=== PATIENT | female | born 1965 | race Caucasian/White ===

== ENCOUNTER 2022-10-02 08:33 | Emergency (ER) | payer OTHER, SELFPAY ==
[2022-10-02 08:40] VITALS: BP 137/76; PULSE 89; RESP 20; TEMP 36.7; O2SAT 98
--- NOTE | 2022-10-02 08:44 | ECG_ITS ---
Measurements Intervals [place] Rate: 76 P: 79 [place]: 140 QRS: 50 QRSD: 88 T: 71 QT: 357 QTc: 403 Interpretive Statements SINUS RHYTHM NORMAL ECG NO PREVIOUS ECG AVAILABLE FOR COMPARISON Electronically Signed On 10-02-2022 11:34:06 CAGE LOADER by To Wolff D.O.
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
== END 2022-10-02 09:16 | disposition short-term general hospital (02) ==
PROVIDERS: Emergency Provider Nurse Practitioner Family; PCP Family Medicine
DX: R06.00 Dyspnea, unspecified (principal)
CPT/HCPCS: 93005; 99214; G0463

== ENCOUNTER 2025-07-03 07:14 | Emergency (ER) | payer OTHER, SELFPAY ==
[2025-07-03] VITALS (16 sets, daily range): BP systolic 121–145; BP diastolic 67–93; PULSE 70–95; RESP 10–19; TEMP 36.6; O2SAT 100
--- NOTE | ~2025-07-03 | CT_ITS ---
EXAMINATION: CT abdomen pelvis w con DATE: 07/03/2025 08:56 INDICATION: Left lower quadrant abdominal pain TECHNIQUE: Computed tomography (CT) of the abdomen and pelvis was performed with 100 mL Omnipaque-350 intravenous contrast. Automated exposure control and iterative reconstruction technique were employed. The dose-length product was 186.77 mGy-cm. COMPARISON: None FINDINGS: Lung bases are clear. Heart size is normal. No pericardial or pleural effusion. Liver, gallbladder, spleen, pancreas, left adrenal gland and bilateral kidneys are normal. 11 mm right adrenal nodule statistically most likely to represent an adenoma. Bowels including the appendix are normal. Bladder, anteverted uterus and right adnexa are unremarkable. 2 cm left adnexal cyst/follicle. No free intraperitoneal gas or fluid. No pathologically enlarged abdominal or pelvic lymphadenopathy. There is calcified atherosclerosis of the aorta and many of the other arteries. Chronic mild L1 compression fracture with 20% anterior vertebral body height loss. IMPRESSION: 1. No acute intra-abdominal/pelvic process. Reviewed, dictated and finalized at location A. SMITTER SUPERVISOR
--- NOTE | 2025-07-03 07:31 | ECG_ITS ---
Test Date: 2025-07-03 08:29:10 Measurements Intervals [place] Rate: 71 P: 61 DC: 131 QRS: 18 QRSD: 80 T: 41 QT: 395 QTc: 429 Interpretive Statements SINUS RHYTHM EARLY PRECORDIAL R/S TRANSITION BORDERLINE ECG No previous ECG available for comparison Electronically Signed On 07-03-2025 08:38:56 STRINGING MACHINE OPERATOR by To Wolff D.O.
--- NOTE | 2025-07-03 08:08 | PC.NURSE ---
PT DIFFICULT STICK X2 ATTEMPTS. DARRELL IV THERAPY AT BEDSIDE TO ATTEMPT IV PLACEMENT.
[2025-07-03] MEDS: SODIUM CHLORIDE 0.9% IV 1,000 ML 150 ML IV CONT (08:21)
[2025-07-03] MEDS: ONDANSETRON INJ 4 MG/2 ML VIAL IV PUSH (08:22)
[2025-07-03] MEDS: MORPHINE SULFATE (*CRX) 4 MG/ML INJ IV PUSH (08:22)
[2025-07-03 08:24] LABS: Hematocrit 40.0 % (37.0-47.0); Hemoglobin 14.6 g/dL (12.0-15.0); Immature Granulocyte Percent A 0.3 % (0-0.5); Lymphocytes Absolute Auto 1.76 K/mm3 (0.9-3.2); Mean Corpuscular HGB Conc 36.5 g/dl (32-36); Mean Corpuscular Hemoglobin 32.4 pg (26-34); Mean Corpuscular Volume 88.9 fl (80-100); Nucleated Red Blood Cells Absolute Auto 0.000 K/mm3 (0.0-0.012); Nucleated Red Blood Cells Perc 0.0 % (0.0-0.2); Platelet Count Result 215 k/mm3 (150-375); Red Blood Count 4.50 M/mm3 (4.2-5.4); White Blood Count 6.5 K/mm3 (4.5-10.0)
[2025-07-03 08:35] LABS: Alanine Aminotransferase 19 U/L (6-35); Albumin Level 5.1 g/dL (3.5-5.1); Alkaline Phosphatase 74 U/L (38-126); Anion Gap 13 mmol/L (4-12); Aspartate Amino Transferase 33 U/L (14-36); Bilirubin,Total 0.8 mg/dL (0.2-1.3); Blood Urea Nitrogen 11 mg/dL (7-17); Calcium 9.7 mg/dL (8.4-10.2); Carbon Dioxide 17 mmol/L (22-30); Chloride 107 mmol/L (98-107); Estimated CRCL calculation 71 ml/min; Estimated Glomerular Filt Rate > 60; Glucose 78 mg/dL (65-110); Lipase 139 U/L (23-300); Potassium 4.1 mmol/L (3.4-5.0); Sodium 137 mmol/L (137-145); Total Protein 9.2 g/dL (6.3-8.2)
[2025-07-03 08:40] LABS: INR 1.1; Prothrombin Time 14.6 Seconds (11.1-14.7)
[2025-07-03 08:46] LABS: Troponin I < 0.012 ng/mL (0.000-0.034)
[2025-07-03 09:22] LABS: Add Urine Microscopic? YES; Appearance Urine Clear (Clear); Glucose Urine UA Negative (Negative); Leukocyte Esterase Ur Trace LEU/UL (Negative); Nitrate Urine Negative (Negative); Non Pathogenic Casts 0-2; Specific Grav Ur 1.040 (1.001-1.035)
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
[2025-07-03] MEDS: KETOROLAC 15 MG/ML VIAL (*BKC) IV PUSH (10:20)
== END 2025-07-03 10:23 | disposition home or self-care (01) ==
PROVIDERS: Emergency Provider Family Medicine; PCP Family Medicine
DX: R10.32 Left lower quadrant pain (principal); K74.60 Unspecified cirrhosis of liver; B19.20 Unspecified viral hepatitis C without hepatic coma
CPT/HCPCS: 36415; 74177; 80053; 81001; 83605; 83690; 84484; 85025; 85610; 93005; 96361; 96374; 96375; 99284; J1885; J2270; J2405; J7030; Q9967

== ENCOUNTER 2025-07-05 02:17 | Inpatient (IN) | payer OTHER, SELFPAY ==
[2025-07-05] VITALS (11 sets, daily range): BP systolic 103–152; BP diastolic 65–77; PULSE 58–84; RESP 13–18; TEMP 36.3–36.9; O2SAT 99–100; BMI 21.9
--- NOTE | ~2025-07-05 | XR_ITS ---
Examination: XR chest 1V portable Clinical History: abdominal pain Comparison: None Technique: Portable AP Findings: Heart size normal. Lungs clear. No acute bony abnormality. IMPRESSION: 1. No acute cardiopulmonary findings given portable technique. Reviewed, dictated and finalized at location R. E EPIDEMIOLOGIST
--- NOTE | ~2025-07-05 | XR_ITS ---
EXAM/PROCEDURE: XR abdomen/kub 1V HISTORY: constipation COMPARISON: None available. TECHNIQUE: KUB FINDINGS: At least moderate amount of stool extends to the cecal region. Scattered loops of gas dilated bowel with no severely distended loops of small bowel or large amount of free air seen. Lung bases clear. Bones appear intact. IMPRESSION: Nonspecific bowel gas pattern with at least moderate amount of stool extending to the cecal region. Reviewed, dictated and finalized at location A. METRY MONITOR
--- NOTE | ~2025-07-05 | CT_ITS ---
CT abdomen pelvis w con INDICATION:Persistent nausea . COMPARISON: None. TECHNIQUE: Axial images of the abdomen and pelvis were obtained following infusion of 100 mL Isovue 300. Dose optimization technique was utilized. FINDINGS: The lung bases are clear. Fatty infiltration of the liver is noted. No intrahepatic mass or ductal dilatation is evident. The gallbladder is unremarkable. The pancreas and spleen are normal in appearance. The adrenal glands are symmetric in size. The kidneys demonstrate symmetric uptake and excretion of contrast. No cystic mass is evident. There is no solid mass. There is no hydronephrosis. The stomach and bowel loops are unremarkable. The appendix is not visualized however no secondary signs of appendicitis are identified. The bladder and rectum are normal. No free intraperitoneal fluid or air is evident. There is no significant retroperitoneal lymphadenopathy. The aorta, visceral vessels and renal arteries demonstrate normal caliber and patency. The lower thoracic and lumbar vertebrae are in normal alignment. IMPRESSION: No acute abnormality is noted in the abdomen and pelvis. All CT scans at this facility are performed using low dose modulation techniques as appropriate to perform exam including the following: automated exposure control; use of iterative reconstruction technique; adjustment of the mA and/or kV according to patient size (this includes techniques or standardized protocols for targeted exams where dose is matched to indication/reason for exam). Reviewed, dictated and finalized at location S. LRY TECHNICIAN IMPRESSION: No acute abnormality is noted in the abdomen and pelvis. All CT scans at this facility are performed using low dose modulation techniqu es as appropriate to perform exam including the following: automated exposure c ontrol; use of iterative reconstruction technique; adjustment of the mA and/or kV according to patient size (this includes techniques or standardized protocol s for targeted exams where dose is matched to indication/reason for exam).
--- NOTE | ~2025-07-05 | CT_ITS ---
CTA abdomen pelvis Clinical History: abdominal pain Technique: Helical images lung bases to pelvic outlet IV contrast information not listed in PACS Coronal, sagittal reformats. Multiplanar MIPS CT images acquired with automatic exposure control for dose reduction DLP: 224 mGy-cm Comparison: CT 2 days prior Findings: CTA Findings: Abdominal aorta: No aneurysm or dissection. Calcified and noncalcified atherosclerotic disease. Common iliac arteries: Patent. External iliac arteries: Patent. Hypogastric arteries: Patent. CFAs: Patent. Proximal visualized SFAs and profundas: Patent. Celiac: Mild ostial stenosis. SMA: Mild ostial stenosis. ANN: Stenosis. Renal arteries: Patent. Non-CTA findings: Lung bases: Clear. Visualized heart and pericardium: Unremarkable. Liver: Cirrhosis. Steatosis. Gallbladder: Unremarkable. Spleen: Unremarkable. Pancreas: Unremarkable. Adrenal glands: Unremarkable. Kidneys: Right kidney- No renal stones. No hydronephrosis. Left kidney- No renal stones. No hydronephrosis. Distal esophagus/stomach: Unremarkable. Small bowel loops: Normal caliber and wall thickness. Colon: A few diverticula. Apparent wall thickening distally but under distended. Normal RLQ appendix. Nodes: No enlarged nodes. Peritoneum: No ascites. No free air. Urinary bladder: Unremarkable. Uterus: Unremarkable. Adnexa: No masses. Bones: No acute bony abnormality. Soft tissues: Unremarkable. IMPRESSION: 1. No acute abnormality. Reviewed, dictated and finalized at location R. PRODUCTION WORKER IMPRESSION: 1. No acute abnormality.
--- NOTE | 2025-07-05 03:33 | PC.NURSE ---
Pt states she is unable to provide urine sample at this time.
[2025-07-05 04:00] LABS: Hematocrit 39.4 % (37.0-47.0); Hemoglobin 14.1 g/dL (12.0-15.0); Immature Granulocyte Percent A 0.2 % (0-0.5); Lymphocytes Absolute Auto 2.21 K/mm3 (0.9-3.2); Mean Corpuscular HGB Conc 35.8 g/dl (32-36); Mean Corpuscular Hemoglobin 32.5 pg (26-34); Mean Corpuscular Volume 90.8 fl (80-100); Nucleated Red Blood Cells Absolute Auto 0.000 K/mm3 (0.0-0.012); Nucleated Red Blood Cells Perc 0.0 % (0.0-0.2); Platelet Count Result 193 k/mm3 (150-375); Red Blood Count 4.34 M/mm3 (4.2-5.4); White Blood Count 5.5 K/mm3 (4.5-10.0)
[2025-07-05 04:15] LABS: Alanine Aminotransferase 20 U/L (6-35); Albumin Level 4.7 g/dL (3.5-5.1); Alkaline Phosphatase 63 U/L (38-126); Anion Gap 14 mmol/L (4-12); Aspartate Amino Transferase 37 U/L (14-36); Bilirubin,Total 0.6 mg/dL (0.2-1.3); Blood Urea Nitrogen 9 mg/dL (7-17); Calcium 9.5 mg/dL (8.4-10.2); Carbon Dioxide 14 mmol/L (22-30); Chloride 108 mmol/L (98-107); Estimated CRCL calculation 77 ml/min; Estimated Glomerular Filt Rate > 60; Glucose 65 mg/dL (65-110); Lipase 161 U/L (23-300); Potassium 3.7 mmol/L (3.4-5.0); Sodium 136 mmol/L (137-145); Total Protein 8.3 g/dL (6.3-8.2)
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
--- NOTE | 2025-07-05 04:57 | ECG_ITS ---
Test Date: 2025-07-05 05:13:03 Measurements Intervals [place] Rate: 66 P: 59 PA: 127 QRS: 36 QRSD: 87 T: 59 QT: 390 QTc: 411 Interpretive Statements SINUS RHYTHM EARLY PRECORDIAL R/S TRANSITION BASELINE ARTIFACT- I, II, III, AVR, AVL, V6 BORDERLINE ECG Compared to ECG 07/03/2025 08:29:10 No significant changes Electronically Signed On 07-05-2025 09:27:46 WHARF ATTENDANT by To Wolff D.O.
[2025-07-05] MEDS: PANTOPRAZOLE SODIUM IV 40 MG VIAL IV PUSH ×2 (05:24→09:58)
[2025-07-05] MEDS: SODIUM CHLORIDE 0.9% IV 1,000 ML 999 ML IV CONT (05:24)
[2025-07-05] MEDS: ONDANSETRON INJ 4 MG/2 ML VIAL IV PUSH ×4 (05:24→22:25)
[2025-07-05] MEDS: MORPHINE SULFATE (*CRX) 4 MG/ML INJ IV PUSH (05:25)
[2025-07-05 05:37] LABS: Fractional Inspired Oxygen 21 %; HCO3 VBG 13.4 mEq/l (24.0-30.0); PO2 VBG 66.2 mmHg (35.0-45.0); pH VBG 7.346 (7.300-7.400)
--- OUTSIDE RECORDS SUMMARY | 2025-07-05 05:37 | XMS_ITS | Encounter Summary ---
Author Organization [facility] Address [address] [place] [address] Phone Care Team Providers Care Stitching Department Supervisor Name Role Phone Kodak Bernard MD Primary Care Provider [phone] [phone] Reason for Referral * Radiology Services (Routine) - Closed Specialty Diagnoses / Procedures Referred By Kurt marie Referred To Contact Radiology Diagnoses Pre-op testing Procedures EKG 12 LEAD Alan Sauceda DO [address] [place] [address] Phone: tel: fax: Referral ID Status Reason Start Date Expiration Date Visits Re quested Visits Authorized [id number] Closed 11/12/2020 1 1 Encounter Details Date Type Department Care Team (Late st Contact Info) Description 11/12/2020 Transcribe Orders [facility] Preop/Pacu II [address] [place] [id number] Alan Sauceda DO [address] [place] [address] Pre-op testing (Primary Dx) Social History Tobacco Use Types Packs/Day Years Used Date Smoking Tobacco: Every Day Cigarettes Smokeless Tobacco: Never Alcohol Use Standard Drinks/Week Comments Yes 0 (1 standard drink = 0.6 oz pur e alcohol) ONCE OR TWICE A MONTH AUDIT-C Answer Date Recorded Q1: How often do you have a drink containing alc ohol? Monthly or less 08/16/2020 Average Number of Drinks Not on file 021 Frequency of Binge Drinking Not on file 07/30 Sexually Active Control Partners Comments Not Currently Comments No Sex and Gender Information Value Date Recorded Sex Assigned at Not on file Legal Sex Female 8:34 AM CDT Gender Identity Not on file Sexual Orientation Not on file COVID-19 Exposure Response Date Recorded In the last month, have you been in contact with someone who was confirmed or suspected to have Coronavirus / COVID-19? No / Unsure 11/12/2020 9:06 AM CDT documented as of this encounter Plan of Treatment Not on file documented as of this encounter Results * EKG 12 LEAD (11/16/2020 4:24 PM CDT) Ventricular Rate BPM EXTERNAL EKG Atrial Rate BPM EXTERNAL EKG P-R Interval 142 ms EXTERNAL EKG QRS Duration 76 ms EXTERNAL EKG Q-T Duration 374 ms EXTERNAL EKG QTC CALCULATION 404 ms EXTERNAL EKG P [place] 78 degrees EXTERNAL EKG R [place] 68 degrees EXTERNAL EKG T [place] 70 degrees EXTERNAL EKG 11/16/2020 4:24 PM CDT Impressions EXTERNAL EKG - 11/17/2020 10:00 AM CDT Sinus rhythm Comparison Summary: No serial comparison made Summary: Borderline ECG Confirmed by Yue Price [id number] on 11/17/2020 10:00:27 AM Narrative Procedure Note Mattie Turner MD - 11/17/2020 IMPRESSION: Sinus rhythm Comparison Summary: No serial comparison made Summary: Borderline ECG Confirmed by Yue Price [id number] on 11/17/2020 10:00:27 AM Alan Sauceda DO IMG ECG ORDERABLES Final Result EXTERNAL EKG * HEMOGLOBIN & HEMATOCRIT (H&H) (11/16/2020 4:09 PM CDT) HEMOGLOBIN (HGB) 15.1 12.0 - 15.8 g/dL 11/16/2020 4:50 PM CDT [facility] HEMATOCRIT (HCT) 43.3 36.0 - 47.0 % 11/16/2020 4:50 PM CDT [facility] Blood Venipuncture / Unknown 11/16/2020 4:09 PM CDT 11/16/2020 4:42 PM CDT us Alan Sauceda DO HEMATOLOGY ORDERABL ES Final Result [facility] [address] [place] [address] documented in this encounter Visit Diagnoses Diagnosis Pre-op testing- Primary Preoperative examination, unspecified Pre-op testing Preoperative examination, unspecified documented in this encounter Care Teams Stitching Department Supervisor Relationship Specialty Start Date End Date [place] [address] PCP - General Internal Medicine 08/16/20 documented as of this encounter
--- OUTSIDE RECORDS SUMMARY | 2025-07-05 05:37 | XMS_ITS | Encounter Summary ---
Author Organization [facility] Healthcare Address [address] [place] [address] Care Team Providers Care Inside Tester Name Role Phone Kodak Bernard MD Primary Care Provider [phone] [phone] [facility] SAMPLE TESTER Unavailable [phone] [phone] Encounter Details Date Type Department Care Team (Late st Contact Info) Description 07/01/2025 Orders Only [facility] [address] [place] [address] Kodak Bernard MD [address] [place] [address] Social History Tobacco Use Types Packs/Day Years Used Date Smoking Tobacco: Heavy Smoker Cigarettes 0.8 45 Smokeless Tobacco: Never Comments:Smoking History Pac ks/day: 10 Cigarettes Alcohol Use Standard Drinks/Week Comments Yes 0 (1 standard drink = 0.6 oz pur e alcohol) occasionally PHQ-2 Answer Date Recorded PHQ-2 Total Score (If total score is 3 or more points, staff should administer the PHQ-9) 0 06/10/2025 PHQ-9 Answer Date Recorded PHQ-9 Total Score 0 08/21/2024 AUDIT-C Answer Date Recorded Q1: How often do you have a drink containing alc ohol? Never 05/28/2025 Average Number of Drinks Not on file 025 Frequency of Binge Drinking Not on file 05/01 Personal Safety Answer Date Recorded Have you ever been in or are you currently in a harmful physical or emotional relationship or is someone making you feel afraid or unsafe? 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 Gender Identity Not on file Sexual Orientation Not on file Occupation Industry Job Start Date Job End Date Not on file Not on file Not on file Not on file documented as of this encounter Plan of Treatment Not on file documented as of this encounter Visit Diagnoses Not on filedocumented in this encounter Care Teams Inside Tester Relationship Specialty Start Date End Date Kodak Bernard MD [address] [place] [address] PCP - General Family Medicine 08/13/18 Kaiser Hogan NP [address] [place] [address] [place] [address] Nurse Practitioner Gastroenterology 06/29/25 documented as of this encounter
--- OUTSIDE RECORDS SUMMARY | 2025-07-05 05:37 | XMS_ITS | Clinical Summary ---
Author Organization [facility] Address [address] [place] [address] Phone Care Team Providers Care Caramel Candy Maker Helper Name Role Phone Kodak Bernard MD Primary Care Provider [phone] [phone] Allergies Active Allergy Reactions Criticality Noted Date Comments Codeine Hives,Swelling,Anaph ylax is,Shortness of Breath Medium 04/10/2016 Reaction: Trouble Breathing, , , Reaction: Anaphylaxis, Medications citalopram (CELEXA) 40 MG Tablet Take 40 mg by mouth daily as needed. 03/15/2016 Active cyclobenzaprine (FLEXERIL) 10 MG Tablet Take 10 mg by mouth 3 times daily as needed. 06/21/2020 Active neomycin-polymyx in-hydrocortison e (CORTISPORIN) 3.5-26465-7 Suspension INSTILL 2 DROPS INTO THE LEFT EAR FOUR TIMES DAILY FOR 7 DAYS 06/21/2020 Active ondansetron (ZOFRAN-ODT) 4 MG TABLET DISPERSIBLE Take 1 Tablet by mouth once as needed for Nausea - 1st line for up to 3 doses. 3 Tablet 11/26/2020 Active sulfamethoxazole -trimethoprim DS (Bactrim DS) 800-160 MG Tablet Take 1 Tablet by mouth 2 times daily for 7 days. 14 Tablet 07/01/2025 07/08/20 25 Active Active Problems No known active problems Encounters Date Type Department Care Team Description 07/01/2025 9:38 AM HELP DESK TECHNICIAN - 07/01/2025 1:50 PM HELP DESK TECHNICIAN Emergency [facility] Emergency [address] [place] [address] Herb Koo MD Urinary tract infection Discharge Disposition: Discharged to home or Selfcare 07/01/2025 Travel 06/22/2025 8:57 AM HELP DESK TECHNICIAN - 06/22/2025 9:37 AM HELP DESK TECHNICIAN Emergency [facility] Emergency [address] [place] [address] Rafy Bradley MD Generalized abdominal pain Discharge Disposition: Left Against Medical Advice 06/22/2025 Travel 06/13/2025 5:58 PM HELP DESK TECHNICIAN - 06/13/2025 8:20 PM HELP DESK TECHNICIAN Emergency [facility] Emergency [address] [place] [address] Cody Gaytan MD Generalized abdominal pain Discharge Disposition: Discharged to home or Selfcare 06/13/2025 Travel from Last 3 Months Family History Medical History Relation Name Comments No Known Problems Father Arrhythmia Mother Chronic Obstructive Pulmonary Disease Mother Relation Name Status Comments Father Alive Mother Social History Tobacco Use Types Packs/Day Years Used Date Smoking Tobacco: Every Day Cigarettes Smokeless Tobacco: Never Tobacco Cessation:Ready to Q uit: No; Counseling Given: Yes Alcohol Use Standard Drinks/Week Comments Yes 0 [...] on file Sexual Orientation Not on file Last Filed Vital Signs Vital Sign Reading Time Taken Comments Blood Pressure 133/62 07/01/2025 1:30 PM HELP DESK TECHNICIAN Pulse 81 07/01/2025 1:30 PM HELP DESK TECHNICIAN Temperature 37.2 C (98.9 F) 07/01/2025 9:19 AM HELP DESK TECHNICIAN Respiratory Rate 18 07/01/2025 12:48 PM HELP DESK TECHNICIAN Oxygen Saturation 100% 07/01/2025 1:30 PM HELP DESK TECHNICIAN Inhaled Oxygen Concentration - - Weight 60.8 kg (134 lb) 07/01/2025 9:19 AM HELP DESK TECHNICIAN Height 165.1 cm (5' 5) 07/01/2025 9:19 AM HELP DESK TECHNICIAN Body Mass Index 22.3 07/01/2025 9:19 AM HELP DESK TECHNICIAN Plan of Treatment Health Maintenance Due Date Last Done Comments Hepatitis C Virus (HCV) Screening 1965 TdaP Immunization 1965 Pneumococcal Immunization (50+ years) (1 of 2 - PCV) 1982 Pap Smear 01/04/1984 Cervical Cancer Screening (CCS) 1993 HPV/Cotest 1993 Cologuard 01/04/2008 Immunochemical Fecal Occult Blood 01/04/2008 Zoster Immunization (1 of 2) 2013 Influenza Immunization (#1) 2025 04/19/2017 SARS-COV-2 Immunization ( season) 2025 06/29/2021, 10/09/2020, 08/17/2020 Mammogram 04/24/2026 04/24/2025, 04/30, 05/23/2023, Additional history exists Colonoscopy 11/10/2034 11/10/2024, 04/0 12/2020, 08/03/2020 Colorectal Cancer Screening 11/10/2034 Respiratory Syncytial Virus (RSV) Immunization (Adult) (1 - 1-dose 75+ series) 2038 Hepatitis B Immunization Completed 024, 04/19/2023, 03/19/2023 Human Papillomavirus (HPV) Immunization Aged Out No longer eligible based on patient's age to complete this topic Meningococcal Immunization (ACWY) Aged Out No longer eligible based on patient's age to complete this topic Rotavirus Immunization Aged Out No lo nger eligible based on patient's age to complete this topic Procedures Procedure Name Priority Date/Time Associated Diagnosis Comments CT ABDOMEN PELVIS W/ CONTRAST Stat with Interpretation 07/01/2025 11:28 AM HELP DESK TECHNICIAN URINALYSIS REFLEX IF INDICATED BY ABNORMAL RESULTS STAT 07/01/2025 11:12 AM HELP DESK TECHNICIAN CULTURE, URINE STAT 07/01/2025 11:12 AM HELP DESK TECHNICIAN CBC WITH AUTO DIFFERENTIAL STAT 07/01/2025 9:32 AM HELP DESK TECHNICIAN LIPASE STAT 07/01/2025 9:32 AM HELP DESK TECHNICIAN CMP (COMPREHENSIVE METABOLIC PANEL) STAT 07/01/2025 9:32 AM HELP DESK TECHNICIAN COMPLETE BLOOD COUNT (CBC) WITH DIFF STAT 07/01/2025 9:32 AM HELP DESK TECHNICIAN CBC WITH AUTO DIFFERENTIAL STAT 06/13/2025 6:20 PM HELP DESK TECHNICIAN LIPASE STAT 06/13/2025 6:20 PM HELP DESK TECHNICIAN CMP (COMPREHENSIVE METABOLIC PANEL) STAT 06/13/2025 6:20 PM HELP DESK TECHNICIAN COMPLETE BLOOD COUNT (CBC) WITH DIFF STAT 06/13/2025 6:20 PM HELP DESK TECHNICIAN URINALYSIS REFLEX IF INDICATED BY ABNORMAL RESULTS STAT 06/13/2025 6:03 PM HELP DESK TECHNICIAN from Last 3 Months Results * CT ABDOMEN PELVIS W/ CONTRAST (07/01/2025 11:28 AM HELP DESK TECHNICIAN) Anatomical Region Laterality Modality Abdomen N/A Computed Tomogra phy 07/01/2025 11:2 8 AM HELP DESK TECHNICIAN Impressions 07/01/2025 12:00 PM HELP DESK TECHNICIAN IMPRESSION: 1. No acute abnormality abdomen or pelvis. 2. 2.3 cm benign-appearing left ovarian cyst. No follow-up imaging recommended per ACR O-RADS criteria. Narrative 07/01/2025 12:00 PM HELP DESK TECHNICIAN DICTATING PHYSICIAN: Jose Wong M.D. - [facility] EXAM: CT ABDOMEN PELVIS W/ CONTRAST 07/01/2025 11:28 AM HISTORY: Acute abdominal pain. COMPARISON: None. TECHNIQUE: 81 mL Isovue 300 IV. No contrast reaction. RADIATION EXPOSURE: Radiation dose reduction techniques were employed. CTDIvol: 3.6 - 7.2 mGy. DLP: 496 mGy-cm. FINDINGS: ABDOMEN: Liver: Unremarkable. Gallbladder & Bile Ducts: Unremarkable. Spleen: Normal size. Pancreas: Unremarkable. Adrenal Glands: Unremarkable. Kidneys: Unremarkable. Aorta: Diffuse calcified and noncalcified plaque. No aneurysm. IVC and Retroperitoneum: Unremarkable. Lymph nodes: No lymphadenopathy. Colon: Unremarkable. Normal appendix. Small Bowel and Stomach: Unremarkable. Mesentery: Unremarkable. Peritoneum: No ascites or free air. Abdominal Wall: Unremarkable. No hernia. PELVIS: Urinary Bladder: Unremarkable Uterus and adnexa: Hysterectomy. 2.3 cm unilocular left ovarian cyst. Lymph Nodes:No lymphadenopathy. Hernias: No inguinal or femoral hernia seen. Soft Tissues: Unremarkable. Bones: Unremarkable. Lung bases: Unremarkable. Procedure Note Jose Wong MD - 07/01/2025 DICTATING PHYSICIAN: Jose [facility] EX[facility]: CT ABDOMEN PELVIS W/ CONTRAST 07/01/2025 11:28 AM HISTORY: Acute abdominal pain. COMPARISON: None. TECHNIQUE: 81 mL Isovue 300 IV. No contrast reaction. RADIATION EXPOSURE: Radiation dose reduction techniques were employed.CTDIvol: 3.6 - 7.2 mGy. DLP: 496 mGy-cm. FINDINGS: ABDOMEN: Liver: Unremarkable. Gallbladder & Bile Ducts: Unremarkable. Spleen: Normal size. Pancreas: Unremarkable. Adrenal Glands: Unremarkable. Kidneys: Unremarkable. Aorta: Diffuse calcified and noncalcified plaque. No aneurysm. IVC and Retroperitoneum: Unremarkable. Lymph nodes: No lymphadenopathy. Colon: Unremarkable. Normal appendix. Small Bowel and Stomach: Unremarkable. Mesentery: Unremarkable. Peritoneum: No ascites or free air. Abdominal Wall: Unremarkable. No hernia. PELVIS: Urinary Bladder: Unremarkable Uterus and adnexa: Hysterectomy. 2.3 cm unilocular left ovariancyst. Lymph Nodes:No lymphadenopathy. Hernias: No inguinal or femoral hernia seen. Soft Tissues: Unremarkable. Bones: Unremarkable. Lung bases: Unremarkable. IMPRESSION: 1. No acute abnormality abdomen or pelvis. 2. 2.3 cm benign-appearing left ovarian cyst. No follow-up imagingrecommended per ACR O-RADS criteria. Herb Koo MD IMG CT ORDERABLES Final Result * (ABNORMAL) Urinalysis w/ Reflex (07/01/2025 11:12 AM HELP DESK TECHNICIAN) Only the most recent of2 resultswithin the time period is included. SPECIFIC GRAVITY 1.015 1.003 - 1.030 07/01/2025 12:40 PM [facility] URINE PH 6.0 5.0 - 9.0 07/01/2025 12:40 PM [facility] WBC ESTERASE 25 /ul(A) Negative 07/01/2025 12:40 PM [facility] NITRITE Negative Negative 07/01/2025 12:40 PM [facility] PROTEIN, RANDOM URINE 15 mg/dL(A) Negative 07/01/2025 12:40 PM [facility] URINE GLUCOSE, QUAL Negative Negative 07/01/2025 12:40 PM [facility] URINE KETONES 50 mg/dL(A) Negative 07/01/2025 12:40 PM [facility] UROBILINOGEN Normal Normal mg/dL 07/01/2025 12:40 PM [facility] URINE BLOOD 10 /uL(A) Negative theresa/ul 07/01/2025 12:40 PM [facility] URINALYSIS COLOR Yellow 07/01/20 25 12:40 PM [facility] URINALYSIS CLARITY Slightly Cloudy 07/01/2025 12:40 PM [facility] WBC (Urine) 21-50(A) Negative, 0-5 /hpf 07/01/2025 12:40 PM [facility] URINE RBC'S 0-2 Negative, 0-2 /hpf 07/01/2025 12:40 PM [facility] EPITHELIAL CELLS Small amount /lpf 2024 12:40 PM [facility] BACTERIA, URINE Few(A) Negative /hpf 07/01/2025 12:40 PM HELP DESK TECHNICIAN [facility] CASTS 1-5/LPF Hyaline Casts 5-10/LPF Cellular Casts(A) Negative, 0-2/lpf, 3-5/lpf, 6-10/lpf, 11-20/lpf, >20/lpf, Rare Hyaline, Few Hyaline, Moderate Hyaline, Many Hyaline, Rare Granular, Few Granular, Moderate Granular, Many Granular, Few WBC, Moderate WBC , Many WBC , Rare WBC, Rare RBC, Few RBC, Moder... /lpf 07/01/2025 12:40 PM HELP DESK TECHNICIAN [facility] Urine URINE SPECIMEN / Unknown Non-Phlebotomy Collection / Unknown 07/01/2025 11:12 AM HELP DESK TECHNICIAN 07/01/2025 11:44 AM HELP DESK TECHNICIAN Herb Koo MD URINE ORDERABLES Final Result Performing Organization Address City/[facility]/ZIP Co de Phone Number [facility] [address] [place] [address] * Culture, Urine (07/01/2025 11:12 AM HELP DESK TECHNICIAN) CULTURE RESULTS Mixed Growth of One or More Distal Urethral Contaminants 07/02/2025 11:53 PM HELP DESK TECHNICIAN [facility] Urine URINE SPECIMEN / Unknown Non-Phlebotomy Collection / Unknown 07/01/2025 11:12 AM HELP DESK TECHNICIAN 07/01/2025 11:44 AM HELP DESK TECHNICIAN Herb Koo MD MICROBIOLOGY - GENERAL ORDERABLES Final Result [facility] [address] [place] [address], [place] * (ABNORMAL) CBC with Auto Differential (07/01/2025 9:32 AM HELP DESK TECHNICIAN) Only the most recent of2 resultswithin the time period is included. WBC 7.91 4.00 - 12.00 10(3)/mcL 07/01/2025 10:01 AM HELP DESK TECHNICIAN [facility] RBC 4.99 3.80 - 5.30 10(6)/mcL 07/01/2025 10:01 AM [facility] HEMOGLOBIN (HGB) 16.2(H) 12.0 - 15.8 g/dL 07/01/2025 10:01 AM [facility] HEMATOCRIT (HCT) 46.3 36.0 - 47.0 % 07/01/2025 10:01 AM [facility] MCV 92.8 82.0 - 96.0 fL 07/01/2025 10:01 AM [facility] MCH 32.5 26.0 - 34.0 pg 07/01/2025 10:01 AM [facility] MCHC 35.0 31.0 - 36.0 g/dL 07/01/2025 10:01 AM [facility] PLATELET COUNT 189 140 - 440 10(3)/mcL 07/01/2025 10:01 AM [facility] RDW 11.8 11.8 - 15.5 % 07/01/2025 10:01 AM [facility] MPV 10.9 9.7 - 12.4 fL 07/01/2025 10:01 AM [facility] NEUTROPHILS 61.8 47.0 - 73.0 % 07/01/2025 10:01 AM [facility] LYMPHOCYTES 29.3 18.0 - 42.0 % 07/01/2025 10:01 AM [facility] MONOCYTES 7.0 4.0 - 12.0 % 07/01/2025 10:01 AM [facility] EOSINOPHILS 0.8 0.0 - 5.0 % 07/01/2025 10:01 AM [facility] BASOPHILS 1.0 0.0 - 1.0 % 07/01/2025 10:01 AM [facility] IMMATURE GRANULOCYTE 0.1 0.0 - 0.4 % 07/01/2025 10:01 AM [facility] ABSOLUTE NEUTROPHILS 4.89 1.60 - 7.70 10(3)/mcL 07/01/2025 10:01 AM HELP DESK TECHNICIAN [facility] ABSOLUTE LYMPHOCYTES 2.32 1.30 - 3.20 10(3)/mcL 07/01/2025 10:01 AM HELP DESK TECHNICIAN [facility] ABSOLUTE MONOCYTES 0.55 0.20 - 1.00 10(3)/mcL 07/01/2025 10:01 AM HELP DESK TECHNICIAN [facility] ABSOLUTE EOSINOPHIL 0.06 0.00 - 0.40 10(3)/mcL 07/01/2025 10:01 AM HELP DESK TECHNICIAN [facility] ABSOLUTE BASOPHILS 0.08 0.00 - 0.10 10(3)/[facility] 07/01/2025 10:01 AM HELP DESK TECHNICIAN [facility] ABSOLUTE IMMATURE GRANULOCYTE 0.01 0.00 - 0.03 10 (3) mcL. 07/01/2025 10:01 AM HELP DESK TECHNICIAN [facility] NRBC PER 100 WBC 0 07/01/20 25 10:01 AM HELP DESK TECHNICIAN [facility] Blood Venipuncture / Unknown 07/01/2025 9:32 AM HELP DESK TECHNICIAN 07/01/2025 9:59 AM HELP DESK TECHNICIAN Herb Koo MD HEMATOLOGY ORDERABLES F inal Result Performing Organization Address City/[facility]/ZIP Co de Phone Number [facility] [address] [place] [address] * Lipase (07/01/2025 9:32 AM HELP DESK TECHNICIAN) Only the most recent of2 resultswithin the time period is included. LIPASE 38 8 - 78 U/L 07/01/2025 10:23 AM HELP DESK TECHNICIAN [facility] Blood Venipuncture / Unknown 07/01/2025 9:32 AM HELP DESK TECHNICIAN 07/01/2025 9:59 AM HELP DESK TECHNICIAN Herb Koo MD CHEMISTRY ORDERABLES Fi nal Result Performing Organization Address City/[facility]/ZIP Co de Phone Number [facility] [address] [place] [address] * (ABNORMAL) CMP (07/01/2025 9:32 AM HELP DESK TECHNICIAN) Only the most recent of2 resultswithin the time period is included. SODIUM 138 136 - 145 mmol/L 07/01/2025 10:23 AM [facility] POTASSIUM 4.0 3.5 - 5.1 mmol/L 07/01/2025 10:23 AM [facility] CHLORIDE 106 98 - 107 mmol/L 07/01/2025 10:23 AM [facility] CO2, VENOUS 15(L) 22 - 30 mmol/L 07/01/2025 10:23 AM [facility] ANION GAP 21.0(H) <18.0 mmol/L 07/01/2025 10:23 AM [facility] GLUCOSE 87 70 - 99 mg/dL 07/01/2025 10:23 AM [facility] BUN 8(L) 10 - 20 mg/dL 07/01/2025 10:23 AM [facility] CREATININE, BLOOD 0.87 0.60 - 1.00 mg/dL 07/01/2025 10:23 AM [facility] BUN/CREATININE RATIO 9(L) 12 - 20 ratio 07/01/2025 10:23 AM [facility] TOTAL PROTEIN 8.7(H) 6.0 - 8.0 g/dL 07/01/2025 10:23 AM [facility] ALBUMIN 4.9 3.5 - 5.0 g/dL 07/01/2025 10:23 AM [facility] A/G RATIO 1.3 1.0 - 2.2 07/01/2025 10:23 AM [facility] CALCIUM 10.3 8.7 - 10.5 mg/dL 07/01/2025 10:23 AM [facility] T BILI 0.4 0.2 - 1.2 mg/dL 07/01/2025 10:23 AM HELP DESK TECHNICIAN [facility] SGOT (AST) 33 <43 U/L 07/01/2025 10:23 AM [facility] SGPT (ALT) 19 <56 U/L 07/01/2025 10:23 AM [facility] ALKALINE PHOSPHATASE 62 40 - 150 U/L 07/01/2025 10:23 AM [facility] GFR, ESTIMATED >60 >=60 07/01/2025 10:23 AM [facility] Comment: Creatinine Clearance is the preferred criteria for selecting drug dose adjustments in renally impaired patients. The GFR is provided as additional pertinent clinical information. GFR is reported in mL/min/1.73 sq m. Calculation based on the 2020 Chronic Kidney Disease Epidemiology Collaboration (CKD-EPI) equation refit without adjustment for race. GFR, EST. >60 >=60 10:23 AM [facility] Comment: Creatinine Clearance is the preferred criteria for selecting drug dose adjustments in renally impaired patients. The GFR is provided as additional pertinent clinical information. GFR is reported in mL/min/1.73 sq m. Calculation based on the 2009 Chronic Kidney Disease Epidemiology Collaboration (CKD-EPI). GFR, EST. NONAFRICAN >60 >=60 07/01/2025 10:23 AM [facility] Comment: Creatinine Clearance is the preferred criteria for selecting drug dose adjustments in renally impaired patients. The GFR is provided as additional pertinent clinical information. GFR is reported in mL/min/1.73 sq m. Calculation based on the 2009 Chronic Kidney Disease Epidemiology Collaboration (CKD-EPI). Blood Venipuncture / Unknown 07/01/2025 9:32 AM HELP DESK TECHNICIAN 07/01/2025 9:59 AM HELP DESK TECHNICIAN us Herb Koo MD CHEMISTRY ORDERABLES Fi nal Result [facility] [address] [place] [address] from Last [address] [place] [address] [place] [address] Member Subscriber Plan / Payer (Ef fective 2016-Present) Name:Raissa Alvaradobryan Ruth Member ID:xxx# [id number] Relation to Subscriber:Self Name:Giovana Alvarado Faraz Subscriber ID:xxx# [id number] Payer ID:PAPER Group ID:NONE Type:Not on file [phone] [address]: [address] [place] [id number] Care Teams Caramel Candy Maker Helper Relationship Specialty Start Date End Date Kodak Bernard [place] [address] PCP - General Internal Medicine 08/16/20
--- OUTSIDE RECORDS SUMMARY | 2025-07-05 05:37 | XMS_ITS | Encounter Summary ---
Author Organization [facility] Address [address] [place] [address] Phone Care Team Providers Care Administrative Services Officer Name Role Phone Kodak Bernard MD Primary Care Provider [phone] Encounter Details Date Type Department Care Team (Late st Contact Info) Description 08/17/2020 Transcribe Orders [facility] Preop/Pacu II [address] [place] [phone] Terry Ortiz DPM [address] [place] [phone] Pre-op testing (Primary Dx) Social History Tobacco Use Types Packs/Day Years Used Date Smoking Tobacco: Every Day Cigarettes Smokeless Tobacco: Never Alcohol Use Standard Drinks/Week Comments Not Currently 0 (1 standard drink = 0.6 oz pur e alcohol) AUDIT-C Answer Date Recorded Q1: How often [...] have Coronavirus / COVID-19? No / Unsure 08/17/2020 11:46 AM CYTOPATHOLOGIST documented as of this encounter Plan of Treatment Scheduled Orders Name Type Priority Associated Diagnoses Orde r Schedule SARS-COV-2 BY MOLECULAR Microbiology Routine Pre-op testing Expected: 08/24/2020, Expires: 11/15/2020 documented as of this encounter Visit Diagnoses Diagnosis Pre-op testing- Primary Preoperative examination, unspecified documented in this encounter Care Teams Administrative Services Officer Relationship Specialty Start Date End Date [place] [address] PCP - General Internal Medicine 08/16/20 documented as of this encounter
--- OUTSIDE RECORDS SUMMARY | 2025-07-05 05:37 | XMS_ITS | Encounter Summary ---
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 No / Unsure 08/17/2020 11:46 AM CHOCOLATE FINISHER OPERATOR documented as of this encounter Plan of Treatment Scheduled Orders Name Type Priority Associated Diagnoses Orde r Schedule HEMOGLOBIN & HEMATOCRIT (H&H) Lab Routine Pre-op testing Expected: 08/24/2020, Expires: 11/16/2020 EKG 12 LEAD ECG Routine Pre-op testing Expected: 08/24/2020, Expires: 11/16/2020 documented as of this encounter Visit Diagnoses Diagnosis Pre-op testing- Primary Preoperative examination, unspecified documented in this encounter Care Teams Precision Agronomist Relationship Specialty Start Date End Date Kodak Bernard MD [address] [place] [address] PCP - General Internal Medicine 08/16/20 documented as of this encounter
--- OUTSIDE RECORDS SUMMARY | 2025-07-05 05:37 | XMS_ITS | Encounter Summary ---
Author Organization [facility] Address [address] [place] [address] Care Team Providers Care Sales Solutions Associate Name Role Phone Kodak Bernard MD Primary Care Provider [phone] [phone] Kaiser Hogan PRIVATE ADVISOR Unavailable [phone] [phone] Encounter Details Date Type Department Care Team (Latest Contact Info) Description 06/11/2025 Results Follow-Up [facility] Gastroenterology at [address] [place] [address] Kaiser Hogan NP [address] [place] [address] [address] [place] [address] Protime-INR, [id number], Tumor Marker, Comprehensive metabolic panel, Additional followed-up results: 4 Social History Tobacco Use Types Packs/Day Years [...] making you feel afraid or unsafe? Denies 06/10/2025 Comments No Sex and Gender Information Value Date Recorded Sex Assigned at Not on file Legal Sex Female 3:34 AM INTERMEDIATE CARD TENDER Gender Identity Not on file Sexual Orientation Not on file Occupation Industry Job Start Date Job End Date Not on file Not on file Not on file Not on file documented as of this encounter Functional Status * BP Location Answer Date of Assessment Author Right arm 06/12/2025 12:51 PM INTERMEDIATE CARD TENDER Dhaval Tmaez MA * BP Location Answer Date of Assessment Author Right arm 06/12/2025 12:51 PM INTERMEDIATE CARD TENDER Dhaval Tamez MA documented as of this encounter Miscellaneous Notes * Result Encounter Note - Kaiser Hogan NP - 06/11/2025 3:18 PM CST [facility] [place], MRI showed stable liver disease with no concerns for a mass or lesion. Tentative plan will be to repeat MRI in six months. Sincerely, SAILAJA Begum RMEDIATE CARD TENDER * Result Encounter Note - Kaiser Hogan NP - 06/11/2025 8:30 AM CST No significant findings of concern on your labs. RMEDIATE CARD TENDER documented in this encounter Plan of Treatment Not on file documented as of this encounter Visit Diagnoses Not on filedocumented in this encounter Care Teams Sales Solutions Associate Relationship Specialty Start Date End [place] [address] PCP - General Family Medicine 08/13/18 Kaiser Hogan NP [address] [facility] [place] [place] [address] Nurse Practitioner Gastroenterology 06/29/25 documented as of this encounter
--- OUTSIDE RECORDS SUMMARY | 2025-07-05 05:37 | XMS_ITS | Encounter Summary ---
Author Organization [facility] Address [address] [place] [address] Phone Care Team Providers Care Travel Trailer Components Assembler Name Role Phone Kodak Bernard MD Primary Care Provider [phone] [phone] Encounter Details Date Type Department Care Team (Late st Contact Info) Description 11/11/2020 Transcribe Orders [facility] Preop/Pacu II [address] [place] [phone] Terry Ortiz DPM [address] [place] [phone] Pre-op testing (Primary Dx) Social History Tobacco [...] documented as of this encounter Results * SARS-COV-2 BY MOLECULAR (11/16/2020 4:09 PM CDT) SARSCOV2 NOT DETECTED (Referen ce Range for this test is Not Detected ) [facility] FAST DX 11/17/2020 7:42 PM CDT [facility] Comment:This test was perfor med by a RT-PCR method. Other NASOPHARYNGEAL STRUCTURE / Unknown Non-Phlebotomy Collection / Unknown 11/16/2020 4:09 PM CDT 11/16/2020 4:41 PM CDT Narrative [facility] - 11/17/2020 7:42 PM CDT Authorized Fact Sheets about this test for providers and patients are available at: https://www.fda.gov/medical-devices/dtktzhbog-bfepzlibci-nhwauml-devices/emergen cy-us e-authorizations us Terry Ortiz DPM MICROBIOLOGY - GENERAL ORDERABLE S Final Result [facility] [address] [place] [address], [place] documented in this encounter Visit Diagnoses Diagnosis Pre-op testing- Primary Preoperative examination, unspecified documented in this encounter Care Teams Travel Trailer Components Assembler Relationship Specialty Start Date End [place] [address] PCP - General Internal Medicine 08/16/20 documented as of this encounter
--- OUTSIDE RECORDS SUMMARY | 2025-07-05 05:37 | XMS_ITS | Encounter Summary ---
Author Organization [facility] Address [address] [place] [address] Care Team Providers Care Salsa Dance Instructor Name Role Phone Kodak Bernard MD Primary Care Provider [phone] Kaiser Hogan HEAD WAITER/WAITRESS BANQUET Unavailable [phone] Reason for Visit * Reason Onset Date Comments Palpitations 05/19/2025 Encounter Details Date Type Department Care Team (Late st Contact Info) Description 05/19/2025 Nurse Triage [facility] [address] [place] [address] Kodak Bernard MD [address] [place] [address] Social History Tobacco Use Types Packs/Day Years Used Date Smoking Tobacco: Heavy Smoker Cigarettes 0.8 45 Smokeless Tobacco: Never Comments:Smoking History Pac ks/day: 10 Cigarettes Alcohol Use Standard Drinks/Week Comments Yes 0 (1 standard drink = 0.6 oz pur e alcohol) occasionally AUDIT-C Answer Date Recorded Q1: How often do you have a drink containing alcohol? Never 11/25/2024 Q2: How many drinks containi ng alcohol do you have on a typical day when you are drinking? Patient does not drink Q3: How often do you have si x or more drinks on one occasion? Never 11/25/2024 PHQ-2 Answer Date Recorded PHQ-2 Total Score (If total score is 3 or more points, staff should administer the PHQ-9) 0 03/17/2025 PHQ-9 Answer Date Recorded PHQ-9 Total Score 0 08/21/2024 Personal Safety Answer Date Recorded Have you ever been in or are you currently in a harmful physical or emotional relationship or is someone making you feel afraid or unsafe? 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 Thank you. * Telephone Encounter - Ramona Corley RN - 05/19/2025 11:37 AM CDT Reason for Conversation Palpitations Background Pt reports that she was having palpitations this morning, felt hot and flushed. she checked her heart rate and it was 112 on her pulse ox. States that she took her morning potassium pills and symptoms subsided. She was recently started on potassium after ED visit and has been taking it BID. She denies any symptoms currently and heart rate is 82. Pt inquiring if she should go get repeat potassium test that PCP ordered for her done now or if she should wait until it has been one week since last test. Also inquiring if she should continue metoprolol. States that she has developed random problems since starting that medication. Denies any additional needs. Home care provided and pt advised to c all back with new or worsening symptoms. Encounter routed to the clinical pool, please advise Giovana Alvarado if she should get blood work that is ordered drawn today and PCP recommendation about medication. Disposition See Today in Office Reason for Disposition Age > 60 years (Exception: Brief heartbeat symptoms that went away and now feels well.) Protocols Used Heart Rate and Heartbeat [id number] * Telephone Encounter - Ramona Corley RN - 05/19/2025 11:27 AM CDT Regarding: felt like her hearts coming out of her chest, hot flash, red face, and heart rate was 112 to 82 ----- Message from Angelica Pollard sent at 05/19/2025 11:22 AM CDT ----- Symptom Based Call Chief Complaint(s): Patient called stating she felt like her hearts coming out of her chest, hot flash, red face, and heart rate was 112 went down to 82. Duration: yesterday and this morning What type of symptom(s) is the patient experiencing? Red Flag. Is the patient concerned they are experiencing a medical emergency requiring an ambulance? No Additional Comments: Patient seen at [facility] last Sunday for hand and arms tingling, Does message need to be routed? Yes-Action Needed documented in this encounter Plan of Treatment Not on file documented as of this encounter Visit Diagnoses Not on filedocumented in this encounter Care Teams Salsa Dance Instructor Relationship Specialty Start Date End Date Kodak Bernard MD [address] [place] [address] PCP - General Family Medicine 08/13/18 Kaiser Hogan NP [address] [place] [address] [place] [address] Nurse Practitioner Gastroenterology 06/29/25 documented as of this encounter
--- OUTSIDE RECORDS SUMMARY | 2025-07-05 05:37 | XMS_ITS | Clinical Summary ---
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 06/01/2025, Additional history exists Procedures Procedure Name Priority Date/Time Associated Diagnosis Comments CT ABDOMEN PELVIS W CONTRAST ED 06/22/2025 10:46 AM UI APPLICATION DEVELOPER URINALYSIS, MICROSCOPIC ONLY STAT 06/22/2025 9:52 AM UI APPLICATION DEVELOPER URINALYSIS AND REFLEX TO MICROSCOPIC AND CULTURE STAT 06/22/2025 9:52 AM UI APPLICATION DEVELOPER EGFR STAT 06/22/2025 9:46 AM UI APPLICATION DEVELOPER DIFFERENTIAL AUTO STAT 06/22/2025 9:4 6 AM UI APPLICATION DEVELOPER SEPSIS LACTATE WITH REFLEX STAT 06/22/2025 9:46 AM UI APPLICATION DEVELOPER LIPASE STAT 06/22/2025 9:46 AM UI APPLICATION DEVELOPER COMPREHENSIVE METABOLIC PANEL STAT 06/22/2025 9:46 AM UI APPLICATION DEVELOPER CBC WITH AUTO DIFFERENTIAL STAT 06/22/2025 9:46 AM UI APPLICATION DEVELOPER DIFFERENTIAL AUTO STAT 06/19/2025 6:0 3 AM UI APPLICATION DEVELOPER CBC WITH AUTO DIFFERENTIAL STAT 06/19/2025 6:03 AM UI APPLICATION DEVELOPER EGFR STAT 06/19/2025 5:18 AM UI APPLICATION DEVELOPER LIPASE STAT 06/19/2025 5:18 AM UI APPLICATION DEVELOPER THYROID FUNCTION CASCADE STAT 06/19/2025 5:18 AM UI APPLICATION DEVELOPER COMPREHENSIVE METABOLIC PANEL STAT 06/19/2025 5:18 AM UI APPLICATION DEVELOPER ECG 12-LEAD STAT 06/19/2025 4:57 AM UI APPLICATION DEVELOPER HOLTER MONITOR 48 HR Routine 06/12/2025 11:31 AM UI APPLICATION DEVELOPER Dizziness Palpitations TROPONIN T HIGH-SENSITIVITY 2-HOUR Timed 06/11/2025 12:15 AM UI APPLICATION DEVELOPER TROPONIN T HIGH-SENSITIVITY SERIES (BASELINE, 2HR, 4HR, 6HR) STAT 06/10/2025 9:56 PM UI APPLICATION DEVELOPER CT CHEST PE ABDOMEN PELVIS W CONTRAST ED 06/10/2025 8:35 PM UI APPLICATION DEVELOPER XR CHEST PA LATERAL 2 VIEWS ED 06/10/2025 6:42 PM UI APPLICATION DEVELOPER EGFR STAT 06/10/2025 6:27 PM UI APPLICATION DEVELOPER DIFFERENTIAL AUTO STAT 06/10/2025 6:2 7 PM UI APPLICATION DEVELOPER COMPREHENSIVE METABOLIC PANEL STAT 06/10/2025 6:27 PM UI APPLICATION DEVELOPER CBC WITH AUTO DIFFERENTIAL STAT 06/10/2025 6:27 PM UI APPLICATION DEVELOPER ECG 12-LEAD STAT 06/10/2025 6:11 PM UI APPLICATION DEVELOPER MRI ABDOMEN LIVER W WO CONTRAST Schedule Routine, Read Routine (OP Routine) 06/10/2025 7:46 AM UI APPLICATION DEVELOPER Advanced hepatic fibrosis Hepatic lesion EGFR Routine 06/10/2025 6:35 AM UI APPLICATION DEVELOPER Advanced hepatic fibrosis Chronic hepatitis C with cirrhosis (HCC) EGFR Routine 06/10/2025 6:35 AM UI APPLICATION DEVELOPER Advanced hepatic fibrosis Hepatic lesion DIFFERENTIAL AUTO Routine 06/10/2025 6:3 5 AM UI APPLICATION DEVELOPER Advanced hepatic fibrosis Hepatic lesion DIFFERENTIAL AUTO Routine 06/10/2025 6:3 5 AM UI APPLICATION DEVELOPER Advanced hepatic fibrosis Chronic hepatitis C with cirrhosis (HCC) CBC WITH AUTO DIFFERENTIAL Routine 06/10/2025 6:35 AM UI APPLICATION DEVELOPER Advanced hepatic fibrosis Hepatic lesion COMPREHENSIVE METABOLIC PANEL Routine 06/10/2025 6:35 AM UI APPLICATION DEVELOPER Advanced hepatic fibrosis Hepatic lesion [id number], TUMOR MARKER Routine 06/10/2025 6:35 AM UI APPLICATION DEVELOPER Advanced hepatic fibrosis Hepatic lesion PROTIME-INR Routine 06/10/2025 6:35 AM UI APPLICATION DEVELOPER Advanced hepatic fibrosis Hepatic lesion COMPREHENSIVE METABOLIC PANEL Routine 06/10/2025 6:35 AM UI APPLICATION DEVELOPER Advanced hepatic fibrosis Chronic hepatitis C with cirrhosis (HCC) CBC WITH AUTO DIFFERENTIAL Routine 06/10/2025 6:35 AM UI APPLICATION DEVELOPER Advanced hepatic fibrosis Chronic hepatitis C with cirrhosis (HCC) PROTIME-INR Routine 06/10/2025 6:35 AM UI APPLICATION DEVELOPER Advanced hepatic fibrosis Chronic hepatitis C with cirrhosis (HCC) EGFR STAT 06/05/2025 3:57 PM UI APPLICATION DEVELOPER TROPONIN T HIGH-SENSITIVITY SERIES (BASELINE, 2HR, 4HR, 6HR) Add-On 06/05/2025 3:57 PM UI APPLICATION DEVELOPER PHOSPHORUS Add-On 06/05/2025 3:57 PM UI APPLICATION DEVELOPER MAGNESIUM Add-On 06/05/2025 3:57 PM UI APPLICATION DEVELOPER LIPASE Add-On 06/05/2025 3:57 PM UI APPLICATION DEVELOPER DIFFERENTIAL AUTO STAT 06/05/2025 3:5 7 PM UI APPLICATION DEVELOPER COMPREHENSIVE METABOLIC PANEL STAT 06/05/2025 3:57 PM UI APPLICATION DEVELOPER CBC WITH AUTO DIFFERENTIAL STAT 06/05/2025 3:57 PM UI APPLICATION DEVELOPER EGFR Routine 05/28/2025 12:30 PM CDT Annual physical exam Multiple-type hyperlipidemia DIFFERENTIAL AUTO Routine 05/28/2025 12:30 PM CDT Annual physical exam Multiple-type hyperlipidemia VITAMIN D 25 HYDROXY Routine 05/28/2025 12:30 PM CDT Annual physical exam Vitamin D deficiency CBC WITH AUTO DIFFERENTIAL Routine 05/28/2025 12:30 PM CDT Annual physical exam Multiple-type hyperlipidemia COMPREHENSIVE METABOLIC PANEL Routine 05/28/2025 12:30 PM CDT Annual physical exam Multiple-type hyperlipidemia LIPID PANEL Routine 05/28/2025 12:30 PM CDT Annual physical exam Multiple-type hyperlipidemia EGFR Routine 05/19/2025 1:36 PM CDT Hypokalemia RENAL FUNCTION PANEL Routine 05/19/2025 1:36 PM CDT Hypokalemia TROPONIN T HIGH-SENSITIVITY 2-HOUR Timed 05/13/2025 10:42 PM CDT XR CHEST 1 VIEW ED 05/13/2025 9:27 PM CDT EGFR STAT 05/13/2025 8:57 PM CDT DIFFERENTIAL AUTO STAT 05/13/2025 8:5 7 PM CDT TROPONIN T HIGH-SENSITIVITY SERIES (BASELINE, 2HR, 4HR, 6HR) STAT 05/13/2025 8:57 PM CDT COMPREHENSIVE METABOLIC PANEL STAT 05/13/2025 8:57 PM CDT CBC WITH AUTO DIFFERENTIAL STAT 05/13/2025 8:57 PM CDT ECG 12-LEAD STAT 05/13/2025 8:50 PM CDT US BREAST BILATERAL LIMITED Schedule Routine, Read Routine (OP Routine) 04/24/2025 9:36 AM CDT Breast lump on left side at 2 o'clock position Breast pain, right DIAGNOSTIC MAMMOGRAM BILATERAL W CROW Schedule Routine, Read Routine (OP Routine) 04/24/2025 9:05 AM CDT Breast lump on left side at 2 o'clock position Breast pain, right URINALYSIS AND REFLEX TO MICROSCOPIC AND CULTURE STAT 04/20/2025 1:[address] HEAD WO CONTRAST ED 04/20/2025 12:14 PM CDT ECG 12-LEAD STAT 04/20/2025 11:53 AM CDT EGFR STAT 04/20/2025 11:33 AM CDT DIFFERENTIAL AUTO STAT 04/20/2025 11:33 AM CDT TROPONIN T HIGH-SENSITIVITY SERIES (BASELINE, 2HR, 4HR, 6HR) STAT 04/20/2025 11:33 AM CDT COMPREHENSIVE METABOLIC PANEL STAT 04/20/2025 11:33 AM CDT CBC WITH AUTO DIFFERENTIAL STAT 04/20/2025 11:33 AM CDT COLONOSCOPY 11/10/2024 10:[address] LUNG CANCER SCREENING Schedule Routine, Read Routine (OP Routine) 06/21/2024 11:09 AM UI APPLICATION DEVELOPER Tobacco dependence Cigarette nicotine dependence, uncomplicated HEPATITIS C RNA, QUANTITATIVE, PCR Routine 09/13/2023 12:57 PM UI APPLICATION DEVELOPER Chronic hepatitis C without hepatic coma (HCC) PAP AND HIGH RISK HPV, REFLEX TO GENOTYPING Routine 04/21/2022 12:22 PM CDT Screening for malignant neoplasm of the cervix from Last 3 Months or Most Recently Relevant to Health Maintenance Results * CT Abdomen Pelvis W Contrast (06/22/2025 10:46 AM UI APPLICATION DEVELOPER) Anatomical Region Laterality Modality Body N/A Computed Tomogra phy 06/22/2025 11:5 3 AM UI APPLICATION DEVELOPER Impressions 06/22/2025 11:53 AM UI APPLICATION DEVELOPER 1. No bowel obstruction. No free intraperitoneal air. No free fluid. Appendix normal. 2. No obstructing urolithiasis, hydronephrosis or hydroureter. 3. Right adrenal nodule. This is technically indeterminate on this examination alone. This was described as an adenoma on prior MRI examination. 4. Atherosclerotic calcification of the abdominal aorta and major branch vessels. There is some mild narrowing of the distal aorta at the bifurcation and of the common, internal and proximal external iliac arteries bilaterally. 5. Hypodense lesion in the left ovary, with Hounsfield units higher than would be expected with a simple cyst. This is stable in size compared to the recent CT examination as well as a more remote examination from 2017. Nonemergent pelvic ultrasound can be considered for further characterization. Electronically signed by: Cassi Martinez M.D. Narrative 06/22/2025 11:53 AM UI APPLICATION DEVELOPER EXAMINATION: CT ABDOMEN PELVIS W CONTRAST ORDERING HEALTHCARE PROVIDER: BRIT TRINIDAD HISTORY: Abdominal pain for 5 weeks. The patient has been seen in the ER at the extensor times since this pain started.. TECHNIQUE: CT abdomen and pelvis with contrast . Reconstructed coronal and sagittal MPR images reviewed. All images stored on PACS. Automated exposure control was used as a dose optimization technique for this examination. COMPARISON: CT dated 06/10/2025, MRI 06/10/2025, 12/03/2024 and 04/29/2024 FINDINGS: LOWER CHEST: Minimal atelectasis within the lung bases. No pleural or pericardial effusion. The distal paraesophageal node measuring 6 mm short axis, stable. LIVER: The liver is within normal limits in size. There is underlying steatosis. The there is no appreciable mass. GALLBLADDER:No radiopaque gallstones are seen. BILIARY: No intrahepatic or extrahepatic ductal dilatation. SPLEEN: Normal length. No focal lesions. PANCREAS: No identified cystic or solid masses. No significant calcifications. No adjacent inflammation or peripancreatic fluid collections. Pancreatic duct is not dilated. ADRENALS: Nodularity within the right adrenal gland is similar. This was characterized as an adenoma by prior MRI. KIDNEYS/URINARY TRACT: The kidneys are symmetric in size. There is no suspicious cystic or solid mass. There is no hydronephrosis or hydroureter. The urinary bladder is decompressed, limiting evaluation. No obstructing urolithiasis. GI: The stomach is unremarkable. The small bowel loops are within normal limits in caliber. There is no obstruction. The appendix is normal. The colon is within normal limits in caliber. Small probable lymph node posterior to the ascending colon on image 69 is stable from prior examinations. The left hemicolon is largely decompressed, limiting evaluation. PERITONEUM: There is no free intraperitoneal air. The there is no free fluid. No mesenteric lymphadenopathy. RETROPERITONEUM:No retroperitoneal mass or adenopathy. REPRODUCTIVE: The uterus is anteverted. The there is a hypodensity within the left ovary, measuring 3 cm. Hounsfield units are higher than would be expected with a simple cyst. Finding is stable compared to the recent examination. Nonemergent pelvic ultrasound can be utilized for further evaluation. VASCULATURE: The abdominal aorta is atherosclerotic. There is short segment narrowing of the the distalmost aspect of the the aorta at the bifurcation and of the proximal common iliac arteries bilaterally. Atherosclerotic changes involving the internal and proximal external iliac arteries bilaterally, stable from prior examination. MUSCULOSKELETAL: There is lumbar spondylosis and degenerative disc disease. There is a mild compression deformity of the superior endplate of L1 which is stable compared to the prior examination. 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 OTHER: Tiny fat-containing umbilical hernia. Procedure Note Martinez, Cassi Pawel, MD - 06/22/2025 EXAMINATION: CT ABDOMEN PELVIS W CONTRAST ORDERING HEALTHCARE PROVIDER: BRIT TRINIDAD HISTORY: Abdominal pain for 5 weeks. The patient has been seen in the ER at the extensor times since this pain started.. TECHNIQUE: CT abdomen and pelvis with contrast . Reconstructed coronal and sagittal MPR images reviewed. All images stored on PACS. Automated exposure control was used as a dose optimization technique for this examination. COMPARISON: CT dated 06/10/2025, MRI 06/10/2025, 12/03/2024 and 04/29/2024 FINDINGS: LOWER CHEST: Minimal atelectasis within the lung bases. No pleural or pericardial effusion. The distal paraesophageal node measuring 6 mm short axis, stable. LIVER: The liver is within normal limits in size. There is underlying steatosis. The there is no appreciable mass. GALLBLADDER:No radiopaque gallstones are seen. BILIARY: No intrahepatic or extrahepatic ductal dilatation. SPLEEN: Normal length. No focal lesions. PANCREAS: No identified cystic or solid masses. No significant calcifications. No adjacent inflammation or peripancreatic fluid collections. Pancreatic duct is not dilated. ADRENALS: Nodularity within the right adrenal gland is similar. This was characterized as an adenoma by prior MRI. KIDNEYS/URINARY TRACT: The kidneys are symmetric in size. There is no suspicious cystic or solid mass. There is no hydronephrosis or hydroureter. The urinary bladder is decompressed, limiting evaluation. No obstructing urolithiasis. GI: The stomach is unremarkable. The small bowel loops are within normal limits in caliber. There is no obstruction. The appendix is normal. The colon is within normal limits in caliber. Small probable lymph node posterior to the ascending colon on image 69 is stable from prior examinations. The left hemicolon is largely decompressed, limiting evaluation. PERITONEUM: There is no free intraperitoneal air. The there is no free fluid. No mesenteric lymphadenopathy. RETROPERITONEUM:No retroperitoneal mass or adenopathy. REPRODUCTIVE: The uterus is anteverted. The there is a hypodensity within the left ovary, measuring 3 cm. Hounsfield units are higher than would be expected with a simple cyst. Finding is stable compared to the recent examination. Nonemergent pelvic ultrasound can be utilized for further evaluation. VASCULATURE: The abdominal aorta is atherosclerotic. There is short segment narrowing of the the distalmost aspect of the the aorta at the bifurcation and of the proximal common iliac arteries bilaterally. Atherosclerotic changes involving the internal and proximal external iliac arteries bilaterally, stable from prior examination. MUSCULOSKELETAL: There is lumbar spondylosis and degenerative disc disease. There is a mild compression deformity of the superior endplate of L1 which is stable compared to the prior examination. 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 OTHER: Tiny fat-containing umbilical hernia. IMPRESSION: 1. No bowel obstruction. No free intraperitoneal air. No free fluid. Appendix normal. 2. No obstructing urolithiasis, hydronephrosis or hydroureter. 3. Right adrenal nodule. This is technically indeterminate on this examination alone. This was described as an adenoma on prior MRI examination. 4. Atherosclerotic calcification of the abdominal aorta and major branch vessels. There is some mild narrowing of the distal aorta at the bifurcation and of the common, internal and proximal external iliac arteries bilaterally. 5. Hypodense lesion in the left ovary, with Hounsfield units higher than would be expected with a simple cyst. This is stable in size compared to the recent CT examination as well as a more remote examination from 2017. Nonemergent pelvic ultrasound can be considered for further characterization. Electronically signed by: Cassi Martinez M.D. Brit [facility] CT PROCEDURES Final Result * (ABNORMAL) Urinalysis reflex to microscopic and culture Urine (06/22/2025 9:52 AM UI APPLICATION DEVELOPER) Color, ur Yellow Yellow Clarity, ur Clear Clear [facility] ([place]) Specific gravity, ur 1.014 1.003 - 1.030 [facility] ([place]) pH, urine 5.0 [facility] ([place]) Comment: Interpretive Data U rine pH is affected by diet, medications, systemic acid-base disturbances, and renal tubular function. pH may affect urinary stone formation. For example, urine pH below 6.0 may help reduce the tendency for calcium phosphate stones and pH greater than 6.0 may reduce the tendency for uric acid stone formation. Source: [employer] Current Interpretive Data was last revised on 2017 Protein, ur ql Negative Negative [facility] ([place]) Glucose, ur ql Negative Negative [facility] ([place]) Ketones, ur 2+(A) Negative [facility] ([place]) Bilirubin, ur Negative Negative [facility] ([place]) Blood, ur Trace(A) Negative [facility] ([place]) Urobilinogen, ur <2.0 <2.0 mg/dL [facility] ([place]) Nitrite, ur Negative Negative [facility] ([place]) Leukocyte esterase, ur Negative Negative [facility] ([place]) UA reflex comment Reflex to microscopic UA will be performed. [facility] ([place]) Urine 06/22/2025 9:52 AM UI APPLICATION DEVELOPER 06/22/2025 9:58 AM UI APPLICATION DEVELOPER Brit [facility]OLOG[facility] - GENERAL [facility] Final Result Performing Organization Address [facility] Co de Phone Number SHAUNA PAGE (DANIEL) [address] [facility] [place] [address] * (ABNORMAL) Urinalysis, microscopic only (06/22/2025 9:52 AM UI APPLICATION DEVELOPER) WBC, ur 0-5 0 - 5 /HPF RBC, ur 0-2 0 - 2 /HPF [facility] ([place]ANIEL) Epithelial cells, squamous, ur 1-5 0 - 5 /HPF [facility] ([place]) Mucous, ur Present(A) [facility] (DANIEL) Culture Reflex Comment Reflex conditions for urine culture (WBC >10) not met. [facility] (DANIEL) Urine 06/22/2025 9:52 AM UI APPLICATION DEVELOPER 06/22/2025 9:58 AM UI APPLICATION DEVELOPER us Brit [facility] URINE ORDERABLES Final Resu lt SHAUNA PAGE (DANIEL) [address] [facility] [place] [address] * Sepsis Lactate w/ Reflex (06/22/2025 9:46 AM UI APPLICATION DEVELOPER) Sepsis Lactate 1.3 0.7 - 2.0 mmol/L Blood 06/22/2025 9:46 AM UI APPLICATION DEVELOPER 06/22/2025 9:48 AM UI APPLICATION DEVELOPER Brit [facility] BLOOD ORDERABLES Final Resu lt Performing Organization Address City/[facility]/ZIP Co de Phone Number SHAUNA PAGE ([place]) [address] [facility] [place] [address] * eGFR (06/22/2025 9:46 AM UI APPLICATION DEVELOPER) eGFR >90 >=60 mL/min/1. 73 m2 Comment: Interpretive Data Reference Interval Normal >/= 90 mL/min/1.73m2 Mildly decreased* 60 - 89 mL/min/1.73m2 Mildly to moderately decreased 45 - 59 mL/min/1.73m2 Moderately to severely decreased 30 - 44 mL/min/1.73m2 Severely decreased 15 - 29 mL/min/1.73m2 Kidney Failure < 15 mL/min/1.73m2 *Relative to young adult level Estimated glomerular filtration rate is determined by the 2020 CKD-EPI equation recommended by the National Kid[employer] Foundation (A Unifying Approach to GFR Estimation: Recommendations of the NKF-ASK Task Force on Reassessing the Inclusion of Race in Diagnosing Kidney Disease, JASN 2020). The CKD-EPI equation should not be used for patients with unstable renal function and has not been validated in children and those over 70. Current interpretive data was last reviewed 2021. Blood 06/22/2025 9:46 AM UI APPLICATION DEVELOPER 06/22/2025 9:48 AM UI APPLICATION DEVELOPER us Brit [facility] BLOOD ORDERABLES Final Resu lt Performing Organization Address City/[facility]/ZIP Co de Phone Number SHAUNA PAGE ([place]) [address] [facility] [place] [address] * Differential, auto (06/22/2025 9:46 AM UI APPLICATION DEVELOPER) Neutrophil abs 3.87 1.50 - 6.50 K/cumm Imm gran abs 0.02 0.00 - 0.10 K/cumm SHAUNA CAMILO ([place]) Lymphocyte abs 2.59 0.80 - 3.30 K/cumm [facility] ([place]) Monocyte abs 0.48 0.20 - 0.80 K/cumm [facility] ([place]) Eosinophil abs 0.04 0.00 - 0.50 K/cumm [facility] ([place]) Basophil abs 0.04 0.00 - 0.10 K/cumm [facility] ([place]) Neutrophil pct 54.9 % [facility] ([place]EL) Comment: Interpretive Data Percent cell count reference ranges are not reported, since discordance with absolute values may lead to misinterpretation of CBC data. Current Interpretive Data was last revised on 2017. Imm gran pct 0.3 % [facility] ([place]EL) Comment: Interpretive Data Percent cell count reference ranges are not reported, since discordance with absolute values may lead to misinterpretation of CBC data. Current Interpretive Data was last revised on 2017. Lymphocyte pct 36.8 % [facility] ([place]EL) Comment: Interpretive Data Percent cell count reference ranges are not reported, since discordance with absolute values may lead to misinterpretation of CBC data. Current Interpretive Data was last revised on 2017. Monocyte pct 6.8 % [facility] ([place]EL) Comment: Interpretive Data Percent cell count reference ranges are not reported, since discordance with absolute values may lead to misinterpretation of CBC data. Current Interpretive Data was last revised on 2017. Eosinophil pct 0.6 % [facility] ([place]EL) Comment: Interpretive Data Percent cell count reference ranges are not reported, since discordance with absolute values may lead to misinterpretation of CBC data. Current Interpretive Data was last revised on 2017. Basophil pct 0.6 % [facility] ([place]) Comment: Interpretive Data Percent cell count reference ranges are not reported, since discordance with absolute values may lead to misinterpretation of CBC data. Current Interpretive Data was last revised on 2017. Blood 06/22/2025 9:46 AM UI APPLICATION DEVELOPER 06/22/2025 9:48 AM UI APPLICATION DEVELOPER us Brit [facility] BLOOD ORDERABLES Final Resu lt [facility] ([place]) 1 [facility] [place] [address] * CBC with auto differential (06/22/2025 9:46 AM UI APPLICATION DEVELOPER) WBC 7.04 3.80 - 9.90 K/cumm Hgb 14.7 11.9 - 15.5 g/dL [facility] ([place]) Hct 41.8 35.6 - 45.5 % [facility] ([place]) Plt 240 150 - 400 K/cumm [facility] ([place]) MPV 10.1 9.1 - 12.3 fL [facility] ([place]) RBC 4.61 3.90 - 5.20 M/cumm [facility] ([place]) MCV 90.7 81.3 - 96.4 fL [facility] ([place]) MCH 31.9 27.1 - 33.3 pg [facility] ([place]) MCHC 35.2 32.3 - 35.7 g/dL [facility] ([place]) RDW CV 11.9 11.1 - 14.9 % [facility] ([place]) RDW SD 39.5 35.7 - 48.1 fL [facility] ([place]) NRBC abs 0.00 0.00 - 0.01 K/cumm [facility] ([place]) Blood 06/22/2025 9:46 AM UI APPLICATION DEVELOPER 06/22/2025 9:48 AM UI APPLICATION DEVELOPER us Brit [facility] BLOOD ORDERABLES Final Resu lt SHAUNA PAGE ([place]ANIEL) 1 [facility] [place] [address] * Lipase (06/22/2025 9:46 AM UI APPLICATION DEVELOPER) Lipase 48 10 - 99 Units/L Blood 06/22/2025 9:46 AM UI APPLICATION DEVELOPER 06/22/2025 9:48 AM UI APPLICATION DEVELOPER Brit [facility] BLOOD ORDERABLES Final Resu lt Performing Organization Address City/State/[facility] Co de Phone Number SHAUNA PAGE ([place]ANI[place]) 1 [facility] [place] [address] * (ABNORMAL) Comprehensive metabolic panel (06/22/2025 9:46 AM UI APPLICATION DEVELOPER) Sodium 135 135 - 145 mmol/L Potassium, pl 3.9 3.3 - 4.9 mmol/L [facility] ([place]) Chloride 99 97 - 110 mmol/L [facility] ([place]) CO2 20(L) 22 - 32 mmol/L [facility] ([facility]) Anion gap 16(H) 2 - 15 mmol/L [facility] ([facility]) BUN 8 6 - 25 mg/dL [facility] ([facility]) Creatinine 0.70 0.60 - 1.10 mg/dL [facility] ([facility]) Glucose 99 70 - 199 mg/dL [facility] ([facility]) Comment: Interpretive Data Fasting glucose >/= 126 mg/dl is diagnostic for diabetes. Fasting is defined as no caloric intake for at least 8 hours. Fasting glucose between 100 mg/dl to 125 mg/dl is diagnostic of prediabetes. In a patient with classic symptoms of hyperglycemia or hyperglycemic crisis, a random glucose >/= 200 mg/dl is diagnostic for diabetes. In the absence of unequivocal hyperglycemia, results should be confirmed by repeat testing. The classification and Diagnosis of Diabetes Diabetes Care 2021; 46: S19-S40. Current interpretive data was last revised 2022. Calcium 10.3 8.5 - 10.3 mg/dL [facility] ([facility]) Bilirubin, total 0.4 0.1 - 1.2 mg/dL [facility] ([facility]) Protein, pl 8.2 6.5 - 8.5 g/dL [facility] ([facility]) Albumin 4.8 3.5 - 5.0 g/dL [facility] ([facility]) Alk phos 73 40 - 130 Units/L [facility] ([facility]) ALT 17 7 - 45 Units/L [facility] ([facility]) AST 32 10 - 45 Units/L [facility] ([facility]) Comment:Hemolysis present. R esults may be affected. Blood 06/22/2025 9:46 AM UI APPLICATION DEVELOPER 06/22/2025 9:48 AM UI APPLICATION DEVELOPER us Brit INMAN LAB BLOOD ORDERABLES Final Resu lt SHAUNA PAGE ([place]) 1 [facility] [place] [address] * Differential, auto (06/19/2025 6:03 AM UI APPLICATION DEVELOPER) Neutrophil abs 3.48 1.50 - 6.50 K/cumm Imm gran abs 0.01 0.00 - 0.10 K/cumm [facility] Lymphocyte abs 1.91 0.80 - 3.30 K/cumm [facility] Monocyte abs 0.49 0.20 - 0.80 K/cumm [facility] Eosinophil abs 0.09 0.00 - 0.50 K[facility]umm [facility] Basophil abs 0.07 0.00 - 0.10 K/cumm [facility] Neutrophil pct 57.4 % [facility] Comment: Interpretive Data Percent cell count reference ranges are not reported, since discordance with absolute values may lead to misinterpretation of CBC data. Current Interpretive Data was last revised on 2017. Imm gran pct 0.2 % [facility] Comment: Interpretive Data Percent cell count reference ranges are not reported, since discordance with absolute values may lead to misinterpretation of CBC data. Current Interpretive Data was last revised on 2017. Lymphocyte pct 31.6 % [facility] Comment: Interpretive Data Percent cell count reference ranges are not reported, since discordance with absolute values may lead to misinterpretation of CBC data. Current Interpretive Data was last revised on 2017. Monocyte pct 8.1 % [facility] Comment: Interpretive Data Percent cell count reference ranges are not reported, since discordance with absolute values may lead to misinterpretation of CBC data. Current Interpretive Data was last revised on 2017. Eosinophil pct 1.5 % [facility] Comment: Interpretive Data Percent cell count reference ranges are not reported, since discordance with absolute values may lead to misinterpretation of CBC data. Current Interpretive Data was last revised on 2017. Basophil pct 1.2 % [facility] Comment: Interpretive Data Percent cell count reference ranges are not reported, since discordance with absolute values may lead to misinterpretation of CBC data. Current Interpretive Data was last revised on 2017. Blood 06/19/2025 6:03 AM UI APPLICATION DEVELOPER 06/19/2025 6:21 AM UI APPLICATION DEVELOPER Naresh Green MD LAB BLOOD ORDERABLES Final Result Performing Organization Address City/[facility]/ZIP Co de Phone Number SHAUNA CUEVAS [phone] [place] [address] * CBC with auto differential (06/19/2025 6:03 AM UI APPLICATION DEVELOPER) WBC 6.05 3.80 - 9.90 K/cumm Hgb 13.4 11.9 - 15.5 g/dL [facility] Hct 38.3 35.6 - 45.5 % [facility] Plt 170 150 - 400 K/cumm [facility] MPV 10.5 9.1 - 12.3 fL [facility] RBC 4.20 3.90 - 5.20 M/cumm [facility] MCV 91.2 81.3 - 96.4 fL [facility] MCH 31.9 27.1 - 33.3 pg [facility] MCHC 35.0 32.3 - 35.7 g/dL [facility] RDW CV 11.9 11.1 - 14.9 % [facility] RDW SD 40.3 35.7 - 48.1 fL [facility] NRBC abs 0.00 0.00 - 0.01 K/cumm [facility] Blood Venous blood specimen / Unknown 06/19/2025 6:03 AM UI APPLICATION DEVELOPER 06/19/2025 6:21 AM UI APPLICATION DEVELOPER Naresh Green MD LAB BLOOD ORDERABLES Final Result Performing Organization Address City/[facility]/ZIP Co de Phone Number SHAUNA CUEVAS [phone] [facility] [employer] [place], [place] [id number] * eGFR (06/19/2025 5:18 AM UI APPLICATION DEVELOPER) eGFR >90 >=60 mL/min/1. 73 m2 Comment: Interpretive Data Reference Interval Normal >/= 90 mL/min/1.73m2 Mildly decreased* 60 - 89 mL/min/1.73m2 Mildly to moderately decreased 45 - 59 mL/min/1.73m2 Moderately to severely decreased 30 - 44 mL/min/1.73m2 Severely decreased 15 - 29 mL/min/1.73m2 Kidney Failure < 15 mL/min/1.73m2 *Relative to young adult level Estimated glomerular filtration rate is determined by the 2020 CKD-EPI equation recommended by the National Kidney Foundation (A Unifying Approach to GFR Estimation: Recommendations of the NKF-ASK Task Force on Reassessing the Inclusion of Race in Diagnosing Kidney Disease, JASN 2020). The CKD-EPI equation should not be used for patients with unstable renal function and has not been validated in children and those over 70. Current interpretive data was last reviewed 2021. Blood 06/19/2025 5:18 AM UI APPLICATION DEVELOPER 06/19/2025 5:24 AM UI APPLICATION DEVELOPER Jocelin Pink MD LAB BLOOD ORDERA BLES Final Result Performing Organization Address City/[facility] Co de Phone Number SHAUNA [address] [place] [employer] [place] [address] * Thyroid Function [place] (06/19/2025 5:18 AM UI APPLICATION DEVELOPER) TSH 2.36 0.30 - 4.20 mcIUnit/mL Blood 06/19/2025 5:18 AM UI APPLICATION DEVELOPER 06/19/2025 5:24 AM UI APPLICATION DEVELOPER Jocelin Pink MD LAB BLOOD ORDERA BLES Final Result Performing Organization Address [facility] [place] [address] [address] [employer] [place], [place] [phone] * Lipase (06/19/2025 5:18 AM UI APPLICATION DEVELOPER) Lipase 67 10 - 99 Units/L Comment:Hemolyzed sample, re sult may be falsely decreased Blood Venous blood specimen / Unknown 06/19/2025 5:18 AM UI APPLICATION DEVELOPER 06/19/2025 5:24 AM UI APPLICATION DEVELOPER Jocelin Pink MD LAB BLOOD ORDERA BLES Final Result [facility] [address] Department [place] [address] * (ABNORMAL) Comprehensive metabolic panel (06/19/2025 5:18 AM UI APPLICATION DEVELOPER) Sodium 135 135 - 145 mmol/L Potassium, pl 4.2 3.3 - 4.9 mmol/L [facility] Comment:Hemolysis present. R esults may be affected. Chloride 103 97 - 110 mmol/L [facility] CO2 18(L) 22 - 32 mmol/L [facility] Anion gap 14 2 - 15 mmol/L [facility] BUN 7 6 - 25 mg/dL [facility] Creatinine 0.63 0.60 - 1.10 mg/dL [facility] Glucose 109 70 - 199 mg/dL [facility] Comment: Interpretive Data Fasting glucose >/= 126 mg/dl is diagnostic for diabetes. Fasting is defined as no caloric intake for at least 8 hours. Fasting glucose between 100 mg/dl to 125 mg/dl is diagnostic of prediabetes. In a patient with classic symptoms of hyperglycemia or hyperglycemic crisis, a random glucose >/= 200 mg/dl is diagnostic for diabetes. In the absence of unequivocal hyperglycemia, results should be confirmed by repeat testing. The classification and Diagnosis of Diabetes Diabetes Care 2021; 46: S19-S40. Current interpretive data was last revised 2022. Calcium 9.8 8.5 - 10.3 mg/dL [facility] Bilirubin, total 0.4 0.1 - 1.2 mg/dL [facility] Protein, pl 7.9 6.5 - 8.5 g/dL [facility] Albumin 4.4 3.5 - 5.0 g/dL [facility] Alk phos 77 40 - 130 Units/L [facility] ALT 13 7 - 45 Units/L [facility] AST 35 10 - 45 Units/L [facility] Comment:Hemolysis present. R esults may be affected. Blood 06/19/2025 5:18 AM UI APPLICATION DEVELOPER 06/19/2025 5:24 AM UI APPLICATION DEVELOPER Jocelin Pink MD LAB BLOOD ORDERA BLES Final Result Performing Organization Address [facility] Co de Phone Number SHAUNA CUEVAS [address] Department [place] [address] * ECG 12 lead (06/19/2025 4:57 AM UI APPLICATION DEVELOPER) 06/19/2025 4:57 AM UI APPLICATION DEVELOPER Narrative [facility] 06/19/2025 12:47 PM UI APPLICATION DEVELOPER Vent Rate: 79 bpm RR Interval: 755 msec AR Interval: 124 msec QRS Duration: 78 msec QT Interval: 346 msec QTC Interval: 381 msec P-R-T [place]: 60 - 21 - 52 degrees IMPRESSION: SINUS RHYTHM LOW QRS VOLTAGE IN PRECORDIAL LEADS Electronically Signed By: Garcia Francis MD, [facility] Jocelin Pink MD ECG ORDERABLES Final Result Performing Organization Address [facility] de Phone Number [facility] * 48 HR Holter Monitor (06/12/2025 11:31 AM UI APPLICATION DEVELOPER) Anatomical Region Laterality Modality Electrocardiogra phy 06/12/2025 11:4 2 AM UI APPLICATION DEVELOPER Narrative 06/21/2025 12:36 PM UI APPLICATION DEVELOPER [address] [address] [employer] Patient Name: GIOVANA ALVARADO R : 1965 Study Date: 06/12/2025 11:42:12 AM Sex: F Tech: Ref Provider: JOE GONZALEZ Height(Cm): BSA: Weight(Kg): Order Provider: JOE GONZALEZ PROCEDURES: Holter Report: Holter Monitor Report. INDICATIONS: R42 Dizziness and giddiness and R00.2 Palpitations. FINDINGS: Protocol: Recording Duration (Ordered): [id number] Number of Diary entries 2025-06-12 11:42:12 CONCLUSIONS: 1. Predominant rhythm is normal sinus rhythm with a minimum heart rate of 58 beats per minute in sinus and a maximum heart rate of 158 beats per minute also in sinus. Average heart rate of 93 beats per minute. Heart rate was controlled 65% of the time and was rapid 35% of the time. Total monitoring time of 1 day 23 hours 30 minutes. 2. Heart rate and rate variability is appropriate. 3. No prolonged pauses. 4. Rare PACs with only 31 PACs amounting to less than 1% total beats. 5. Rare PVCs with only 2 PVCs amounting to less than 1% of total beats. 6. The patient recorded no symptoms during the study. Electronically Signed By: Dr Cody Richard 06/21/2025 12:29:52 PM UI APPLICATION DEVELOPER Procedure Note Cody Richard MD - 06/21/[address] [address] [employer] Patient Name: GIOVANA ALVARADO R : 1965 Study Date: 06/12/2025 11:42:12 AM Sex: F Tech: Ref Provider: JOE GONZALEZ Height(Cm): BSA: Weight(Kg): Order Provider: JOE GONZALEZ PROCEDURES: Holter Report: Holter Monitor Report. INDICATIONS: R42 Dizziness and giddiness and R00.2 Palpitations. FINDINGS: Protocol: Recording Duration (Ordered): [id number] Number of Diary entries 2025-06-12 11:42:12 CONCLUSIONS: 1. Predominant rhythm is normal sinus rhythm with a minimum heart rate of58 beats per minute in sinus and a maximum heart rate of 158 beats per minute also insinus. Average heart rate of 93 beats per minute. Heart rate was controlled 65% of the time and was rapid 35% of the time. Total monitoring time of 1 day 23 hours 30 minutes. 2. Heart rate and rate variability is appropriate. 3. No prolonged pauses. 4. Rare PACs with only 31 PACs amounting to less than 1% total beats. 5. Rare PVCs with only 2 PVCs amounting to less than 1% of total beats. 6. The patient recorded no symptoms during the study. Electronically Signed By: Dr Cody Richard 06/21/2025 12:29:52 PM UI APPLICATION DEVELOPER Joe Gonzalez NP [facility] PROCEDURE S Final Result * Troponin T high-sensitivity 2-hour (06/11/2025 12:15 AM UI APPLICATION DEVELOPER) Trop T hs <6 <=14 ng/L Comment: Interpretive Data For further hscTnT resources including the diagnostic algorithm and an aid in interpretation, copy and paste this link: https://nrl.testcatalog.org/show/hsTrop Current Interpretive Data last revised 2020. Trop T hs delta 0 ng/L [facility] ([facility]) Trop T hs interp Insignificant [facility] ([facility]) Blood 06/11/2025 12:1 5 AM UI APPLICATION DEVELOPER 06/11/2025 12:29 AM UI APPLICATION DEVELOPER us Luz Maria [facility] LAB BLOOD ORDERABLES Destinee mccullough Result [facility] ([place]) 1 [facility] [place] [address] * Troponin T high-sensitivity series (baseline, 2hr, 4hr, 6hr) (06/10/2025 9:56 PM UI APPLICATION DEVELOPER) Trop T hs <6 <=14 ng/L Comment: Interpretive Data For further hscTnT resources including the diagnostic algorithm and an aid in interpretation, copy and paste this link: https://nrl.testcatalog.org/show/hsTrop Current Interpretive Data last revised 2020. Blood 06/10/2025 9:56 PM UI APPLICATION DEVELOPER 06/10/2025 9:59 PM UI APPLICATION DEVELOPER us Luz Maria [facility] LAB BLOOD ORDERABLES Destinee l Result SHAUNA PAGE ([place]) 1 [facility] Department of Laboratories [place], [place] [phone] * CT Chest PE (CTA) Abdomen Pelvis W Contrast (06/10/2025 8:35 PM UI APPLICATION DEVELOPER) Anatomical Region Laterality Modality Body N/A Computed Tomogra phy 06/10/2025 9:56 PM UI APPLICATION DEVELOPER Impressions 06/10/2025 9:56 PM UI APPLICATION DEVELOPER 1. No evidence of pulmonary embolism. 2. No acute infiltrate the chest. 3. Again seen is mild to moderate emphysematous change of the lungs. Patient is on a screening program as evidence of the prior lung cancer screening from 06/21/2024. Patient should have a follow-up exam in one year. 4. No acute inflammatory change of the abdomen or pelvis. No bowel obstruction or inflammatory change of bowel. 3. The CT demonstrates a normal appearance of the liver on single phase imaging. MRI was obtained the lower the same day. This will be dictated by the body section tomorrow. Electronically signed by: Vic Morris M.D. Narrative 06/10/2025 9:56 PM UI APPLICATION DEVELOPER EXAMINATION: CT CHEST PE (CTA) ABDOMEN PELVIS W CONTRAST ORDERING HEALTHCARE PROVIDER: XOCHILT ESPINOZA HISTORY: increased abd pain, n/v. sob.. TECHNIQUE: CTA angiogram of the chest with dynamic intravenous contrast injection. 3-D maximum intensity projection images reviewed. CT abdomen and pelvis with intravenous and without oral contrast. Reconstructed coronal and sagittal MPR images reviewed. All images stored on PACS. Automated exposure control was used as a dose optimization technique for this examination. COMPARISON: Prior CT chest 06/21/2024. MRI abdomen 12/03/2024. MRI abdomen was obtained earlier today and will be read out by the body section per routine tomorrow. FINDINGS: CHEST: VASCULATURE: There is good opacification of the pulmonary arteries. There is no evidence of pulmonary embolism. The main pulmonary artery demonstrates a normal caliber. The thoracic aorta demonstrates mild atherosclerotic change. No aneurysmal dilatation. No dissection. HEART: Normal heart size without pericardial effusion. MEDIASTINUM/MEE: No mediastinal mass. No abnormal lymph nodes by size criteria. LUNGS/PLEURA:Lung windows demonstrate a patent central airway. There is no confluent infiltrate to suggest pneumonia. Mild centrilobular emphysematous change. Patient is already in a screening program and follow-up recommended per screening guidelines. Last screening exam May 2024. Patient should have another exam in one year. There is granulomatous change. AXILLA: No adenopathy. CHEST WALL: No masses. HARDWARE/LINES/TUBES: None. MUSCULOSKELETAL: Mild multilevel spondylosis thoracic spine. Smoothly marginated depression superior endplate L1 favoring a scratch at Schmorl's type node or old injury. This is unchanged from the CT of 06/21/2024. OTHER: No other acute findings. ABDOMEN / PELVIS: LIVER: Normal in size. No identified cystic or solid masses. No suspicious lesion by CT. Patient had MRI today. This will be read tomorrow by the body section. BILIARY: No gallstones or inflammatory change. No biliary ductal dilatation. SPLEEN: Normal length. No focal lesions. PANCREAS: No identified cystic or solid masses. No significant calcifications. No adjacent inflammation or peripancreatic fluid collections. Pancreatic duct is not dilated. ADRENALS: No discrete nodules. KIDNEYS/URINARY TRACT: No identified significant cystic or solid masses. No stones. No hydronephrosis or hydroureter. The urinary bladder is unremarkable. GI: There is no acute inflammatory change of bowel. No obstruction. There is moderate stool of the ascending and transverse colon tapering into the distal. No obstruction or inflammatory change of bowel. No inflammatory change about the appendix. The stomach and loops of small bowel are unremarkable. PERITONEUM: 5 mm helical hernia defect. No herniation of bowel or inflammatory change. No free fluid or free air. No adenopathy. RETROPERITONEUM:No mass or adenopathy REPRODUCTIVE:No significant abnormality VASCULATURE: No abdominal aortic aneurysm. Portal vein is patent. Atherosclerotic change abdominal aorta and branches. MUSCULOSKELETAL: No suspicious lytic or blastic lesion. Again seen is depression of the anterior superior endplate of L1 as was seen on the older CT the chest. Small stab node favored or old injury. OTHER: No other acute findings. Procedure Note Vic Morris MD - 06/10/2025 EXAMINATION: CT CHEST PE (CTA) ABDOMEN PELVIS W CONTRAST ORDERING HEALTHCARE PROVIDER: XOCHILT ESPINOZA HISTORY: increased abd pain, n/v. sob.. TECHNIQUE: CTA angiogram of the chest with dynamic intravenous contrast injection. 3-D maximum intensity projection images reviewed. CT abdomen and pelvis with intravenous and without oral contrast. Reconstructed coronal and sagittal MPR images reviewed. All images stored on PACS. Automated exposure control was used as a dose optimization technique for this examination. COMPARISON: Prior CT chest 06/21/2024. MRI abdomen 12/03/2024. MRI abdomen was obtained earlier today and will be read out by the body section per routine tomorrow. FINDINGS: CHEST: VASCULATURE: There is good opacification of the pulmonary arteries. There is no evidence of pulmonary embolism. The main pulmonary artery demonstrates a normal caliber. The thoracic aorta demonstrates mild atherosclerotic change. No aneurysmal dilatation. No dissection. HEART: Normal heart size without pericardial effusion. MEDIASTINUM/MEE: No mediastinal mass. No abnormal lymph nodes by size criteria. LUNGS/PLEURA:Lung windows demonstrate a patent central airway. There is no confluent infiltrate to suggest pneumonia. Mild centrilobular emphysematous change. Patient is already in a screening program and follow-up recommended per screening guidelines. Last screening exam May 2024. Patient should have another exam in one year. There is granulomatous change. AXILLA: No adenopathy. CHEST WALL: No masses. HARDWARE/LINES/TUBES: None. MUSCULOSKELETAL: Mild multilevel spondylosis thoracic spine. Smoothly marginated depression superior endplate L1 favoring a scratch at Schmorl's type node or old injury. This is unchanged from the CT of 06/21/2024. OTHER: No other acute findings. ABDOMEN / PELVIS: LIVER: Normal in size. No identified cystic or solid masses. No suspicious lesion by CT. Patient had MRI today. This will be read tomorrow by the body section. BILIARY: No gallstones or inflammatory change. No biliary ductal dilatation. SPLEEN: Normal length. No focal lesions. PANCREAS: No identified cystic or solid masses. No significant calcifications. No adjacent inflammation or peripancreatic fluid collections. Pancreatic duct is not dilated. ADRENALS: No discrete nodules. KIDNEYS/URINARY TRACT: No identified significant cystic or solid masses. No stones. No hydronephrosis or hydroureter. The urinary bladder is unremarkable. GI: There is no acute inflammatory change of bowel. No obstruction. There is moderate stool of the ascending and transverse colon tapering into the distal. No obstruction or inflammatory change of bowel. No inflammatory change about the appendix. The stomach and loops of small bowel are unremarkable. PERITONEUM: 5 mm helical hernia defect. No herniation of bowel or inflammatory change. No free fluid or free air. No adenopathy. RETROPERITONEUM:No mass or adenopathy REPRODUCTIVE:No significant abnormality VASCULATURE: No abdominal aortic aneurysm. Portal vein is patent. Atherosclerotic change abdominal aorta and branches. MUSCULOSKELETAL: No suspicious lytic or blastic lesion. Again seen is depression of the anterior superior endplate of L1 as was seen on the older CT the chest. Small stab node favored or old injury. OTHER: No other acute findings. IMPRESSION: 1. No evidence of pulmonary embolism. 2. No acute infiltrate the chest. 3. Again seen is mild to moderate emphysematous change of the lungs. Patient is on a screening program as evidence of the prior lung cancer screening from 06/21/2024. Patient should have a follow-up exam in one year. 4. No acute inflammatory change of the abdomen or pelvis. No bowel obstruction or inflammatory change of bowel. 3. The CT demonstrates a normal appearance of the liver on single phase imaging. MRI was obtained the lower the same day. This will be dictated by the body section tomorrow. Electronically signed by: Vic Morris M.D. us [employer] INMAN IMG CT PROCEDURE S Final Result * XR Chest PA Lateral 2 Views (If patient hemodynamically stable and ambulatory) (06/10/2025 6:42 PM UI APPLICATION DEVELOPER) Anatomical Region Laterality Modality Body, Chest N/A Computed Radiogr aphy 06/10/2025 6:48 PM UI APPLICATION DEVELOPER Impressions 06/10/2025 6:48 PM UI APPLICATION DEVELOPER 1. No acute findings or infiltrate. Electronically signed by: Vic Morris M.D. Narrative 06/10/2025 6:48 PM UI APPLICATION DEVELOPER EXAMINATION: XR CHEST PA LATERAL 2 VIEWS HISTORY: chest pain TECHNIQUE: 2 view chest COMPARISON: Prior exam 05/13/2025, 10/02/2022 FINDINGS: Normal cardiomediastinal silhouette. Pulmonary vasculature is normal. No infiltrate or effusion. Costophrenic angles are sharp. No acute osseous findings. Mild spondylosis thoracic spine. Procedure Note Vic Morris MD - 06/10/2025 EXAMINATION: XR CHEST PA LATERAL 2 VIEWS HISTORY: chest pain TECHNIQUE: 2 view chest COMPARISON: Prior exam 05/13/2025, 10/02/2022 FINDINGS: Normal cardiomediastinal silhouette. Pulmonary vasculature is normal. No infiltrate or effusion. Costophrenic angles are sharp. No acute osseous findings. Mild spondylosis thoracic spine. IMPRESSION: 1. No acute findings or infiltrate. Electronically signed by: Vic Morris M.D. Skyler Post MD IMG XR PROCEDURES Final Resu lt * eGFR (06/10/2025 6:27 PM UI APPLICATION DEVELOPER) eGFR 90 >=60 mL/min/1. 73 m2 Comment: Interpretive Data Reference Interval Normal >/= 90 mL/min/1.73m2 Mildly decreased* 60 - 89 mL/min/1.73m2 Mildly to moderately decreased 45 - 59 mL/min/1.73m2 Moderately to severely decreased 30 - 44 mL/min/1.73m2 Severely decreased 15 - 29 mL/min/1.73m2 Kidney Failure < 15 mL/min/1.73m2 *Relative to young adult level Estimated glomerular filtration rate is determined by the 2020 CKD-EPI equation recommended by the National Kidney Foundation (A Unifying Approach to GFR Estimation: Recommendations of the NKF-ASK Task Force on Reassessing the Inclusion of Race in Diagnosing Kidney Disease, JASN 2020). The CKD-EPI equation should not be used for patients with unstable renal function and has not been validated in children and those over 70. Current interpretive data was last reviewed 2021. Blood 06/10/2025 6:27 PM UI APPLICATION DEVELOPER 06/10/2025 6:30 PM UI APPLICATION DEVELOPER us Skyler Post MD LAB BLOOD ORDERABLES Final R esult [facility] ([place]) 1 [facility] [place] [address] * (ABNORMAL) Differential, auto (06/10/2025 6:27 PM UI APPLICATION DEVELOPER) Neutrophil abs 3.50 1.50 - 6.50 K/cumm Imm gran abs 0.01 0.00 - 0.10 K/cumm [facility] ([place]) Lymphocyte abs 4.28(H) 0.80 - 3.30 K/cumm [facility] ([facility]) Monocyte abs 0.60 0.20 - 0.80 K/cumm [facility] ([facility]) Eosinophil abs 0.13 0.00 - 0.50 K/cumm [facility] (DANIEL) Basophil abs 0.08 0.00 - 0.10 K/cumm [facility] (DANIEL) Neutrophil pct 40.7 % [facility] (DANIEL) Comment: Interpretive Data Percent cell count reference ranges are not reported, since discordance with absolute values may lead to misinterpretation of CBC data. Current Interpretive Data was last revised on 2017. Imm gran pct 0.1 % [facility] (DANIEL) Comment: Interpretive Data Percent cell count reference ranges are not reported, since discordance with absolute values may lead to misinterpretation of CBC data. Current Interpretive Data was last revised on 2017. Lymphocyte pct 49.8 % [facility] (DANIEL) Comment: Interpretive Data Percent cell count reference ranges are not reported, since discordance with absolute values may lead to misinterpretation of CBC data. Current Interpretive Data was last revised on 2017. Monocyte pct 7.0 % [facility] (DANIEL) Comment: Interpretive Data Percent cell count reference ranges are not reported, since discordance with absolute values may lead to misinterpretation of CBC data. Current Interpretive Data was last revised on 2017. Eosinophil pct 1.5 % [facility] (DANIEL) Comment: Interpretive Data Percent cell count reference ranges are not reported, since discordance with absolute values may lead to misinterpretation of CBC data. Current Interpretive Data was last revised on 2017. Basophil pct 0.9 % [facility] (DANIEL) Comment: Interpretive Data Percent cell count reference ranges are not reported, since discordance with absolute values may lead to misinterpretation of CBC data. Current Interpretive Data was last revised on 2017. Blood 06/10/2025 6:27 PM UI APPLICATION DEVELOPER 06/10/2025 6:30 PM UI APPLICATION DEVELOPER us Skyler Post MD LAB BLOOD ORDERABLES Final R esult [facility] (DANIEL) 1 [facility] [place] [address] * (ABNORMAL) CBC with auto differential (06/10/2025 6:27 PM UI APPLICATION DEVELOPER) WBC 8.60 3.80 - 9.90 K/cumm Hgb 15.6(H) 11.9 - 15.5 g/dL [facility] (DANIEL) Hct 42.6 35.6 - 45.5 % [facility] (DANIEL) Plt 272 150 - 400 K/cumm [facility] (DANIEL) MPV 10.3 9.1 - 12.3 fL [facility] (DANIEL) RBC 4.83 3.90 - 5.20 M/cumm [facility] (DANIEL) MCV 88.2 81.3 - 96.4 fL [facility] (DANIEL) MCH 32.3 27.1 - 33.3 pg [facility] (DANIEL) MCHC 36.6(H) 32.3 - 35.7 g/dL [facility] (DANIEL) RDW CV 11.9 11.1 - 14.9 % [facility] (DANIEL) RDW SD 38.5 35.7 - 48.1 fL [facility] (DANIEL) NRBC abs 0.00 0.00 - 0.01 K/cumm [facility] (DANIEL) Blood Venous blood specimen / Unknown 06/10/2025 6:27 PM UI APPLICATION DEVELOPER 06/10/2025 6:30 PM UI APPLICATION DEVELOPER us Skyler Post MD LAB BLOOD ORDERABLES Final R esult [facility] (DANIEL) 1 [facility] [place] [address] * (ABNORMAL) Comprehensive metabolic panel (06/10/2025 6:27 PM UI APPLICATION DEVELOPER) Sodium 135 135 - 145 mmol/L Potassium, pl 4.0 3.3 - 4.9 mmol/L [facility] (DANIEL) Chloride 102 97 - 110 mmol/L [facility] (DANIEL) CO2 18(L) 22 - 32 mmol/L [facility] (DANIEL) Anion gap 15 2 - 15 mmol/L [facility] (DANIEL) BUN 5(L) 6 - 25 mg/dL [facility] (DANIEL) Creatinine 0.75 0.60 - 1.10 mg/dL [facility] (DANIEL) Glucose 120 70 - 199 mg/dL [facility] (DANIEL) Comment: Interpretive Data Fasting glucose >/= 126 mg/dl is diagnostic for diabetes. Fasting is defined as no caloric intake for at least 8 hours. Fasting glucose between 100 mg/dl to 125 mg/dl is diagnostic of prediabetes. In a patient with classic symptoms of hyperglycemia or hyperglycemic crisis, a random glucose >/= 200 mg/dl is diagnostic for diabetes. In the absence of unequivocal hyperglycemia, results should be confirmed by repeat testing. The classification and Diagnosis of Diabetes Diabetes Care 202; 46: S19-S40. Current interpretive data was last revised 2022. Calcium 10.0 8.5 - 10.3 mg/dL [facility] (DANIEL) Bilirubin, total 0.4 0.1 - 1.2 mg/dL [facility] (DANIEL) Protein, pl 8.1 6.5 - 8.5 g/dL [facility] (DANIEL) Albumin 4.5 3.5 - 5.0 g/dL [facility] (DANIEL) Alk phos 80 40 - 130 Units/L [facility] (DANIEL) ALT 12 7 - 45 Units/L [facility] (DANIEL) Comment:Hemolysis present. R esults may be affected. AST 33 10 - 45 Units/L [facility] (DANIEL) Comment:Hemolysis present. R esults may be affected. Blood 06/10/2025 6:27 PM UI APPLICATION DEVELOPER 06/10/2025 6:30 PM UI APPLICATION DEVELOPER Skyler Post MD LAB BLOOD ORDERABLES Final R esult Performing Organization Address City/[facility] Co de Phone Number SHAUNA PAGE ([place]) 1 [facility] [place] [address] * ECG 12 lead (06/10/2025 6:11 PM UI APPLICATION DEVELOPER) 06/10/2025 6:11 PM UI APPLICATION DEVELOPER Narrative [facility] - 06/11/2025 10:12 AM UI APPLICATION DEVELOPER Vent Rate: 98 bpm RR Interval: 612 msec AR Interval: 141 msec QRS Duration: 85 msec QT Interval: 340 msec QTC Interval: 395 msec P-R-T [place]: 69 - 18 - 56 degrees IMPRESSION: SINUS RHYTHM MODERATE ST DEPRESSION [0.05+ mV ST DEPRESSION] ABNORMAL ECG No change compared to prior EKG Electronically Signed By: Otto Miller MD Skyler Post MD ECG ORDERABLES Final Result Performing Organization Address [facility] Co de Phone Number [employer] [facility] * MRI Abdomen Liver W WO Contrast (06/10/2025 7:46 AM UI APPLICATION DEVELOPER) Anatomical Region Laterality Modality Body N/A Magnetic Resonan ce 06/11/2025 11:2 4 AM UI APPLICATION DEVELOPER Impressions 06/11/2025 11:24 AM UI APPLICATION DEVELOPER The small hypervascular lesion in the right hepatic lobe identified previously is not clearly visualized today. A 6 month follow-up examination is recommended to evaluate for change. Electronically signed by: Christine Rivas MD Narrative 06/11/2025 11:24 AM UI APPLICATION DEVELOPER EXAMINATION: MAGNETIC RESONANCE IMAGING OF THE ABDOMEN WITH AND WITHOUT CONTRAST HISTORY: Cirrhosis. Liver lesion. TECHNIQUE: Magnetic resonance imaging of the abdomen was performed prior to and following the uneventful administration of intravenous Gadolinium contrast. Contrast: gadoterate 13 mL COMPARISON: December 03, 2024. FINDINGS: Liver, Gallbladder & bile ducts: There is mild diffuse hepatic steatosis. The previously identified small arterially enhancing right liver lobe lesion is not clearly visualized on this examination. No new lesions are appreciated. There is no biliary dilation. The gallbladder is normal in appearance. Pancreas: Normal in appearance. Spleen: Normal in appearance. Adrenals: There is a tiny adenoma in the medial limb of the right adrenal gland. Kidneys, collecting system and ureters: There are tiny cysts in the kidneys. There is no hydronephrosis. Retroperitoneum, lymph nodes, and vessels: There is no discrete retroperitoneal lymphadenopathy. Bowel & Mesentery: The visualized bowel is normal in appearance. There is no mesenteric free fluid or lymphadenopathy. Procedure Note Christine Rivas MD - 06/11/2025 EXAMINATION: MAGNETIC RESONANCE IMAGING OF THE ABDOMEN WITH AND WITHOUT CONTRAST HISTORY: Cirrhosis. Liver lesion. TECHNIQUE: Magnetic resonance imaging of the abdomen was performed prior to and following the uneventful administration of intravenous Gadolinium contrast. Contrast: gadoterate 13 mL COMPARISON: December 03, 2024. FINDINGS: Liver, Gallbladder & bile ducts: There is mild diffuse hepatic steatosis. The previously identified small arterially enhancing right liver lobe lesion is not clearly visualized on this examination. No new lesions are appreciated. There is no biliary dilation. The gallbladder is normal in appearance. Pancreas: Normal in appearance. Spleen: Normal in appearance. Adrenals: There is a tiny adenoma in the medial limb of the right adrenal gland. Kidneys, collecting system and ureters: There are tiny cysts in the kidneys. There is no hydronephrosis. Retroperitoneum, lymph nodes, and vessels: There is no discrete retroperitoneal lymphadenopathy. Bowel & Mesentery: The visualized bowel is normal in appearance. There is no mesenteric free fluid or lymphadenopathy. IMPRESSION: The small hypervascular lesion in the right hepatic lobe identified previously is not clearly visualized today. A 6 month follow-up examination is recommended to evaluate for change. Electronically signed by: Christine Rivas MD us [employer] AUTOMOBILES SALESPERSON IMG MRI PROCEDURES Final Result * eGFR (06/10/2025 6:35 AM UI APPLICATION DEVELOPER) eGFR 87 >=60 mL/min/1. 73 m2 Comment: Interpretive Data Reference Interval Normal >/= 90 mL/min/1.73m2 Mildly decreased* 60 - 89 mL/min/1.73m2 Mildly to moderately decreased 45 - 59 mL/min/1.73m2 Moderately to severely decreased 30 - 44 mL/min/1.73m2 Severely decreased 15 - 29 mL/min/1.73m2 Kidney Failure < 15 mL/min/1.73m2 *Relative to young adult level Estimated glomerular filtration rate is determined by the 2020 CKD-EPI equation recommended by the National Kidney Foundation (A Unifying Approach to GFR Estimation: Recommendations of the NKF-ASK Task Force on Reassessing the Inclusion of Race in Diagnosing Kidney Disease, JASN 2020). The CKD-EPI equation should not be used for patients with unstable renal function and has not been validated in children and those over 70. Current interpretive data was last reviewed 2021. Blood 06/10/2025 6:35 AM UI APPLICATION DEVELOPER 06/10/2025 7:56 AM UI APPLICATION DEVELOPER Meryl Harman NP LAB BLOOD ORDERABLES Fin al Result Performing Organization Address City/State/[facility] Co de Phone Number [facility] [place] 1 [facility] of Laboratories [place], [place] [id number] * eGFR (06/10/2025 6:35 AM UI APPLICATION DEVELOPER) eGFR 89 >=60 mL/min/1. 73 m2 Comment: Interpretive Data Reference Interval Normal >/= 90 mL/min/1.73m2 Mildly decreased* 60 - 89 mL/min/1.73m2 Mildly to moderately decreased 45 - 59 mL/min/1.73m2 Moderately to severely decreased 30 - 44 mL/min/1.73m2 Severely decreased 15 - 29 mL/min/1.73m2 Kidney Failure < 15 mL/min/1.73m2 *Relative to young adult level Estimated glomerular filtration rate is determined by the 2020 CKD-EPI equation recommended by the National Kidney Foundation (A Unifying Approach to GFR Estimation: Recommendations of the NKF-ASK Task Force on Reassessing the Inclusion of Race in Diagnosing Kidney Disease, JASN 2020). The CKD-EPI equation should not be used for patients with unstable renal function and has not been validated in children and those over 70. Current interpretive data was last reviewed 2021. Blood 06/10/2025 6:35 AM UI APPLICATION DEVELOPER 06/10/2025 7:56 AM UI APPLICATION DEVELOPER us [employer] AUTOMOBILES SALESPERSON LAB BLOOD ORDERABLE S Final Result SHAU[facility] PAGE ([place]) 1 [facility] [place] [address] * Differential, auto (06/10/2025 6:35 AM UI APPLICATION DEVELOPER) Neutrophil abs 3.20 1.50 - 6.50 K/cumm Imm gran abs 0.01 0.00 - 0.10 K/cumm [facility] (DANIEL) Lymphocyte abs 2.99 0.80 - 3.30 K/cumm [facility] (DANIEL) Monocyte abs 0.51 0.20 - 0.80 K/cumm [facility] (DANIEL) Eosinophil abs 0.18 0.00 - 0.50 K/cumm [facility] (DANIEL) Basophil abs 0.07 0.00 - 0.10 K/cumm [facility] (DANIEL) Neutrophil pct 46.0 % [facility] (DANIEL) Comment: Interpretive Data Percent cell count reference ranges are not reported, since discordance with absolute values may lead to misinterpretation of CBC data. Current Interpretive Data was last revised on 2017. Imm gran pct 0.1 % [facility] (DANIEL) Comment: Interpretive Data Percent cell count reference ranges are not reported, since discordance with absolute values may lead to misinterpretation of CBC data. Current Interpretive Data was last revised on 2017. Lymphocyte pct 43.0 % [facility] (DANIEL) Comment: Interpretive Data Percent cell count reference ranges are not reported, since discordance with absolute values may lead to misinterpretation of CBC data. Current Interpretive Data was last revised on 2017. Monocyte pct 7.3 % [facility] (DANIEL) Comment: Interpretive Data Percent cell count reference ranges are not reported, since discordance with absolute values may lead to misinterpretation of CBC data. Current Interpretive Data was last revised on 2017. Eosinophil pct 2.6 % [facility] (DANIEL) Comment: Interpretive Data Percent cell count reference ranges are not reported, since discordance with absolute values may lead to misinterpretation of CBC data. Current Interpretive Data was last revised on 2017. Basophil pct 1.0 % [facility] (DANIEL) Comment: Interpretive Data Percent cell count reference ranges are not reported, since discordance with absolute values may lead to misinterpretation of CBC data. Current Interpretive Data was last revised on 2017. Blood 06/10/2025 6:35 AM UI APPLICATION DEVELOPER 06/10/2025 7:56 AM UI APPLICATION DEVELOPER [employer] AUTOMOBILES SALESPERSON LAB BLOOD ORDERABLE S Final Result [facility] ([place]) 1 [facility] [place] [address] * Differential, auto (06/10/2025 6:35 AM UI APPLICATION DEVELOPER) Neutrophil abs 3.17 1.50 - 6.50 K/cumm Imm gran abs 0.01 0.00 - 0.10 K/cumm [facility] (DANIEL) Lymphocyte abs 3.12 0.80 - 3.30 K/cumm [facility] (DANIEL) Monocyte abs 0.52 0.20 - 0.80 K/cumm [facility] (DANIEL) Eosinophil abs 0.16 0.00 - 0.50 K/cumm [facility] (DANIEL) Basophil abs 0.08 0.00 - 0.10 K/cumm [facility] (DANIEL) Neutrophil pct 44.9 % [facility] (DANIEL) Comment: Interpretive Data Percent cell count reference ranges are not reported, since discordance with absolute values may lead to misinterpretation of CBC data. Current Interpretive Data was last revised on 2017. Imm gran pct 0.1 % [facility] (DANIEL) Comment: Interpretive Data Percent cell count reference ranges are not reported, since discordance with absolute values may lead to misinterpretation of CBC data. Current Interpretive Data was last revised on 2017. Lymphocyte pct 44.2 % [facility] (DANIEL) Comment: Interpretive Data Percent cell count reference ranges are not reported, since discordance with absolute values may lead to misinterpretation of CBC data. Current Interpretive Data was last revised on 2017. Monocyte pct 7.4 % [facility] (DANIEL) Comment: Interpretive Data Percent cell count reference ranges are not reported, since discordance with absolute values may lead to misinterpretation of CBC data. Current Interpretive Data was last revised on 2017. Eosinophil pct 2.3 % [facility] (DANIEL) Comment: Interpretive Data Percent cell count reference ranges are not reported, since discordance with absolute values may lead to misinterpretation of CBC data. Current Interpretive Data was last revised on 2017. Basophil pct 1.1 % [facility] (DANIEL) Comment: Interpretive Data Percent cell count reference ranges are not reported, since discordance with absolute values may lead to misinterpretation of CBC data. Current Interpretive Data was last revised on 2017. Blood 06/10/2025 6:35 AM UI APPLICATION DEVELOPER 06/10/2025 7:56 AM UI APPLICATION DEVELOPER Meryl Harman AUTOMOBILES SALESPERSON LAB BLOOD ORDERABLES Fin al Result SHAUNA PAGE (DANIEL) 1 [facility] [place] [address] * (ABNORMAL) CBC with auto differential (06/10/2025 6:35 AM UI APPLICATION DEVELOPER) WBC 6.96 3.80 - 9.90 K/cumm Hgb 16.2(H) 11.9 - 15.5 g/dL SHAUNA PAGE (DANIEL) Hct 45.7(H) 35.6 - 45.5 % [facility] ([place]ANIEL) Plt 266 150 - 400 K/cumm [facility] ([place]ANIEL) MPV 10.6 9.1 - 12.3 fL [facility] ([place]ANIEL) RBC 5.03 3.90 - 5.20 M/cumm [facility] ([place]ANIEL) MCV 90.9 81.3 - 96.4 fL [facility] ([place]ANIEL) MCH 32.2 27.1 - 33.3 pg [facility] ([place]ANIEL) MCHC 35.4 32.3 - 35.7 g/dL [facility] ([place]ANIEL) RDW CV 12.0 11.1 - 14.9 % [facility] ([place]) RDW SD 40.1 35.7 - 48.1 fL [facility] ([place]ANIEL) NRBC abs 0.00 0.00 - 0.01 K/cumm [facility] ([place]ANIEL) Blood 06/10/2025 6:35 AM UI APPLICATION DEVELOPER 06/10/2025 7:56 AM UI APPLICATION DEVELOPER us [employer] AUTOMOBILES SALESPERSON LAB BLOOD ORDERABLE S Final Result [facility] ([place]ANIEL) 1 [facility] Department [place] [address] * (ABNORMAL) CBC with auto differential (06/10/2025 6:35 AM UI APPLICATION DEVELOPER) WBC 7.06 3.80 - 9.90 K/cumm Hgb 16.0(H) 11.9 - 15.5 g/dL [facility] ([place]ANIEL) Hct 44.8 35.6 - 45.5 % [facility] (DANIEL) Plt 247 150 - 400 K/cumm [facility] ([place]ANIEL) MPV 10.5 9.1 - 12.3 fL [facility] ([place]ANIEL) RBC 4.95 3.90 - 5.20 M/cumm [facility] ([place]ANIEL) MCV 90.5 81.3 - 96.4 fL [facility] ([place]ANIEL) MCH 32.3 27.1 - 33.3 pg [facility] ([place]ANIEL) MCHC 35.7 32.3 - 35.7 g/dL [facility] ([place]ANIEL) RDW CV 12.0 11.1 - 14.9 % SHAUNA PAGE ([place]) RDW SD 40.0 35.7 - 48.1 fL SHAUNA PAGE ([place]) NRBC abs 0.00 0.00 - 0.01 K/cumm [facility] PAGE ([place]ANIEL) Blood 06/10/2025 6:35 AM UI APPLICATION DEVELOPER 06/10/2025 7:56 AM UI APPLICATION DEVELOPER Narrative SHAUNA PAGE ([place]ANIEL) - 06/10/2025 7:59 AM UI APPLICATION DEVELOPER Giovana, Please take these orders to any lab to be completed in May . If you do not use a [place] lab, please call [phone] when you complete the lab with the name of the lab so we can obtain results. Please fax results to [phone] call [phone] with any questions. Meryl Harman AUTOMOBILES SALESPERSON LAB BLOOD ORDERABLES [facility] al Result SHAUNA LAZARO) 1 [facility] [place] [address] * [id number], Tumor Marker (06/10/2025 6:35 AM UI APPLICATION DEVELOPER) alpha Fetoprotein 2.3 <=8.3 ng/mL Comment: Interpretive Data The [place] AFP assay procedure was used. Results from different manufacturers or methods may not be comparable. Serial testing should be performed using the same method. 0-1 month. AFP concentrations may reach or exceed 100,000 ng/mL after depending on gestational age and weight. 1-3 months 50 1000 ng/ml 3-6 months 10 500 ng/ml 6-12 months 3.0 100 ng/ml >1 year 0.0 8.3 ng/ml References Yamileth Y. et al. J. Ped Surg 1978;13:155-156 Jennifer De La Garza et al. Clin Chem Lab Med 2018;57:783-797 Daniel Byers et al. Clin Chem 2014;[id number]. Current interpretive data was last revised 2022. Testing performed by: [facility], [address] [facility], [place]., [address] Blood 06/10/2025 6:35 AM UI APPLICATION DEVELOPER 06/10/2025 10:16 AM UI APPLICATION DEVELOPER [employer] AUTOMOBILES SALESPERSON LAB BLOOD ORDERABLE S Final Result SHAUNA PAGE ([place]) 1 [facility] [place] [address] * Protime-INR (06/10/2025 6:35 AM UI APPLICATION DEVELOPER) PT 12.2 10.2 - 13.5 sec SHAUNA PAGE ([place]) INR 1.08 0.90 - 1.20 SHAUNA PAGE (DANIEL) Comment: Interpretive data Oral anticoagulant therapeutic ranges: Venous thromboembolism prophylaxis or treatment: 2.0-3.0 CARDIOLOGY Standard range: 2.0-3.0 High-intensity range: 2.5-3.5 Refer to indication-specific guidelines for appropriate target ranges for prosthetic heart valve replacement. Current interpretive data was last revised on 2019. Blood 06/10/2025 6:35 AM UI APPLICATION DEVELOPER 06/10/2025 7:56 AM UI APPLICATION DEVELOPER [employer] AUTOMOBILES SALESPERSON LAB BLOOD ORDERABLE S Final Result SHAUNA PAGE ([place]) 1 [facility] [place] [address] * Protime-INR (06/10/2025 6:35 AM UI APPLICATION DEVELOPER) PT 12.1 10.2 - 13.5 sec [facility] ([place]) INR 1.07 0.90 - 1.20 [facility] ([place]ANIEL) Comment: Interpretive data Oral anticoagulant therapeutic ranges: Venous thromboembolism prophylaxis or treatment: 2.0-3.0 CARDIOLOGY Standard range: 2.0-3.0 High-intensity range: 2.5-3.5 Refer to indication-specific guidelines for appropriate target ranges for prosthetic heart valve replacement. Current interpretive data was last revised on 2019. Blood 06/10/2025 6:35 AM UI APPLICATION DEVELOPER 06/10/2025 7:56 AM UI APPLICATION DEVELOPER Narrative SHAUNA CAMILO (DANIEL) - 06/10/2025 8:09 AM UI APPLICATION DEVELOPER Giovana, Please take these orders to any lab to be completed in May . If you do not use a [place] lab, please call [phone] when you complete the lab with the name of the lab so we can obtain results. Please fax results to [phone] call [phone] with any questions. us Meryl Harman NP LAB BLOOD ORDERABLES [facility] Result SHAUNA PAGE (DANIEL) 1 [facility] [place] [address] * Comprehensive metabolic panel (06/10/2025 6:35 AM UI APPLICATION DEVELOPER) Sodium 139 135 - 145 mmol/L Potassium, pl 3.6 3.3 - 4.9 mmol/L [facility] ([place] Chloride 105 97 - 110 mmol/L [facility] ([place] CO2 22 22 - 32 mmol/L [facility] ([place]) Anion gap 12 2 - 15 mmol/L [facility] ([place]) BUN 6 6 - 25 mg/dL [facility] ([place]) Creatinine 0.76 0.60 - 1.10 mg/dL [facility] ([place]) Glucose 93 70 - 199 mg/dL [facility] ([place]ANIEL) Comment: Interpretive Data Fasting glucose >/= 126 mg/dl is diagnostic for diabetes. Fasting is defined as no caloric intake for at least 8 hours. Fasting glucose between 100 mg/dl to 125 mg/dl is diagnostic of prediabetes. In a patient with classic symptoms of hyperglycemia or hyperglycemic crisis, a random glucose >/= 200 mg/dl is diagnostic for diabetes. In the absence of unequivocal hyperglycemia, results should be confirmed by repeat testing. The classification and Diagnosis of Diabetes Diabetes Care 202; 46: S19-S40. Current interpretive data was last revised 2022. Calcium 10.0 8.5 - 10.3 mg/dL [facility] ([place]) Bilirubin, total 0.5 0.1 - 1.2 mg/dL [facility] ([place]) Protein, pl 8.1 6.5 - 8.5 g/dL [facility] ([place]) Albumin 4.6 3.5 - 5.0 g/dL [facility] ([place]) Alk phos 80 40 - 130 Units/L [facility] ([place]) ALT 12 7 - 45 Units/L [facility] ([place]) AST 24 10 - 45 Units/L [facility] ([place]) Blood 06/10/2025 6:35 AM UI APPLICATION DEVELOPER 06/10/2025 7:56 AM UI APPLICATION DEVELOPER [employer] AUTOMOBILES SALESPERSON LAB BLOOD ORDERABLE S Final Result [facility] ([place]) 1 [facility] [place] [address] * (ABNORMAL) Comprehensive metabolic panel (06/10/2025 6:35 AM UI APPLICATION DEVELOPER) Sodium 139 135 - 145 mmol/L Potassium, pl 3.7 3.3 - 4.9 mmol/L [facility] ([place]) Chloride 105 97 - 110 mmol/L [facility] ([place]) CO2 22 22 - 32 mmol/L [facility] ([place]) Anion gap 12 2 - 15 mmol/L [facility] ([place]) BUN 5(L) 6 - 25 mg/dL [facility] ([place]) Creatinine 0.77 0.60 - 1.10 mg/dL [facility] ([place]) Glucose 94 70 - 199 mg/dL [facility] ([place]) Comment: Interpretive Data Fasting glucose >/= 126 mg/dl is diagnostic for diabetes. Fasting is defined as no caloric intake for at least 8 hours. Fasting glucose between 100 mg/dl to 125 mg/dl is diagnostic of prediabetes. In a patient with classic symptoms of hyperglycemia or hyperglycemic crisis, a random glucose >/= 200 mg/dl is diagnostic for diabetes. In the absence of unequivocal hyperglycemia, results should be confirmed by repeat testing. The classification and Diagnosis of Diabetes Diabetes Care 202; 46: S19-S40. Current interpretive data was last revised 2022. Calcium 9.9 8.5 - 10.3 mg/dL [facility] ([place]) Bilirubin, total 0.5 0.1 - 1.2 mg/dL [facility] ([place]) Protein, pl 7.9 6.5 - 8.5 g/dL [facility] ([place]) Albumin 4.5 3.5 - 5.0 g/dL [facility] ([place]) Alk phos 79 40 - 130 Units/L [facility] ([place]) ALT 11 7 - 45 Units/L [facility] ([place]) AST 23 10 - 45 Units/L [facility] ([place]) Blood 06/10/2025 6:35 AM UI APPLICATION DEVELOPER 06/10/2025 7:56 AM UI APPLICATION DEVELOPER Narrative [facility] ([place]) - 06/10/2025 8:25 AM UI APPLICATION DEVELOPER Giovana, Please take these orders to any lab to be completed in May . If you do not use a [place] lab, please call [phone] when you complete the lab with the name of the lab so we can obtain results. Please fax results to [phone] call [phone] with any questions. Meryl Harman AUTOMOBILES SALESPERSON LAB BLOOD ORDERABLES [facility] al Result SHAUNA PAGE ([place]) 1 [facility] [place] [address] * Troponin T high-sensitivity series (baseline, 2hr, 4hr, 6hr) (06/05/2025 3:57 PM UI APPLICATION DEVELOPER) Trop T hs 7 <=14 ng/L Comment: Interpretive Data For further hscTnT resources including the diagnostic algorithm and an aid in interpretation, copy and paste this link: [email or web address].[email or web address]/[email or web address] Current Interpretive Data last revised 2020. Blood 06/05/2025 3:57 PM UI APPLICATION DEVELOPER 06/05/2025 4:09 PM UI APPLICATION DEVELOPER us Richard INMAN LAB BLOOD ORDERABLES Final Result SHAUNA PAGE ([place]) 1 [facility] [place] [address] * eGFR (06/05/2025 3:57 PM UI APPLICATION DEVELOPER) eGFR 90 >=60 mL/min/1. 73 m2 Comment: Interpretive Data Reference Interval Normal >/= 90 mL/min/1.73m2 Mildly decreased* 60 - 89 mL/min/1.73m2 Mildly to moderately decreased 45 - 59 mL/min/1.73m2 Moderately to severely decreased 30 - 44 mL/min/1.73m2 Severely decreased 15 - 29 mL/min/1.73m2 Kidney Failure < 15 mL/min/1.73m2 *Relative to young adult level Estimated glomerular filtration rate is determined by the 2020 CKD-EPI equation recommended by the National Kidney Foundation (A Unifying Approach to GFR Estimation: Recommendations of the NKF-ASK Task Force on Reassessing the Inclusion of Race in Diagnosing Kidney Disease, JASN 2020). The CKD-EPI equation should not be used for patients with unstable renal function and has not been validated in children and those over 70. Current interpretive data was last reviewed 2021. Blood 06/05/2025 3:57 PM UI APPLICATION DEVELOPER 06/05/2025 4:00 PM UI APPLICATION DEVELOPER us Crispin Eli MD LAB BLOOD ORDERABLES Final Result SHAUNA PAGE ([place]) 1 [facility] [place] [address] * Differential, auto (06/05/2025 3:57 PM UI APPLICATION DEVELOPER) Neutrophil abs 4.01 1.50 - 6.50 K/cumm Imm gran abs 0.01 0.00 - 0.10 K/cumm [facility] ([place]) Lymphocyte abs 2.82 0.80 - 3.30 K/cumm [facility] ([place]) Monocyte abs 0.57 0.20 - 0.80 K/cumm [facility] ([place]) Eosinophil abs 0.09 0.00 - 0.50 K/cumm [facility] ([place]) Basophil abs 0.08 0.00 - 0.10 K/cumm [facility] ([place]) Neutrophil pct 52.9 % [facility] ([place]) Comment: Interpretive Data Percent cell count reference ranges are not reported, since discordance with absolute values may lead to misinterpretation of CBC data. Current Interpretive Data was last revised on 2017. Imm gran pct 0.1 % [facility] ([place]) Comment: Interpretive Data Percent cell count reference ranges are not reported, since discordance with absolute values may lead to misinterpretation of CBC data. Current Interpretive Data was last revised on 2017. Lymphocyte pct 37.2 % [facility] ([place]) Comment: Interpretive Data Percent cell count reference ranges are not reported, since discordance with absolute values may lead to misinterpretation of CBC data. Current Interpretive Data was last revised on 2017. Monocyte pct 7.5 % [facility] ([place]) Comment: Interpretive Data Percent cell count reference ranges are not reported, since discordance with absolute values may lead to misinterpretation of CBC data. Current Interpretive Data was last revised on 2017. Eosinophil pct 1.2 % [facility] ([place]) Comment: Interpretive Data Percent cell count reference ranges are not reported, since discordance with absolute values may lead to misinterpretation of CBC data. Current Interpretive Data was last revised on 2017. Basophil pct 1.1 % [facility] ([place]) Comment: Interpretive Data Percent cell count reference ranges are not reported, since discordance with absolute values may lead to misinterpretation of CBC data. Current Interpretive Data was last revised on 2017. Blood 06/05/2025 3:57 PM UI APPLICATION DEVELOPER 06/05/2025 4:00 PM UI APPLICATION DEVELOPER us Crispin Eli MD LAB BLOOD ORDERABLES Final Result SHAUNA PAGE ([place]) 1 [facility] [place] [address] * (ABNORMAL) CBC with auto differential (06/05/2025 3:57 PM UI APPLICATION DEVELOPER) WBC 7.58 3.80 - 9.90 K/cumm Hgb 15.6(H) 11.9 - 15.5 g/dL [facility] ([place]) Hct 43.2 35.6 - 45.5 % [facility] ([place]) Plt 240 150 - 400 K/cumm [facility] ([place]) MPV 9.9 9.1 - 12.3 fL [facility] ([place]) RBC 4.89 3.90 - 5.20 M/cumm [facility] ([place]) MCV 88.3 81.3 - 96.4 fL [facility] ([place]) MCH 31.9 27.1 - 33.3 pg [facility] ([place]) MCHC 36.1(H) 32.3 - 35.7 g/dL [facility] ([place]) RDW CV 11.8 11.1 - 14.9 % [facility] ([place]) RDW SD 37.9 35.7 - 48.1 fL [facility] ([place]) NRBC abs 0.00 0.00 - 0.01 K/cumm [facility] ([place]) Blood 06/05/2025 3:57 PM UI APPLICATION DEVELOPER 06/05/2025 4:00 PM UI APPLICATION DEVELOPER us Crispin Eli MD LAB BLOOD ORDERABLES Final Result [facility] ([place]) 1 [facility] [place] [address] * Phosphorus (06/05/2025 3:57 PM UI APPLICATION DEVELOPER) Phosphorus, pl 2.4 2.3 - 4.5 mg/dL Blood 06/05/2025 3:57 PM UI APPLICATION DEVELOPER 06/05/2025 4:09 PM UI APPLICATION DEVELOPER Richard INMAN LAB BLOOD ORDERABLES Final Result [facility] ([place]) 1 [place] [address] * Magnesium (06/05/2025 3:57 PM UI APPLICATION DEVELOPER) [facility] Magnesium 2.0 1.4 - 2.5 mg/dL Blood 06/05/2025 3:57 PM UI APPLICATION DEVELOPER 06/05/2025 4:09 PM UI APPLICATION DEVELOPER Richard INMAN LAB BLOOD ORDERABLES Final Result Performing Organization Address City/[facility]/ZIP Co de Phone Number [facility] ([place]) 1 [place] [address] * Lipase (06/05/2025 3:57 PM UI APPLICATION DEVELOPER) [facility] Lipase 75 10 - 99 Units/L Blood 06/05/2025 3:57 PM UI APPLICATION DEVELOPER 06/05/2025 4:09 PM UI APPLICATION DEVELOPER Richard INMAN LAB BLOOD ORDERABLES Final Result Performing Organization Address [facility] de Phone Number [facility]NA [facility] ([place]) 1 [place] [address] * (ABNORMAL) Comprehensive metabolic panel (06/05/2025 3:57 PM UI APPLICATION DEVELOPER) [facility] Sodium 134(L) 135 - 145 mmol/L Potassium, pl 3.5 3.3 - 4.9 mmol/L [facility] ([place]) Chloride 100 97 - 110 mmol/L [facility] ([place]) CO2 21(L) 22 - 32 mmol/L [facility] ([place]) Anion gap 13 2 - 15 mmol/L [facility] ([place]) BUN 7 6 - 25 mg/dL [facility] ([place]) Creatinine 0.75 0.60 - 1.10 mg/dL [facility] ([place]) Glucose 98 70 - 199 mg/dL [facility] ([place]) Comment: Interpretive Data Fasting glucose >/= 126 mg/dl is diagnostic for diabetes. Fasting is defined as no caloric intake for at least 8 hours. Fasting glucose between 100 mg/dl to 125 mg/dl is diagnostic of prediabetes. In a patient with classic symptoms of hyperglycemia or hyperglycemic crisis, a random glucose >/= 200 mg/dl is diagnostic for diabetes. In the absence of unequivocal hyperglycemia, results should be confirmed by repeat testing. The classification and Diagnosis of Diabetes Diabetes Care 202; 46: S19-S40. Current interpretive data was last revised 2022. Calcium 10.2 8.5 - 10.3 mg/dL [facility] ([place]) Bilirubin, total 0.6 0.1 - 1.2 mg/dL [facility] ([place]) Protein, pl 8.8(H) 6.5 - 8.5 g/dL [facility] ([place]) Albumin 4.9 3.5 - 5.0 g/dL [facility] ([place]) Alk phos 80 40 - 130 Units/L [facility] ([place]) ALT 16 7 - 45 Units/L [facility] ([place]) AST 27 10 - 45 Units/L [facility] ([place]) Blood 06/05/2025 3:57 PM UI APPLICATION DEVELOPER 06/05/2025 4:00 PM UI APPLICATION DEVELOPER us Crispin Eli MD LAB BLOOD ORDERABLES Final Result [facility] ([place]) 1 [facility] [place] [address] * eGFR (05/28/2025 12:30 PM CDT) eGFR >90 >=60 mL/min/1. 73 m2 Comment: Interpretive Data Reference Interval Normal >/= 90 mL/min/1.73m2 Mildly decreased* 60 - 89 mL/min/1.73m2 Mildly to moderately decreased 45 - 59 mL/min/1.73m2 Moderately to severely decreased 30 - 44 mL/min/1.73m2 Severely decreased 15 - 29 mL/min/1.73m2 Kidney Failure < 15 mL/min/1.73m2 *Relative to young adult level Estimated glomerular filtration rate is determined by the 2020 CKD-EPI equation recommended by the National Kidney Foundation (A Unifying Approach to GFR Estimation: Recommendations of the NKF-ASK Task Force on Reassessing the Inclusion of Race in Diagnosing Kidney Disease, SALVADORSN 2020). The CKD-EPI equation should not be used for patients with unstable renal function and has not been validated in children and those over 70. Current interpretive data was last reviewed 2021. Blood 05/28/2025 12:3 0 PM CDT 05/28/2025 1:13 PM CDT Padmini Combs NP LAB BLOOD ORDERABLES Final Result [facility] ([place]) 1 [facility] [place] [address] * Differential, auto (05/28/2025 12:30 PM CDT) Neutrophil abs 3.31 1.50 - 6.50 K/cumm Imm gran abs 0.01 0.00 - 0.10 K/cumm [facility] ([place]) Lymphocyte abs 3.14 0.80 - 3.30 K/cumm [facility] ([place]) Monocyte abs 0.50 0.20 - 0.80 K/cumm [facility] ([place]) Eosinophil abs 0.15 0.00 - 0.50 K/cumm [facility] ([place]) Basophil abs 0.09 0.00 - 0.10 K/cumm [facility] ([place]) Neutrophil pct 46.0 % [facility] ([place]) Comment: Interpretive Data Percent cell count reference ranges are not reported, since discordance with absolute values may lead to misinterpretation of CBC data. Current Interpretive Data was last revised on 2017. Imm gran pct 0.1 % [facility] ([place]) Comment: Interpretive Data Percent cell count reference ranges are not reported, since discordance with absolute values may lead to misinterpretation of CBC data. Current Interpretive Data was last revised on 2017. Lymphocyte pct 43.6 % [facility] ([place]) Comment: Interpretive Data Percent cell count reference ranges are not reported, since discordance with absolute values may lead to misinterpretation of CBC data. Current Interpretive Data was last revised on 2017. Monocyte pct 6.9 % [facility] ([place]) Comment: Interpretive Data Percent cell count reference ranges are not reported, since discordance with absolute values may lead to misinterpretation of CBC data. Current Interpretive Data was last revised on 2017. Eosinophil pct 2.1 % [facility] ([place]) Comment: Interpretive Data Percent cell count reference ranges are not reported, since discordance with absolute values may lead to misinterpretation of CBC data. Current Interpretive Data was last revised on 2017. Basophil pct 1.3 % [facility] ([place]) Comment: Interpretive Data Percent cell count reference ranges are not reported, since discordance with absolute values may lead to misinterpretation of CBC data. Current Interpretive Data was last revised on 2017. Blood 05/28/2025 12:3 0 PM CDT 05/28/2025 1:13 PM CDT Padmini Combs NP LAB BLOOD ORDERABLES Final Result [facility] ([place]) 1 [facility] [place] [address] * CBC with auto differential (05/28/2025 12:30 PM CDT) WBC 7.20 3.80 - 9.90 K/cumm Hgb 13.9 11.9 - 15.5 g/dL [facility] ([place]) Hct 38.9 35.6 - 45.5 % [facility] ([place]) Plt 199 150 - 400 K/cumm [facility] ([place]) MPV 10.3 9.1 - 12.3 fL [facility] ([place]) RBC 4.28 3.90 - 5.20 M/cumm [facility] ([place]) MCV 90.9 81.3 - 96.4 fL [facility] ([place]) MCH 32.5 27.1 - 33.3 pg [facility] ([place]) MCHC 35.7 32.3 - 35.7 g/dL [facility] ([place]) RDW CV 12.2 11.1 - 14.9 % [facility] ([place]) RDW SD 40.7 35.7 - 48.1 fL [facility] ([place]) NRBC abs 0.00 0.00 - 0.01 K/cumm [facility] ([place]) Blood 05/28/2025 12:3 0 PM CDT 05/28/2025 1:13 PM CDT Padmini Combs AUTOMOBILES SALESPERSON LAB BLOOD ORDERABLES Final Result Performing Organization Address City/[facility]/ZIP Co de Phone Number SHAUNA PAGE ([place]) 1 [facility] [place] [address] * Vitamin D 25 hydroxy (05/28/2025 12:30 PM CDT) Vitamin D 25-OH 35 30 - 80 ng/mL Blood 05/28/2025 12:3 0 PM CDT 05/28/2025 1:13 PM CDT Padmini Combs AUTOMOBILES SALESPERSON LAB BLOOD ORDERABLES Final Result Performing Organization Address City/[facility] de Phone Number SHAUNA PAGE ([place]) 1 [facility] [place] [address] * (ABNORMAL) Lipid panel (05/28/2025 12:30 PM CDT) Cholesterol 233(H) 30 - 199 mg/dL Comment: Interpretive Data Ages < or = 19 years Acceptable: <170 mg/dL Borderline high: 170-199 mg/dL High: >or= 200 mg/dL Ages > or = 20 years Desirable: <200 mg/dL Borderline high: 200-239 mg/dL High: >or= 240 mg/dL Literature References: 1. Expert Panel on Integrated Guidelines for Cardiovascular Health and Risk Reduction in Children and Adolescents. Pediatrics 2011;128:S213 2. NCEP Expert Panel. Circulation 2004;110:227 Current Interpretive Data was last revised on 2018. Triglycerides 158(H) <=149 mg/dL [facility] ([place]) Comment: Interpretive Data Ages < or = 9 years Acceptable: <75 mg/dL Borderline high: 75-99 mg/dL High: >or= 100 mg/dL Ages 10 to 20 years Acceptable: <90 mg/dL Borderline high: 90-129 mg/dL High: >or= 130 mg/dL Ages > or = 20 years Desirable: <150 mg/dL Borderline high: 150-199 mg/dL High: 200-499 mg/dL Very high: >or= 499 mg/dL Literature References: 1. Expert Panel on Integrated Guidelines for Cardiovascular Health and Risk Reduction in Children and Adolescents. Pediatrics 2011;128:S213 2. NCEP Expert Panel. Circulation 2004;110:227 Current Interpretive Data was last revised on 2018. HDL 34(L) >=40 mg/dL SHAUNA PAGE ([place]) Comment: Interpretive Data Ages < or = 19 years Acceptable: >45 mg/dL Borderline low: 40-45 mg/dL Low: <40 mg/dL Ages > or = 20 years Desirable: >or= 60 mg/dL Low: <40 mg/dL Literature References: 1. Expert Panel on Integrated Guidelines for Cardiovascular Health and Risk Reduction in Children and Adolescents. Pediatrics 2011;128:S213 2. NCEP Expert Panel. Circulation 2004;110:227 Current Interpretive Data was last revised on 2018. LDL, calculated 170(H) <=129 mg/dL SHAUNA PAGE ([place]) Comment: Interpretive Data Ages < or = 19 years Acceptable: <110 mg/dL Borderline high: 110-129 mg/dL High: >or= 130 mg/dL Ages > or = 20 years Optimal: <100 mg/dL Near optimal: 100-129 mg/dL Borderline high: 130-159 mg/dL High: >160 mg/dL Calculated using the Agusto LDL-C estimating equation. This equation was implemented on 2024. Prior to this date LDL-C was estimated using the Friedewald equation. Literature References: 1. Expert Panel on Integrated Guidelines for Cardiovascular Health and Risk Reduction in Children and Adolescents. Pediatrics 2011;128:S213 2. NCEP Expert Panel. Circulation 2004;110:227 3. Agusto Terry al. JEANINE Cardiol. 2020 November 27;5(5):540-548. doi: 10.1001/jamacardio.2020.0013 Current Interpretive Data was last revised on 2024. Non-HDL Cholesterol 199 mg/dL SHAUNA PAGE ([place]) Comment: Interpretive Data Ages < or = 19 years Acceptable: <120 mg/dL Borderline high: 120-144 mg/dL High: >145 mg/dL Ages > or = 20 years When triglycerides are >200 mg/dL, Non-HDL cholesterol is a secondary target of therapy with treatment goals that are 30 mg/dL greater than the LDL cholesterol target. Literature References: 1. Expert Panel on Integrated Guidelines for Cardiovascular Health and Risk Reduction in Children and Adolescents. Pediatrics 2011;128:S213 2. NCEP Expert Panel. Circulation 2004;110:227 Current Interpretive Data was last revised on 2018. Chol/HDL ratio 7 [facility] ([place]) Blood 05/28/2025 12:3 0 PM CDT 05/28/2025 1:13 PM CDT us Padmini Combs NP LAB BLOOD ORDERABLES Final Result [facility] ([place]) 1 [facility] [place] [address] * Comprehensive metabolic panel (05/28/2025 12:30 PM CDT) Sodium 136 135 - 145 mmol/L Potassium, pl 3.9 3.3 - 4.9 mmol/L [facility] ([place] Chloride 102 97 - 110 mmol/L [facility] ([place]) CO2 22 22 - 32 mmol/L [facility] ([place]) Anion gap 12 2 - 15 mmol/L [facility] ([place]) BUN 10 6 - 25 mg/dL [facility] ([place]) Creatinine 0.72 0.60 - 1.10 mg/dL [facility] ([place]) Glucose 83 70 - 199 mg/dL [facility] ([place]) Comment: Interpretive Data Fasting glucose >/= 126 mg/dl is diagnostic for diabetes. Fasting is defined as no caloric intake for at least 8 hours. Fasting glucose between 100 mg/dl to 125 mg/dl is diagnostic of prediabetes. In a patient with classic symptoms of hyperglycemia or hyperglycemic crisis, a random glucose >/= 200 mg/dl is diagnostic for diabetes. In the absence of unequivocal hyperglycemia, results should be confirmed by repeat testing. The classification and Diagnosis of Diabetes Diabetes Care 2021; 46: S19-S40. Current interpretive data was last revised 2022. Calcium 9.9 8.5 - 10.3 mg/dL [facility] ([place]) Bilirubin, total 0.2 0.1 - 1.2 mg/dL [facility] ([place]) Protein, pl 7.6 6.5 - 8.5 g/dL [facility] ([place]) Albumin 4.4 3.5 - 5.0 g/dL [facility] ([place]) Alk phos 80 40 - 130 Units/L [facility] ([place]) ALT 13 7 - 45 Units/L [facility] ([place]) AST 24 10 - 45 Units/L [facility] ([place]) Blood 05/28/2025 12:3 0 PM CDT 05/28/2025 1:13 PM CDT Padmini Combs NP LAB BLOOD ORDERABLES Final Result [facility] ([place]) 1 [facility] [place] [address] * eGFR (05/19/2025 1:36 PM CDT) eGFR >90 >=60 mL/min/1. 73 m2 Comment: Interpretive Data Reference Interval Normal >/= 90 mL/min/1.73m2 Mildly decreased* 60 - 89 mL/min/1.73m2 Mildly to moderately decreased 45 - 59 mL/min/1.73m2 Moderately to severely decreased 30 - 44 mL/min/1.73m2 Severely decreased 15 - 29 mL/min/1.73m2 Kidney Failure < 15 mL/min/1.73m2 *Relative to young adult level Estimated glomerular filtration rate is determined by the 2020 CKD-EPI equation recommended by the National Kidney Foundation (A Unifying Approach to GFR Estimation: Recommendations of the NKF-ASK Task Force on Reassessing the Inclusion of Race in Diagnosing Kidney Disease, JASN 2020). The CKD-EPI equation should not be used for patients with unstable renal function and has not been validated in children and those over 70. Current interpretive data was last reviewed 2021. Testing performed by: [address] [address] Blood 05/19/2025 1:36 PM CDT 05/19/2025 8:13 PM CDT us Kodak Bernard MD LAB BLOOD ORDERABLES Destinee jamel Result [facility] ([place]) 1 [facility] [place] [address] * Renal function panel (05/19/2025 1:36 PM CDT) Sodium 135 135 - 145 mmol/L Comment:Testing performed by : [address] [address] Potassium, pl 4.4 3.3 - 4.9 mmol/L [facility] ([place]) Comment:Testing performed by : [address], [address] Chloride 99 97 - 110 mmol/L [facility] ([place]) Comment:Testing performed by : [address], [address] CO2 22 22 - 32 mmol/L [facility] ([place]) Comment:Testing performed by : [address], [address] Anion gap 14 2 - 15 mmol/L [facility] ([place]) Comment:Testing performed by : [address], [address] BUN 9 6 - 25 mg/dL [facility] ([place]) Comment:Testing performed by : [address], [address] Creatinine 0.73 0.60 - 1.10 mg/dL [facility] ([place]) Comment:Testing performed by : [address], [address] Glucose 90 70 - 199 mg/dL [facility] ([place]) Comment: Interpretive Data Fasting glucose >/= 126 mg/dl is diagnostic for diabetes. Fasting is defined as no caloric intake for at least 8 hours. Fasting glucose between 100 mg/dl to 125 mg/dl is diagnostic of prediabetes. In a patient with classic symptoms of hyperglycemia or hyperglycemic crisis, a random glucose >/= 200 mg/dl is diagnostic for diabetes. In the absence of unequivocal hyperglycemia, results should be confirmed by repeat testing. The classification and Diagnosis of Diabetes Diabetes Care 2021; 46: S19-S40. Current interpretive data was last revised 2022. Testing performed by: [facility], [address] [place] [address]., [address] Calcium 10.2 8.5 - 10.3 mg/dL [facility] ([place]) Comment:Testing performed by : [facility], [address] [place] [address]., [address] Phosphorus, pl 4.4 2.3 - 4.5 mg/dL [facility] ([place]) Comment:Testing performed by : [facility], [address] [place] [address]., [address] Albumin 4.4 3.5 - 5.0 g/dL [facility] ([place] Comment:Testing performed by : [facility], [address] [place] [address]., [address] Blood 05/19/2025 1:36 PM CDT 05/19/2025 7:37 PM CDT Kodak Bernard MD LAB BLOOD ORDERABLES Destinee mccullough Result [facility] ([place]) 1 [facility] [place], [place] [id number] * Troponin T high-sensitivity 2-hour (05/13/2025 10:42 PM CDT) Trop T hs <6 <=14 ng/L Comment: Interpretive Data For further hscTnT resources including the diagnostic algorithm and an aid in interpretation, copy and paste this link: [email or web address].[email or web address]/show/[email or web address] Current Interpretive Data last revised 2020. Trop T hs delta 0 ng/L [facility] ([place]) Trop T hs interp Insignificant [facility] ([place]) Blood 05/13/2025 10:4 2 PM CDT 05/13/2025 10:48 PM CDT us Moisés Arana MD LAB BLOOD ORDERABLES Final Res ult SHAUNA PAGE ([place]) 1 [facility] [place] [address] * XR Chest 1 Vw Portable (If patient hemodynamically UNstable or UNable to ambulate) (05/13/2025 9:27PM CDT) Anatomical Region Laterality Modality Body, Chest N/A Computed Radiogr aphy 05/13/2025 9:42 PM CDT Narrative 05/13/2025 9:43 PM CDT EXAM DESCRIPTION: XR CHEST 1 VIEW REASON FOR STUDY: Chest pain intermittently for couple of weeks. TECHNIQUE: Frontal radiographic view of the chest COMPARISON: Chest radiograph 10/02/2022 FINDINGS: LUNGS/PLEURAE: No consolidation or pneumothorax. No large pleural effusion. HEART/MEDIASTINUM: Heart size is normal. Normal mediastinal and hilar contours. Atherosclerotic calcification of the thoracic aorta. HARDWARE/LINES/TUBES: None. BONES: No acute findings. IMPRESSION: 1. No acute radiographic abnormality. THIS IS AN ELECTRONICALLY VERIFIED FINAL REPORT 05/13/2025 9:43 PM - Electronically signed by Alberto Hill M.D. LB: ANIA Report ID: [id number] Reading Location: [id number] Procedure Note Alberto Hill MD - 05/13/2025 EXAM DESCRIPTION: XR CHEST 1 VIEW REASON FOR STUDY: Chest pain intermittently for couple of weeks. TECHNIQUE: Frontal radiographic view of the chest COMPARISON: Chest radiograph 10/02/2022 FINDINGS: LUNGS/PLEURAE: No consolidation or pneumothorax. No large pleuraleffusion. HEART/MEDIASTINUM: Heart size is normal. Normal mediastinal and hilar contours. Atherosclerotic calcification of the thoracic aorta. HARDWARE/LINES/TUBES: None. BONES: No acute findings. IMPRESSION: 1. No acute radiographic abnormality. THIS IS AN ELECTRONICALLY VERIFIED FINAL REPORT 05/13/2025 9:43 PM - Electronically signed by Alberto Hill M.D. LB: ANIA Report ID: [id number] Reading Location: [place] [address] Malena Bliss MD IMG XR PROCEDURES Final Result * Troponin T high-sensitivity series (baseline, 2hr, 4hr, 6hr) (05/13/2025 8:57 PM CDT) Trop T hs <6 <=14 ng/L Comment: Interpretive Data For further hscTnT resources including the diagnostic algorithm and an aid in interpretation, copy and paste this link: [email or web address] Current Interpretive Data last revised 2020. Blood 05/13/2025 8:57 PM CDT 05/13/2025 9:08 PM CDT us Malena Bliss MD LAB BLOOD ORDERABLES Fi nal Result [facility] ([place]) 4 [facility] [place] [address] * eGFR (05/13/2025 8:57 PM CDT) eGFR >90 >=60 mL/min/1. 73 m2 Comment: Interpretive Data Reference Interval Normal >/= 90 mL/min/1.73m2 Mildly decreased* 60 - 89 mL/min/1.73m2 Mildly to moderately decreased 45 - 59 mL/min/1.73m2 Moderately to severely decreased 30 - 44 mL/min/1.73m2 Severely decreased 15 - 29 mL/min/1.73m2 Kidney Failure < 15 mL/min/1.73m2 *Relative to young adult level Estimated glomerular filtration rate is determined by the 2020 CKD-EPI equation recommended by the National Kidney Foundation (A Unifying Approach to GFR Estimation: Recommendations of the NKF-ASK Task Force on Reassessing the Inclusion of Race in Diagnosing Kidney Disease, SONGN 2020). The CKD-EPI equation should not be used for patients with unstable renal function and has not been validated in children and those over 70. Current interpretive data was last reviewed 2021. Blood 05/13/2025 8:57 PM CDT 05/13/2025 9:08 PM CDT Malena Bliss MD LAB BLOOD ORDERABLES Fi nal Result [facility] ([place]) 1 [facility] [place] [address] * (ABNORMAL) Differential, auto (05/13/2025 8:57 PM CDT) Neutrophil abs 2.99 1.50 - 6.50 K/cumm Imm gran abs 0.01 0.00 - 0.10 K/cumm [facility] ([place]) Lymphocyte abs 3.46(H) 0.80 - 3.30 K/cumm [facility] ([place]) Monocyte abs 0.45 0.20 - 0.80 K/cumm [facility] ([place]) Eosinophil abs 0.18 0.00 - 0.50 K/cumm [facility] ([place]) Basophil abs 0.08 0.00 - 0.10 K/cumm [facility] ([place]) Neutrophil pct 41.7 % [facility] ([place]) Comment: Interpretive Data Percent cell count reference ranges are not reported, since discordance with absolute values may lead to misinterpretation of CBC data. Current Interpretive Data was last revised on 2017. Imm gran pct 0.1 % [facility] ([place]) Comment: Interpretive Data Percent cell count reference ranges are not reported, since discordance with absolute values may lead to misinterpretation of CBC data. Current Interpretive Data was last revised on 2017. Lymphocyte pct 48.3 % [facility] ([place]) Comment: Interpretive Data Percent cell count reference ranges are not reported, since discordance with absolute values may lead to misinterpretation of CBC data. Current Interpretive Data was last revised on 2017. Monocyte pct 6.3 % [facility] ([place]) Comment: Interpretive Data Percent cell count reference ranges are not reported, since discordance with absolute values may lead to misinterpretation of CBC data. Current Interpretive Data was last revised on 2017. Eosinophil pct 2.5 % [facility] ([place]) Comment: Interpretive Data Percent cell count reference ranges are not reported, since discordance with absolute values may lead to misinterpretation of CBC data. Current Interpretive Data was last revised on 2017. Basophil pct 1.1 % [facility] ([place]) Comment: Interpretive Data Percent cell count reference ranges are not reported, since discordance with absolute values may lead to misinterpretation of CBC data. Current Interpretive Data was last revised on 2017. Blood 05/13/2025 8:57 PM CDT 05/13/2025 9:08 PM CDT us Malena Bliss MD LAB BLOOD ORDERABLES [facility] Result [facility] ([place]) 1 [facility] [place] [address] * (ABNORMAL) CBC with auto differential (05/13/2025 8:57 PM CDT) WBC 7.17 3.80 - 9.90 K/cumm Hgb 14.0 11.9 - 15.5 g/dL [facility] ([place]) Hct 39.1 35.6 - 45.5 % [facility] ([place]) Plt 227 150 - 400 K/cumm [facility] ([place]) MPV 10.0 9.1 - 12.3 fL [facility] ([place]) RBC 4.34 3.90 - 5.20 M/cumm [facility] ([place]) MCV 90.1 81.3 - 96.4 fL [facility] ([place]) MCH 32.3 27.1 - 33.3 pg [facility] ([place]) MCHC 35.8(H) 32.3 - 35.7 g/dL [facility] ([place]) RDW CV 12.0 11.1 - 14.9 % [facility] ([place]) RDW SD 39.8 35.7 - 48.1 fL [facility] ([place]) NRBC abs 0.00 0.00 - 0.01 K/cumm [facility] ([place]) Blood Venous blood specimen / Unknown 05/13/2025 8:57 PM CDT 05/13/2025 9:08 PM CDT Malena Bliss MD LAB BLOOD ORDERABLES Fi nal Result [facility] ([place]) 1 [facility] [place] [address] * (ABNORMAL) Comprehensive metabolic panel (05/13/2025 8:57 PM CDT) Sodium 135 135 - 145 mmol/L Potassium, pl 2.9(C) 3.3 - 4.9 mmol/L [facility] ([place]) Comment:Critical Result call ed by [email or web address] at 2025-05-13 21:45:54. Result Read Back by gosia thacker Chloride 101 97 - 110 mmol/L [facility] ([place]) CO2 21(L) 22 - 32 mmol/L [facility] ([place]) Anion gap 13 2 - 15 mmol/L [facility] ([place]) BUN 8 6 - 25 mg/dL [facility] ([place]) Creatinine 0.64 0.60 - 1.10 mg/dL [facility] ([place]) Glucose 114 70 - 199 mg/dL [facility] ([place]) Comment: Interpretive Data Fasting glucose >/= 126 mg/dl is diagnostic for diabetes. Fasting is defined as no caloric intake for at least 8 hours. Fasting glucose between 100 mg/dl to 125 mg/dl is diagnostic of prediabetes. In a patient with classic symptoms of hyperglycemia or hyperglycemic crisis, a random glucose >/= 200 mg/dl is diagnostic for diabetes. In the absence of unequivocal hyperglycemia, results should be confirmed by repeat testing. The classification and Diagnosis of Diabetes Diabetes Care 2021; 46: S19-S40. Current interpretive data was last revised 2022. Calcium 9.8 8.5 - 10.3 mg/dL [facility] ([place]) Bilirubin, total 0.4 0.1 - 1.2 mg/dL [facility] ([place]) Protein, pl 7.6 6.5 - 8.5 g/dL [facility] ([place]) Albumin 4.3 3.5 - 5.0 g/dL [facility] ([place]) Alk phos 84 40 - 130 Units/L [facility] ([place]) ALT 11 7 - 45 Units/L [facility] ([place]) AST 21 10 - 45 Units/L [facility] ([place]) Blood 05/13/2025 8:57 PM CDT 05/13/2025 9:08 PM CDT Malena Bliss MD LAB BLOOD ORDERABLES Fi nal Result Performing Organization Address [facility] Co de Phone Number [facility] ([place]) 1 [facility] Department [place] [address] * ECG 12 lead (05/13/2025 8:50 PM CDT) 05/13/2025 8:50 PM CDT Narrative [facility] - 05/14/2025 9:52 AM CDT Vent Rate: 75 bpm RR Interval: 800 msec AR Interval: 157 msec QRS Duration: 76 msec QT Interval: 354 msec QTC Interval: 382 msec P-R-T [place]: 57 - 14 - 37 degrees IMPRESSION: SINUS RHYTHM LOW QRS VOLTAGE IN PRECORDIAL LEADS [QRS DEFLECTION < 1.0 mV IN CHEST LEADS] BORDERLINE ECG No change compared to prior EKG Electronically Signed By: Otto Miller MD [facility] Malena Bliss MD ECG ORDERABLES Final R esult Performing Organization Address City/[facility]/ZIP Co de Phone Number [facility] [employer] [facility] * US Breast Bilateral Limited (04/24/2025 9:36 AM CDT) Anatomical Region Laterality Modality Breast Bilateral Ultrasound 04/24/2025 9:44 AM CDT Impressions 04/24/2025 9:44 AM CDT No mammographic or sonographic evidence of malignancy. Right breast pain and intermittent palpable focus in the left breast should be managed clinically. OVERALL FINAL ASSESSMENT: BI-RADS Category 1: Negative. RECOMMENDATION: 1. Annual screening mammography is recommended. 2. Clinical follow-up is recommended. Electronically signed by: Maryjo Merlos M.D. Narrative 04/24/2025 9:44 AM CDT EXAMINATION: BILATERAL DIGITAL DIAGNOSTIC MAMMOGRAM INCLUDING CAD AND BILATERAL DIGITAL BREAST TOMOSYNTHESIS; BILATERAL BREAST SONOGRAM HISTORY: Focal right breast pain, intermittent palpable focus left superior breast, annual study COMPARISON: 05/26/2024, 05/23/2023, 04/28/2022, 10/21/2018 TECHNIQUE: Full field digital mammographic views of BOTH breasts were performed, including computer aided detection (CAD) and BILATERAL digital breast tomosynthesis (DBT). Directed ultrasound evaluation of BOTH breasts was performed. BREAST PARENCHYMAL COMPOSITION: There are scattered areas of fibroglandular density. MAMMOGRAM FINDINGS: A marker is placed at the site of the focal right breast pain. No mammographic abnormality is appreciated associated with the marker. A marker is placed at the site of the intermittent palpable lesion in the left breast. No mammographic abnormalities appreciated associated with the marker. There is no new dominant density or suspicious microcalcification in either breast. SONOGRAM FINDINGS: Targeted bilateral breast ultrasound was performed in the regions of interest. The upper outer quadrant of the right breast was sonographically interrogated. No sonographic abnormalities appreciated. Per the patient, the left breast at the 12 o'clock position 11 cm from the nipple was sonographically interrogated. No sonographic abnormalities appreciated. Annmarie Santiago MD IMG MAMMO PROCEDURES Final Result * DIAGNOSTIC MAMMOGRAM BILATERAL W CROW (04/24/2025 9:05 AM CDT) Anatomical Region Laterality Modality Breast Bilateral Mammography 04/24/2025 9:44 AM CDT Impressions 04/24/2025 9:44 AM CDT No mammographic or sonographic evidence of malignancy. Right breast pain and intermittent palpable focus in the left breast should be managed clinically. OVERALL FINAL ASSESSMENT: BI-RADS Category 1: Negative. RECOMMENDATION: 1. Annual screening mammography is recommended. 2. Clinical follow-up is recommended. Electronically signed by: Maryjo Merlos M.D. Narrative 04/24/2025 9:44 AM CDT EXAMINATION: BILATERAL DIGITAL DIAGNOSTIC MAMMOGRAM INCLUDING CAD AND BILATERAL DIGITAL BREAST TOMOSYNTHESIS; BILATERAL BREAST SONOGRAM HISTORY: Focal right breast pain, intermittent palpable focus left superior breast, annual study COMPARISON: 05/26/2024, 05/23/2023, 04/28/2022, 10/21/2018 TECHNIQUE: Full field digital mammographic views of BOTH breasts were performed, including computer aided detection (CAD) and BILATERAL digital breast tomosynthesis (DBT). Directed ultrasound evaluation of BOTH breasts was performed. BREAST PARENCHYMAL COMPOSITION: There are scattered areas of fibroglandular density. MAMMOGRAM FINDINGS: A marker is placed at the site of the focal right breast pain. No mammographic abnormality is appreciated associated with the marker. A marker is placed at the site of the intermittent palpable lesion in the left breast. No mammographic abnormalities appreciated associated with the marker. There is no new dominant density or suspicious microcalcification in either breast. SONOGRAM FINDINGS: Targeted bilateral breast ultrasound was performed in the regions of interest. The upper outer quadrant of the right breast was sonographically interrogated. No sonographic abnormalities appreciated. Per the patient, the left breast at the 12 o'clock position 11 cm from the nipple was sonographically interrogated. No sonographic abnormalities appreciated. Annmarie Santiago MD IMG MAMMO PROCEDURES Final Result * Urinalysis reflex to microscopic and culture Urine (04/20/2025 1:55 PM CDT) Color, ur Straw Yellow Clarity, ur Clear Clear [facility] [place] ([place]) Specific gravity, ur 1.003 1.003 - 1.030 [facility] ([place]) pH, urine 6.0 [facility] ([place]) Comment: Interpretive Data U rine pH is affected by diet, medications, systemic acid-base disturbances, and renal tubular function. pH may affect urinary stone formation. For example, urine pH below 6.0 may help reduce the tendency for calcium phosphate stones and pH greater than 6.0 may reduce the tendency for uric acid stone formation. Source: [place] Current Interpretive Data was last revised on 2017 Protein, ur ql Negative Negative [facility] ([place]) Glucose, ur ql Negative Negative [facility] ([place]) Ketones, ur Negative Negative [facility] ([place]) Bilirubin, ur Negative Negative [facility] ([place]) Blood, ur Negative Negative [facility] ([place]) Urobilinogen, ur <2.0 <2.0 mg/dL [facility] ([place]) Nitrite, ur Negative Negative [facility] ([place]) Leukocyte esterase, ur Negative Negative [facility] ([place]) UA reflex comment Reflex conditions for microscopic UA and culture not met. [facility] ([place]) Urine 04/20/2025 1:55 PM CDT 04/20/2025 1:58 PM CDT us Luz Maria IN[facility] LAB MICROBIOLOGY - GENERA L ORDERABLES Final Result [facility] ([place]) 1 [facility] [place] [address] * CT Head WO Contrast (04/20/2025 12:14 PM CDT) Anatomical Region Laterality Modality Head and Neck N/A Computed Tomogra phy 04/20/2025 12:2 0 PM CDT Narrative 04/20/2025 12:33 PM CDT EXAM DESCRIPTION: CT HEAD WO CONTRAST REASON FOR STUDY: Acute dizziness for 5 days. No provided focal neurologic deficits. No provided history of trauma or inciting and/or aggravating events. TECHNIQUE: Axial images acquired through the brain without intravenous contrast. Images stored on PACS. Automated exposure control was used as a dose optimization technique for this examination. COMPARISON: Relevant portions of cervical spine radiograph 08/23/2024; DEXA scan 10/21/2018. FINDINGS: BRAIN: No acute intra-axial hemorrhage. No edema, mass effect, midline shift, or herniation. No evidence of acute territorial ischemia/infarct. No suspicious focal white matter lesions with preservation of the prieto-white junction. EXTRA-AXIAL SPACES: No extra-axial fluid collection. No unenhanced CT evidence of extra-axial mass. CALVARIUM: No acute calvarial fracture. Persistent metopic suture. SINUSES/MASTOIDS: No fluid levels of the visualized paranasal sinuses. Mastoid air cells well-developed and well aerated. ORBITS: Subtotal visualization without evidence of acute abnormality. OTHER: No other significant abnormality. IMPRESSION: No acute intracranial process. THIS IS AN ELECTRONICALLY VERIFIED FINAL REPORT 04/20/2025 12:33 PM - Electronically signed by Adal Curry M.D. DANIA: DANIA Report ID: [id number] Reading Location: [id number] Procedure Note Adal Curry MD - 04/20/2025 EXAM DESCRIPTION: CT HEAD WO CONTRAST REASON FOR STUDY: Acute dizziness for 5 days. No provided focalneurologic deficits. No provided history of trauma or inciting and/or aggravating events. TECHNIQUE: Axial images acquired through the brain without intravenous contrast. Images stored on PACS. Automated exposure control was used asa dose optimization technique for this examination. COMPARISON: Relevant portions of cervical spine radiograph 08/23/2024;DEXA scan 10/21/2018. FINDINGS: BRAIN: No acute intra-axial hemorrhage. No edema, mass effect, midline shift, or herniation. No evidence of acute territorialischemia/infarct. No suspicious focal white matter lesions with preservation of thegray-white junction. EXTRA-AXIAL SPACES: No extra-axial fluid collection. No unenhanced CT evidence of extra-axial mass. CALVARIUM: No acute calvarial fracture. Persistent metopic suture. SINUSES/MASTOIDS: No fluid levels of the visualized paranasal sinuses. Mastoid air cells well-developed and well aerated. ORBITS: Subtotal visualization without evidence of acute abnormality. OTHER: No other significant abnormality. IMPRESSION: No acute intracranial process. THIS IS AN ELECTRONICALLY VERIFIED FINAL REPORT 04/20/2025 12:33 PM - Electronically signed by Adal Curry M.D. DANIA: DANIA Report ID: [id number] Reading Location: [id number] Luz Maria IN[facility] IMG CT PROCEDURES Final R esult * ECG 12 lead (04/20/2025 11:53 AM CDT) 04/20/2025 11:5 3 AM CDT Narrative [facility] - 04/20/2025 1:02 PM CDT Vent Rate: 70 bpm RR Interval: 847 msec AR Interval: 132 msec QRS Duration: 83 msec QT Interval: 361 msec QTC Interval: 382 msec P-R-T [place]: 0 - 49 - -66 degrees IMPRESSION: SINUS RHYTHM LOW QRS VOLTAGE [QRS DEFLECTION < 0.5/1.0 mV IN LIMB/CHEST LEADS] ABNORMAL QRS-T ANGLE [QRS-T AXIS DIFFERENCE > 60] ABNORMAL ECG Electronically Signed By: Juliano Montalvo MD Luz Maria [facility] ECG ORDERABLES Final Res ult Performing Organization Address City/[facility]/ZIP Co de Phone Number [facility] * Troponin T high-sensitivity series (baseline, 2hr, 4hr, 6hr) (04/20/2025 11:33 AM CDT) Trop T hs <6 <=14 ng/L [facility] PAGE ([place]) Comment: Interpretive Data For further hscTnT resources including the diagnostic algorithm and an aid in interpretation, copy and paste this link: [email or web address] Current Interpretive Data last revised 2020. Blood 04/20/2025 11:3 3 AM CDT 04/20/2025 11:39 AM CDT Luz Maria [facility] LAB BLOOD ORDERABLES Destinee l Result [facility] ([place]) 1 [facility] [place] [address] * eGFR (04/20/2025 11:33 AM CDT) eGFR >90 >=60 mL/min/1. 73 m2 Comment: Interpretive Data Reference Interval Normal >/= 90 mL/min/1.73m2 Mildly decreased* 60 - 89 mL/min/1.73m2 Mildly to moderately decreased 45 - 59 mL/min/1.73m2 Moderately to severely decreased 30 - 44 mL/min/1.73m2 Severely decreased 15 - 29 mL/min/1.73m2 Kidney Failure < 15 mL/min/1.73m2 *Relative to young adult level Estimated glomerular filtration rate is determined by the 2020 CKD-EPI equation recommended by the National Kidney Foundation (A Unifying Approach to GFR Estimation: Recommendations of the NKF-ASK Task Force on Reassessing the Inclusion of Race in Diagnosing Kidney Disease, JASN 2020). The CKD-EPI equation should not be used for patients with unstable renal function and has not been validated in children and those over 70. Current interpretive data was last reviewed 2021. Blood 04/20/2025 11:3 3 AM CDT 04/20/2025 11:39 AM CDT us Luz Maria [facility] LAB BLOOD ORDERABLES Desitnee mccullough Result [facility] ([place]) 1 [facility] [place] [address] * (ABNORMAL) Differential, auto (04/20/2025 11:33 AM CDT) Neutrophil abs 4.71 1.50 - 6.50 K/cumm Imm gran abs 0.01 0.00 - 0.10 K/cumm [facility] ([place]) Lymphocyte abs 3.38(H) 0.80 - 3.30 K/cumm [facility] ([place]) Monocyte abs 0.46 0.20 - 0.80 K/cumm [facility] ([place]) Eosinophil abs 0.16 0.00 - 0.50 K/cumm [facility] ([place]) Basophil abs 0.06 0.00 - 0.10 K/cumm [facility] ([place]) Neutrophil pct 53.7 % [facility] ([place]) Comment: Interpretive Data Percent cell count reference ranges are not reported, since discordance with absolute values may lead to misinterpretation of CBC data. Current Interpretive Data was last revised on 2017. Imm gran pct 0.1 % [facility] ([place]) Comment: Interpretive Data Percent cell count reference ranges are not reported, since discordance with absolute values may lead to misinterpretation of CBC data. Current Interpretive Data was last revised on 2017. Lymphocyte pct 38.5 % [facility] ([place]) Comment: Interpretive Data Percent cell count reference ranges are not reported, since discordance with absolute values may lead to misinterpretation of CBC data. Current Interpretive Data was last revised on 2017. Monocyte pct 5.2 % [facility] ([place]) Comment: Interpretive Data Percent cell count reference ranges are not reported, since discordance with absolute values may lead to misinterpretation of CBC data. Current Interpretive Data was last revised on 2017. Eosinophil pct 1.8 % [facility] ([place]) Comment: Interpretive Data Percent cell count reference ranges are not reported, since discordance with absolute values may lead to misinterpretation of CBC data. Current Interpretive Data was last revised on 2017. Basophil pct 0.7 % [facility] ([place]) Comment: Interpretive Data Percent cell count reference ranges are not reported, since discordance with absolute values may lead to misinterpretation of CBC data. Current Interpretive Data was last revised on 2017. Blood 04/20/2025 11:3 3 AM CDT 04/20/2025 11:39 AM CDT us Luz Maria [facility] LAB BLOOD ORDERABLES Destinee l Result [facility] ([place]) 1 [facility] [place] [address] * CBC with auto differential (04/20/2025 11:33 AM CDT) WBC 8.78 3.80 - 9.90 K/cumm Hgb 15.3 11.9 - 15.5 g/dL [facility] PAGE ([place]) Hct 43.9 35.6 - 45.5 % [facility] ([place]) Plt 273 150 - 400 K/cumm [facility] ([place]) MPV 10.3 9.1 - 12.3 fL [facility] ([place]) RBC 4.78 3.90 - 5.20 M/cumm [facility] ([place]) MCV 91.8 81.3 - 96.4 fL [facility] ([place]) MCH 32.0 27.1 - 33.3 pg [facility] ([place]) MCHC 34.9 32.3 - 35.7 g/dL [facility] RDW CV 12.5 11.1 - 14.9 % [facility] ([place] RDW SD 42.0 35.7 - 48.1 fL [facility] ([place]) NRBC abs 0.00 0.00 - 0.01 K/cumm [facility] ([place]) Blood 04/20/2025 11:3 3 AM CDT 04/20/2025 11:39 AM CDT Luz Maria [facility] LAB BLOOD ORDERABLES Destinee l Result [facility] ([place]) 1 [facility] Department of Laboratories [place] [id number] * (ABNORMAL) Comprehensive metabolic panel (04/20/2025 11:33 AM CDT) Sodium 136 135 - 145 mmol/L [facility] ([place]) Potassium, pl 3.4 3.3 - 4.9 mmol/L [facility] ([place]) Chloride 102 97 - 110 mmol/L [facility] ([place]) CO2 20(L) 22 - 32 mmol/L [facility] ([place]) Anion gap 14 2 - 15 mmol/L [facility] ([place]) BUN 7 6 - 25 mg/dL [facility] ([place]) Creatinine 0.74 0.60 - 1.10 mg/dL [facility] ([place]) Glucose 144 70 - 199 mg/dL [facility] ([place]) Comment: Interpretive Data Fasting glucose >/= 126 mg/dl is diagnostic for diabetes. Fasting is defined as no caloric intake for at least 8 hours. Fasting glucose between 100 mg/dl to 125 mg/dl is diagnostic of prediabetes. In a patient with classic symptoms of hyperglycemia or hyperglycemic crisis, a random glucose >/= 200 mg/dl is diagnostic for diabetes. In the absence of unequivocal hyperglycemia, results should be confirmed by repeat testing. The classification and Diagnosis of Diabetes Diabetes Care 2021; 46: S19-S40. Current interpretive data was last revised 2022. Calcium 9.7 8.5 - 10.3 mg/dL [facility] ([place]) Bilirubin, total 0.3 0.1 - 1.2 mg/dL [facility] ([place]) Protein, pl 7.8 6.5 - 8.5 g/dL [facility] ([place]) Albumin 4.4 3.5 - 5.0 g/dL [facility] ([place]) Alk phos 91 40 - 130 Units/L [facility] ([place]) ALT 12 7 - 45 Units/L [facility] ([place]) AST 24 10 - 45 Units/L [facility] ([place]) Blood 04/20/2025 11:3 3 AM CDT 04/20/2025 11:39 AM CDT us Luz Maria [facility] LAB BLOOD ORDERABLES Destinee mccullough Result [facility]NA PAGE ([place]) 1 [facility] [place] [address] * Colonoscopy (11/10/2024 10:55 AM CDT) Anatomical Region Laterality Modality Other Narrative Procedure Note Tesfaye Glaser MD - 11/10/2024 10:55 AM CDT [facility] Patient Name: Giovana Alvarado Procedure Date: 11/10/2024 10:55 AM Date of : 1965 Admit Type: Outpatient Age: 59 Gender: Female Attending MD: Tesfaye Glaser M.D. Room: [facility] ENDOSCOPY ROOM 1 Note Status: Finalized Patient Profile: This is a 59 year old female. History of polyps. No family history of colon cancer. Procedure: Colonoscopy Indications: Surveillance: Personal history of adenomatouspolyps on last colonoscopy 5 years ago, Last colonoscopy: October 2020 Referring MD: Kodak Bernard M.D. Providers: Tesfaye Glaser M.D. Impression: - Mild diverticulosis in the sigmoid colon. - The entire examined colon is normal overall. - Internal hemorrhoids. - No specimens collected. Recommendation: - Repeat colonoscopy in 5 years for surveillance. Medicines: Monitored Anesthesia Care Complications: No immediate complications. Estimated Blood Loss: Estimated blood loss: none. Procedure: Pre-Anesthesia Assessment: - Prior to the procedure, a History and Physicalwas performed, and patient medications and allergieswere reviewed. The patient's tolerance of previous anesthesia was also reviewed. The risks andbenefits of the procedure and the sedation options and risks were discussed with the patient. All questions were answered, and informed consent was obtained. Prior Anticoagulants: The patient has taken noanticoagulant or antiplatelet agents. ASA Grade Assessment: Per anesthesia note and evaluation. After reviewing the risks and benefits, the patient was deemed in satisfactory condition to undergo the procedure. The benefits, risks and alternatives of theprocedure and sedation were discussed and informed consentwas obtained. All questions were answered. Please referto the signed informed consent document in the medical record. The bowel preparation used was Miralax via split dose instruction. The bowel preparation usedwas bisacodyl tablets via split dose instruction. The scope was passed under direct vision. The Pediatric Colonoscope PCF-H190L [id number] was introducedthrough the anus and advanced to the the cecum, identifiedby appendiceal orifice and ileocecal valve. Thequality of the bowel preparation was good. Bowel prep was administered using a split dose. Findings: The perianal and digital rectal examinations were normal. The cecum appeared normal. The colon (entire examined portion) appeared normal. No polyps and no mass lesions noted. Few small diverticuli noted in the sigmoidcolon Internal hemorrhoids were found during retroflexion. The hemorrhoids were small. Electronically signed by Tesfaye Glaser M.D. Tesfaye Glaser M.D. 11/10/2024 12:15:41 PM Number of Addenda: 0 Note Initiated On: 11/10/2024 10:55 AM Procedure Code(s): --- Professional --- 46011, Colonoscopy, flexible; diagnostic, including collection of specimen(s) by brushing or washing, when performed (separateprocedure) Diagnosis Code(s): --- Professional --- Z86.010, Personal history of colonic polyps K64.8, Other hemorrhoids CPT copyright 2020 [employer]. All rights reserved. The codes documented in this report are preliminary and upon manager of allied health services reviewmay be revised to meet current compliance requirements. Recognized by the [employer] for promoting quality in endoscopy us Tesfaye Glaser MD ENDOSCOPY PROCEDURES Final Result * CT Lung Cancer Screening (06/21/2024 11:09 AM UI APPLICATION DEVELOPER) Anatomical Region Laterality Modality Chest N/A Computed Tomogra phy 06/26/2024 9:55 AM UI APPLICATION DEVELOPER Narrative 06/26/2024 10:07 AM UI APPLICATION DEVELOPER EXAM DESCRIPTION: CT LUNG CANCER SCREENING REASON FOR STUDY: Screening CT of the chest in a current smoker with a 22.5 pack year smoking history. Additional history: None. TECHNIQUE: Low dose CT scan of the chest was performed without intravenous contrast using helical scanning technique. The exam extends from the lung apices through the lung bases. Automatic exposure control was used as a dose optimization technique. NOTE: This study was performed for the specific purposes of lung cancer screening and is not an alternative to diagnostic chest CT. RADIATION DOSE: CT dose index volume (CTDIvol) = 1.33 mGy COMPARISON: None FINDINGS: SMOKING RELATED LUNG DISEASE: Emphysema LUNG NODULES: A calcified granuloma is seen in the right upper lobe. A 2 mm circumscribed noncalcified nodule is seen in the left upper lobe on axial image 54. CORONARY ARTERY CALCIFICATION: Mild OTHER: No adenopathy was seen. The upper abdomen is unremarkable. No bone lesions were seen. IMPRESSION: Mild coronary artery calcification. Coronary artery evaluation is recommended. Emphysema. No evidence of lung cancer. Lung-RADS category 2S: Benign appearance or behavior. Finding other than a pulmonary nodule which is potentially clinically significant. Recommendation: Low dose Screening CT of chest in 12 months. THIS IS AN ELECTRONICALLY VERIFIED FINAL REPORT 06/26/2024 10:07 AM - Electronically signed by [place] Mercado M.D. DANIA: DANIA Report ID: [id number] Reading Location: [place] [address] Procedure Note Alan Mercado MD - 06/26/2024 EXAM DESCRIPTION: CT LUNG CANCER SCREENING REASON FOR STUDY: Screening CT of the chest in a current smoker with a 22.5 pack year smoking history. Additional history: None. TECHNIQUE: Low dose CT scan of the chest was performed without intravenous contrast using helical scanning technique. The exam extends from the lung apices through the lung bases. Automatic exposure control was used as adose optimization technique. NOTE: This study was performed for the specific purposes of lung cancer screening and is not an alternative to diagnostic chest CT. RADIATION DOSE: CT dose index volume (CTDIvol) = 1.33 mGy COMPARISON: None FINDINGS: SMOKING RELATED LUNG DISEASE: Emphysema LUNG NODULES: A calcified granuloma is seen in the right upper lobe. A2 mm circumscribed noncalcified nodule is seen in the left upper lobe on axial image 54. CORONARY ARTERY CALCIFICATION: Mild OTHER: No adenopathy was seen. The upper abdomen is unremarkable. [place] lesions were seen. IMPRESSION: Mild coronary artery calcification. Coronary artery evaluation is recommended. Emphysema. No evidence of lung cancer. Lung-RADS category 2S: Benign appearance or behavior. Finding other thana pulmonary nodule which is potentially clinically significant. Recommendation: Low dose Screening CT of chest in 12 months. THIS IS AN ELECTRONICALLY VERIFIED FINAL REPORT 06/26/2024 10:07 AM - Electronically signed by [place] Mercado M.D. DANIA: DANIA Report ID: [id number] Reading Location: [id number] us Padmini Combs NP IMG CT PROCEDURES Final Re sult * Hepatitis C (HCV) RNA PCR, quantitative Blood (09/13/2023 12:57 PM UI APPLICATION DEVELOPER) Pathologist [facility] HCV RNA result Not Detected SAUMYA PAGE (DANIEL) Comment: The quantifiable range of this assay is 15 IU/mL to 100,000,000 IU/mL (1.18 log IU/mL to 8.00 log IU/mL). Testing was performed by the TOMAS 6800 HCV Test ([employer] Testing performed at [facility] Current Interpretive Data was last revised on 2021 Testing performed by: [facility], [address] [place]., [address] Blood 09/13/2023 12:5 7 PM UI APPLICATION DEVELOPER 09/13/2023 8:07 PM UI APPLICATION DEVELOPER Narrative SHAUNA PAGE (DANIEL) - 09/14/2023 11:36 AM UI APPLICATION DEVELOPER Please collect to confirm SVR us Meryl Harman NP LAB MICROBIOLOGY - GENER AL ORDERABLES Final Result SHAUNA PAGE (DANIEL) [address] [facility] [place] [address] [phone] * Pap and High Risk HPV, reflex to Genotyping (04/21/2022 12:22 PM CDT) Thin prep (Pap test) 04/21/2022 12:22 PM CDT 04/21/2022 12:22 PM CDT Narrative PATHOLOGY CH - 04/25/2022 2:54 PM CDT [facility] Department of Pathology [address] [place], [place] [id number] Final Report with Addendum Note to Patients: This report may contain a detailed description of human tissue sent by a health care provider to the laboratory for pathologic evaluation. The content of this report is essential for diagnosis and may provide important critical findings. This information may be unfamiliar to patients to review without a medical professional present. It is advised that the patient review this report in the presence of a health care provider who can answer questions and explain the details. Patient Name: GIOVANA ORTEGA Address: [address] [place] [address] Gender: F : 1965 (Age: 57) Service: Laboratory Location: Lab [facility] #: [id number] Patient Type: [facility] Lab Taken: 04/21/2022 Received: 04/21/2022 Accessioned:: 04/24/2022 Reported: 04/25/2022 Physician(s): MD Annmarie Abdullahi MD Diagnosis: Source of Specimen: SCREENING THIN PREP IMAGED PAP w/ HPV Specimen Adequacy: - Specimen satisfactory for interpretation; endocervical/transformation zone component absent or insufficient General Category: - Negative for intraepithelial lesion or malignancy EDUARDO Golden(ASCP) Report Electronically Reviewed and Signed Out By EDUARDO Golden(ASCP) 04/25/2022 14:54:04Addenda: HPV Test Interpretation NEGATIVE for types 16, 18, 31, 33, 35, 39, 45, 51, 52, 56, 58, 59, 66 and 68. Test performed utilizing Gen-Probe Aptima assay. EDUARDO Espinosa(ASCP)Report Electronically Reviewed and Signed Out By EDUARDO Espinosa(ASCP) 04/25/2022 08:54:29 Specimen(s) Received: A: SCREENING THIN PREP IMAGED PAP w/ HPV Clinical History: Menstrual History: Post-menopausal The Pap test is a screening test used to aid in the detection of cervical cancer and its precursors. It should not be the sole means by which malignant and premalignant lesions are diagnosed. Both false negative and false positive results may occur. It also has poor sensitivity for the detection of endometrial lesions and should not be used to evaluate suspected endometrial abnormalities. For these reasons it is most important to obtain Pap tests at regular intervals. The performance characteristics of some immunohistochemical stains, fluorescence in-situ hybridization tests and immunophenotyping by flow cytometry cited in this report (if any) were determined by the Surgical Pathology Department at [facility] as part of an ongoing dairy quality assurance officer program and in compliance with federally mandated regulations drawn from the Clinical Laboratory Improvement Act of 1988 (CLIA '88). Some of these tests rely on the use of analyte specific reagents and are subject to specific labeling requirements by the US Food and Drug Administration. Such diagnostic tests may only be performed in a facility that is certified by the Department of Health and Human Services as a high complexity laboratory under CLIA '88. The FDA has determined that such clearance or approval is not necessary. This test is used for clinical purposes. It should not be regarded as investigational or for research. Nevertheless, federal rules concerning the medical use of analyte specific reagents require that the following disclaimer be attached to the report: This test was developed and its performance characteristics determined by the Surgical Pathology Department [facility]. It has not been cleared or approved by the U. S. Food and Drug Administration. Annmarie Santiago MD LAB CYTOLOGY ORDERABL ES Final Result PATHOLOGY [address] [place] [address] from Last 3 Months or Most Recently Relevant to Health Maintenance Insurance [facility] Advance Directives For more information, please contact: [phone] * Full Code (Latest Code Status on File) Date Activated Date Inactivated Comments 11/10/2024 11:01 AM 11/10/2024 5:23 PM * Full Code Date Activated Date Inactivated Comments 11/10/2024 11:01 AM 11/10/2024 11:01 AM * Full Code Date Activated Date Inactivated Comments 06/10/2024 7:56 AM 06/10/2024 2:30 PM * Full Code Date Activated Date Inactivated Comments 06/10/2024 7:56 AM 06/10/2024 7:56 AM * Full Code Date Activated Date Inactivated Comments 11/02/2020 7:06 AM 11/02/2020 1:08 PM Care Teams Distributor Of Directories Relationship Specialty Start Date End Date Kodak Bernard MD [address] [place] [address] PCP - General Family Medicine 08/13/18 Kaiser Hogan NP [address] [place] [address] [place] [address] Nurse Practitioner Gastroenterology 06/29/25
--- OUTSIDE RECORDS SUMMARY | 2025-07-05 05:37 | XMS_ITS | Encounter Summary ---
Author Organization [facility] Healthcare Address [address] [place] [address] Care Team Providers Care Hog Feeder Name Role Phone Kodak Bernard MD Primary Care Provider [phone] Kaiser Hogan SURVEILLANCE OBSERVER Unavailable [phone] Encounter Details Date Type Department Care Team (Late st Contact Info) Description 05/28/2025 Results Follow-Up [facility] [address] [facility] [place] [address] Kodak Bernard MD [address] [place] [address] Lipid panel, Comprehensive metabolic panel, CBC with auto differential, Additional followed-up results: 2 Social History Tobacco Use Types Packs/Day Years [...] on file 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 Never 05/28/2025 11:49 AM Sushant Tuttle MA * BP Location Answer Date of Assessment Author Left arm 05/28/2025 11:48 AM Sushant Tuttle MA documented as of this encounter Plan of Treatment Not on file documented as of this encounter Visit Diagnoses Not on filedocumented in this encounter Care Teams Hog Feeder Relationship Specialty Start Date End Date Kodak Bernard MD [address] [place] [address] PCP - General Family Medicine 08/13/18 Kaiser Hogan NP [address] [place] [address] [place] [address] Nurse Practitioner Gastroenterology 06/29/25 documented as of this encounter
[2025-07-05 05:58] LABS: PCO2 VBG 25.0 mmHg (42.0-48.0)
--- NOTE | 2025-07-05 05:58 | PC.NURSE ---
Pt states she is still unable to provide urine sample. Straight cath mentioned. Pt states she wants to attempt on her own.
[2025-07-05 06:26] LABS: CRP < 0.5 mg/dL (<1.0); Magnesium 1.8 mg/dL (1.6-2.3)
[2025-07-05 06:35] LABS: INR 1.2; Partial Thromboplastin Time 27.1 Seconds (22.3-36.8); Prothrombin Time 15.6 Seconds (11.1-14.7); Troponin I < 0.012 ng/mL (0.000-0.034)
[2025-07-05 06:37] LABS: BEDSIDEPREGUCG Negative (Negative)
[2025-07-05 06:39] LABS: Influenza A QL RT-PCR Negative (Negative); Influenza B QL RT-PCR Negative (Negative); RSV RNA, RT-PCR Negative (Negative); SARS-CoV-2 RNA PCR Negative (Negative)
[2025-07-05 06:42] LABS: Add Urine Microscopic? YES; Appearance Urine Clear (Clear); Glucose Urine UA Negative (Negative); Leukocyte Esterase Ur Negative LEU/UL (Negative); Nitrate Urine Negative (Negative); Non Pathogenic Casts 0-2; Specific Grav Ur > 1.045 (1.001-1.035)
[2025-07-05 06:45] LABS: Thyroid Stimulating Hormone Reflex 0.398 uIU/mL (0.465-4.68)
[2025-07-05 07:20] LABS: Cannabinoid Screen Urine Negative (Negative)
[2025-07-05 07:22] LABS: Free T4 Free Thyroxine Reflex 1.46 ng/dL (0.78-2.19)
[2025-07-05 09:44] LABS: Total Triiodothyronine (T3) 0.78 NG/ML (0.82-1.58)
[2025-07-05] MEDS: MORPHINE SULFATE (*CRX) 4 MG/ML INJ 2 MG IV PUSH ×3 (09:54→22:25)
[2025-07-05] MEDS: SODIUM CHLORIDE 0.9% IV 1,000 ML 125 ML IV CONT ×2 (10:02→18:30)
--- NOTE | 2025-07-05 10:18 | WPCEDHO ---
ED Hand Off Checklist All vitals saved: YES IV Site documented: YES All med administrations documented: YES Triage Note Triage Note pt ambulatory to ED with c/o 07/05/25 03:31 abdominal pain and dehydration. pt states she has irritable bowel syndrome and is having a flare up. pt states she was here on 07/03 for the same thing. pt states she was prescribed medication for IBS but has no relief. pt states she has not being able to eat anything. Agreed with triage assessment. Allergies codeine Allergy (Severe, Verified 07/05/25 10:03) Swelling of Lip/Tongue/Throat ibuprofen Adverse Reaction (Verified 07/05/25 10:03) Other LIVER DISEASE Active Medications including assessments/comments Sodium Chloride (Normal Saline Iv) 1,000 mls @ 125 mls/hr IV CONT .Q8H BRENNA Last Admin: 07/05/25 10:02 Dose: 125 mls/hr Documented By: CHANDRAKANT Infusion/Titration Document 07/05/25 10:02 CHANDRAKANT (Rec: 07/05/25 10:02 CHANDRAKANT [id number]) Intake IV Site Peripheral Access Right Forearm Container Volume 1,000 Waste Amount 0 Dosing Infusion Rate 125 Cumulative Dose Not Applicable Increase/Decrease Started Elapsed Time Elapsed Time ( 0m minutes) Morphine Sulfate (Morphine Sulfate (*Crx) 4 Mg/Ml Inj) 2 mg IV PUSH Q2H PRN PRN Reason: Pain Rated 7-10 Last Admin: 07/05/25 09:54 Dose: 2 mg Documented By: CHANDRAKANT MAR Pain Assessment Document 07/05/25 09:54 CHANDRAKANT (Rec: 07/05/25 09:54 CHANDRAKANT [id number]) Pain Evaluation Pain Evaluation Pre-Treatment Pain Scale Pain Scale Used Numeric (1 - 10) Self Report Pain Assessment Reported Pain Level 7 Pain Location Left,Lower Modifier Pain Location Abdomen Pain Description Stabbing Pain Frequency Acute Pain Score Pain Score 7: Self Report Ondansetron HCl (Ondansetron Inj 4 Mg/2 Ml Vial) 4 mg IV PUSH Q4H PRN PRN Reason: Nausea Last Admin: 07/05/25 09:51 Dose: 4 mg Documented By: CHANDRAKANT Pantoprazole Sodium (Pantoprazole Sodium Iv 40 Mg Vial) 40 mg IV PUSH QAM BRENNA Last Admin: 07/05/25 09:58 Dose: 40 mg Documented By: CHANDRAKANT Administered/Completed Medications Discontinued Medications Sodium Chloride (Normal Saline Iv) 1,000 mls @ 999 mls/hr IV CONT .Q1H1M STA Stop: 07/05/25 05:57 Last Infusion: 07/05/25 07:02 Dose: Infused Documented By: Admin: 07/05/25 05:24 Dose: 999 mls/hr Documented By: GREGORY Morphine Sulfate (Morphine Sulfate (*Crx) 4 Mg/Ml Inj) 4 mg IV PUSH ONCE STA Stop: 07/05/25 05:00 Last Admin: 07/05/25 05:25 Dose: 4 mg Documented By: GREGORY Ondansetron HCl (Ondansetron Inj 4 Mg/2 Ml Vial) 4 mg IV PUSH ONCE STA Stop: 07/05/25 04:58 Last Admin: 07/05/25 05:24 Dose: 4 mg Documented By: GREGORY Pantoprazole Sodium (Pantoprazole Sodium Iv 40 Mg Vial) 40 mg IV PUSH ONCE STA Stop: 07/05/25 04:58 Last Admin: 07/05/25 05:24 Dose: 40 mg Documented By: GREGORY Notes 07/05/25 05:58 Nurse Note by Eden Gillespie Pt states she is still unable to provide urine sample. Straight cath mentioned. Pt states she wants to attempt on her own. Initialized on 07/05/25 05:58 - END OF NOTE 07/05/25 03:33 Nurse Note by Eden Gillespie Pt states she is unable to provide urine sample at this time. Initialized on 07/05/25 03:33 - END OF NOTE Interventions/Assessments IV / Saline Lock, Insert Start: 07/05/25 02:31 Freq: STAT Status: Active Protocol: Document 07/05/25 03:53 GREGORY (Rec: 07/05/25 03:53 GREGORY [id number]) IV Assessment Peripheral Access Right Forearm IV Catheter Access Initiated IV Insertion Date 07/05/25 IV Insertion Time 03:53 Catheter Gauge 20 IV Insertion 3 Attempts Ultrasound Used for No Placement IV Site Assessment WNL IV Care and WNL Maintenance PA: Gastrointestinal Assessment Start: 07/05/25 02:18 Freq: Status: Active Protocol: Document 07/05/25 03:31 GREGORY (Rec: 07/05/25 03:33 GREGORY [id number]) GI Assessment Gastrointestinal Nausea,Pain,Vomiting Symptoms Description Tender Pattern Diarrhea Flatus Present Date of Last Bowel 07/05/25 Movement Gastrointestinal Recent diagnosis of IBS. Additional Comments Nausea/Vomiting Assessment Nausea Frequency Intermittent Emesis Frequency Intermittent Last Vital Signs Temperature 98.1 F 07/05/25 10:17 Pulse Rate 64 07/05/25 10:17 Respiratory Rate 13 07/05/25 10:17 Pulse Oximetry 100 07/05/25 10:17 Blood Pressure 125/65 07/05/25 10:17 Blood Pressure Mean 85 07/05/25 10:17 Oxygen Delivery Room Air 07/05/25 03:31 Weight 60.9 kg 07/05/25 03:31 Last Result - Abnormals Only [place] % (Auto) 9.3 % (2.6-8.5) H 07/05/25 03:54 PT 15.6 Seconds (11.1-14.7) H 07/05/25 03:54 VBG pCO2 25.0 mmHg (42.0-48.0) L* 07/05/25 05:21 VBG pO2 66.2 mmHg (35.0-45.0) H 07/05/25 05:21 VBG HCO3 13.4 mEq/l (24.0-30.0) L 07/05/25 05:21 Sodium 136 mmol/L (137-145) L 07/05/25 03:54 Chloride 108 mmol/L (98-107) H 07/05/25 03:54 Carbon Dioxide 14 mmol/L (22-30) L 07/05/25 03:54 Anion Gap 14 mmol/L (4-12) H 07/05/25 03:54 Creatinine 0.58 mg/dL (0.7-1.0) L 07/05/25 03:54 AST 37 U/L (14-36) H 07/05/25 03:54 Total Protein 8.3 g/dL (6.3-8.2) H 07/05/25 03:54 TSH (Reflex) 0.398 uIU/mL (0.465-4.68) L 07/05/25 03:54 Total T3 0.78 NG/ML (0.82-1.58) L 07/05/25 03:54 Ur Specific [place] > 1.045 (1.001-1.035) H 07/05/25 06:33 Urine Ketones 2+ mg/dL (Negative) H 07/05/25 06:33 Urine Opiates Screen Positive (Negative) A 07/05/25 06:33 Most Recent Suicide Severity Rating Suicide Severity Rating NO RISK INDICATED 07/05/25 03:31
--- NOTE | 2025-07-05 11:03 | PC.NURSE ---
This patient, Giovana Alvaraod, was admitted to [facility] Surg Room 307-02. Patient/family oriented to hospital policies and general routines including ID bracelet, bed and alarms, visiting hours, pain management, procedures, bathroom and other care routines, personal items, smoking policy, room service/diet, and visiting hours. Information on how to activate the Rapid Response Team has been discussed. Patient/Family are encouraged to report perceived risks to care and to ask questions if they do not understand what they are told or what they should do.
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
[2025-07-06] MEDS: SODIUM CHLORIDE 0.9% IV 1,000 ML 125 ML IV CONT (02:50)
[2025-07-06] MEDS: ONDANSETRON INJ 4 MG/2 ML VIAL IV PUSH ×5 (05:38→23:39)
[2025-07-06 05:40] VITALS: BP 109/55; PULSE 65; RESP 14; TEMP 36.7; O2SAT 99
[2025-07-06] MEDS: DICYCLOMINE HCL 10 MG CAPSULE 20 MG PO (05:56)
[2025-07-06 06:12] LABS: Hematocrit 34.4 % (37.0-47.0); Hemoglobin 11.8 g/dL (12.0-15.0); Immature Granulocyte Percent A 0.2 % (0-0.5); Lymphocytes Absolute Auto 1.98 K/mm3 (0.9-3.2); Mean Corpuscular HGB Conc 34.3 g/dl (32-36); Mean Corpuscular Hemoglobin 32.2 pg (26-34); Mean Corpuscular Volume 94.0 fl (80-100); Nucleated Red Blood Cells Absolute Auto 0.000 K/mm3 (0.0-0.012); Nucleated Red Blood Cells Perc 0.0 % (0.0-0.2); Platelet Count Result 140 k/mm3 (150-375); Red Blood Count 3.66 M/mm3 (4.2-5.4); White Blood Count 4.4 K/mm3 (4.5-10.0)
[2025-07-06 07:26] LABS: Anion Gap 11 mmol/L (4-12); Blood Urea Nitrogen 4 mg/dL (7-17); Calcium 8.2 mg/dL (8.4-10.2); Carbon Dioxide 10 mmol/L (22-30); Chloride 114 mmol/L (98-107); Estimated CRCL calculation 77 ml/min; Estimated Glomerular Filt Rate > 60; Glucose 63 mg/dL (65-110); Magnesium 1.7 mg/dL (1.6-2.3); Potassium 3.8 mmol/L (3.4-5.0); Sodium 135 mmol/L (137-145)
[2025-07-06 07:50] VITALS: PULSE 60
[2025-07-06] MEDS: METOPROLOL SUCCINATE EXT REL 25 MG TABCR PO (07:50)
[2025-07-06] MEDS: POTASSIUM CHLORIDE 10 MEQ ER TABLET PO (07:50)
[2025-07-06] MEDS: PANTOPRAZOLE SODIUM IV 40 MG VIAL IV PUSH (07:50)
[2025-07-06 08:00] VITALS: O2SAT 99
--- NOTE | 2025-07-06 09:51 | PM.IMPN2 ---
Assessment and Plan Assessment and Plan (1) Intractable abdominal pain: Code(s): R10.9 - Unspecified abdominal pain Status: Acute Assessment and Plan: UDS positive for opiates otherwise unremarkable. CTA of the abdomen/pelvis on 07/05 showed no acute abnormalities. History of IBS, reporting pain and symptoms are similar to her previous flare-ups. No BOLA/renal dysfunction noted. No significant electrolyte derangements. Viral PCR negative. No improvement with outpatient Bentyl. Admitted for IV hydration and p.o. challenge given she has been to the ER twice in the past week. Likely IBS flare. No current indicators of infection. - Zofran 1st line, Reglan 2nd line - IV fluids: 1L bolus -> 125 mL/hr will switch to bicarb drip due to metabolic acidosis - PPI IV daily - monitor electrolytes and renal function - start on clear liquids, advanced as tolerated to regular Likely History of H pylori infection back in June 2024 which was treated. Will check H pylori antigen stool GI consultation (2) Intractable nausea and vomiting: Code(s): R11.2 - Nausea with vomiting, unspecified Status: Acute Assessment and Plan: - see above (3) Thyroid dysfunction: Code(s): E07.9 - Disorder of thyroid, unspecified Status: Acute Assessment and Plan: - Mild thyroid dysfunction noted upon admission. TSH 0.398, T4 1.46, T3 0.78 on 07/05. Could be due to acute illness. - Will need follow-up outpatient. (4) HTN (hypertension): Qualifiers: Hypertension type: primary hypertension Qualified Code(s): I10 - Essential (primary) hypertension Code(s): I10 - Essential (primary) hypertension Status: Chronic Assessment and Plan: - continue home medications: Metoprolol ER 25 mg daily - monitor Plan Diet: Clear liquid GI Prophylaxis: Ppi IV DVT Prophylaxis: SCDs IV fluids:1L bolus -> 125 mL/hr Lines/Tubes: pIV Code Status: full code Subjective Date/time seen: 07/06/25 09:51 Interval history: History reviewed. On and off abdominal pain and discomfort since April. Was treated for irritable bowel syndrome. EGD June 2024 which was unremarkable. Colonoscopy November of 2024 with internal hemorrhoids per patient. Not constipated or having diarrhea. Associated nausea vomiting. Review of Systems Review of Systems: All systems reviewed & are unremarkable except as noted in HPI and below Exam Narrative: CONST: Alert and oriented x3, No acute distress. HENMT: Head is normocephalic and atraumatic. EYES: No scleral icterus. No conjunctival injection or pallor. PERRL. RESP: Able to speak in full sentences. Normal respiratory effort. CTAB. CARDIO: Regular rate. Regular rhythm. 2+ DP and radial pulses bilaterally. GI: Nondistended. Mild periumbilical tenderness to palpation, no rebound or guarding or rigidity. Soft. : No CVA tenderness to palpation. SKIN: No rashes or lesions noted on exposed skin. NEURO: Oriented x3. Moves all extremities. EXTREM/MSK/BACK: No pedal edema. PSYCH: Normal affect. Objective Data Vital Signs Vital Signs: Vital Signs - 24 hr 07/05/25 10:02 07/05/25 10:17 07/05/25 10:38 Temperature 98.1 F 97.8 F Pulse Rate 65 64 84 Respiratory Rate 13 13 18 Blood Pressure 125/65 125/65 125/65 Pulse Oximetry 99 100 99 Oxygen Delivery 07/05/25 10:55 07/05/25 11:02 07/05/25 21:41 Temperature 97.4 F L 98.1 F Pulse Rate 58 L 62 Respiratory Rate 16 16 Blood Pressure 104/77 105/65 Pulse Oximetry 100 99 Oxygen Delivery Room Air 07/05/25 22:31 07/06/25 05:40 07/06/25 07:50 Temperature 98.0 F Pulse Rate 65 60 Respiratory Rate 14 Blood Pressure 109/55 L Pulse Oximetry 99 Oxygen Delivery Room Air Intake/Output Intake/Output: Intake & Output 07/03/25 07/04/25 07/05/25 07/06/25 23:59 23:59 23:59 23:59 Intake Total 2900 1000 Balance 2900 1000 Meds/Results Medications: Active Medications Generic Name Dose Route Start Last Admin Trade Name Freq PRN Reason Stop Dose Admin Acetaminophen 650 mg 07/05/25 12:16 Acetaminophen 325 Mg Tablet PO Q6H PRN Mild Pain (1-3) or Fever Baclofen 10 mg 07/05/25 12:16 Baclofen 10 Mg Tablet PO Q8H PRN Muscle Spasm Dicyclomine HCl 20 mg 07/05/25 12:16 07/06/25 05:56 Dicyclomine Hcl 10 Mg Capsule PO 20 mg QID PRN Administration Abdominal Cramping Sodium Bicarbonate 150 meq/ 1,100 mls @ 75 mls/hr 07/06/25 10:00 Dextrose IV CONT .[id number] BRENNA Metoclopramide HCl 10 mg 07/05/25 12:16 Metoclopramide Hcl Inj 10 Mg/2 Ml Vial IV PUSH Q6HR PRN Nausea And Vomiting Metoprolol Succinate 25 mg 07/06/25 09:00 07/06/25 07:50 Metoprolol Succinate Ext Rel 25 Mg Tabcr PO 25 mg DAILY BRENNA Administration Morphine Sulfate 2 mg 07/05/25 08:13 07/05/25 22:25 Morphine Sulfate (*Crx) 4 Mg/Ml Inj IV PUSH 2 mg Q2H PRN Administration Pain Rated 7-10 Ondansetron HCl 4 mg 07/05/25 08:13 07/06/25 05:38 Ondansetron Inj 4 Mg/2 Ml Vial IV PUSH 4 mg Q4H PRN Administration Nausea Pantoprazole Sodium 40 mg 07/05/25 09:00 07/06/25 07:50 Pantoprazole Sodium Iv 40 Mg Vial IV PUSH 40 mg QAM BRENNA Administration Potassium Chloride 10 meq 07/06/25 09:00 07/06/25 07:50 Potassium Chloride 10 Meq Er Tablet PO 10 meq DAILY BRENNA Administration Radiology Results: ITS Impressions Chest X-Ray 07/05/25 06:58 IMPRESSION: 1. No acute cardiopulmonary findings given portable technique. Abdomen/Pelvis CTA 07/05/25 07:05 IMPRESSION: 1. No acute abnormality. Labs Labs: Laboratory Results - last 24 hr 07/06/25 05:32 WBC 4.4 L RBC 3.66 L Hgb 11.8 L Hct 34.4 L MCV 94.0 MCH 32.2 MCHC 34.3 RDW 12.4 Plt Count 140 L MPV 10.2 Immature Gran % (Auto) 0.2 Neut % (Auto) 40.8 L Lymph % (Auto) 45.5 H [place] % (Auto) 9.2 H Eos % (Auto) 3.2 Baso % (Auto) 1.1 Lymph # (Auto) 1.98 [place] # (Auto) 0.4 Eos # (Auto) 0.1 Baso # (Auto) 0.1 Abs Immat Gran (auto) 0.01 Absolute Neuts (auto) 1.8 Absolute Nucleated RBC 0.000 Nucleated RBC % 0.0 Sodium 135 L Potassium 3.8 Chloride 114 H Carbon Dioxide 10 L Anion Gap 11 BUN 4 L D Creatinine 0.58 L Estim Creat Clear Calc 77 Estimated GFR > 60 Glucose 63 L Calcium 8.2 L Magnesium 1.7
[2025-07-06] MEDS: SODIUM BICARBONATE 8.4% 150 MEQ in DEXTROSE 5% 1,000 ML 950 ML 75 MEQ IV CONT ×2 (10:39→21:48)
[2025-07-06] MEDS: MORPHINE SULFATE (*CRX) 4 MG/ML INJ 2 MG IV PUSH ×4 (10:44→23:50)
[2025-07-06 10:51] VITALS: BMI 21.9
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
[2025-07-06 14:05] VITALS: BP 122/72; PULSE 61; RESP 16; TEMP 36.7; O2SAT 98
[2025-07-06 20:49] VITALS: BP 131/60; PULSE 74; RESP 18; TEMP 36.8; O2SAT 100
[2025-07-07] VITALS (8 sets, daily range): BP systolic 97–127; BP diastolic 57–75; PULSE 68–79; RESP 13–19; TEMP 35.9–36.4; O2SAT 95–100
[2025-07-07] MEDS: ONDANSETRON INJ 4 MG/2 ML VIAL IV PUSH ×4 (04:36→19:47)
[2025-07-07 06:14] LABS: Hematocrit 33.0 % (37.0-47.0); Hemoglobin 11.7 g/dL (12.0-15.0); Immature Granulocyte Percent A 0.0 % (0-0.5); Immature Platelet Fraction Pct 3.0 % (0.9-11.2); Lymphocytes Absolute Auto 1.44 K/mm3 (0.9-3.2); Mean Corpuscular HGB Conc 35.5 g/dl (32-36); Mean Corpuscular Hemoglobin 32.1 pg (26-34); Mean Corpuscular Volume 90.4 fl (80-100); Nucleated Red Blood Cells Absolute Auto 0.000 K/mm3 (0.0-0.012); Nucleated Red Blood Cells Perc 0.0 % (0.0-0.2); Platelet Count Result 137 k/mm3 (150-375); Red Blood Count 3.65 M/mm3 (4.2-5.4); White Blood Count 3.8 K/mm3 (4.5-10.0)
[2025-07-07 06:58] LABS: Alanine Aminotransferase 19 U/L (6-35); Albumin Level 3.2 g/dL (3.5-5.1); Alkaline Phosphatase 46 U/L (38-126); Anion Gap 2 mmol/L (4-12); Aspartate Amino Transferase 39 U/L (14-36); Bilirubin,Total 0.5 mg/dL (0.2-1.3); Blood Urea Nitrogen 2 mg/dL (7-17); Calcium 8.4 mg/dL (8.4-10.2); Carbon Dioxide 33 mmol/L (22-30); Chloride 101 mmol/L (98-107); Estimated CRCL calculation 75 ml/min; Estimated Glomerular Filt Rate > 60; Glucose 109 mg/dL (65-110); Magnesium 1.5 mg/dL (1.6-2.3); Potassium 2.8 mmol/L (3.4-5.0); Sodium 136 mmol/L (137-145); Total Protein 6.0 g/dL (6.3-8.2)
[2025-07-07] MEDS: SODIUM CHLORIDE 0.9% IV 1,000 ML 75 ML IV CONT (07:59)
--- NOTE | 2025-07-07 08:14 | P.PNIM_ITS ---
Assessment and Plan Assessment and Plan (1) Intractable abdominal pain: Code(s): R10.9 - Unspecified abdominal pain Status: Acute Assessment and Plan: UDS positive for opiates otherwise unremarkable. CTA of the abdomen/pelvis on 07/05 showed no acute abnormalities. History of IBS, reporting pain and symptoms are similar to her previous flare-ups. No BOLA/renal dysfunction noted. No significant electrolyte derangements. Viral PCR negative. No improvement with outpatient Bentyl. Admitted for IV hydration and p.o. challenge given she has been to the ER twice in the past week. Likely IBS flare. No current indicators of infection. - Zofran 1st line, Reglan 2nd line - IV fluids: 1L bolus -> 125 mL/hr will switch to bicarb drip due to metabolic acidosis which will be stopped today - PPI IV daily - monitor electrolytes and renal function - start on clear liquids, advanced as tolerated to regular Likely History of H pylori infection back in June 2024 which was treated. Will check H pylori antigen stool GI consultation and plan for EGD Has not had bowel movement so as pylori antigen has not been done. Urine porphyrins ordered per GI (2) Intractable nausea and vomiting: Code(s): R11.2 - Nausea with vomiting, unspecified Status: Acute Assessment and Plan: - see above (3) Thyroid dysfunction: Code(s): E07.9 - Disorder of thyroid, unspecified Status: Acute Assessment and Plan: - Mild thyroid dysfunction noted upon admission. TSH 0.398, T4 1.46, T3 0.78 on 07/05. Could be due to acute illness. - Will need follow-up outpatient. (4) HTN (hypertension): Qualifiers: Hypertension type: primary hypertension Qualified Code(s): I10 - Essential (primary) hypertension Code(s): I10 - Essential (primary) hypertension Status: Chronic Assessment and Plan: - continue home medications: Metoprolol ER 25 mg daily - monitor Plan Diet: Clear liquid currently NPO for EGD GI Prophylaxis: Ppi IV DVT Prophylaxis: SCDs IV fluids:1L bolus -> 125 mL/hr Lines/Tubes: pIV Code Status: full code Subjective Date/time seen: 07/07/25 08:14 Interval history: No overnight events. No bowel movement. Going for EGD this a.m.. Abdominal cramp is improving. Review of Systems Review of Systems: All systems reviewed & are unremarkable except as noted in HPI and below Exam Narrative: CONST: Alert and oriented x3, No acute distress. HENMT: Head is normocephalic and atraumatic. EYES: No scleral icterus. No conjunctival injection or pallor. PERRL. RESP: Able to speak in full sentences. Normal respiratory effort. CTAB. CARDIO: Regular rate. Regular rhythm. 2+ DP and radial pulses bilaterally. GI: Nondistended. Nontender no rebound or guarding or rigidity. Soft. : No CVA tenderness to palpation. SKIN: No rashes or lesions noted on exposed skin. NEURO: Oriented x3. Moves all extremities. EXTREM/MSK/BACK: No pedal edema. PSYCH: Normal affect. Objective Data Vital Signs Vital Signs: Vital Signs - 24 hr 07/06/25 14:05 07/06/25 20:16 07/06/25 20:49 Temperature 98.1 F 98.2 F Pulse Rate 61 74 Respiratory Rate 16 18 Blood Pressure 122/72 131/60 Pulse Oximetry 98 100 Oxygen Delivery Room Air 07/07/25 05:23 Temperature 97.5 F L Pulse Rate 71 Respiratory Rate 19 Blood Pressure 109/57 L Pulse Oximetry 96 Oxygen Delivery Intake/Output Intake/Output: Intake & Output 07/04/25 07/05/25 07/06/25 07/07/25 23:59 23:59 23:59 23:59 Intake Total 2900 2906.3 150 Output Total 2 Balance 2900 2906.3 148 Meds/Results Medications: Active Medications Generic Name Dose Route Start Last Admin Trade Name Freq PRN Reason Stop Dose Admin Acetaminophen 650 mg 07/05/25 12:16 Acetaminophen 325 Mg Tablet PO Q6H PRN Mild Pain (1-3) or Fever Baclofen 10 mg 07/05/25 12:16 Baclofen 10 Mg Tablet PO Q8H PRN Muscle Spasm Dicyclomine HCl 20 mg 07/05/25 12:16 07/06/25 05:56 Dicyclomine Hcl 10 Mg Capsule PO 20 mg QID PRN Administration Abdominal Cramping Potassium Chloride 40 meq/ 520 mls @ 130 mls/hr 07/07/25 07:18 Sodium Chloride IVPB 07/07/25 11:17 ONCE ONE Sodium Chloride 1,000 mls @ 75 mls/hr 07/07/25 07:45 07/07/25 07:59 Normal Saline Iv IV CONT 75 mls/hr .[id number] BRENNA Administration Metoclopramide HCl 10 mg 07/05/25 12:16 Metoclopramide Hcl Inj 10 Mg/2 Ml Vial IV PUSH Q6HR PRN Nausea And Vomiting Metoprolol Succinate 25 mg 07/06/25 09:00 07/06/25 07:50 Metoprolol Succinate Ext Rel 25 Mg Tabcr PO 25 mg DAILY BRENNA Administration Morphine Sulfate 2 mg 07/05/25 08:13 07/06/25 23:50 Morphine Sulfate (*Crx) 4 Mg/Ml Inj IV PUSH 2 mg Q2H PRN Administration Pain Rated 7-10 Ondansetron HCl 4 mg 07/05/25 08:13 07/07/25 04:36 Ondansetron Inj 4 Mg/2 Ml Vial IV PUSH 4 mg Q4H PRN Administration Nausea Pantoprazole Sodium 40 mg 07/05/25 09:00 07/06/25 07:50 Pantoprazole Sodium Iv 40 Mg Vial IV PUSH 40 mg QAM BRENNA Administration Potassium Chloride 10 meq 07/06/25 09:00 07/06/25 07:50 Potassium Chloride 10 Meq Er Tablet PO 10 meq DAILY BRENNA Administration Radiology Results: ITS Impressions Chest X-Ray 07/05/25 06:58 IMPRESSION: 1. No acute cardiopulmonary findings given portable technique. Abdomen/Pelvis CTA 07/05/25 07:05 IMPRESSION: 1. No acute abnormality. Labs Labs: Laboratory Results - last 24 hr 07/07/25 05:54 WBC 3.8 L RBC 3.65 L Hgb 11.7 L Hct 33.0 L MCV 90.4 MCH 32.1 MCHC 35.5 RDW 11.9 Plt Count 137 L MPV 10.4 Immature Gran % (Auto) 0.0 Neut % (Auto) 49.2 Lymph % (Auto) 37.9 [place] % (Auto) 8.9 H Eos % (Auto) 2.9 Baso % (Auto) 1.1 Lymph # (Auto) 1.44 [place] # (Auto) 0.3 Eos # (Auto) 0.1 Baso # (Auto) 0.0 Abs Immat Gran (auto) 0.00 Absolute Neuts (auto) 1.9 Absolute Nucleated RBC 0.000 Nucleated RBC % 0.0 % Immature Plt Fraction 3.0 Sodium 136 L Potassium 2.8 L* Chloride 101 Carbon Dioxide 33 H Anion Gap 2 L BUN 2 L Creatinine 0.59 L Estim Creat Clear Calc 75 Estimated GFR > 60 Glucose 109 Calcium 8.4 Magnesium 1.5 L Total Bilirubin 0.5 AST 39 H ALT 19 Alkaline Phosphatase 46 Total Protein 6.0 L Albumin 3.2 L
[2025-07-07] MEDS: MORPHINE SULFATE (*CRX) 4 MG/ML INJ 2 MG IV PUSH ×3 (08:25→21:42)
[2025-07-07] MEDS: PANTOPRAZOLE SODIUM IV 40 MG VIAL IV PUSH (08:31)
[2025-07-07] MEDS: POTASSIUM CHLORIDE 20 MEQ ER TABLET 40 MEQ PO (08:35)
[2025-07-07] MEDS: MAGNESIUM SULF 2 GM/WATER 50ML 2 GM/50 ML BAG IVPB (08:54)
[2025-07-07] MEDS: METOPROLOL SUCCINATE EXT REL 25 MG TABCR PO (08:59)
[2025-07-07] MEDS: METOCLOPRAMIDE HCL INJ 10 MG/2 ML VIAL IV PUSH ×2 (09:49→21:43)
[2025-07-07] MEDS: POTASSIUM CHLORIDE INJ 40 MEQ in SODIUM CHLORIDE 0.9% IV 500 ML 130 MEQ IVPB (09:51)
[2025-07-07 12:41] LABS: Potassium 3.9 mmol/L (3.4-5.0)
[2025-07-07] MEDS: LACTATED RINGERS 1,000 ML 150 ML IV CONT (13:38)
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
--- NOTE | 2025-07-07 14:19 | S_PTH ---
PATIENT: Giovana Alvarado LOC: [id number] U#:[id number] AGE/SX: 60/F ROOM: 307 RE07/06/[address]: Checo Villafuerte MD : [id number] BED: 02 DIS: 07/14/2025 SPEC #: [id number] RECD: 07/08/25 08:38 STATUS: QAMAR COLE #: [id number] JENNIFER: 07/07/25 14:[address]: Ciro Sigala DEPT: [facility] Surgical RECD BY: Mariel Latif MLT, ([facility]) ENTERED: 07/08/25 08:39 SP TYPE: Surgical OTHR DR: Kodak Bernard, M.Tristan. Tony rocha Oca, MD Tissues: A - Gastric Biopsy B - Esophageal Biopsy C - Small Bowel Bx Procedures: Hematoxylin and Eosin Stain Gross and Microscopic Level 4 H.Pylori
[2025-07-07 15:19] LABS: HPYLORIRESULT Negative (Negative)
[2025-07-07] MEDS: POTASSIUM CHLORIDE 10 MEQ ER TABLET PO (17:15)
[2025-07-07] MEDS: PANTOPRAZOLE 40 MG TABLET PO (21:42)
[2025-07-08] MEDS: SODIUM CHLORIDE 0.9% IV 1,000 ML 75 ML IV CONT (02:06)
[2025-07-08] MEDS: ONDANSETRON INJ 4 MG/2 ML VIAL IV PUSH ×2 (03:30→08:59)
[2025-07-08] MEDS: DICYCLOMINE HCL 10 MG CAPSULE 20 MG PO ×2 (03:41→18:01)
[2025-07-08 05:30] VITALS: BP 105/58; PULSE 70; RESP 16; TEMP 36.5; O2SAT 96
[2025-07-08 07:47] LABS: Hematocrit 35.8 % (37.0-47.0); Hemoglobin 12.3 g/dL (12.0-15.0); Immature Granulocyte Percent A 0.2 % (0-0.5); Immature Platelet Fraction Pct 3.6 % (0.9-11.2); Lymphocytes Absolute Auto 1.46 K/mm3 (0.9-3.2); Mean Corpuscular HGB Conc 34.4 g/dl (32-36); Mean Corpuscular Hemoglobin 32.2 pg (26-34); Mean Corpuscular Volume 93.7 fl (80-100); Nucleated Red Blood Cells Absolute Auto 0.000 K/mm3 (0.0-0.012); Nucleated Red Blood Cells Perc 0.0 % (0.0-0.2); Platelet Count Result 147 k/mm3 (150-375); Red Blood Count 3.82 M/mm3 (4.2-5.4); White Blood Count 4.2 K/mm3 (4.5-10.0)
[2025-07-08 08:07] LABS: Alanine Aminotransferase 17 U/L (6-35); Albumin Level 3.6 g/dL (3.5-5.1); Alkaline Phosphatase 51 U/L (38-126); Anion Gap 2 mmol/L (4-12); Aspartate Amino Transferase 34 U/L (14-36); Bilirubin,Total 0.5 mg/dL (0.2-1.3); Calcium 8.5 mg/dL (8.4-10.2); Carbon Dioxide 23 mmol/L (22-30); Chloride 108 mmol/L (98-107); Estimated CRCL calculation 82 ml/min; Estimated Glomerular Filt Rate > 60; Glucose 93 mg/dL (65-110); Magnesium 2.1 mg/dL (1.6-2.3); Potassium 3.8 mmol/L (3.4-5.0); Sodium 133 mmol/L (137-145); Total Protein 6.6 g/dL (6.3-8.2)
[2025-07-08 08:08] LABS: Blood Urea Nitrogen < 2 mg/dL (7-17)
--- NOTE | 2025-07-08 08:42 | PM.IMPN2 ---
Assessment and Plan Assessment and Plan (1) Intractable abdominal pain: Code(s): R10.9 - Unspecified abdominal pain Status: Acute Assessment and Plan: UDS positive for opiates otherwise unremarkable. CTA of the abdomen/pelvis on 07/05 showed no acute abnormalities. History of IBS, reporting pain and symptoms are similar to her previous flare-ups. No BOLA/renal dysfunction noted. No significant electrolyte derangements. Viral PCR negative. No improvement with outpatient Bentyl. Admitted for IV hydration and p.o. challenge given she has been to the ER twice in the past week. Likely IBS flare. No current indicators of infection. - Zofran 1st line, Reglan 2nd line - IV fluids: 1L bolus -> 125 mL/hr will switch to bicarb drip due to metabolic acidosis which will be stopped today - PPI IV daily - monitor electrolytes and renal function - start on clear liquids, advanced as tolerated to regular Likely History of H pylori infection back in June 2024 which was treated. Will check H pylori antigen stool GI consultation and status post EGD with findings of gastritis Has not had bowel movement so as pylori antigen has not been done. Urine porphyrins ordered per GI Continues to have pain. Add nortriptyline. Switched to [place] p.r.n. (2) Intractable nausea and vomiting: Code(s): R11.2 - Nausea with vomiting, unspecified Status: Acute Assessment and Plan: - see above (3) Thyroid dysfunction: Code(s): E07.9 - Disorder of thyroid, unspecified Status: Acute Assessment and Plan: - Mild thyroid dysfunction noted upon admission. TSH 0.398, T4 1.46, T3 0.78 on 07/05. Could be due to acute illness. - Will need follow-up outpatient. (4) HTN (hypertension): Qualifiers: Hypertension type: primary hypertension Qualified Code(s): I10 - Essential (primary) hypertension Code(s): I10 - Essential (primary) hypertension Status: Chronic Assessment and Plan: - continue home medications: Metoprolol ER 25 mg daily - monitor Plan Diet: Clear liquid currently NPO for EGD advanced as tolerated GI Prophylaxis: Ppi IV DVT Prophylaxis: SCDs IV fluids:1L bolus -> 125 mL/hr Lines/Tubes: pIV Code Status: full code Subjective Date/time seen: 07/08/25 08:42 Interval history: No overnight events. Continues to have abdominal pain. On Protonix b.i.d. discussed findings of EGD with the patient. Review of Systems Review of Systems: All systems reviewed & are unremarkable except as noted in HPI and below Exam Narrative: CONST: Alert and oriented x3, No acute distress. HENMT: Head is normocephalic and atraumatic. EYES: No scleral icterus. No conjunctival injection or pallor. PERRL. RESP: Able to speak in full sentences. Normal respiratory effort. CTAB. CARDIO: Regular rate. Regular rhythm. 2+ DP and radial pulses bilaterally. GI: Nondistended. Nontender no rebound or guarding or rigidity. Soft. : No CVA tenderness to palpation. SKIN: No rashes or lesions noted on exposed skin. NEURO: Oriented x3. Moves all extremities. EXTREM/MSK/BACK: No pedal edema. PSYCH: Normal affect. Objective Data Vital Signs Vital Signs: Vital Signs - 24 hr 07/07/25 13:34 07/07/25 14:00 07/07/25 14:21 Temperature 97.1 F L 96.7 F L Pulse Rate 72 68 76 Respiratory Rate 18 18 13 Blood Pressure 117/72 122/75 97/60 L Pulse Oximetry 98 99 95 Oxygen Delivery Room Air Room Air 07/07/25 14:31 07/07/25 14:41 07/07/25 20:00 Temperature Pulse Rate 79 69 Respiratory Rate 13 13 Blood Pressure 105/65 122/72 Pulse Oximetry 97 100 Oxygen Delivery Room Air Room Air Room Air 07/07/25 20:20 07/08/25 05:30 Temperature 96.7 F L 97.7 F Pulse Rate 77 70 Respiratory Rate 18 16 Blood Pressure 127/71 105/58 L Pulse Oximetry 99 96 Oxygen Delivery Intake/Output Intake/Output: Intake & Output 07/05/25 07/06/25 07/07/25 07/08/25 23:59 23:59 23:59 23:59 Intake Total 2900 2906.3 1590 Output Total 2 Balance 2900 2906.3 1588 Meds/Results Medications: Active Medications Generic Name Dose Route Start Last Admin Trade Name Freq PRN Reason Stop Dose Admin Acetaminophen 650 mg 07/05/25 12:16 Acetaminophen 325 Mg Tablet PO Q6H PRN Mild Pain (1-3) or Fever Baclofen 10 mg 07/05/25 12:16 Baclofen 10 Mg Tablet PO Q8H PRN Muscle Spasm Dicyclomine HCl 20 mg 07/05/25 12:16 07/08/25 03:41 Dicyclomine Hcl 10 Mg Capsule PO 20 mg QID PRN Administration Abdominal Cramping Sodium Chloride 1,000 mls @ 75 mls/hr 07/07/25 07:45 07/08/25 02:06 Normal Saline Iv IV CONT 75 mls/hr .[id number] BRENNA Administration Metoclopramide HCl 10 mg 07/05/25 12:16 07/07/25 21:43 Metoclopramide Hcl Inj 10 Mg/2 Ml Vial IV PUSH 10 mg Q6HR PRN Administration Nausea And Vomiting Metoprolol Succinate 25 mg 07/06/25 09:00 07/07/25 08:59 Metoprolol Succinate Ext Rel 25 Mg Tabcr PO 25 mg DAILY BRENNA Administration Morphine Sulfate 2 mg 07/05/25 08:13 07/07/25 21:42 Morphine Sulfate (*Crx) 4 Mg/Ml Inj IV PUSH 2 mg Q2H PRN Administration Pain Rated 7-10 Ondansetron HCl 4 mg 07/05/25 08:13 07/08/25 03:30 Ondansetron Inj 4 Mg/2 Ml Vial IV PUSH 4 mg Q4H PRN Administration Nausea Pantoprazole Sodium 40 mg 07/07/25 21:00 07/07/25 21:42 Pantoprazole 40 Mg Tablet PO 40 mg Q12HR BRENNA Administration Potassium Chloride 10 meq 07/06/25 09:00 07/07/25 17:15 Potassium Chloride 10 Meq Er Tablet PO 10 meq DAILY BRENNA Administration Radiology Results: ITS Impressions Chest X-Ray 07/05/25 06:58 IMPRESSION: 1. No acute cardiopulmonary findings given portable technique. Abdomen/Pelvis CTA 07/05/25 07:05 IMPRESSION: 1. No acute abnormality. Labs Labs: Laboratory Results - last 24 hr 07/06/25 07/07/25 07/07/25 18:05 12:21 15:14 WBC RBC Hgb Hct MCV MCH MCHC RDW Plt Count MPV Immature Gran % (Auto) Neut % (Auto) Lymph % (Auto) [place] % (Auto) Eos % (Auto) Baso % (Auto) Lymph # (Auto) [place] # (Auto) Eos # (Auto) Baso # (Auto) Abs Immat Gran (auto) Absolute Neuts (auto) Absolute Nucleated RBC Nucleated RBC % % Immature Plt Fraction Sodium Potassium 3.9 Chloride Carbon Dioxide Anion Gap BUN Creatinine Estim Creat Clear Calc Estimated GFR Glucose Calcium Magnesium Total Bilirubin AST ALT Alkaline Phosphatase Total Protein Albumin U Random Uroporphyrins U Rdm Heptacarboxylpor U Rndm Hexacarboxylpor U Rdm Pentacarboxylpor U Random Coproporphyr I U Rndm Coproporphyr III POC H. pylori Urease Negative 07/08/25 07:08 WBC 4.2 L RBC 3.82 L Hgb 12.3 Hct 35.8 L MCV 93.7 MCH 32.2 MCHC 34.4 RDW 12.3 Plt Count 147 L MPV 10.5 H Immature Gran % (Auto) 0.2 Neut % (Auto) 51.8 Lymph % (Auto) 34.6 [place] % (Auto) 9.2 H Eos % (Auto) 3.3 Baso % (Auto) 0.9 Lymph # (Auto) 1.46 [place] # (Auto) 0.4 Eos # (Auto) 0.1 Baso # (Auto) 0.0 Abs Immat Gran (auto) 0.01 Absolute Neuts (auto) 2.2 Absolute Nucleated RBC 0.000 Nucleated RBC % 0.0 % Immature Plt Fraction 3.6 Sodium 133 L Potassium 3.8 Chloride 108 H Carbon Dioxide 23 Anion Gap 2 L BUN < 2 L Creatinine 0.54 L Estim Creat Clear Calc 82 Estimated GFR > 60 Glucose 93 Calcium 8.5 Magnesium 2.1 Total Bilirubin 0.5 AST 34 ALT 17 Alkaline Phosphatase 51 Total Protein 6.6 Albumin 3.6 U Random Uroporphyrins U Rdm Heptacarboxylpor U Rndm Hexacarboxylpor U Rdm Pentacarboxylpor U Random Coproporphyr I U Rndm Coproporphyr III POC H. pylori Urease
[2025-07-08 08:59] VITALS: PULSE 70
[2025-07-08] MEDS: PANTOPRAZOLE 40 MG TABLET PO ×2 (08:59→21:03)
[2025-07-08] MEDS: METOPROLOL SUCCINATE EXT REL 25 MG TABCR PO (08:59)
[2025-07-08] MEDS: POTASSIUM CHLORIDE 10 MEQ ER TABLET PO (08:59)
[2025-07-08] MEDS: ACETAMINOPHEN 325 MG TABLET 650 MG PO (11:45)
[2025-07-08 14:00] VITALS: BP 131/75; PULSE 67; RESP 16; TEMP 35.6; O2SAT 98
--- NOTE | 2025-07-08 17:21 | WPDGIPROGNO ---
Progress Note: A&P Assessment and Plan (1) Gastritis: Code(s): K29.70 - Gastritis, unspecified, without bleeding Status: Acute Assessment and Plan: noted some gastritis with small ulcers continue ppi bid tolerating diet will add simethicone, also she would like to talk to dietitian no objections to discharge tomorrow and she can follow-up in office in few weeks (2) Intractable nausea and vomiting: Code(s): R11.2 - Nausea with vomiting, unspecified Status: Acute Assessment and Plan: improved (3) Intractable abdominal pain: Code(s): R10.9 - Unspecified abdominal pain Status: Acute (4) Cirrhosis: Qualifiers: Hepatic cirrhosis type: unspecified hepatic cirrhosis Ascites presence: without ascites Qualified Code(s): K74.60 - Unspecified cirrhosis of liver Code(s): K74.60 - Unspecified cirrhosis of liver Status: Acute Assessment and Plan: will need follow-up in office h/o HCV already treated Subjective Date/time seen: 07/08/25 17:21 Interval history: egd yesterday with ulcerative gastritis, pending biopsies still some pain and gas, requesting also to talk to dietitian about meals, triggers, etc Review of Systems Review of Systems: All systems reviewed & are unremarkable except as noted in HPI and below Exam Const: General: comfortable and no acute distress HENMT: Face/Nose/Sinus: Normal nares present Eyes: General: appearance normal, both eyes and all related structures Neck: Neck: no JVD Resp: Auscultation: clear to auscultation bilaterally Cardio: Rate: regular rate Rhythm: regular rhythm GI: Inspection: non-distended GI Palp: Yes Soft to palpation Skin: General skin exam: normal color Neuro: Speech: normal speech Extrem: General: normal to inspection Psych: Mental Status: mental status grossly normal Objective Data Vital Signs Vital Signs: Vital Signs - 24 hr 07/07/25 20:00 07/07/25 20:20 07/08/25 05:30 Temperature 96.7 F L 97.7 F Pulse Rate 77 70 Respiratory Rate 18 16 Blood Pressure 127/71 105/58 L Pulse Oximetry 99 96 Oxygen Delivery Room Air 07/08/25 08:59 07/08/25 09:00 07/08/25 14:00 Temperature 96.0 F L Pulse Rate 70 67 Respiratory Rate 16 Blood Pressure 131/75 Pulse Oximetry 98 Oxygen Delivery Room Air Intake/Output Intake/Output: Intake & Output 07/05/25 07/06/25 07/07/25 07/08/25 23:59 23:59 23:59 23:59 Intake Total 2900 2906.3 1590 480 Output Total 2 0 Balance 2900 2906.3 1588 480 Meds/Results Medications: Active Medications Generic Name Dose Route Start Last Admin Trade Name Freq PRN Reason Stop Dose Admin Acetaminophen 650 mg 07/05/25 12:16 07/08/25 11:45 Acetaminophen 325 Mg Tablet PO 650 mg Q6H PRN Administration Mild Pain (1-3) or Fever Hydrocodone Bitart/Acetaminophen 1 tab 07/08/25 08:44 Hydrocodone/Acetaminophen (*Crx) 5-325 Mg Tablet PO Q4H PRN Pain Rated 4-6 Baclofen 10 mg 07/05/25 12:16 Baclofen 10 Mg Tablet PO Q8H PRN Muscle Spasm Dicyclomine HCl 20 mg 07/05/25 12:16 07/08/25 03:41 Dicyclomine Hcl 10 Mg Capsule PO 20 mg QID PRN Administration Abdominal Cramping Metoclopramide HCl 10 mg 07/05/25 12:16 07/07/25 21:43 Metoclopramide Hcl Inj 10 Mg/2 Ml Vial IV PUSH 10 mg Q6HR PRN Administration Nausea And Vomiting Metoprolol Succinate 25 mg 07/06/25 09:00 07/08/25 08:59 Metoprolol Succinate Ext Rel 25 Mg Tabcr PO 25 mg DAILY BRENNA Administration Morphine Sulfate 2 mg 07/05/25 08:13 07/07/25 21:42 Morphine Sulfate (*Crx) 4 Mg/Ml Inj IV PUSH 2 mg Q2H PRN Administration Pain Rated 7-10 Nortriptyline HCl 10 mg 07/08/25 21:00 Nortriptyline Hcl 10 Mg Capsule PO HS BRENNA Ondansetron HCl 4 mg 07/05/25 08:13 07/08/25 08:59 Ondansetron Inj 4 Mg/2 Ml Vial IV PUSH 4 mg Q4H PRN Administration Nausea Pantoprazole Sodium 40 mg 07/07/25 21:00 07/08/25 08:59 Pantoprazole 40 Mg Tablet PO 40 mg Q12HR BRENNA Administration Polyethylene Glycol 17 gm 07/08/25 09:35 07/08/25 11:41 Polyethylene Glycol 3350 17 Gm Powd.Pack PO 17 gm QAM BRENNA Administration Potassium Chloride 10 meq 07/06/25 09:00 07/08/25 08:59 Potassium Chloride 10 Meq Er Tablet PO 10 meq DAILY BRENNA Administration Simethicone 80 mg 07/08/25 17:20 Simethicone 80 Mg Tab.Chew PO Q8H BRENNA Radiology Results: ITS Impressions Chest X-Ray 07/05/25 06:58 IMPRESSION: 1. No acute cardiopulmonary findings given portable technique. Abdomen/Pelvis CTA 07/05/25 07:05 IMPRESSION: 1. No acute abnormality. Labs Labs: Laboratory Results - last 24 hr 07/08/25 07:08 WBC 4.2 L RBC 3.82 L Hgb 12.3 Hct 35.8 L MCV 93.7 MCH 32.2 MCHC 34.4 RDW 12.3 Plt Count 147 L MPV 10.5 H Immature Gran % (Auto) 0.2 Neut % (Auto) 51.8 Lymph % (Auto) 34.6 [place] % (Auto) 9.2 H Eos % (Auto) 3.3 Baso % (Auto) 0.9 Lymph # (Auto) 1.46 [place] # (Auto) 0.4 Eos # (Auto) 0.1 Baso # (Auto) 0.0 Abs Immat Gran (auto) 0.01 Absolute Neuts (auto) 2.2 Absolute Nucleated RBC 0.000 Nucleated RBC % 0.0 % Immature Plt Fraction 3.6 Sodium 133 L Potassium 3.8 Chloride 108 H Carbon Dioxide 23 Anion Gap 2 L BUN < 2 L Creatinine 0.54 L Estim Creat Clear Calc 82 Estimated GFR > 60 Glucose 93 Calcium 8.5 Magnesium 2.1 Total Bilirubin 0.5 AST 34 ALT 17 Alkaline Phosphatase 51 Total Protein 6.6 Albumin 3.6
[2025-07-08] MEDS: HYDROcodone/acetaminophen (*CRX) 5-325 MG TABLET 1 TAB PO ×2 (18:01→23:09)
[2025-07-08] MEDS: SIMETHICONE 80 MG TAB.CHEW PO (18:02)
[2025-07-08] MEDS: NORTRIPTYLINE HCL 10 MG CAPSULE PO (21:03)
[2025-07-08 21:35] VITALS: BP 113/63; PULSE 62; RESP 16; TEMP 36.1; O2SAT 99
[2025-07-09 05:15] VITALS: BP 108/71; PULSE 72; RESP 18; TEMP 36.2; O2SAT 98
[2025-07-09] MEDS: SIMETHICONE 80 MG TAB.CHEW PO ×3 (05:22→21:01)
[2025-07-09] MEDS: HYDROcodone/acetaminophen (*CRX) 5-325 MG TABLET 1 TAB PO ×3 (05:22→15:42)
[2025-07-09 06:32] LABS: Hematocrit 35.4 % (37.0-47.0); Hemoglobin 12.3 g/dL (12.0-15.0); Immature Granulocyte Percent A 0.2 % (0-0.5); Immature Platelet Fraction Pct 3.5 % (0.9-11.2); Lymphocytes Absolute Auto 1.72 K/mm3 (0.9-3.2); Mean Corpuscular HGB Conc 34.7 g/dl (32-36); Mean Corpuscular Hemoglobin 32.5 pg (26-34); Mean Corpuscular Volume 93.7 fl (80-100); Nucleated Red Blood Cells Absolute Auto 0.000 K/mm3 (0.0-0.012); Nucleated Red Blood Cells Perc 0.0 % (0.0-0.2); Platelet Count Result 142 k/mm3 (150-375); Red Blood Count 3.78 M/mm3 (4.2-5.4); White Blood Count 4.3 K/mm3 (4.5-10.0)
[2025-07-09 06:53] LABS: Alanine Aminotransferase 17 U/L (6-35); Albumin Level 3.6 g/dL (3.5-5.1); Alkaline Phosphatase 52 U/L (38-126); Anion Gap 5 mmol/L (4-12); Aspartate Amino Transferase 29 U/L (14-36); Bilirubin,Total 0.5 mg/dL (0.2-1.3); Blood Urea Nitrogen 2 mg/dL (7-17); Calcium 8.9 mg/dL (8.4-10.2); Carbon Dioxide 26 mmol/L (22-30); Chloride 105 mmol/L (98-107); Estimated CRCL calculation 78 ml/min; Estimated Glomerular Filt Rate > 60; Glucose 85 mg/dL (65-110); Magnesium 1.9 mg/dL (1.6-2.3); Potassium 3.3 mmol/L (3.4-5.0); Sodium 136 mmol/L (137-145); Total Protein 6.7 g/dL (6.3-8.2)
[2025-07-09 09:15] VITALS: PULSE 76
[2025-07-09] MEDS: METOPROLOL SUCCINATE EXT REL 25 MG TABCR PO (09:15)
[2025-07-09] MEDS: POTASSIUM CHLORIDE 10 MEQ ER TABLET PO (09:16)
[2025-07-09] MEDS: PANTOPRAZOLE 40 MG TABLET PO ×2 (09:17→20:16)
--- NOTE | 2025-07-09 11:11 | PCNFU ---
Nutrition Follow-Up Complete: Inadequate energy intake related to altered GI function and diet orders as evidenced by pt report and clear liquid diet, weight loss prior to admission Diet advancement with tolerance - Goal is being met. Continue same goal Goal: Pt current nutrition is Regular. Nutrition recommendation: No recommendations. Continue current nutrition care plan and orders. Agree with orders Last recorded weight is 59.7 kg. Bowel Motility: +1 BM 07/08 Labs Reviewed: Hct 35.4, Na 136, K+ 3.3, BUN 2, Cre 0.57 Meds Noted: Protonix Skin: No skin issues Additional Notes: Advancing diet and able to eat. Educated pt on diet for GERD/ulcers. Intakes 25-75%. Continue to monitor Monitor diet orders, intake, tolerance, wt, labs. Follow up in 3 days.
[2025-07-09] MEDS: POTASSIUM CHLORIDE 20 MEQ ER TABLET 40 MEQ PO (11:59)
[2025-07-09 14:00] VITALS: BP 111/71; PULSE 73; RESP 18; TEMP 36.3; O2SAT 96
--- NOTE | 2025-07-09 14:51 | PM.IMPN2 ---
Assessment and Plan Assessment and Plan (1) Intractable abdominal pain: Code(s): R10.9 - Unspecified abdominal pain Status: Acute Assessment and Plan: UDS positive for opiates otherwise unremarkable. CTA of the abdomen/pelvis on 07/05 showed no acute abnormalities. History of IBS, reporting pain and symptoms are similar to her previous flare-ups. No BOLA/renal dysfunction noted. No significant electrolyte derangements. Viral PCR negative. No improvement with outpatient Bentyl. Admitted for IV hydration and p.o. challenge given she has been to the ER twice in the past week. Likely IBS flare. No current indicators of infection. - Zofran 1st line, Reglan 2nd line - IV fluids: 1L bolus -> 125 mL/hr will switch to bicarb drip due to metabolic acidosis which will be stopped today - PPI IV daily - monitor electrolytes and renal function - start on clear liquids, advanced as tolerated to regular Likely History of H pylori infection back in June 2024 which was treated. Will check H pylori antigen stool GI consultation and status post EGD with findings of gastritis Has not had bowel movement so as pylori antigen has not been done. Urine porphyrins ordered per GI Continues to have pain. Add nortriptyline. Switched to [place] p.r.n. add sucraflate (2) Intractable nausea and vomiting: Code(s): R11.2 - Nausea with vomiting, unspecified Status: Acute Assessment and Plan: - see above (3) Thyroid dysfunction: Code(s): E07.9 - Disorder of thyroid, unspecified Status: Acute Assessment and Plan: - Mild thyroid dysfunction noted upon admission. TSH 0.398, T4 1.46, T3 0.78 on 07/05. Could be due to acute illness. - Will need follow-up outpatient. (4) HTN (hypertension): Qualifiers: Hypertension type: primary hypertension Qualified Code(s): I10 - Essential (primary) hypertension Code(s): I10 - Essential (primary) hypertension Status: Chronic Assessment and Plan: - continue home medications: Metoprolol ER 25 mg daily - monitor Plan Diet: Clear liquid currently NPO for EGD advanced as tolerated GI Prophylaxis: Ppi IV DVT Prophylaxis: SCDs IV fluids:1L bolus -> 125 mL/hr Lines/Tubes: pIV Code Status: full code Subjective Date/time seen: 07/09/25 14:51 Interval history: No overnight events. feels a little better, but still has some upper abdominal discomfort. less nausea. Review of Systems Review of Systems: All systems reviewed & are unremarkable except as noted in HPI and below Exam Narrative: CONST: Alert and oriented x3, No acute distress. HENMT: Head is normocephalic and atraumatic. EYES: No scleral icterus. No conjunctival injection or pallor. PERRL. RESP: Able to speak in full sentences. Normal respiratory effort. CTAB. CARDIO: Regular rate. Regular rhythm. 2+ DP and radial pulses bilaterally. GI: Nondistended. tender epigastric region, no rebound or guarding or rigidity. Soft. : No CVA tenderness to palpation. SKIN: No rashes or lesions noted on exposed skin. NEURO: Oriented x3. Moves all extremities. EXTREM/MSK/BACK: No pedal edema. PSYCH: Normal affect. Objective Data Vital Signs Vital Signs: Vital Signs - 24 hr 07/08/25 20:00 07/08/25 21:35 07/09/25 05:15 Temperature 96.9 F L 97.2 F L Pulse Rate 62 72 Respiratory Rate 16 18 Blood Pressure 113/63 108/71 Pulse Oximetry 99 98 Oxygen Delivery Room Air 07/09/25 09:15 07/09/25 14:00 Temperature 97.3 F L Pulse Rate 76 73 Respiratory Rate 18 Blood Pressure 111/71 Pulse Oximetry 96 Oxygen Delivery Intake/Output Intake/Output: Intake & Output 07/06/25 07/07/25 07/08/25 07/09/25 23:59 23:59 23:59 23:59 Intake Total 2906.3 6915 446 0386 Output Total 2 0 Balance 2906.3 1769 162 1604 Meds/Results Medications: Active Medications Generic Name Dose Route Start Last Admin Trade Name Freq PRN Reason Stop Dose Admin Acetaminophen 650 mg 07/05/25 12:16 07/08/25 11:45 Acetaminophen 325 Mg Tablet PO 650 mg Q6H PRN Administration Mild Pain (1-3) or Fever Hydrocodone Bitart/Acetaminophen 1 tab 07/08/25 08:44 07/09/25 10:59 Hydrocodone/Acetaminophen (*Crx) 5-325 Mg Tablet PO 1 tab Q4H PRN Administration Pain Rated 4-6 Baclofen 10 mg 07/05/25 12:16 Baclofen 10 Mg Tablet PO Q8H PRN Muscle Spasm Dicyclomine HCl 20 mg 07/05/25 12:16 07/08/25 18:01 Dicyclomine Hcl 10 Mg Capsule PO 20 mg QID PRN Administration Abdominal Cramping Metoclopramide HCl 10 mg 07/05/25 12:16 07/07/25 21:43 Metoclopramide Hcl Inj 10 Mg/2 Ml Vial IV PUSH 10 mg Q6HR PRN Administration Nausea And Vomiting Metoprolol Succinate 25 mg 07/06/25 09:00 07/09/25 09:15 Metoprolol Succinate Ext Rel 25 Mg Tabcr PO 25 mg DAILY BRENNA Administration Morphine Sulfate 2 mg 07/05/25 08:13 07/07/25 21:42 Morphine Sulfate (*Crx) 4 Mg/Ml Inj IV PUSH 2 mg Q2H PRN Administration Pain Rated 7-10 Nortriptyline HCl 10 mg 07/08/25 21:00 07/08/25 21:03 Nortriptyline Hcl 10 Mg Capsule PO 10 mg HS BRENNA Administration Ondansetron HCl 4 mg 07/05/25 08:13 07/08/25 08:59 Ondansetron Inj 4 Mg/2 Ml Vial IV PUSH 4 mg Q4H PRN Administration Nausea Pantoprazole Sodium 40 mg 07/07/25 21:00 07/09/25 09:17 Pantoprazole 40 Mg Tablet PO 40 mg Q12HR BRENNA Administration Polyethylene Glycol 17 gm 07/08/25 09:35 07/09/25 09:17 Polyethylene Glycol 3350 17 Gm Powd.Pack PO Not Given QAM [facility] Potassium Chloride 10 meq 07/06/25 09:00 07/09/25 09:16 Potassium Chloride 10 Meq Er Tablet PO 10 meq DAILY BRENNA Administration Simethicone 80 mg 07/08/25 17:20 07/09/25 14:03 Simethicone 80 Mg Tab.Chew PO 80 mg Q8HR BRENNA Administration Radiology Results: ITS Impressions Chest X-Ray 07/05/25 06:58 IMPRESSION: 1. No acute cardiopulmonary findings given portable technique. Abdomen/Pelvis CTA 07/05/25 07:05 IMPRESSION: 1. No acute abnormality. Labs Labs: Laboratory Results - last 24 hr 07/09/25 06:03 WBC 4.3 L RBC 3.78 L Hgb 12.3 Hct 35.4 L MCV 93.7 MCH 32.5 MCHC 34.7 RDW 12.3 Plt Count 142 L MPV 10.5 H Immature Gran % (Auto) 0.2 Neut % (Auto) 46.5 Lymph % (Auto) 39.7 [place] % (Auto) 9.0 H Eos % (Auto) 3.9 Baso % (Auto) 0.7 Lymph # (Auto) 1.72 [place] # (Auto) 0.4 Eos # (Auto) 0.2 Baso # (Auto) 0.0 Abs Immat Gran (auto) 0.01 Absolute Neuts (auto) 2.0 Absolute Nucleated RBC 0.000 Nucleated RBC % 0.0 % Immature Plt Fraction 3.5 Sodium 136 L Potassium 3.3 L Chloride 105 Carbon Dioxide 26 Anion Gap 5 BUN 2 L Creatinine 0.57 L Estim Creat Clear Calc 78 Estimated GFR > 60 Glucose 85 Calcium 8.9 Magnesium 1.9 Total Bilirubin 0.5 AST 29 ALT 17 Alkaline Phosphatase 52 Total Protein 6.7 Albumin 3.6
[2025-07-09 20:00] VITALS: BP 115/71; PULSE 70; RESP 16; TEMP 36.2; O2SAT 98
[2025-07-09] MEDS: DICYCLOMINE HCL 10 MG CAPSULE 20 MG PO (20:16)
[2025-07-09] MEDS: NORTRIPTYLINE HCL 10 MG CAPSULE PO (20:16)
[2025-07-10 04:50] VITALS: BP 124/71; PULSE 73; RESP 20; TEMP 36.5; O2SAT 97
[2025-07-10] MEDS: ONDANSETRON INJ 4 MG/2 ML VIAL IV PUSH (05:58)
[2025-07-10] MEDS: SIMETHICONE 80 MG TAB.CHEW PO ×2 (06:19→13:12)
[2025-07-10] MEDS: BACLOFEN 10 MG TABLET PO ×2 (06:19→20:24)
[2025-07-10] MEDS: DICYCLOMINE HCL 10 MG CAPSULE 20 MG PO (07:31)
[2025-07-10 08:59] VITALS: PULSE 64
[2025-07-10] MEDS: PANTOPRAZOLE 40 MG TABLET PO ×2 (08:59→20:25)
[2025-07-10] MEDS: METOPROLOL SUCCINATE EXT REL 25 MG TABCR PO (08:59)
[2025-07-10] MEDS: POTASSIUM CHLORIDE 10 MEQ ER TABLET PO (08:59)
[2025-07-10] MEDS: METOCLOPRAMIDE HCL INJ 10 MG/2 ML VIAL IV PUSH (09:36)
[2025-07-10 09:51] LABS: Hematocrit 41.2 % (37.0-47.0); Hemoglobin 14.3 g/dL (12.0-15.0); Immature Granulocyte Percent A 0.2 % (0-0.5); Lymphocytes Absolute Auto 1.12 K/mm3 (0.9-3.2); Mean Corpuscular HGB Conc 34.7 g/dl (32-36); Mean Corpuscular Hemoglobin 32.1 pg (26-34); Mean Corpuscular Volume 92.4 fl (80-100); Nucleated Red Blood Cells Absolute Auto 0.000 K/mm3 (0.0-0.012); Nucleated Red Blood Cells Perc 0.0 % (0.0-0.2); Platelet Count Result 167 k/mm3 (150-375); Red Blood Count 4.46 M/mm3 (4.2-5.4); White Blood Count 5.3 K/mm3 (4.5-10.0)
[2025-07-10 10:39] LABS: Alanine Aminotransferase 20 U/L (6-35); Albumin Level 4.3 g/dL (3.5-5.1); Alkaline Phosphatase 58 U/L (38-126); Anion Gap 9 mmol/L (4-12); Aspartate Amino Transferase 33 U/L (14-36); Bilirubin,Total 0.5 mg/dL (0.2-1.3); Blood Urea Nitrogen 4 mg/dL (7-17); Calcium 9.4 mg/dL (8.4-10.2); Carbon Dioxide 26 mmol/L (22-30); Chloride 105 mmol/L (98-107); Estimated CRCL calculation 77 ml/min; Estimated Glomerular Filt Rate > 60; Glucose 143 mg/dL (65-110); Magnesium 1.7 mg/dL (1.6-2.3); Potassium 3.2 mmol/L (3.4-5.0); Sodium 140 mmol/L (137-145); Total Protein 7.8 g/dL (6.3-8.2)
[2025-07-10] MEDS: BISACODYL 10 MG SUPPOSITORY RECTAL (11:58)
--- NOTE | 2025-07-10 13:49 | P.PNIM_ITS ---
Assessment and Plan Assessment and Plan (1) Intractable abdominal pain: Code(s): R10.9 - Unspecified abdominal pain Status: Acute Assessment and Plan: UDS positive for opiates otherwise unremarkable. CTA of the abdomen/pelvis on 07/05 showed no acute abnormalities. History of IBS, reporting pain and symptoms are similar to her previous flare-ups. No BOLA/renal dysfunction noted. No significant electrolyte derangements. Viral PCR negative. No improvement with outpatient Bentyl. Admitted for IV hydration and p.o. challenge given she has been to the ER twice in the past week. Likely IBS flare. No current indicators of infection. - Zofran 1st line, Reglan 2nd line - IV fluids: 1L bolus -> 125 mL/hr will switch to bicarb drip due to metabolic acidosis which will be stopped today - PPI IV daily - monitor electrolytes and renal function - start on clear liquids, advanced as tolerated to regular Likely History of H pylori infection back in June 2024 which was treated. Will check H pylori antigen stool GI consultation and status post EGD with findings of gastritis Has not had bowel movement so as pylori antigen has not been done. Urine porphyrins ordered per GI Continues to have pain. Add nortriptyline. Switched to [place] p.r.n. add sucraflate Having issues with abdominal pain. Also constipated. Will give enema x-ray KUB with moderate amount of stool. Continue with Dulcolax (2) Intractable nausea and vomiting: Code(s): R11.2 - Nausea with vomiting, unspecified Status: Acute Assessment and Plan: - see above (3) Thyroid dysfunction: Code(s): E07.9 - Disorder of thyroid, unspecified Status: Acute Assessment and Plan: - Mild thyroid dysfunction noted upon admission. TSH 0.398, T4 1.46, T3 0.78 on 07/05. Could be due to acute illness. - Will need follow-up outpatient. (4) HTN (hypertension): Qualifiers: Hypertension type: primary hypertension Qualified Code(s): I10 - Essential (primary) hypertension Code(s): I10 - Essential (primary) hypertension Status: Chronic Assessment and Plan: - continue home medications: Metoprolol ER 25 mg daily - monitor Plan Diet: Clear liquid currently NPO for EGD advanced as tolerated GI Prophylaxis: Ppi IV DVT Prophylaxis: SCDs IV fluids:1L bolus -> 125 mL/hr Lines/Tubes: pIV Code Status: full code Subjective Date/time seen: 07/10/25 13:49 Interval history: Patient complains of abdominal discomfort. Some nausea still persists. Having had any bowel movement. Review of Systems Review of Systems: All systems reviewed & are unremarkable except as noted in HPI and below Exam Narrative: CONST: Alert and oriented x3, No acute distress. HENMT: Head is normocephalic and atraumatic. EYES: No scleral icterus. No conjunctival injection or pallor. PERRL. RESP: Able to speak in full sentences. Normal respiratory effort. CTAB. CARDIO: Regular rate. Regular rhythm. 2+ DP and radial pulses bilaterally. GI: Nondistended. tender epigastric region, no rebound or guarding or rigidity. Soft. : No CVA tenderness to palpation. SKIN: No rashes or lesions noted on exposed skin. NEURO: Oriented x3. Moves all extremities. EXTREM/MSK/BACK: No pedal edema. PSYCH: Normal affect. Objective Data Vital Signs Vital Signs: Vital Signs - 24 hr 07/09/25 14:00 07/09/25 20:00 07/09/25 20:00 Temperature 97.3 F L 97.1 F L Pulse Rate 73 70 Respiratory Rate 18 16 Blood Pressure 111/71 115/71 Pulse Oximetry 96 98 Oxygen Delivery Room Air 07/10/25 04:50 07/10/25 08:59 Temperature 97.7 F Pulse Rate 73 64 Respiratory Rate 20 Blood Pressure 124/71 Pulse Oximetry 97 Oxygen Delivery Intake/Output Intake/Output: Intake & Output 07/07/25 07/08/25 07/09/25 07/10/25 23:59 23:59 23:59 23:59 Intake Total 0196 151 6870 490 Output Total 2 0 Balance 2581 551 8242 490 Meds/Results Medications: Active Medications Generic Name Dose Route Start Last Admin Trade Name Freq PRN Reason Stop Dose Admin Acetaminophen 650 mg 07/05/25 12:16 07/08/25 11:45 Acetaminophen 325 Mg Tablet PO 650 mg Q6H PRN Administration Mild Pain (1-3) or Fever Hydrocodone Bitart/Acetaminophen 1 tab 07/08/25 08:44 07/09/25 15:42 Hydrocodone/Acetaminophen (*Crx) 5-325 Mg Tablet PO 1 tab Q4H PRN Administration Pain Rated 4-6 Baclofen 10 mg 07/05/25 12:16 07/10/25 06:19 Baclofen 10 Mg Tablet PO 10 mg Q8H PRN Administration Muscle Spasm Dicyclomine HCl 20 mg 07/05/25 12:16 07/10/25 07:31 Dicyclomine Hcl 10 Mg Capsule PO 20 mg QID PRN Administration Abdominal Cramping Metoclopramide HCl 10 mg 07/05/25 12:16 07/10/25 09:36 Metoclopramide Hcl Inj 10 Mg/2 Ml Vial IV PUSH 10 mg Q6HR PRN Administration Nausea And Vomiting Metoprolol Succinate 25 mg 07/06/25 09:00 07/10/25 08:59 Metoprolol Succinate Ext Rel 25 Mg Tabcr PO 25 mg DAILY BRENNA Administration Morphine Sulfate 2 mg 07/05/25 08:13 07/07/25 21:42 Morphine Sulfate (*Crx) 4 Mg/Ml Inj IV PUSH 2 mg Q2H PRN Administration Pain Rated 7-10 Nortriptyline HCl 10 mg 07/08/25 21:00 07/09/25 20:16 Nortriptyline Hcl 10 Mg Capsule PO 10 mg HS BRENNA Administration Ondansetron HCl 4 mg 07/05/25 08:13 07/10/25 05:58 Ondansetron Inj 4 Mg/2 Ml Vial IV PUSH 4 mg Q4H PRN Administration Nausea Pantoprazole Sodium 40 mg 07/07/25 21:00 07/10/25 08:59 Pantoprazole 40 Mg Tablet PO 40 mg Q12HR BRENNA Administration Polyethylene Glycol 17 gm 07/08/25 09:35 07/10/25 08:59 Polyethylene Glycol 3350 17 Gm Powd.Pack PO 17 gm QAM BRENNA Administration Potassium Chloride 10 meq 07/06/25 09:00 07/10/25 08:59 Potassium Chloride 10 Meq Er Tablet PO 10 meq DAILY BRENNA Administration Simethicone 80 mg 07/08/25 17:20 07/10/25 13:12 Simethicone 80 Mg Tab.Chew PO 80 mg Q8HR BRENNA Administration Sucralfate 1,000 mg 07/10/25 16:30 Sucralfate Susp 100 Mg/Ml 10 Ml Udc PO ACHS [facility] Radiology Results: ITS Impressions Chest X-Ray 07/05/25 06:58 IMPRESSION: 1. No acute cardiopulmonary findings given portable technique. Abdomen/Pelvis CTA 07/05/25 07:05 IMPRESSION: 1. No acute abnormality. Abdomen X-Ray 07/10/25 11:25 IMPRESSION: Nonspecific bowel gas pattern with at least moderate amount of stool extending to the cecal region. Labs Labs: Laboratory Results - last 24 hr 07/06/25 07/10/25 18:05 09:40 WBC 5.3 RBC 4.46 Hgb 14.3 Hct 41.2 MCV 92.4 MCH 32.1 MCHC 34.7 RDW 12.4 Plt Count 167 MPV 10.3 Immature Gran % (Auto) 0.2 Neut % (Auto) 69.7 Lymph % (Auto) 21.3 [place] % (Auto) 6.3 Eos % (Auto) 1.7 Baso % (Auto) 0.8 Lymph # (Auto) 1.12 [place] # (Auto) 0.3 Eos # (Auto) 0.1 Baso # (Auto) 0.0 Abs Immat Gran (auto) 0.01 Absolute Neuts (auto) 3.7 Absolute Nucleated RBC 0.000 Nucleated RBC % 0.0 Sodium 140 Potassium 3.2 L Chloride 105 Carbon Dioxide 26 Anion Gap 9 BUN 4 L Creatinine 0.58 L Estim Creat Clear Calc 77 Estimated GFR > 60 Glucose 143 H Calcium 9.4 Magnesium 1.7 Total Bilirubin 0.5 AST 33 ALT 20 Alkaline Phosphatase 58 Total Protein 7.8 Albumin 4.3 U Random Uroporphyrins U Rdm Heptacarboxylpor U Rndm Hexacarboxylpor U Rdm Pentacarboxylpor U Random Coproporphyr I U Rndm Coproporphyr III
[2025-07-10 14:00] VITALS: BP 94/63; PULSE 79; RESP 18; TEMP 35.7; O2SAT 97
[2025-07-10] MEDS: SUCRALFATE SUSP 100 MG/ML 10 ML UDC 1000 MG PO ×2 (15:58→20:25)
[2025-07-10] MEDS: POTASSIUM CHLORIDE 20 MEQ ER TABLET 40 MEQ PO (15:58)
[2025-07-10] MEDS: HYDROcodone/acetaminophen (*CRX) 5-325 MG TABLET 1 TAB PO (20:24)
[2025-07-10 22:00] VITALS: BP 110/86; PULSE 87; RESP 16; TEMP 36.1; O2SAT 99
[2025-07-11 04:15] VITALS: BP 116/72; PULSE 83; RESP 18; TEMP 36.1; O2SAT 100
[2025-07-11] MEDS: HYDROcodone/acetaminophen (*CRX) 5-325 MG TABLET 1 TAB PO ×3 (04:21→20:24)
[2025-07-11 06:07] LABS: Hematocrit 41.4 % (37.0-47.0); Hemoglobin 14.1 g/dL (12.0-15.0); Immature Granulocyte Percent A 0.2 % (0-0.5); Lymphocytes Absolute Auto 1.35 K/mm3 (0.9-3.2); Mean Corpuscular HGB Conc 34.1 g/dl (32-36); Mean Corpuscular Hemoglobin 32.0 pg (26-34); Mean Corpuscular Volume 94.1 fl (80-100); Nucleated Red Blood Cells Absolute Auto 0.000 K/mm3 (0.0-0.012); Nucleated Red Blood Cells Perc 0.0 % (0.0-0.2); Platelet Count Result 157 k/mm3 (150-375); Red Blood Count 4.40 M/mm3 (4.2-5.4); White Blood Count 4.7 K/mm3 (4.5-10.0)
[2025-07-11 06:28] LABS: Alanine Aminotransferase 16 U/L (6-35); Albumin Level 4.1 g/dL (3.5-5.1); Alkaline Phosphatase 55 U/L (38-126); Anion Gap 3 mmol/L (4-12); Aspartate Amino Transferase 37 U/L (14-36); Bilirubin,Total 0.4 mg/dL (0.2-1.3); Blood Urea Nitrogen 5 mg/dL (7-17); Calcium 9.7 mg/dL (8.4-10.2); Carbon Dioxide 31 mmol/L (22-30); Chloride 101 mmol/L (98-107); Estimated CRCL calculation 67 ml/min; Estimated Glomerular Filt Rate > 60; Glucose 107 mg/dL (65-110); Magnesium 1.9 mg/dL (1.6-2.3); Potassium 3.8 mmol/L (3.4-5.0); Sodium 135 mmol/L (137-145); Total Protein 7.6 g/dL (6.3-8.2)
[2025-07-11] MEDS: DICYCLOMINE HCL 10 MG CAPSULE 20 MG PO (06:41)
[2025-07-11] MEDS: SUCRALFATE SUSP 100 MG/ML 10 ML UDC 1000 MG PO ×4 (06:41→20:25)
[2025-07-11 09:12] VITALS: PULSE 82
[2025-07-11] MEDS: POTASSIUM CHLORIDE 10 MEQ ER TABLET PO (09:12)
[2025-07-11] MEDS: PANTOPRAZOLE 40 MG TABLET PO ×2 (09:12→20:25)
[2025-07-11] MEDS: METOPROLOL SUCCINATE EXT REL 25 MG TABCR PO (09:12)
[2025-07-11] MEDS: MAGNESIUM HYDROXIDE SUSP 30 ML UDC PO (12:08)
--- NOTE | 2025-07-11 12:20 | P.PNIM_ITS ---
Assessment and Plan Assessment and Plan (1) Intractable abdominal pain: Code(s): R10.9 - Unspecified abdominal pain Status: Acute Assessment and Plan: UDS positive for opiates otherwise unremarkable. CTA of the abdomen/pelvis on 07/05 showed no acute abnormalities. History of IBS, reporting pain and symptoms are similar to her previous flare-ups. No BOLA/renal dysfunction noted. No significant electrolyte derangements. Viral PCR negative. No improvement with outpatient Bentyl. Admitted for IV hydration and p.o. challenge given she has been to the ER twice in the past week. Likely IBS flare. No current indicators of infection. - Zofran 1st line, Reglan 2nd line - IV fluids: 1L bolus -> 125 mL/hr will switch to bicarb drip due to metabolic acidosis which will be stopped today - PPI IV daily - monitor electrolytes and renal function - start on clear liquids, advanced as tolerated to regular Likely History of H pylori infection back in June 2024 which was treated. H pylori antigen stool negative GI consultation and status post EGD with findings of gastritis Urine porphyrins ordered per GI Continues to have pain. Add nortriptyline which has now been stopped due to constipation. Switched to [place] p.r.n. add sucraflate Having issues with abdominal pain. Also constipated. Will give enema x-ray KUB with moderate amount of stool. Continue with Dulcolax. Repeat enema. Add milk of magnesia. Start Linzess (2) Intractable nausea and vomiting: Code(s): R11.2 - Nausea with vomiting, unspecified Status: Acute Assessment and Plan: - see above (3) Thyroid dysfunction: Code(s): E07.9 - Disorder of thyroid, unspecified Status: Acute Assessment and Plan: - Mild thyroid dysfunction noted upon admission. TSH 0.398, T4 1.46, T3 0.78 on 07/05. Could be due to acute illness. - Will need follow-up outpatient. (4) HTN (hypertension): Qualifiers: Hypertension type: primary hypertension Qualified Code(s): I10 - Essential (primary) hypertension Code(s): I10 - Essential (primary) hypertension Status: Chronic Assessment and Plan: - continue home medications: Metoprolol ER 25 mg daily - monitor Plan Diet: Regular diet as tolerated GI Prophylaxis: Ppi IV DVT Prophylaxis: SCDs IV fluids:1L bolus -> 125 mL/hr Lines/Tubes: pIV Code Status: full code Subjective Date/time seen: 07/11/25 12:20 Interval history: Patient continues to have abdominal discomfort and periumbilical area. Associated nausea. No bowel movement. Review of Systems Review of Systems: All systems reviewed & are unremarkable except as noted in HPI and below Exam Narrative: CONST: Alert and oriented x3, No acute distress. HENMT: Head is normocephalic and atraumatic. EYES: No scleral icterus. No conjunctival injection or pallor. PERRL. RESP: Able to speak in full sentences. Normal respiratory effort. CTAB. CARDIO: Regular rate. Regular rhythm. 2+ DP and radial pulses bilaterally. GI: Nondistended. tender vick Umbilical area no rebound or guarding or rigidity. Soft. : No CVA tenderness to palpation. SKIN: No rashes or lesions noted on exposed skin. NEURO: Oriented x3. Moves all extremities. EXTREM/MSK/BACK: No pedal edema. PSYCH: Normal affect. Objective Data Vital Signs Vital Signs: Vital Signs - 24 hr 07/10/25 14:00 07/10/25 20:00 07/10/25 22:00 Temperature 96.2 F L 97.0 F L Pulse Rate 79 87 Respiratory Rate 18 16 Blood Pressure 94/63 L 110/86 Pulse Oximetry 97 99 Oxygen Delivery Room Air 07/11/25 04:15 07/11/25 09:12 Temperature 97.0 F L Pulse Rate 83 82 Respiratory Rate 18 Blood Pressure 116/72 Pulse Oximetry 100 Oxygen Delivery Intake/Output Intake/Output: Intake & Output 07/08/25 07/09/25 07/10/25 07/11/25 23:59 23:59 23:59 23:59 Intake Total 720 1500 608 250 Output Total 0 Balance 720 1500 608 250 Meds/Results Medications: Active Medications Generic Name Dose Route Start Last Admin Trade Name Freq PRN Reason Stop Dose Admin Acetaminophen 650 mg 07/05/25 12:16 07/08/25 11:45 Acetaminophen 325 Mg Tablet PO 650 mg Q6H PRN Administration Mild Pain (1-3) or Fever Hydrocodone Bitart/Acetaminophen 1 tab 07/08/25 08:44 07/11/25 04:21 Hydrocodone/Acetaminophen (*Crx) 5-325 Mg Tablet PO 1 tab Q4H PRN Administration Pain Rated 4-6 Baclofen 10 mg 07/05/25 12:16 07/10/25 20:24 Baclofen 10 Mg Tablet PO 10 mg Q8H PRN Administration Muscle Spasm Dicyclomine HCl 20 mg 07/05/25 12:16 07/11/25 06:41 Dicyclomine Hcl 10 Mg Capsule PO 20 mg QID PRN Administration Abdominal Cramping Metoclopramide HCl 10 mg 07/05/25 12:16 07/10/25 09:36 Metoclopramide Hcl Inj 10 Mg/2 Ml Vial IV PUSH 10 mg Q6HR PRN Administration Nausea And Vomiting Metoprolol Succinate 25 mg 07/06/25 09:00 07/11/25 09:12 Metoprolol Succinate Ext Rel 25 Mg Tabcr PO 25 mg DAILY BRENNA Administration Morphine Sulfate 2 mg 07/05/25 08:13 07/07/25 21:42 Morphine Sulfate (*Crx) 4 Mg/Ml Inj IV PUSH 2 mg Q2H PRN Administration Pain Rated 7-10 Ondansetron HCl 4 mg 07/05/25 08:13 07/10/25 05:58 Ondansetron Inj 4 Mg/2 Ml Vial IV PUSH 4 mg Q4H PRN Administration Nausea Pantoprazole Sodium 40 mg 07/07/25 21:00 07/11/25 09:12 Pantoprazole 40 Mg Tablet PO 40 mg Q12HR BRENNA Administration Polyethylene Glycol 17 gm 07/08/25 09:35 07/11/25 09:12 Polyethylene Glycol 3350 17 Gm Powd.Pack PO 17 gm QAM BRENNA Administration Potassium Chloride 10 meq 07/06/25 09:00 07/11/25 09:12 Potassium Chloride 10 Meq Er Tablet PO 10 meq DAILY BRENNA Administration Simethicone 80 mg 07/08/25 17:20 07/11/25 06:43 Simethicone 80 Mg Tab.Chew PO Not Given Q8HR BRENNA Sucralfate 1,000 mg 07/10/25 16:30 07/11/25 12:08 Sucralfate Susp 100 Mg/Ml 10 Ml Udc PO 1,000 mg ACHS BRENNA Administration Radiology Results: ITS Impressions Chest X-Ray 07/05/25 06:58 IMPRESSION: 1. No acute cardiopulmonary findings given portable technique. Abdomen/Pelvis CTA 07/05/25 07:05 IMPRESSION: 1. No acute abnormality. Abdomen X-Ray 07/10/25 11:25 IMPRESSION: Nonspecific bowel gas pattern with at least moderate amount of stool extending to the cecal region. Labs Labs: Laboratory Results - last 24 hr 07/11/25 05:51 WBC 4.7 RBC 4.40 Hgb 14.1 Hct 41.4 MCV 94.1 MCH 32.0 MCHC 34.1 RDW 12.4 Plt Count 157 MPV 10.1 Immature Gran % (Auto) 0.2 Neut % (Auto) 55.1 Lymph % (Auto) 28.9 [place] % (Auto) 12.8 H Eos % (Auto) 2.4 Baso % (Auto) 0.6 Lymph # (Auto) 1.35 [place] # (Auto) 0.6 Eos # (Auto) 0.1 Baso # (Auto) 0.0 Abs Immat Gran (auto) 0.01 Absolute Neuts (auto) 2.6 Absolute Nucleated RBC 0.000 Nucleated RBC % 0.0 Sodium 135 L Potassium 3.8 Chloride 101 Carbon Dioxide 31 H Anion Gap 3 L BUN 5 L Creatinine 0.67 L Estim Creat Clear Calc 67 Estimated GFR > 60 Glucose 107 Calcium 9.7 Magnesium 1.9 Total Bilirubin 0.4 AST 37 H ALT 16 Alkaline Phosphatase 55 Total Protein 7.6 Albumin 4.1
[2025-07-11] MEDS: LINACLOTIDE 145 MCG CAPSULE PO (13:03)
[2025-07-11] MEDS: SIMETHICONE 80 MG TAB.CHEW PO (13:03)
[2025-07-11 14:00] VITALS: BP 123/78; PULSE 83; RESP 19; TEMP 35.6; O2SAT 98
[2025-07-11] MEDS: BACLOFEN 10 MG TABLET PO (20:25)
[2025-07-11 20:35] VITALS: BP 132/71; PULSE 69; RESP 20; TEMP 36.1; O2SAT 100
[2025-07-12] MEDS: DICYCLOMINE HCL 10 MG CAPSULE 20 MG PO (03:59)
[2025-07-12] MEDS: BACLOFEN 10 MG TABLET PO ×2 (04:00→20:56)
[2025-07-12 04:25] VITALS: BP 112/67; PULSE 72; RESP 18; TEMP 35.9; O2SAT 100
[2025-07-12] MEDS: SUCRALFATE SUSP 100 MG/ML 10 ML UDC 1000 MG PO ×2 (05:57→11:49)
[2025-07-12] MEDS: LINACLOTIDE 145 MCG CAPSULE PO (05:58)
[2025-07-12 08:21] VITALS: PULSE 77
[2025-07-12] MEDS: PANTOPRAZOLE 40 MG TABLET PO ×2 (08:21→20:56)
[2025-07-12] MEDS: POTASSIUM CHLORIDE 10 MEQ ER TABLET PO (08:21)
[2025-07-12] MEDS: METOPROLOL SUCCINATE EXT REL 25 MG TABCR PO (08:21)
--- NOTE | 2025-07-12 11:15 | P.PNIM_ITS ---
Assessment and Plan Assessment and Plan (1) Intractable abdominal pain: Code(s): R10.9 - Unspecified abdominal pain Status: Acute Assessment and Plan: UDS positive for opiates otherwise unremarkable. CTA of the abdomen/pelvis on 07/05 showed no acute abnormalities. History of IBS, reporting pain and symptoms are similar to her previous flare-ups. No BOLA/renal dysfunction noted. No significant electrolyte derangements. Viral PCR negative. No improvement with outpatient Bentyl. Admitted for IV hydration and p.o. challenge given she has been to the ER twice in the past week. Likely IBS flare. No current indicators of infection. - Zofran 1st line, Reglan 2nd line - IV fluids: 1L bolus -> 125 mL/hr will switch to bicarb drip due to metabolic acidosis which will be stopped today - PPI IV daily - monitor electrolytes and renal function - start on clear liquids, advanced as tolerated to regular Likely History of H pylori infection back in June 2024 which was treated. H pylori antigen stool negative GI consultation and status post EGD with findings of gastritis Urine porphyrins ordered per GI Continues to have pain. Add nortriptyline which has now been stopped due to constipation. Switched to [place] p.r.n. add sucraflate Having issues with abdominal pain. Also constipated. Will give enema x-ray KUB with moderate amount of stool. Continue with Dulcolax. Repeat enema. Add milk of magnesia. Start Linzess Will start lactulose (2) Intractable nausea and vomiting: Code(s): R11.2 - Nausea with vomiting, unspecified Status: Acute Assessment and Plan: - see above (3) Thyroid dysfunction: Code(s): E07.9 - Disorder of thyroid, unspecified Status: Acute Assessment and Plan: - Mild thyroid dysfunction noted upon admission. TSH 0.398, T4 1.46, T3 0.78 on 07/05. Could be due to acute illness. - Will need follow-up outpatient. (4) HTN (hypertension): Qualifiers: Hypertension type: primary hypertension Qualified Code(s): I10 - Essential (primary) hypertension Code(s): I10 - Essential (primary) hypertension Status: Chronic Assessment and Plan: - continue home medications: Metoprolol ER 25 mg daily - monitor Plan Diet: Regular diet as tolerated GI Prophylaxis: Ppi IV DVT Prophylaxis: SCDs IV fluids:1L bolus -> 125 mL/hr Lines/Tubes: pIV Code Status: full code Subjective Date/time seen: 07/12/25 11:15 Interval history: Patient continues to have abdominal discomfort and periumbilical area. Associat ed nausea. No bowel movement still Review of Systems Review of Systems: All systems reviewed & are unremarkable except as noted in HPI and below Exam Narrative: CONST: Alert and oriented x3, No acute distress. HENMT: Head is normocephalic and atraumatic. EYES: No scleral icterus. No conjunctival injection or pallor. PERRL. RESP: Able to speak in full sentences. Normal respiratory effort. CTAB. CARDIO: Regular rate. Regular rhythm. 2+ DP and radial pulses bilaterally. GI: Nondistended. tender vick Umbilical area no rebound or guarding or rigidity. Soft. : No CVA tenderness to palpation. SKIN: No rashes or lesions noted on exposed skin. NEURO: Oriented x3. Moves all extremities. EXTREM/MSK/BACK: No pedal edema. PSYCH: Normal affect. Objective Data Vital Signs Vital Signs: Vital Signs - 24 hr 07/11/25 14:00 07/11/25 20:00 07/11/25 20:35 Temperature 96.1 F L 97 F L Pulse Rate 83 69 Respiratory Rate 19 20 Blood Pressure 123/78 132/71 Pulse Oximetry 98 100 Oxygen Delivery Room Air 07/12/25 04:25 07/12/25 08:20 07/12/25 08:21 Temperature 96.6 F L Pulse Rate 72 77 Respiratory Rate 18 Blood Pressure 112/67 Pulse Oximetry 100 Oxygen Delivery Room Air Intake/Output Intake/Output: Intake & Output 07/09/25 07/10/25 07/11/25 07/12/25 23:59 23:59 23:59 23:59 Intake Total 1500 608 450 500 Balance 1500 608 450 500 Meds/Results Medications: Active Medications Generic Name Dose Route Start Last Admin Trade Name Freq PRN Reason Stop Dose Admin Acetaminophen 650 mg 07/05/25 12:16 07/08/25 11:45 Acetaminophen 325 Mg Tablet PO 650 mg Q6H PRN Administration Mild Pain (1-3) or Fever Hydrocodone Bitart/Acetaminophen 1 tab 07/08/25 08:44 07/11/25 20:24 Hydrocodone/Acetaminophen (*Crx) 5-325 Mg Tablet PO 1 tab Q4H PRN Administration Pain Rated 4-6 Baclofen 10 mg 07/05/25 12:16 07/12/25 04:00 Baclofen 10 Mg Tablet PO 10 mg Q8H PRN Administration Muscle Spasm Dicyclomine HCl 20 mg 07/05/25 12:16 07/12/25 03:59 Dicyclomine Hcl 10 Mg Capsule PO 20 mg QID PRN Administration Abdominal Cramping Lactulose 20 gm 07/12/25 11:00 Lactulose 20 Gm/30 Ml Udc PO Q2H BRENNA Linaclotide 145 mcg 07/11/25 12:25 07/12/25 05:58 Linaclotide 145 Mcg Capsule PO 145 mcg DAILY@0630 BRENNA Administration Metoclopramide HCl 10 mg 07/05/25 12:16 07/10/25 09:36 Metoclopramide Hcl Inj 10 Mg/2 Ml Vial IV PUSH 10 mg Q6HR PRN Administration Nausea And Vomiting Metoprolol Succinate 25 mg 07/06/25 09:00 07/12/25 08:21 Metoprolol Succinate Ext Rel 25 Mg Tabcr PO 25 mg DAILY BRENNA Administration Morphine Sulfate 2 mg 07/05/25 08:13 07/07/25 21:42 Morphine Sulfate (*Crx) 4 Mg/Ml Inj IV PUSH 2 mg Q2H PRN Administration Pain Rated 7-10 Ondansetron HCl 4 mg 07/05/25 08:13 07/10/25 05:58 Ondansetron Inj 4 Mg/2 Ml Vial IV PUSH 4 mg Q4H PRN Administration Nausea Pantoprazole Sodium 40 mg 07/07/25 21:00 07/12/25 08:21 Pantoprazole 40 Mg Tablet PO 40 mg Q12HR BRENNA Administration Polyethylene Glycol 17 gm 07/08/25 09:35 07/12/25 08:21 Polyethylene Glycol 3350 17 Gm Powd.Pack PO 17 gm QAM BRENNA Administration Potassium Chloride 10 meq 07/06/25 09:00 07/12/25 08:21 Potassium Chloride 10 Meq Er Tablet PO 10 meq DAILY BRENNA Administration Simethicone 80 mg 07/08/25 17:20 07/12/25 05:58 Simethicone 80 Mg Tab.Chew PO Not Given Q8HR [facility] Sucralfate 1,000 mg 07/10/25 16:30 07/12/25 05:57 Sucralfate Susp 100 Mg/Ml 10 Ml Udc PO 1,000 mg ACHS BRENNA Administration Radiology Results: ITS Impressions Chest X-Ray 07/05/25 06:58 IMPRESSION: 1. No acute cardiopulmonary findings given portable technique. Abdomen/Pelvis CTA 07/05/25 07:05 IMPRESSION: 1. No acute abnormality. Abdomen X-Ray 07/10/25 11:25 IMPRESSION: Nonspecific bowel gas pattern with at least moderate amount of stool extending to the cecal region. Labs Labs: Laboratory Results - last 24 hr 07/11/25 05:51 WBC 4.7 RBC 4.40 Hgb 14.1 Hct 41.4 MCV 94.1 MCH 32.0 MCHC 34.1 RDW 12.4 Plt Count 157 MPV 10.1 Immature Gran % (Auto) 0.2 Neut % (Auto) 55.1 Lymph % (Auto) 28.9 [place] % (Auto) 12.8 H Eos % (Auto) 2.4 Baso % (Auto) 0.6 Lymph # (Auto) 1.35 [place] # (Auto) 0.6 Eos # (Auto) 0.1 Baso # (Auto) 0.0 Abs Immat Gran (auto) 0.01 Absolute Neuts (auto) 2.6 Absolute Nucleated RBC 0.000 Nucleated RBC % 0.0 Sodium 135 L Potassium 3.8 Chloride 101 Carbon Dioxide 31 H Anion Gap 3 L BUN 5 L Creatinine 0.67 L Estim Creat Clear Calc 67 Estimated GFR > 60 Glucose 107 Calcium 9.7 Magnesium 1.9 Total Bilirubin 0.4 AST 37 H ALT 16 Alkaline Phosphatase 55 Total Protein 7.6 Albumin 4.1
[2025-07-12] MEDS: LACTULOSE 20 GM/30 ML UDC PO ×3 (11:48→15:22)
[2025-07-12] MEDS: BISACODYL 5 MG TABLET EC PO (11:48)
[2025-07-12 14:00] VITALS: BP 129/78; PULSE 71; RESP 19; TEMP 36.6; O2SAT 97
[2025-07-12] MEDS: MORPHINE SULFATE (*CRX) 4 MG/ML INJ 2 MG IV PUSH ×2 (15:23→17:22)
[2025-07-12] MEDS: ONDANSETRON INJ 4 MG/2 ML VIAL IV PUSH ×2 (15:38→20:56)
[2025-07-12 20:25] VITALS: BP 125/77; PULSE 77; RESP 18; TEMP 36.7; O2SAT 100
[2025-07-13 05:00] VITALS: BP 117/72; PULSE 83; RESP 20; TEMP 36.1; O2SAT 97
[2025-07-13 06:10] LABS: Hematocrit 39.0 % (37.0-47.0); Hemoglobin 13.8 g/dL (12.0-15.0); Immature Granulocyte Percent A 0.3 % (0-0.5); Lymphocytes Absolute Auto 1.79 K/mm3 (0.9-3.2); Mean Corpuscular HGB Conc 35.4 g/dl (32-36); Mean Corpuscular Hemoglobin 32.5 pg (26-34); Mean Corpuscular Volume 91.8 fl (80-100); Nucleated Red Blood Cells Absolute Auto 0.000 K/mm3 (0.0-0.012); Nucleated Red Blood Cells Perc 0.0 % (0.0-0.2); Platelet Count Result 188 k/mm3 (150-375); Red Blood Count 4.25 M/mm3 (4.2-5.4); White Blood Count 6.1 K/mm3 (4.5-10.0)
[2025-07-13 06:22] LABS: Alanine Aminotransferase 21 U/L (6-35); Albumin Level 4.1 g/dL (3.5-5.1); Alkaline Phosphatase 57 U/L (38-126); Anion Gap 4 mmol/L (4-12); Aspartate Amino Transferase 40 U/L (14-36); Bilirubin,Total 0.5 mg/dL (0.2-1.3); Blood Urea Nitrogen 8 mg/dL (7-17); Calcium 9.5 mg/dL (8.4-10.2); Carbon Dioxide 27 mmol/L (22-30); Chloride 102 mmol/L (98-107); Estimated CRCL calculation 65 ml/min; Estimated Glomerular Filt Rate > 60; Glucose 105 mg/dL (65-110); Magnesium 2.3 mg/dL (1.6-2.3); Potassium 3.7 mmol/L (3.4-5.0); Sodium 133 mmol/L (137-145); Total Protein 7.6 g/dL (6.3-8.2)
[2025-07-13] MEDS: LINACLOTIDE 145 MCG CAPSULE PO (06:23)
[2025-07-13] MEDS: SUCRALFATE SUSP 100 MG/ML 10 ML UDC 1000 MG PO (06:23)
[2025-07-13] MEDS: POTASSIUM CHLORIDE 10 MEQ ER TABLET PO (08:58)
[2025-07-13] MEDS: PANTOPRAZOLE 40 MG TABLET PO ×2 (08:58→20:28)
[2025-07-13] MEDS: BISACODYL 5 MG TABLET EC PO (08:58)
[2025-07-13 08:59] VITALS: PULSE 78
[2025-07-13] MEDS: METOPROLOL SUCCINATE EXT REL 25 MG TABCR PO (08:59)
[2025-07-13] MEDS: HYDROcodone/acetaminophen (*CRX) 5-325 MG TABLET 1 TAB PO (09:03)
--- NOTE | 2025-07-13 10:46 | PCNFU ---
Nutrition Follow-Up Complete: Inadequate energy intake related to altered GI function and diet orders as evidenced by pt report and clear liquid diet, weight loss prior to admission Goal:Diet advancement with tolerance Pt progressing slowly to goal Pt current nutrition is Regular. Nutrition recommendation: Add Ensure shakes BID, vanilla Last recorded weight is 59.7 kg. Bowel Motility: +BM 07/13 Labs Reviewed: [id number] Meds Noted: protonix, KCL, miralax, lactulose Skin: WNL Additional Notes: Pt diet advanced to regular, charted intake 25-75%, pt reports she is still having nausea and vomiting and not tolerating meals. Agreeable to Ensure shakes, will send BID. Monitor diet orders, intake, tolerance, wt, labs. Follow up in 3 days.
--- NOTE | 2025-07-13 13:52 | P.PNIM_ITS ---
Assessment and Plan Assessment and Plan (1) Intractable abdominal pain: Code(s): R10.9 - Unspecified abdominal pain Status: Acute Assessment and Plan: UDS positive for opiates otherwise unremarkable. CTA of the abdomen/pelvis on 07/05 showed no acute abnormalities. History of IBS, reporting pain and symptoms are similar to her previous flare-ups. No BOLA/renal dysfunction noted. No significant electrolyte derangements. Viral PCR negative. No improvement with outpatient Bentyl. Admitted for IV hydration and p.o. challenge given she has been to the ER twice in the past week. Likely IBS flare. No current indicators of infection. - Zofran 1st line, Reglan 2nd line - IV fluids: 1L bolus -> 125 mL/hr will switch to bicarb drip due to metabolic acidosis which will be stopped today - PPI IV daily - monitor electrolytes and renal function - start on clear liquids, advanced as tolerated to regular Likely History of H pylori infection back in June 2024 which was treated. H pylori antigen stool negative GI consultation and status post EGD with findings of gastritis Urine porphyrins ordered per GI Continues to have pain. Add nortriptyline which has now been stopped due to constipation. Switched to [place] p.r.n. add sucraflate Having issues with abdominal pain. Also constipated. Will give enema x-ray KUB with moderate amount of stool. Continue with Dulcolax. Repeat enema. Add milk of magnesia. Start Linzess Started lactulose subsequently had good bowel movement 07/13/2025 (2) Intractable nausea and vomiting: Code(s): R11.2 - Nausea with vomiting, unspecified Status: Acute Assessment and Plan: Add Reglan (3) Thyroid dysfunction: Code(s): E07.9 - Disorder of thyroid, unspecified Status: Acute Assessment and Plan: - Mild thyroid dysfunction noted upon admission. TSH 0.398, T4 1.46, T3 0.78 on 07/05. Could be due to acute illness. - Will need follow-up outpatient. (4) HTN (hypertension): Qualifiers: Hypertension type: primary hypertension Qualified Code(s): I10 - Essential (primary) hypertension Code(s): I10 - Essential (primary) hypertension Status: Chronic Assessment and Plan: - continue home medications: Metoprolol ER 25 mg daily - monitor Plan Diet: Regular diet as tolerated. Not eating well. GI Prophylaxis: Ppi IV DVT Prophylaxis: SCDs IV fluids:1L bolus -> 125 mL/hr Lines/Tubes: pIV Code Status: full code Subjective Date/time seen: 07/13/25 13:52 Interval history: Patient had a large bowel movement yesterday. Complains of nausea and not being able to eat today. Review of Systems Review of Systems: All systems reviewed & are unremarkable except as noted in HPI and below Exam Narrative: CONST: Alert and oriented x3, No acute distress. HENMT: Head is normocephalic and atraumatic. EYES: No scleral icterus. No conjunctival injection or pallor. PERRL. RESP: Able to speak in full sentences. Normal respiratory effort. CTAB. CARDIO: Regular rate. Regular rhythm. 2+ DP and radial pulses bilaterally. GI: Nondistended. Nontender no rebound or guarding or rigidity. Soft. : No CVA tenderness to palpation. SKIN: No rashes or lesions noted on exposed skin. NEURO: Oriented x3. Moves all extremities. EXTREM/MSK/BACK: No pedal edema. PSYCH: Normal affect. Objective Data Vital Signs Vital Signs: Vital Signs - 24 hr 07/12/25 14:00 07/12/25 20:00 07/12/25 20:25 Temperature 98 F 98.1 F Pulse Rate 71 77 Respiratory Rate 19 18 Blood Pressure 129/78 125/77 Pulse Oximetry 97 100 Oxygen Delivery Room Air 07/13/25 05:00 07/13/25 08:00 07/13/25 08:59 Temperature 97 F L Pulse Rate 83 78 Respiratory Rate 20 Blood Pressure 117/72 Pulse Oximetry 97 Oxygen Delivery Room Air Intake/Output Intake/Output: Intake & Output 07/10/25 07/11/25 07/12/25 07/13/25 23:59 23:59 23:59 23:59 Intake Total 608 450 660 400 Balance 608 450 660 400 Meds/Results Medications: Active Medications Generic Name Dose Route Start Last Admin Trade Name Freq PRN Reason Stop Dose Admin Acetaminophen 650 mg 07/05/25 12:16 07/08/25 11:45 Acetaminophen 325 Mg Tablet PO 650 mg Q6H PRN Administration Mild Pain (1-3) or Fever Hydrocodone Bitart/Acetaminophen 1 tab 07/08/25 08:44 07/13/25 09:03 Hydrocodone/Acetaminophen (*Crx) 5-325 Mg Tablet PO 1 tab Q4H PRN Administration Pain Rated 4-6 Baclofen 10 mg 07/05/25 12:16 07/12/25 20:56 Baclofen 10 Mg Tablet PO 10 mg Q8H PRN Administration Muscle Spasm Bisacodyl 5 mg 07/12/25 11:20 07/13/25 08:58 Bisacodyl 5 Mg Tablet Ec PO 5 mg QAM BRENNA Administration Dicyclomine HCl 20 mg 07/05/25 12:16 07/12/25 03:59 Dicyclomine Hcl 10 Mg Capsule PO 20 mg QID PRN Administration Abdominal Cramping Lactulose 20 gm 07/12/25 11:00 07/13/25 12:35 Lactulose 20 Gm/30 Ml Udc PO Not Given Q2H BRENNA Linaclotide 145 mcg 07/11/25 12:25 07/13/25 06:23 Linaclotide 145 Mcg Capsule PO 145 mcg DAILY@0630 BRENNA Administration Metoclopramide HCl 10 mg 07/05/25 12:16 07/10/25 09:36 Metoclopramide Hcl Inj 10 Mg/2 Ml Vial IV PUSH 10 mg Q6HR PRN Administration Nausea And Vomiting Metoprolol Succinate 25 mg 07/06/25 09:00 07/13/25 08:59 Metoprolol Succinate Ext Rel 25 Mg Tabcr PO 25 mg DAILY BRENNA Administration Morphine Sulfate 2 mg 07/05/25 08:13 07/12/25 17:22 Morphine Sulfate (*Crx) 4 Mg/Ml Inj IV PUSH 2 mg Q2H PRN Administration Pain Rated 7-10 Ondansetron HCl 4 mg 07/05/25 08:13 07/13/25 08:58 Ondansetron Inj 4 Mg/2 Ml Vial IV PUSH 4 mg Q4H PRN Administration Nausea Pantoprazole Sodium 40 mg 07/07/25 21:00 07/13/25 08:58 Pantoprazole 40 Mg Tablet PO 40 mg Q12HR BRENNA Administration Polyethylene Glycol 17 gm 07/08/25 09:35 07/13/25 08:59 Polyethylene Glycol 3350 17 Gm Powd.Pack PO Not Given QAM BRENNA Potassium Chloride 10 meq 07/06/25 09:00 07/13/25 08:58 Potassium Chloride 10 Meq Er Tablet PO 10 meq DAILY BRENNA Administration Simethicone 80 mg 07/08/25 17:20 07/13/25 13:37 Simethicone 80 Mg Tab.Chew PO Not Given Q8HR BRENNA Sucralfate 1,000 mg 07/10/25 16:30 07/13/25 12:37 Sucralfate Susp 100 Mg/Ml 10 Ml Udc PO Not Given ACHS BRENNA Radiology Results: ITS Impressions Chest X-Ray 07/05/25 06:58 IMPRESSION: 1. No acute cardiopulmonary findings given portable technique. Abdomen/Pelvis CTA 07/05/25 07:05 IMPRESSION: 1. No acute abnormality. Abdomen X-Ray 07/10/25 11:25 IMPRESSION: Nonspecific bowel gas pattern with at least moderate amount of stool extending to the cecal region. Labs Labs: Laboratory Results - last 24 hr 07/13/25 05:08 WBC 6.1 RBC 4.25 Hgb 13.8 Hct 39.0 MCV 91.8 MCH 32.5 MCHC 35.4 RDW 12.4 Plt Count 188 MPV 10.7 H Immature Gran % (Auto) 0.3 Neut % (Auto) 56.7 Lymph % (Auto) 29.2 [place] % (Auto) 10.9 H Eos % (Auto) 2.1 Baso % (Auto) 0.8 Lymph # (Auto) 1.79 [place] # (Auto) 0.7 H Eos # (Auto) 0.1 Baso # (Auto) 0.1 Abs Immat Gran (auto) 0.02 Absolute Neuts (auto) 3.5 Absolute Nucleated RBC 0.000 Nucleated RBC % 0.0 Sodium 133 L Potassium 3.7 Chloride 102 Carbon Dioxide 27 Anion Gap 4 BUN 8 Creatinine 0.70 Estim Creat Clear Calc 65 Estimated GFR > 60 Glucose 105 Calcium 9.5 Magnesium 2.3 Total Bilirubin 0.5 AST 40 H ALT 21 Alkaline Phosphatase 57 Total Protein 7.6 Albumin 4.1
[2025-07-13 14:00] VITALS: BP 126/66; PULSE 67; RESP 20; TEMP 36.1; O2SAT 98
[2025-07-13] MEDS: ONDANSETRON INJ 4 MG/2 ML VIAL IV PUSH (14:57)
[2025-07-13] MEDS: BACLOFEN 10 MG TABLET PO (15:18)
[2025-07-13 20:10] LABS: Cannabinoid Screen Urine Positive (Negative)
[2025-07-13] MEDS: MORPHINE SULFATE (*CRX) 15 MG TAB IR PO (20:28)
[2025-07-13 21:50] VITALS: BP 134/72; PULSE 81; RESP 16; TEMP 36.6; O2SAT 99
[2025-07-14 06:00] VITALS: BP 112/74; PULSE 81; RESP 16; TEMP 36.6; O2SAT 97
[2025-07-14] MEDS: LINACLOTIDE 145 MCG CAPSULE PO (06:05)
[2025-07-14] MEDS: BACLOFEN 10 MG TABLET PO (06:05)
[2025-07-14 06:18] LABS: Hematocrit 39.1 % (37.0-47.0); Hemoglobin 13.2 g/dL (12.0-15.0); Immature Granulocyte Percent A 0.2 % (0-0.5); Lymphocytes Absolute Auto 1.92 K/mm3 (0.9-3.2); Mean Corpuscular HGB Conc 33.8 g/dl (32-36); Mean Corpuscular Hemoglobin 32.6 pg (26-34); Mean Corpuscular Volume 96.5 fl (80-100); Nucleated Red Blood Cells Absolute Auto 0.020 K/mm3 (0.0-0.012); Nucleated Red Blood Cells Perc 0.4 % (0.0-0.2); Platelet Count Result 206 k/mm3 (150-375); Red Blood Count 4.05 M/mm3 (4.2-5.4); White Blood Count 5.3 K/mm3 (4.5-10.0)
[2025-07-14 06:47] LABS: Alanine Aminotransferase 19 U/L (6-35); Albumin Level 4.0 g/dL (3.5-5.1); Alkaline Phosphatase 59 U/L (38-126); Anion Gap 5 mmol/L (4-12); Aspartate Amino Transferase 38 U/L (14-36); Bilirubin,Total 0.5 mg/dL (0.2-1.3); Blood Urea Nitrogen 9 mg/dL (7-17); Calcium 9.4 mg/dL (8.4-10.2); Carbon Dioxide 27 mmol/L (22-30); Chloride 101 mmol/L (98-107); Estimated CRCL calculation 65 ml/min; Estimated Glomerular Filt Rate > 60; Glucose 87 mg/dL (65-110); Lipase 153 U/L (23-300); Magnesium 2.2 mg/dL (1.6-2.3); Potassium 3.8 mmol/L (3.4-5.0); Sodium 133 mmol/L (137-145); Total Protein 7.4 g/dL (6.3-8.2)
[2025-07-14 08:00] VITALS: O2SAT 97
[2025-07-14] MEDS: ONDANSETRON INJ 4 MG/2 ML VIAL IV PUSH (08:20)
[2025-07-14 09:37] VITALS: PULSE 74
[2025-07-14] MEDS: BISACODYL 5 MG TABLET EC PO (09:37)
[2025-07-14] MEDS: METOPROLOL SUCCINATE EXT REL 25 MG TABCR PO (09:37)
[2025-07-14] MEDS: PANTOPRAZOLE 40 MG TABLET PO (09:37)
[2025-07-14] MEDS: POTASSIUM CHLORIDE 10 MEQ ER TABLET PO (09:37)
[2025-07-14] MEDS: SUCRALFATE SUSP 100 MG/ML 10 ML UDC 1000 MG PO (11:12)
--- NOTE | 2025-07-14 12:26 | PM.DS ---
DS: Admitting Diagnosis Discharge Date 07/14/2025 Admitting Diagnosis Nausea vomiting abdominal pain DS: Discharge Diagnosis Discharge Diagnosis (1) Intractable abdominal pain: Code(s): R10.9 - Unspecified abdominal pain Status: Acute (2) Intractable nausea and vomiting: Code(s): R11.2 - Nausea with vomiting, unspecified Status: Acute (3) Thyroid dysfunction: Code(s): E07.9 - Disorder of thyroid, unspecified Status: Acute (4) HTN (hypertension): Qualifiers: Hypertension type: primary hypertension Qualified Code(s): I10 - Essential (primary) hypertension Code(s): I10 - Essential (primary) hypertension Status: Chronic DS: Summary Hospital Course Hospital Course: # Intractable abdominal pain: UDS positive for opiates otherwise unremarkable. CTA of the abdomen/pelvis on 07/05 showed no acute abnormalities. History of IBS, reporting pain and symptoms are similar to her previous flare-ups. No BOLA/renal dysfunction noted. No significant electrolyte derangements. Viral PCR negative. No improvement with outpatient Bentyl. Admitted for IV hydration and p.o. challenge given she has been to the ER twice in the past week. Likely IBS flare. No current indicators of infection. She was treated with Zofran/Reglan. Fluid resuscitation was also provided. Acidosis improved with hydration. Patient was slowly started on the diet. She was also checked for H pylori infection as he did have H pylori infection back in June 2024. Stool H.pylori antigen test came back negative. GI was consulted and she underwent EGD with findings of gastritis. Urine porphyrins were ordered due to intractable abdominal pain which is pending. She continued to have pain on and off associated nausea. Suspected to be IV escalated. She was also constipated and had tried different medication for her constipation. She was eventually placed on Linzess. She did have good bowel movement on 07/13/2025 with improvement in her constipation. She will need to be on medication regimen for her bowel. Repeat CT abdomen was also performed again on 07/13/2025 due to ongoing abdominal pain which came back negative. UDS at that time was repeated which tested positive for opiates as well as cannabinoids. She does have history of use of cannabinoids and denies any decent use however used last a month ago. Discussed possibility of cannabinoid hyperemesis syndrome with the patient. And counseled on stopping cannabis use. She will continue to follow up with GI as an outpatient basis for ongoing care and evaluation. # Intractable nausea and vomiting: Add Reglan # Thyroid dysfunction: - Mild thyroid dysfunction noted upon admission. TSH 0.398, T4 1.46, T3 0.78 on 07/05. Could be due to acute illness. - Will need follow-up outpatient. # HTN (hypertension): - continue home medications: Metoprolol ER 25 mg daily - monitor # Diet: Regular diet as tolerated. Not eating well. # Code Status: full code Time Spent with Patient Time attestation: Total time spent providing and/or coordinating discharge services: 45 minutes Exam Narrative: CONST: Alert and oriented x3, No acute distress. HENMT: Head is normocephalic and atraumatic. EYES: No scleral icterus. No conjunctival injection or pallor. PERRL. RESP: Able to speak in full sentences. Normal respiratory effort. CTAB. CARDIO: Regular rate. Regular rhythm. 2+ DP and radial pulses bilaterally. GI: Nondistended. Nontender no rebound or guarding or rigidity. Soft. : No CVA tenderness to palpation. SKIN: No rashes or lesions noted on exposed skin. NEURO: Oriented x3. Moves all extremities. EXTREM/MSK/BACK: No pedal edema. PSYCH: Normal affect. DS: Data Data Completed and Pending Pending studies at discharge: Pending at discharge 07/07/25 14:19 Surgical [PTH] Routine Labs on day of discharge: Labs from last 24 hours 07/14/25 07/13/25 05:22 19:35 WBC 5.3 RBC 4.05 L Hgb 13.2 Hct 39.1 MCV 96.5 D MCH 32.6 MCHC 33.8 RDW 12.6 Plt Count 206 MPV 10.8 H Immature Gran % (Auto) 0.2 Neut % (Auto) 49.0 Lymph % (Auto) 36.2 [place] % (Auto) 11.1 H Eos % (Auto) 2.6 Baso % (Auto) 0.9 Lymph # (Auto) 1.92 [place] # (Auto) 0.6 Eos # (Auto) 0.1 Baso # (Auto) 0.1 Abs Immat Gran (auto) 0.01 Absolute Neuts (auto) 2.6 Absolute Nucleated RBC 0.020 H Nucleated RBC % 0.4 H Sodium 133 L Potassium 3.8 Chloride 101 Carbon Dioxide 27 Anion Gap 5 BUN 9 Creatinine 0.69 L Estim Creat Clear Calc 65 Estimated GFR > 60 Glucose 87 Calcium 9.4 Magnesium 2.2 Total Bilirubin 0.5 AST 38 H ALT 19 Alkaline Phosphatase 59 Total Protein 7.4 Albumin 4.0 Lipase 153 U Random Uroporphyrins Pending U Rdm Heptacarboxylpor Pending U Rndm Hexacarboxylpor Pending U Rdm Pentacarboxylpor Pending U Random Coproporphyr I Pending U Rndm Coproporphyr III Pending Urine Opiates Screen Positive A Urine Methadone Screen Negative Ur Barbiturates Screen Negative Ur Phencyclidine Scrn Negative Ur Amphetamine Screen Negative U Benzodiazepines Scrn Negative Urine Cocaine Screen Negative U Cannabinoids Screen Positive A Imaging Radiologist's impression: ITS Impressions Chest X-Ray 07/05/25 06:58 IMPRESSION: 1. No acute cardiopulmonary findings given portable technique. Abdomen/Pelvis CTA 07/05/25 07:05 IMPRESSION: 1. No acute abnormality. Abdomen X-Ray 07/10/25 11:25 IMPRESSION: Nonspecific bowel gas pattern with at least moderate amount of stool extending to the cecal region. Abdomen/Pelvis CT 07/13/25 20:25 IMPRESSION: No acute abnormality is noted in the abdomen and pelvis. All CT scans at this facility are performed using low dose modulation techniques as appropriate to perform exam including the following: automated exposure control; use of iterative reconstruction technique; adjustment of the mA and/or kV according to patient size (this includes techniques or standardized protocols for targeted exams where dose is matched to indication/reason for exam). Discharge Plan Discharge Attending physician on discharge: Checo Villafuerte Discharging Clinician: Checo Villafuerte Anticipated Discharge Date/Time: 07/14/25 12:30 Patient Disposition: Home Activity: as tolerated Diet: regular Patient Instructions: Antibiotic Form Patient Language: Moh[place] Stand Alone Forms: General Discharge Information, Work/School Release IP Follow-up/Referrals: Harms,Kodak Monreal M.D. [Primary Care Provider] Ciro Sigala MD [Physician, Gastroenterology] - 4 Weeks Discharge Medications: New simethicone 80 mg Tablet,Chewable 80 mg PO Q8HR Qty: 90 0RF Linzess 145 mcg Capsule 145 mcg PO DAILY@0630 Qty: 30 0RF pantoprazole 40 mg Tablet,Delayed Release (Dr/Ec) 40 mg PO Q12HR Qty: 60 0RF polyethylene glycol 3350 [Miralax] 17 gram Powder In Packet 17 g PO QAM Qty: 30 0RF sucralfate 100 mg/mL Suspension 1,000 mg PO ACHS Qty: 1200 0RF bisacodyl [Laxative (bisacodyl)] 5 mg Tablet,Delayed Release (Dr/Ec) 5 mg PO QAM Qty: 30 0RF prochlorperazine maleate [Compazine] 10 mg tablet 10 mg PO Q8H PRN (Reason: nausea and vomiting) Qty: 20 0RF Continued baclofen 10 mg tablet 10 mg PO Q8H PRN (Reason: muscle spasm) dicyclomine 20 mg tablet 20 mg PO BID hydrocortisone acetate 25 mg suppository 25 mg RECTAL BID PRN (Reason: hemorrhoids) metoclopramide HCl 10 mg tablet 10 mg PO TID PRN (Reason: nausea and vomiting) metoprolol succinate 25 mg tablet extended release 24 hr 25 mg PO DAILY potassium chloride 10 mEq tablet extended release 10 meq PO DAILY Discontinued dicyclomine 10 mg capsule 10 mg PO TID Qty: 30 0RF pantoprazole 40 mg tablet,delayed release (DR/EC) 40 mg PO DAILY Date of admission: 07/06/25 09:54 Primary Care Provider: Marco Antonio,Kodak Monreal Admitting Provider: Tony Grande Oca Attending physician on admission: Tony Grande Oca Condition: Stable
== END 2025-07-14 14:25 | disposition home or self-care (01) | DRG 392 ==
LOC: ANHED 08:15 → ANH3MEDSUR 09:24
PROVIDERS: Internal Medicine Gastroenterology; Student in an Organized Health Care Education/Training Program; Admitting Provider Student in an Organized Health Care Education/Training Program; Emergency Provider Student in an Organized Health Care Education/Training Program; PCP Family Medicine; Visit Provider Internal Medicine
PROC: 0DJ08ZZ Inspection of Upper Intestinal Tract, Via Natural or Artificial Opening Endoscopic (ICD-10-PCS; principal; 2025-07-07 14:30)
DX: K29.70 Gastritis, unspecified, without bleeding (principal); E87.21 Acute metabolic acidosis; E87.29 Other acidosis; R11.16 Cannabis hyperemesis syndrome; K21.9 Gastro-esophageal reflux disease without esophagitis; K58.1 Irritable bowel syndrome with constipation; E86.0 Dehydration; I10 Essential (primary) hypertension; E07.9 Disorder of thyroid, unspecified; K74.60 Unspecified cirrhosis of liver; B19.20 Unspecified viral hepatitis C without hepatic coma; Z87.891 Personal history of nicotine dependence
CPT/HCPCS: 36415; 71045; 74018; 74174; 74177; 80048; 80053; 80307; 81001; 81025; 82077; 82803; 83605; 83690; 83735; 84120; 84132; 84439; 84443; 84480; 84484; 85025; 85055; 85610; 85730; 86140; 87081; 87637; 88305; 88342; 93005; 96361; 96374; 96375; 96376; 99285; A9270; G0378; J2003; J2270; J2405; J2470; J2704; J2765; J3475; J3480; J7030; J7040; J7070; J7120; Q9967

== ENCOUNTER 2025-07-21 14:02 | Outpatient (CLI) | payer OTHER, SELFPAY ==
--- OUTSIDE RECORDS SUMMARY | 2025-07-21 14:07 | XMS_ITS | Clinical Summary ---
Author Organization [facility] Address [address] [place] [address] Phone Care Team Providers Care Package Clerk Name Role Phone Kodak Bernard MD Primary Care Provider [phone] Allergies Active Allergy Reactions Criticality Noted Date Comments Codeine Hives,Swelling,Anaph ylax is,Shortness of Breath Medium 04/10/2016 Reaction: Trouble Breathing, , , Reaction: Anaphylaxis, Medications citalopram (CELEXA) 40 MG Tablet Take 40 mg by mouth daily as needed. 6 Active cyclobenzaprine (FLEXERIL) 10 MG Tablet Take 10 mg by mouth 3 times daily as needed. 0 Active neomycin-polymyx in-hydrocortison e (CORTISPORIN) 3.5-91641-3 Suspension INSTILL 2 DROPS INTO THE LEFT EAR FOUR TIMES DAILY FOR 7 DAYS 0 Active ondansetron (ZOFRAN-ODT) 4 MG TABLET DISPERSIBLE Take 1 Tablet by mouth once as needed for Nausea - 1st line for up to 3 doses. 3 Tablet 1 Active sulfamethoxazole -trimethoprim DS (Bactrim DS) 800-160 MG Tablet Take 1 Tablet by mouth 2 times daily for 7 days. 14 Tablet 5 07/08/20 25 Active Problems No known active problems Encounters Date Type Department Care Team Description 07/19/2025 11:07 AM PITCH FLAKER - 07/19/2025 1:06 PM [facility] Emergency [facility] [address] [place] [address] Lynette Hernández PAC Irritable bowel syndrome Discharge Disposition: Discharged to home or Selfcare 07/19/2025 Travel 07/16/2025 7:04 PM PITCH FLAKER - 07/16/2025 11:23 PM [facility] Emergency [facility] [address] [place] [address] Rafy Lamb MD Irritable bowel syndrome Discharge Disposition: Discharged to home or Selfcare 07/16/2025 Travel 07/01/2025 9:38 AM PITCH FLAKER - 07/01/2025 1:50 PM [facility] [address] [place] [address] Herb Koo MD Urinary tract infection Discharge Disposition: Discharged to home or Selfcare 07/01/2025 Travel 06/22/2025 8:57 AM PITCH FLAKER - 06/22/2025 9:37 AM [facility] [address] [place] [address] Rafy Bradley MD Generalized abdominal pain Discharge Disposition: Left Against Medical Advice 06/22/2025 Travel 06/13/2025 5:58 PM PITCH FLAKER - 06/13/2025 8:20 PM [facility] Emergency [facility] [address] [place] [address] Cody Gaytan MD Generalized abdominal pain Discharge [...] Sign Reading Time Taken Comments Blood Pressure 125/63 07/19/2025 12:30 PM PITCH FLAKER Pulse 57 07/19/2025 12:30 PM PITCH FLAKER Temperature 36.1 C (97 F) 07/19/2025 11:13 AM PITCH FLAKER Respiratory Rate 16 07/19/2025 11:13 AM PITCH FLAKER Oxygen Saturation 100% 07/19/2025 12:30 PM PITCH FLAKER Inhaled Oxygen Concentration - - Weight 54.4 kg (120 lb) 07/19/2025 11:13 AM PITCH FLAKER Height 165.1 cm (5' 5) 07/19/2025 11:13 AM PITCH FLAKER Body Mass Index 19.97 07/19/2025 11:13 AM PITCH FLAKER Plan of Treatment Health Maintenance Due Date [...] 05/23/2023, Additional history exists Colonoscopy 11/10/2034 11/10/2024, 12/2020, 08/03/2020 Colorectal Cancer Screening 11/10/2034 Respiratory Syncytial Virus (RSV) Immunization (Adult) (1 - 1-dose 75+ series) 2038 Hepatitis B Immunization Completed 024, 04/19/2023, 03/19/2023 Human Papillomavirus (HPV) Immunization (No Doses Required) Completed Meningococcal Immunization (ACWY) Aged Out No longer eligible based on patient's age to complete this topic Rotavirus Immunization Aged Out No lo nger eligible based on patient's age to complete this topic Procedures Procedure Name Priority Date/Time Associated Diagnosis Comments CBC WITH AUTO DIFFERENTIAL STAT 07/19/2025 11:35 AM PITCH FLAKER LIPASE STAT 07/19/2025 11:35 AM PITCH FLAKER COMPLETE BLOOD COUNT (CBC) WITH DIFF STAT 07/19/2025 11:35 AM PITCH FLAKER CMP (COMPREHENSIVE METABOLIC PANEL) STAT 07/19/2025 11:35 AM PITCH FLAKER XR ABDOMINAL SERIES WITH CHEST VIEW STAT 07/16/2025 9:26 PM PITCH FLAKER URINALYSIS REFLEX IF INDICATED BY ABNORMAL RESULTS STAT 07/16/2025 8:03 PM PITCH FLAKER CBC WITH AUTO DIFFERENTIAL STAT 07/16/2025 6:13 PM PITCH FLAKER MAGNESIUM (MG) STAT 07/16/2025 6:13 PM PITCH FLAKER LIPASE STAT 07/16/2025 6:13 PM PITCH FLAKER CMP (COMPREHENSIVE METABOLIC PANEL) STAT 07/16/2025 6:13 PM PITCH FLAKER COMPLETE BLOOD COUNT (CBC) WITH DIFF STAT 07/16/2025 6:[address] ABDOMEN PELVIS W/ CONTRAST Stat with Interpretation 07/01/2025 11:28 AM PITCH FLAKER URINALYSIS REFLEX IF INDICATED BY ABNORMAL RESULTS STAT 07/01/2025 11:12 AM PITCH FLAKER CULTURE, URINE STAT 07/01/2025 11:12 AM PITCH FLAKER CBC WITH AUTO DIFFERENTIAL STAT 07/01/2025 9:32 AM PITCH FLAKER LIPASE STAT 07/01/2025 9:32 AM PITCH FLAKER CMP (COMPREHENSIVE METABOLIC PANEL) STAT 07/01/2025 9:32 AM PITCH FLAKER COMPLETE BLOOD COUNT (CBC) WITH DIFF STAT 07/01/2025 9:32 AM PITCH FLAKER CBC WITH AUTO DIFFERENTIAL STAT 06/13/2025 6:20 PM PITCH FLAKER LIPASE STAT 06/13/2025 6:20 PM PITCH FLAKER CMP (COMPREHENSIVE METABOLIC PANEL) STAT 06/13/2025 6:20 PM PITCH FLAKER COMPLETE BLOOD COUNT (CBC) WITH DIFF STAT 06/13/2025 6:20 PM PITCH FLAKER URINALYSIS REFLEX IF INDICATED BY ABNORMAL RESULTS STAT 06/13/2025 6:03 PM PITCH FLAKER from Last 3 Months Results * CBC with Auto Differential (07/19/2025 11:35 AM PITCH FLAKER) Only the most recent of4 resultswithin the time period is included. WBC 6.94 4.00 - 12.00 10(3)/mcL 07/19/2025 11:47 AM PITCH FLAKER [facility] RBC 4.34 3.80 - 5.30 10(6)/mcL 07/19/2025 11:47 AM PITCH FLAKER [facility] HEMOGLOBIN (HGB) 14.0 12.0 - 15.8 g/dL 07/19/2025 11:47 AM PITCH FLAKER [facility] HEMATOCRIT (HCT) 40.1 36.0 - 47.0 % 07/19/2025 11:47 AM PITCH FLAKER [facility] MCV 92.4 82.0 - 96.0 fL 07/19/2025 11:47 AM [facility] MCH 32.3 26.0 - 34.0 pg 07/19/2025 11:47 AM [facility] MCHC 34.9 31.0 - 36.0 g/dL 07/19/2025 11:47 AM [facility] PLATELET COUNT 239 140 - 440 10(3)/mcL 07/19/2025 11:47 AM [facility] RDW 12.4 11.8 - 15.5 % 07/19/2025 11:47 AM [facility] MPV 10.2 9.7 - 12.4 fL 07/19/2025 11:47 AM [facility] NEUTROPHILS 63.4 47.0 - 73.0 % 07/19/2025 11:47 AM [facility] LYMPHOCYTES 26.7 18.0 - 42.0 % 07/19/2025 11:47 AM [facility] MONOCYTES 7.1 4.0 - 12.0 % 07/19/2025 11:47 AM [facility] EOSINOPHILS 1.6 0.0 - 5.0 % 07/19/2025 11:47 AM [facility] BASOPHILS 0.9 0.0 - 1.0 % 07/19/2025 11:47 AM [facility] IMMATURE GRANULOCYTE 0.3 0.0 - 0.4 % 07/19/2025 11:47 AM [facility] ABSOLUTE NEUTROPHILS 4.41 1.60 - 7.70 10(3)/mcL 07/19/2025 11:47 AM [facility] ABSOLUTE LYMPHOCYTES 1.85 1.30 - 3.20 10(3)/mcL 07/19/2025 11:47 AM [facility] ABSOLUTE MONOCYTES 0.49 0.20 - 1.00 10(3)/mcL 07/19/2025 11:47 AM [facility] ABSOLUTE EOSINOPHIL 0.11 0.00 - 0.40 10(3)/mcL 07/19/2025 11:47 AM PITCH FLAKER [facility] ABSOLUTE BASOPHILS 0.06 0.00 - 0.10 10(3)/mcL 07/19/2025 11:47 AM [facility]KER [facility] ABSOLUTE IMMATURE GRANULOCYTE 0.02 0.00 - 0.03 10 (3) mcL. 07/19/2025 11:47 AM PITCH FLAKER [facility] NRBC PER 100 WBC 0 07/19/20 11:47 AM PITCH FLAKER [facility] Blood Venipuncture / Unknown 07/19/2025 11:35 AM PITCH FLAKER 07/19/2025 11:44 AM PITCH FLAKER Lynette Hernández PAC HEMATOLOGY ORDERABLES Final Result Performing Organization Address City/[facility]/ZIP Co de Phone Number [facility] [address] [place] [address] * (ABNORMAL) Lipase [id number] (07/19/2025 11:35 AM PITCH FLAKER) Only the most recent of4 resultswithin the time period is included. LIPASE 82(H) 8 - 78 U/L 07/19/2025 12:03 PM PITCH FLAKER [facility] Blood Venipuncture / Unknown 07/19/2025 11:35 AM PITCH FLAKER 07/19/2025 11:44 AM PITCH FLAKER Lynette Hernández PAC CHEMISTRY ORDERABLES Final R esult Performing Organization Address City/[facility]/ZIP Co de Phone Number [facility] [address] [place] [address] * (ABNORMAL) CMP (Comprehensive Metabolic Panel) (07/19/2025 11:35 AM PITCH FLAKER) Only the most recent of4 resultswithin the time period is included. SODIUM 140 136 - 145 mmol/L 07/19/2025 12:03 PM PITCH FLAKER [facility] POTASSIUM 3.8 3.5 - 5.1 mmol/L 07/19/2025 12:03 PM [facility] CHLORIDE 106 98 - 107 mmol/L 07/19/2025 12:03 PM [facility] CO2, VENOUS 22 22 - 30 mmol/L 07/19/2025 12:03 PM [facility] ANION GAP 15.8 <18.0 mmol/L 07/19/2025 12:03 PM [facility] GLUCOSE 107(H) 70 - 99 mg/dL 07/19/2025 12:03 PM [facility] BUN 6(L) 10 - 20 mg/dL 07/19/2025 12:03 PM [facility] CREATININE, BLOOD 0.73 0.60 - 1.00 mg/dL 07/19/2025 12:03 PM [facility] BUN/CREATININE RATIO 8(L) 12 - 20 ratio 07/19/2025 12:03 PM [facility] TOTAL PROTEIN 7.9 6.0 - 8.0 g/dL 07/19/2025 12:03 PM [facility] ALBUMIN 4.5 3.5 - 5.0 g/dL 07/19/2025 12:03 PM [facility] A/G RATIO 1.3 1.0 - 2.2 07/19/2025 12:03 PM [facility] CALCIUM 9.8 8.7 - 10.5 mg/dL 07/19/2025 12:03 PM [facility] T BILI 0.4 0.2 - 1.2 mg/dL 07/19/2025 12:03 PM [facility] SGOT (AST) 29 <43 U/L 07/19/2025 12:03 PM [facility] SGPT (ALT) 17 <56 U/L 07/19/2025 12:03 PM [facility] ALKALINE PHOSPHATASE 51 40 - 150 U/L 07/19/2025 12:03 PM [facility] GFR, ESTIMATED >60 >=60 07/19/2025 12:03 PM PITCH FLAKER [facility] Comment: Creatinine Clearance is the preferred criteria for selecting drug dose adjustments in renally impaired patients. The GFR is provided as additional pertinent clinical information. GFR is reported in mL/min/1.73 sq m. Calculation based on the 2020 Chronic Kidney Disease Epidemiology Collaboration (CKD-EPI) equation refit without adjustment for race. GFR, EST. >60 >=60 025 12:03 PM PITCH FLAKER [facility] Comment: Creatinine Clearance is the preferred criteria for selecting drug dose adjustments in renally impaired patients. The GFR is provided as additional pertinent clinical information. GFR is reported in mL/min/1.73 sq m. Calculation based on the 2009 Chronic Kidney Disease Epidemiology Collaboration (CKD-EPI). GFR, EST. NONAFRICAN >60 >=60 07/19/2025 12:03 PM PITCH FLAKER [facility] Comment: Creatinine Clearance is the preferred criteria for selecting drug dose adjustments in renally impaired patients. The GFR is provided as additional pertinent clinical information. GFR is reported in mL/min/1.73 sq m. Calculation based on the 2009 Chronic Kidney Disease Epidemiology Collaboration (CKD-EPI). Blood Venipuncture / Unknown 07/19/2025 11:35 AM PITCH FLAKER 07/19/2025 11:44 AM PITCH FLAKER us Lynette Blake Page PAC CHEMISTRY ORDERABLES Final R esult [facility] [address] [place] [address] * XR ABDOMINAL SERIES WITH CHEST VIEW (07/16/2025 9:26 PM PITCH FLAKER) Anatomical Region Laterality Modality Abdomen N/A Digital Radiogra phy 07/16/2025 9:26 PM PITCH FLAKER Impressions 07/17/2025 6:41 AM PITCH FLAKER IMPRESSION: 1. No acute abnormality in the chest. 2. No evidence of bowel obstruction or perforation. Narrative 07/17/2025 6:41 AM PITCH FLAKER DICTATING PHYSICIAN: Jose Wong M.D. - [facility] EXAM: Chest 1 view, Abdomen 2 views 07/16/2025 9:26 PM HISTORY: Abdominal pain, weakness and dehydration COMPARISON: July 01, 2025 FINDINGS: Chest: Cardiac silhouette and mediastinum: Unremarkable. Pulmonary vessels and dot: Unremarkable. Lungs: Unremarkable. Pleura: No effusion or pneumothorax. Chest wall: Unremarkable. Abdomen: Small bowel: Non-dilated. Large bowel: Non-dilated. Stomach: Non-dilated. Free air: None. Post-op changes: None. Urinary tract: No radiopaque stones. Procedure Note Jose Wong MD - 07/17/2025 DICTATING PHYSICIAN: Jose [facility]: Chest 1 view, Abdomen 2 views 07/16/2025 9:26 PM HISTORY: Abdominal pain, weakness and dehydration COMPARISON: July 01, 2025 FINDINGS: Chest: Cardiac silhouette and mediastinum: Unremarkable. Pulmonary vessels and dot: Unremarkable. Lungs: Unremarkable. Pleura: No effusion or pneumothorax. Chest wall: Unremarkable. Abdomen: Small bowel: Non-dilated. Large bowel: Non-dilated. Stomach: Non-dilated. Free air: None. Post-op changes: None. Urinary tract: No radiopaque stones. IMPRESSION: 1. No acute abnormality in the chest. 2. No evidence of bowel obstruction or perforation. Rafy Lamb MD IMG DIAGNOSTIC ORDERAB LES Final Result * (ABNORMAL) Urinalysis w/ Reflex (07/16/2025 8:03 PM PITCH FLAKER) Only the most recent of3 resultswithin the time period is included. SPECIFIC GRAVITY 1.025 1.003 - 1.030 07/16/2025 8:41 PM PITCH FLAKER [facility] URINE PH 5.0 5.0 - 9.0 07/16/2025 8:41 PM PITCH FLAKER [facility] WBC ESTERASE 25 /ul(A) Negative 07/16/2025 8:41 PM PITCH FLAKER [facility] NITRITE Negative Negative 07/16/2025 8:41 PM PITCH FLAKER [facility] PROTEIN, RANDOM URINE 30 mg/dL(A) Negative 07/16/2025 8:41 PM PITCH FLAKER [facility] URINE GLUCOSE, QUAL Negative Negative 07/16/2025 8:41 PM PITCH FLAKER [facility] URINE KETONES Negative Negative 07/16/2025 8:41 PM [facility] UROBILINOGEN Normal Normal mg/dL 07/16/2025 8:41 PM [facility] URINE BLOOD 10 /uL(A) Negative theresa/ul 07/16/2025 8:41 PM PITCH FLAKER [facility] URINALYSIS COLOR Yellow 07/16/2025 8:41 PM PITCH FLAKER [facility] URINALYSIS CLARITY Clear 07/16/2025 8:41 PM [facility] WBC (Urine) 0-5 Negative, 0-5 /hpf 07/16/2025 8:41 PM [facility] URINE RBC'S 0-2 Negative, 0-2 /hpf 07/16/2025 8:41 PM PITCH FLAKER [facility] EPITHELIAL CELLS Occasional /lpf 07/16/2025 8:41 PM PITCH FLAKER [facility] BACTERIA, URINE Few(A) Negative /hpf 07/16/2025 8:41 PM [facility] URINE MUCOUS Many 07/16/2025 8:41 PM [facility] CRYSTALS Calcium oxalate 07/16/2025 8:41 PM [facility] Urine URINE SPECIMEN / Unknown Non-Phlebotomy Collection / Unknown 07/16/2025 8:03 PM PITCH FLAKER 07/16/2025 8:21 PM PITCH FLAKER us Rafy Lamb MD URINE ORDERABLES Final Result [facility] [address] [place] [address] * Magnesium (Mg) [id number] (07/16/2025 6:13 PM PITCH FLAKER) MAGNESIUM 1.9 1.6 - 2.6 mg/dL 07/16/2025 8:38 PM PITCH FLAKER [facility] Blood Venipuncture / Unknown 07/16/2025 6:13 PM PITCH FLAKER 07/16/2025 6:56 PM PITCH FLAKER us Rafy Lamb MD CHEMISTRY ORDERABLES F inal Result [facility] [place] [place] [address] * CT ABDOMEN PELVIS W/ CONTRAST (07/01/2025 11:28 AM PITCH FLAKER) Anatomical Region Laterality Modality Abdomen N/A Computed Tomogra phy 07/01/2025 11:2 8 AM PITCH FLAKER Impressions 07/01/2025 12:00 PM PITCH FLAKER IMPRESSION: 1. No acute abnormality abdomen or pelvis. 2. 2.3 cm benign-appearing left ovarian cyst. No follow-up imaging recommended per ACR O-RADS criteria. Narrative 07/01/2025 12:00 PM PITCH FLAKER DICTATING PHYSICIAN: Jose Wong M.D. - [facility] EXAM: CT ABDOMEN PELVIS W/ [...] 07/01/2025 DICTATING PHYSICIAN: Jose [facility].D. - [facility]AM: CT ABDOMEN PELVIS W/ CONTRAST [...] MD IMG CT ORDERABLES Final Result * Culture, Urine (07/01/2025 11:12 AM PITCH FLAKER) CULTURE RESULTS Mixed Growth of One or More Distal Urethral Contaminants 07/02/2025 11:53 PM PITCH FLAKER [facility] Urine URINE SPECIMEN / Unknown Non-Phlebotomy Collection / Unknown 07/01/2025 11:12 AM PITCH FLAKER 07/01/2025 11:44 AM PITCH FLAKER Herb Koo MD MICROBIOLOGY - GENERAL ORDERABLES Final Result [facility] [address] [place] [address], from Last 3 Months Insurance [facility] Member Subscriber Plan / Payer (Ef fective 2016-Present) Name:Giovana Alvarado Member ID:xxx# [id number] Relation to Subscriber:Self Name:Giovana Alvarado Subscriber ID:xxx# [id number] Payer ID:[id number] Group ID:NONE Type:Not on file [phone] [address]: [address] [place] [id number] Care Teams Package Clerk Relationship Specialty Start Date End Date [place] [address] PCP - General Internal Medicine 08/16/20
--- OUTSIDE RECORDS SUMMARY | 2025-07-21 14:07 | XMS_ITS | Encounter Summary ---
Author Organization [facility] Address [address] [place] [address] Care Team Providers Care Community Health Nurse Name Role Phone Kodak Bernard MD Primary Care Provider [phone] Kaiser Hogan DIRECTOR INVESTMENT BANKING Unavailable [phone] Reason for Visit * Reason Onset Date Comments DEE Questions 07/14/2025 Encounter Details Date Type Department Care Team (Late st Contact Info) Description 07/14/2025 Telephone [facility] [address] [place] [address] Kodak Bernard MD [address] [place] [address] DEE Questions Social History Tobacco Use Types Packs/Day Years [...] on file Legal Sex Female 3:34 AM INVENTORY WORKER Gender Identity Not on file Sexual Orientation Not on file Occupation Industry Job Start Date Job End Date Not on file Not on file Not on file Not on file documented as of this encounter Miscellaneous Notes * Telephone Encounter - Casey Golden MA - 07/14/2025 2:06 PM INVENTORY WORKER DEE Questions (Message from [facility]): Has patient been discharged at time of call? Yes Date Admitted: 07/05/25 Date Discharged: 07/14/25 Facility Admitted To: [facility] Reason for Stay? Gastritis, IBS If prescribed new medications, do you have any questions or concerns? no Do you have enough medication to get you to your follow-up appointment? yes Since being released do you feel better, the same, or worse? better Date of DEE Appointment: 07/24/25 Do you have transportation to the appointment? yes Additional Comments: N/A Does message need to be routed? No NTORY WORKER documented in this encounter Plan of Treatment Not on file documented as of this encounter Visit Diagnoses Not on filedocumented in this encounter Care Teams Community Health Nurse Relationship Specialty Start Date End Date Kodak Bernard MD [address] [place] [address] PCP - General Family Medicine 08/13/18 Kaiser Hogan NP [address] [place] [address] [place] [address] Nurse Practitioner Gastroenterology 06/29/25 documented as of this encounter
--- OUTSIDE RECORDS SUMMARY | 2025-07-21 14:07 | XMS_ITS | Encounter Summary ---
Author Organization [facility] Address [address] [place] [address] Care Team Providers Care Manager Hematology Name Role Phone Kodak Bernard MD Primary Care Provider [phone] Kaiser Hogan POWDER COATER Unavailable [phone] Reason for Visit * Reason Onset Date Comments Palpitations 05/19/2025 Encounter Details Date Type Department Care Team (Late st Contact Info) Description 05/19/2025 Nurse Triage [facility] [address] [place] [address] Kodak Bernard MD [address] [place] [address] Social History Tobacco Use Types Packs/Day Years [...] on file 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 Thank you. * Telephone Encounter [...] metoprolol. States that she has developed random problemssince starting that medication. Denies any additional needs. Home care provided and pt advised to ca ll back with new or worsening symptoms. Encounter routed to the clinical pool, please advise Deacon Alvarado if she should get blood work that is ordered drawn today and PCP recommendation about medication. Disposition See Today in Office Reason for Disposition Age > 60 years (Exception: Brief heartbeat symptoms that went away and now feels well.) Protocols Used Heart Rate and Heartbeat [id number] * Telephone Encounter - Ramona Corley RN [...] ambulance? No Additional Comments: Patient seen at [facility] ED last Sunday for hand and arms tingling, Does message need to be routed? Yes-Action Needed documented in this encounter Plan of Treatment Not on file documented as of this encounter Visit Diagnoses Not on filedocumented in this encounter Care Teams Manager Hematology Relationship Specialty Start Date End Date Kodak Bernard MD [address] [place] [address] PCP - General Family Medicine 08/13/18 Kaiser Hogan NP [address] [place] [address] [place] [address] Nurse Practitioner Gastroenterology 06/29/25 documented as of this encounter
--- OUTSIDE RECORDS SUMMARY | 2025-07-21 14:07 | XMS_ITS | Encounter Summary ---
Author Organization [facility] Healthcare Address [address] [place] [address] Care Team Providers Care Log Feeder Name Role Phone Kodak Bernard MD Primary Care Provider [phone] Kaiser Hogan HUMAN PROJECTILE Unavailable [phone] Encounter Details Date Type Department Care Team (Latest Contact Info) Description 06/11/2025 Results Follow-Up [facility] G[facility]ology at [address] [place] [address] Kaiser Hogan NP [address] [place] [address] [address] [place] [address] Protime-INR, [id number], Tumor Marker, Comprehensive metabolic panel, Additional followed-up [...] on file Legal Sex Female 3:34 AM TAPPER BIT Gender Identity Not on file Sexual Orientation Not on file Occupation Industry Job Start Date Job End Date Not on file Not on file Not on file Not on file documented as of this encounter Miscellaneous Notes * Result Encounter Note - Kaiser Hogan NP - 06/11/2025 3:18 PM CST Hi Raissa, MRI showed stable liver disease with no concerns for a mass or lesion. Tentative plan will be to repeat MRI in six months. Sincerely, SAILAJA Begum ER BIT * Result Encounter Note - Kaiser Hogan NP - 06/11/2025 8:30 AM CST No significant findings of concern on your labs. ER BIT documented in this encounter Plan of Treatment Not on file documented as of this encounter Visit Diagnoses Not on filedocumented in this encounter Care Teams Log Feeder Relationship Specialty Start Date End Date Kodak Bernard MD [address] [place] [address] PCP - General Family Medicine 08/13/18 Kaiser Hogan NP [address] [place] [address] [place] [address] Nurse Practitioner Gastroenterology 06/29/25 documented as of this encounter
--- OUTSIDE RECORDS SUMMARY | 2025-07-21 14:07 | XMS_ITS | Encounter Summary ---
Author Organization [facility] Healthcare Address [address] [place] [address] Care Team Providers Care Railroad Signal And Switch Operator Name Role Phone Kodak Bernard MD Primary Care Provider [phone] Kaiser Hogan INCENDIARY POWDER MIXER Unavailable [phone] Encounter Details Date Type Department Care Team (Late st Contact Info) Description 05/28/2025 Results Follow-Up [facility] [address] [facility] [place] [address] Kodak Bernard MD [address] [facility] [address] Lipid panel, Comprehensive metabolic panel, [...] on file Legal Sex Female 3:34 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 MEDICINE 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 Gender Identity Not on file Sexual Orientation Not on file Occupation Industry Job Start Date Job End Date Not on file Not on file Not on file Not on file documented as of this encounter Plan of Treatment Not on file documented as of this encounter Visit Diagnoses Not on filedocumented in this encounter Care Teams Railroad Signal And Switch Operator Relationship Specialty Start Date End Date Kodak Bernard MD [address] [place] [address] PCP - General Family Medicine 08/13/18 Kaiser Hogan NP [address] [place] [address] [place] [address] Nurse Practitioner Gastroenterology 06/29/25 documented as of this encounter
--- OUTSIDE RECORDS SUMMARY | 2025-07-21 14:08 | XMS_ITS | Encounter Summary ---
Author Organization [facility] Address [address] [place] [address] Phone Care Team Providers Care Assembler Tubing Name Role Phone Kodak Bernard MD Primary Care Provider [phone] Encounter Details Date Type Department Care Team (Late st Contact Info) Description 11/11/2020 Transcribe Orders [facility] Preop/Pacu II [address] [place] [id number] Terry Ortiz DPM [address] [place] [id number] Pre-op testing (Primary Dx) Social History Tobacco [...] for this test is Not Detected ) [facility]MOF[facility] FAST DX 11/17/2020 7:42 PM CDT [facility] Comment:This test was perfor med by a RT-PCR method. Other NASOPHARYNGEAL STRUCTURE / Unknown Non-Phlebotomy Collection / Unknown 11/16/2020 4:09 PM CDT 11/16/2020 4:41 PM CDT Narrative [facility] - 11/17/2020 7:42 PM CDT Authorized Fact Sheets about this test for providers and patients are available at: https://www.fda.gov/medical-devices/jhmofmreh-dnwarwlmgc-hvdbhet-devices/emergen cy-us e-authorizations Terry Ortiz DPM MICROBIOLOGY - GENERAL ORDERABLE S Final Result [facility] [address] [place] [address], documented in this encounter Visit Diagnoses Diagnosis Pre-op testing- Primary Preoperative examination, unspecified documented in this encounter Care Teams Assembler Tubing Relationship Specialty Start Date End [place] [address] PCP - General Internal Medicine 08/16/20 documented as of this encounter
--- OUTSIDE RECORDS SUMMARY | 2025-07-21 14:08 | XMS_ITS | Clinical Summary ---
Author Organization [facility] [place] Address [address] [place] [address] Care Team Providers Care Senior Tableau Developer Name Role Phone Kodak Bernard MD Primary Care Provider [phone] Kaiser Hogan CAR RACER Unavailable [phone] Allergies Active Allergy Reactions Criticality Noted Date [...] by mouth nightly 30 capsule 11 06/15/20 026 Active potassium chloride ER (KLOR-CON) 10 mEq CR tabletIndicati ons:Hypokalemi a Take 1 tablet/capsule (10 mEq total) by mouth daily 90 tablet 4 06/23/20 25 026 Active metoprolol XL (TOPROL-XL) 25 mg extended release tablet Take 1 tablet (25 mg total) by mouth daily 90 tablet 1 06/29/20 25 Active ibuprofen (ADVIL,MOTRIN) 800 mg tablet Take 1 tablet (800 mg total) by mouth 3 (three) times a day 90 tablet 06/29/20 25 Active dicyclomine (BENTYL) 20 mg tablet Take 1 tablet (20 mg total) by mouth 2 (two) times a day 20 tablet 06/29/20 25 Active sucralfate (CARAFATE) 1 gram tablet Take [...] 90 tablet 3 07/03/[address] (PROTONIX) 40 mg EC tablet Take 1 tablet (40 mg total) by mouth daily 90 tablet 3 05/28/20 25 025 Discontinu ed(Reorder ) metoprolol XL (TOPROL-XL) 25 mg extended release tablet Take 1 tablet (25 mg total) by mouth daily 025 Discontinu ed(Reorder ) dicyclomine (BENTYL) 20 mg tablet Take 1 tablet (20 mg total) by mouth 2 (two) times a day 20 tablet 06/22/20 25 025 Discontinu ed(Reorder ) metroNIDAZOLE (FLAGYL) 500 mg tablet Take 1 tablet (500 mg total) by mouth 3 (three) times a day for 7 days 21 tablet 06/29/20 025 Active Problems Problem Noted Date Diagnosed Date Cyst of left ovary 06/29/2025 Assessment & Plan (06/29/2025 3:11 PM AUTOMOBILE SPRING REPAIRER): Appears to be stable dating back to 2017. Will obtain pelvic ultrasound for better evaluation. Intermittent constipation 05/28/2025 Assessment & Plan (06/29/2025 3:11 PM AUTOMOBILE SPRING REPAIRER): Currently resolved. Acute bilateral low back pain without sciatica 0 03/23/2025 Assessment & Plan (03/23/2025 9:47 AM CDT): No focal neurological deficits. Reviewed symptomatic treatmetn. Continues muscle relaxant. WIll add short course of steroid anti-inflammatory and will monitor response. Reivweed red flag s/s. Abdominal pain 03/17/2025 Assessment & Plan (06/29/2025 3:11 PM AUTOMOBILE SPRING REPAIRER): Reviewed recommendations from GI specialist. She does state understanding. Continue food diary. Will prescribe ibuprofen to take as needed with food. Keep follow-up with risk investigator as scheduled. Helicobacter pylori gastritis 07/02/2024 Gastric [...] healthier, we can set up appointment with bone plant supervisor/student activities director. Have an active lifestyle, strive for 30 [...] specialist. Assessment & Plan (09/24/2023 8:11 PM AUTOMOBILE SPRING REPAIRER): Patient with likely compensated cirrhosis secondary to [...] (08/05/2020): Added automatically from request for surgery [id number] Encounter for screening colonoscopy 08/05/2020 Overview (08/05/2020): Added automatically from request for surgery [id number] Hx of colonic polyps 06/30/2020 Overview (06/30/2020): Added automatically from request for surgery [id number] Vitamin D deficiency 08/13/2018 Assessment & Plan [...] Encounters Date Type Department Care Team Description 07/14/2025 Telephone [facility] [address] [address] Kodak Bernard MD DEE Questions 07/10/2025 Orders Only [facility] [address] [place] [address] Kodak Bernard MD 07/09/2025 Telephone [place] Maintenance Tech at [address] [place] [address] Mattie Turner MD 07/09/2025 Telephone [place] Maintenance Tech at [address] [place] [address] Mattie Turner MD 07/06/2025 Orders Only [facility] Information Management [address] [place] [address] Scanning, Provider 07/03/2025 Orders Only [facility] Gastroenterology at [address] [place] [address] Kaiser Hogan NP 07/01/2025 Orders Only [facility] [address] [phone] Kodak Bernard MD 07/01/2025 Telephone [facility] [address] [phone] Kodak Bernard MD Medical Question/Miscellaneo us 06/29/2025 2:00 PM AUTOMOBILE SPRING REPAIRER Office Visit [facility] [address] [phone] Padmini Combs NP Cyst of left ovary (Primary Dx); Intermittent constipation; Generalized abdominal pain; Tobacco dependence 06/23/2025 Telephone [facility] [address] [phone] Kodak Bernard MD Medication Request 06/23/2025 Telephone [facility] Gastroenterology at [address] [place] [address] Eusebia Post MA 06/23/2025 Results Follow-Up [facility] [address] [phone] Joe Gonzalez NP 48 HR Holter Monitor 06/22/2025 12:55 PM AUTOMOBILE SPRING REPAIRER - 06/22/2025 2:56 PM [facility] Emergency [facility] Emergency Department [address] [place] [address] Abdominal pain, generalized (Primary Dx) Discharge Disposition: Discharge to home or self care 06/22/2025 Telephone [facility] Gastroenterology at [address] [place] [address] Kandy Pederson MA 06/19/2025 5:01 AM AUTOMOBILE SPRING REPAIRER - 06/19/2025 6:39 AM [facility] Emergency [facility] Emergency Department [address] [place] [address] Naresh Green MD 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); Constipation, unspecified constipation type Discharge Disposition: Discharge to home or self care 06/18/2025 Telephone [facility] [address] [address] Kodak Bernard MD Test Results 06/15/2025 Orders Only [facility] Gastroenterology at [address] [place] [address] Tesfaye Glaser MD 06/15/2025 Telephone [facility] Gastroenterology at [address] [place] [address] Sushant Padron MA 06/12/2025 2:15 PM AUTOMOBILE SPRING REPAIRER Office Visit [place] Maintenance Tech at [address] [place] [address] Mattie Turner MD Coronary artery calcification seen on CAT scan (Primary Dx); Tobacco dependence; Multiple-type hyperlipidemia; Precordial pain; Chest pain, unspecified type 06/12/2025 11:29 AM AUTOMOBILE SPRING REPAIRER - 06/12/2025 11:59 PM AUTOMOBILE SPRING REPAIRER Hospital Encounter [facility] Cardiology 1 [place] [address] Dizziness; Palpitations Discharge Disposition: Discharge to home or self care 06/12/2025 Telephone [facility] Gastroenterology at [address] [place] [address] Eusebia Post MA 06/11/2025 1:19 AM AUTOMOBILE SPRING REPAIRER - 06/11/2025 1:50 AM AUTOMOBILE SPRING REPAIRER Emergency [facility] Emergency Department 1 [place] [address] Chest pain, unspecified type (Primary Dx) Discharge Disposition: Discharge to home or self care 06/11/2025 Results Follow-Up [facility] Gastroenterology at [address] [place] [address] Kaiser Hogan NP Protime-INR, [id number], Tumor Marker, Comprehensive metabolic panel, Additional followed-up results: 4 06/10/2025 1:00 PM AUTOMOBILE SPRING REPAIRER Office Visit [facility] [address] [phone] Joe Gonzalez NP Dizziness (Primary Dx); Palpitations; BMI 24.0-24.9, adult; Belching 06/10/2025 6:30 AM AUTOMOBILE SPRING REPAIRER [address] [address] Advanced hepatic fibrosis; Hepatic lesion 06/10/2025 6:25 AM AUTOMOBILE SPRING REPAIRER [address] [address] Advanced hepatic fibrosis; Chronic hepatitis C with cirrhosis (HCC) 06/10/2025 6:24 AM AUTOMOBILE SPRING REPAIRER - 06/10/2025 11:[address] [address] Advanced hepatic fibrosis; Hepatic lesion Discharge Disposition: Discharge to home or self care 06/10/2025 Results Follow-Up [facility] Gastroenterology [facility] [facility] 12th [place] [address] [place] [address] Meryl Harman NP Protime-INR, CBC with auto differential, Comprehensive metabolic panel, Additional followed-up results: 2 06/09/2025 Nurse Triage [facility] [address] [phone] Kodak Bernard MD 06/05/2025 5:33 PM AUTOMOBILE SPRING REPAIRER - 06/05/2025 5:34 PM AUTOMOBILE SPRING REPAIRER Emergency [facility] Emergency Department [address] [place] [address] Belching (Primary Dx); Paresthesia Discharge Disposition: Discharge to home or self care 06/04/2025 Nurse Triage [facility] [address] [phone] Kodak Bernard MD 06/02/2025 1:00 PM AUTOMOBILE SPRING REPAIRER Office Visit [facility] [address] [address] Padmini Combs NP Annual physical exam (Primary Dx); Tobacco dependence; Multiple-type hyperlipidemia; Hypokalemia 06/01/2025 Telephone [facility] Medicine Gastroenterology [address] [facility] [address] [place] [address] [place] [address] Fabi Carrillo Labs due 05/28/2025 1:00 PM CDT Office Visit [facility] Gastroenterology at [address] [place] [address] Kaiser Hogan NP Helicobacter pylori gastritis (Primary Dx); Gastric intestinal metaplasia; Erosive esophagitis; Gastroesophageal reflux disease with esophagitis without hemorrhage; Tubulovillous adenoma; Tobacco use disorder; Advanced hepatic fibrosis; Hepatic lesion; History of hepatitis C virus infection; Intermittent constipation; Bleeding internal hemorrhoids 05/28/2025 12:25 PM CDT Lab [address] [address] Annual physical exam; Multiple-type hyperlipidemia; Vitamin D deficiency; Hypokalemia 05/28/2025 11:00 AM CDT Office Visit [facility] [address] [place] [address] Annmarie Santiago MD Encounter for gynecological examination without abnormal finding (Primary Dx) 05/28/2025 Results Follow-Up [facility] [address] [phone] Kodak Bernard MD Lipid panel, Comprehensive metabolic panel, CBC with auto differential, Additional followed-up results: 2 05/20/2025 Orders Only [facility] [address] [address] Kodak Bernard MD Hypokalemia (Primary Dx) 05/20/2025 Telephone [facility] [address] [address] Kodka Bernard MD Med Refill 05/20/2025 Telephone [facility] [address] [place] [address] Annmarie Santiago MD Screening Mammogram 05/19/2025 1:35 PM CDT Lab [facility] [address] [place] [address] Hypokalemia 05/19/2025 Telephone [place] Maintenance Tech at [address] [place] [address] Mallika Tamez MA 05/19/2025 Nurse Triage [facility] [address] [address] Kodak Bernard MD 05/14/2025 Orders Only [facility] [address] [phone] Kodak Bernard MD Hypokalemia (Primary Dx) 05/14/2025 Telephone [place] Maintenance Tech at [address] [place] [address] Mallika Tamez MA 05/14/2025 Telephone [facility] [address] [address] Kodak Beranrd MD Med Refill 05/13/2025 10:07 PM CDT - 05/14/2025 12:19 AM CDT Emergency [facility] Emergency Department 1 [place] [address] Malena Bliss MD Hypokalemia (Primary Dx); Chest pain, unspecified type Discharge Disposition: Discharge to home or self care 05/13/2025 8:28 PM CDT - 05/13/2025 11:59 PM CDT Hospital Encounter [facility] Emergency, Room R Discharge Disposition: Discharge to home or self care 04/24/2025 9:30 AM CDT Ancillary Procedure [facility] 1 [facility] [address] [place] [address] Breast lump on left side at 2 o'clock position; Breast pain, right 04/24/2025 9:00 AM CDT Ancillary Procedure [facility] 1 [facility] [address] [place] [address] Breast lump on left side at 2 o'clock position; Breast pain, right 04/24/2025 Results Follow-Up [facility] [place] [facility] [address] [place] [address] Annmarie Santiago MD DIAGNOSTIC MAMMOGRAM BILATERAL W CROW from Last 3 Months Immunizations Immunization Administration [...] on file Legal Sex Female 3:34 AM AUTOMOBILE SPRING REPAIRER Gender Identity Not on file Sexual Orientation [...] Comments Blood Pressure 130/70 06/29/2025 1:46 PM AUTOMOBILE SPRING REPAIRER Pulse 83 06/29/2025 1:46 PM AUTOMOBILE SPRING REPAIRER Temperature 36.6 C (97.8 F) 06/29/2025 1:46 PM AUTOMOBILE SPRING REPAIRER Respiratory Rate 20 06/29/2025 1:46 PM AUTOMOBILE SPRING REPAIRER Oxygen Saturation 99% 06/29/2025 1:46 PM AUTOMOBILE SPRING REPAIRER Inhaled Oxygen Concentration - - Weight 61.9 kg (136 lb 6.4 oz) 06/29/2025 1:46 P M AUTOMOBILE SPRING REPAIRER Height 165.1 cm (5' 5) 06/29/2025 1:46 PM AUTOMOBILE SPRING REPAIRER Body Mass Index 22.7 06/29/2025 1:46 PM AUTOMOBILE SPRING REPAIRER Plan of Treatment Health Maintenance Due Date [...] Procedure Name Priority Date/Time Associated Diagnosis Comments SCAN - RADIOLOGY/IMAGING 07/10/2025 EGD Routine 07/07/2025 2:13 PM AUTOMOBILE SPRING REPAIRER SCAN - RADIOLOGY/IMAGING 07/06/2025 CT ABDOMEN PELVIS W CONTRAST ED 06/22/2025 10:46 AM AUTOMOBILE SPRING REPAIRER URINALYSIS, MICROSCOPIC ONLY STAT 06/22/2025 9:52 AM AUTOMOBILE SPRING REPAIRER URINALYSIS AND REFLEX TO MICROSCOPIC AND CULTURE STAT 06/22/2025 9:52 AM AUTOMOBILE SPRING REPAIRER EGFR STAT 06/22/2025 9:46 AM AUTOMOBILE SPRING REPAIRER DIFFERENTIAL AUTO STAT 06/22/2025 9:4 6 AM AUTOMOBILE SPRING REPAIRER SEPSIS LACTATE WITH REFLEX STAT 06/22/2025 9:46 AM AUTOMOBILE SPRING REPAIRER LIPASE STAT 06/22/2025 9:46 AM AUTOMOBILE SPRING REPAIRER COMPREHENSIVE METABOLIC PANEL STAT 06/22/2025 9:46 AM AUTOMOBILE SPRING REPAIRER CBC WITH AUTO DIFFERENTIAL STAT 06/22/2025 9:46 AM AUTOMOBILE SPRING REPAIRER DIFFERENTIAL AUTO STAT 06/19/2025 6:0 3 AM AUTOMOBILE SPRING REPAIRER CBC WITH AUTO DIFFERENTIAL STAT 06/19/2025 6:03 AM AUTOMOBILE SPRING REPAIRER EGFR STAT 06/19/2025 5:18 AM AUTOMOBILE SPRING REPAIRER LIPASE STAT 06/19/2025 5:18 AM AUTOMOBILE SPRING REPAIRER THYROID FUNCTION CASCADE STAT 06/19/2025 5:18 AM AUTOMOBILE SPRING REPAIRER COMPREHENSIVE METABOLIC PANEL STAT 06/19/2025 5:18 AM AUTOMOBILE SPRING REPAIRER ECG 12-LEAD STAT 06/19/2025 4:57 AM AUTOMOBILE SPRING REPAIRER HOLTER MONITOR 48 HR Routine 06/12/2025 11:31 AM AUTOMOBILE SPRING REPAIRER Dizziness Palpitations TROPONIN T HIGH-SENSITIVITY 2-HOUR Timed 06/11/2025 12:15 AM AUTOMOBILE SPRING REPAIRER TROPONIN T HIGH-SENSITIVITY SERIES (BASELINE, 2HR, 4HR, 6HR) STAT 06/10/2025 9:56 [address]OMOBILE SPRING REPAIRER CT CHEST PE ABDOMEN PELVIS W CONTRAST ED 06/10/2025 8:35 PM AUTOMOBILE SPRING REPAIRER XR CHEST PA LATERAL 2 VIEWS ED 06/10/2025 6:42 PM AUTOMOBILE SPRING REPAIRER EGFR STAT 06/10/2025 6:27 PM AUTOMOBILE SPRING REPAIRER DIFFERENTIAL AUTO STAT 06/10/2025 6:2 7 PM AUTOMOBILE SPRING REPAIRER COMPREHENSIVE METABOLIC PANEL STAT 06/10/2025 6:27 PM AUTOMOBILE SPRING REPAIRER CBC WITH AUTO DIFFERENTIAL STAT 06/10/2025 6:27 PM AUTOMOBILE SPRING REPAIRER ECG 12-LEAD STAT 06/10/2025 6:11 PM AUTOMOBILE SPRING REPAIRER MRI ABDOMEN LIVER W WO CONTRAST Schedule Routine, Read Routine (OP Routine) 06/10/2025 7:46 AM AUTOMOBILE SPRING REPAIRER Advanced hepatic fibrosis Hepatic lesion EGFR Routine 06/10/2025 6:35 AM AUTOMOBILE SPRING REPAIRER Advanced hepatic fibrosis Chronic hepatitis C with cirrhosis (HCC) EGFR Routine 06/10/2025 6:35 AM AUTOMOBILE SPRING REPAIRER Advanced hepatic fibrosis Hepatic lesion DIFFERENTIAL AUTO Routine 06/10/2025 6:3 5 AM AUTOMOBILE SPRING REPAIRER Advanced hepatic fibrosis Hepatic lesion DIFFERENTIAL AUTO Routine 06/10/2025 6:3 5 AM AUTOMOBILE SPRING REPAIRER Advanced hepatic fibrosis Chronic hepatitis C with cirrhosis (HCC) CBC WITH AUTO DIFFERENTIAL Routine 06/10/2025 6:35 AM AUTOMOBILE SPRING REPAIRER Advanced hepatic fibrosis Hepatic lesion COMPREHENSIVE METABOLIC PANEL Routine 06/10/2025 6:35 AM AUTOMOBILE SPRING REPAIRER Advanced hepatic fibrosis Hepatic lesion [id number], TUMOR MARKER Routine 06/10/2025 6:35 AM AUTOMOBILE SPRING REPAIRER Advanced hepatic fibrosis Hepatic lesion PROTIME-INR Routine 06/10/2025 6:35 AM AUTOMOBILE SPRING REPAIRER Advanced hepatic fibrosis Hepatic lesion COMPREHENSIVE METABOLIC PANEL Routine 06/10/2025 6:35 AM AUTOMOBILE SPRING REPAIRER Advanced hepatic fibrosis Chronic hepatitis C with cirrhosis (HCC) CBC WITH AUTO DIFFERENTIAL Routine 06/10/2025 6:35 AM AUTOMOBILE SPRING REPAIRER Advanced hepatic fibrosis Chronic hepatitis C with cirrhosis (HCC) PROTIME-INR Routine 06/10/2025 6:35 AM AUTOMOBILE SPRING REPAIRER Advanced hepatic fibrosis Chronic hepatitis C with cirrhosis (HCC) EGFR STAT 06/05/2025 3:57 PM AUTOMOBILE SPRING REPAIRER TROPONIN T HIGH-SENSITIVITY SERIES (BASELINE, 2HR, 4HR, 6HR) Add-On 06/05/2025 3:57 PM AUTOMOBILE SPRING REPAIRER PHOSPHORUS Add-On 06/05/2025 3:57 PM AUTOMOBILE SPRING REPAIRER MAGNESIUM Add-On 06/05/2025 3:57 PM AUTOMOBILE SPRING REPAIRER LIPASE Add-On 06/05/2025 3:57 PM AUTOMOBILE SPRING REPAIRER DIFFERENTIAL AUTO STAT 06/05/2025 3:5 7 PM AUTOMOBILE SPRING REPAIRER COMPREHENSIVE METABOLIC PANEL STAT 06/05/2025 3:57 PM AUTOMOBILE SPRING REPAIRER CBC WITH AUTO DIFFERENTIAL STAT 06/05/2025 3:57 PM AUTOMOBILE SPRING REPAIRER EGFR Routine 05/28/2025 12:30 PM CDT Annual [...] at 2 o'clock position Breast pain, right COLONOSCOPY 11/10/2024 10:[address] LUNG CANCER SCREENING Schedule Routine, Read Routine (OP Routine) 06/21/2024 11:09 AM AUTOMOBILE SPRING REPAIRER Tobacco dependence Cigarette nicotine dependence, uncomplicated HEPATITIS C RNA, QUANTITATIVE, PCR Routine 09/13/2023 12:57 PM AUTOMOBILE SPRING REPAIRER Chronic hepatitis C without hepatic coma (HCC) PAP AND HIGH RISK HPV, REFLEX TO GENOTYPING Routine 04/21/2022 12:22 PM CDT Screening for malignant neoplasm of the cervix from Last 3 Months or Most Recently Relevant to Health Maintenance Results * SCAN - RADIOLOGY/IMAGING (07/10/2025) Anatomical Region Laterality Modality Other Kodak Bernard MD Final Res ult * (ABNORMAL) EGD -[facility] (07/07/2025 2:13 PM AUTOMOBILE SPRING REPAIRER) Anatomical Region Laterality Modality Other 07/07/2025 2:13 PM AUTOMOBILE SPRING REPAIRER Historical Provider GI PROCEDURE ORDERABLES F inal Result * SCAN - RADIOLOGY/IMAGING (07/06/2025) Anatomical Region Laterality Modality Other Provider Scanning Final Result * CT Abdomen Pelvis W Contrast (06/22/2025 10:46 AM AUTOMOBILE SPRING REPAIRER) Anatomical Region Laterality Modality Body N/A Computed Tomogra phy 06/22/2025 11:5 3 AM AUTOMOBILE SPRING REPAIRER Impressions 06/22/2025 11:53 AM AUTOMOBILE SPRING REPAIRER 1. No bowel obstruction. No free intraperitoneal [...] Cassi Martinez M.D. Narrative 06/22/2025 11:53 AM AUTOMOBILE SPRING REPAIRER EXAMINATION: CT ABDOMEN PELVIS W CONTRAST ORDERING [...] OTHER: Tiny fat-containing umbilical hernia. Procedure Note Cassi Martinez MD - 06/22/2025 EXAMINATION: CT ABDOMEN PELVIS [...] characterization. Electronically signed by: Cassi Martinez M.D. us Brit [facility] CT PROCEDURES Final Result * (ABNORMAL) Urinalysis reflex to microscopic and culture Urine (06/22/2025 9:52 AM AUTOMOBILE SPRING REPAIRER) Color, ur Yellow Yellow Clarity, ur Clear [...] tendency for uric acid stone formation. Source: [facility] Current Interpretive Data was last revised on 2017 Protein, ur ql Negative Negative [facility] ([place]) Glucose, ur ql Negative Negative [facility] ([place]) Ketones, ur 2+(A) Negative [facility] ([place]) Bilirubin, ur Negative Negative [facility] ([place]) Blood, ur Trace(A) Negative [facility] ([place]) Urobilinogen, ur <2.0 <2.0 mg/dL [facility] ([place]) Nitrite, ur Negative Negative [facility] ([place]) Leukocyte esterase, ur Negative Negative [facility] ([place]) UA reflex comment Reflex to microscopic UA will be performed. [facility] ([place]) Urine 06/22/2025 9:52 AM AUTOMOBILE SPRING REPAIRER 06/22/2025 9:58 AM AUTOMOBILE SPRING REPAIRER us Brit [facility] MICROBIOLOGY - GENERAL ORDE LIT Final Result [facility] ([place]) 1 [facility] [place] [address] * (ABNORMAL) Urinalysis, microscopic only (06/22/2025 9:52 AM AUTOMOBILE SPRING REPAIRER) Pathologist [facility] WBC, ur 0-5 0 - 5 /HPF RBC, ur 0-2 0 - 2 /HPF [facility] ([place]) Epithelial cells, squamous, ur 1-5 0 - 5 /HPF [facility] ([place]) Mucous, ur Present(A) [facility] ([place]) Culture Reflex Comment Reflex conditions for urine culture (WBC >10) not met. [facility] ([place]) Urine 06/22/2025 9:52 AM AUTOMOBILE SPRING REPAIRER 06/22/2025 9:58 AM AUTOMOBILE SPRING REPAIRER Brit [facility] URINE ORDERABLES Final Resu lt [facility] ([place]) 1 [facility] [employer] [place] [address] * Sepsis Lactate w/ Reflex (06/22/2025 9:46 AM AUTOMOBILE SPRING REPAIRER) Pathologist [facility] Sepsis Lactate 1.3 0.7 - 2.0 mmol/L Blood 06/22/2025 9:46 AM AUTOMOBILE SPRING REPAIRER 06/22/2025 9:48 AM AUTOMOBILE SPRING REPAIRER Brit [facility] BLOOD ORDERABLES Final Resu lt [facility] ([place]) [address] [facility] [place] [address] * eGFR (06/22/2025 9:46 AM AUTOMOBILE SPRING REPAIRER) Pathologist [facility] eGFR >90 >=60 mL/min/1. 73 m2 Comment: [...] last reviewed 2021. Blood 06/22/2025 9:46 AM AUTOMOBILE SPRING REPAIRER 06/22/2025 9:48 AM AUTOMOBILE SPRING REPAIRER us Brit [facility] BLOOD ORDERABLES Final Resu lt [facility] ([place]) 1 [facility] [place] [address] * Differential, auto (06/22/2025 9:46 AM AUTOMOBILE SPRING REPAIRER) Neutrophil abs 3.87 1.50 - 6.50 K/cumm Imm gran abs 0.02 0.00 - 0.10 K/cumm [facility] ([place]) Lymphocyte abs 2.59 0.80 - 3.30 K/cumm [...] revised on 2017. Blood 06/22/2025 9:46 AM AUTOMOBILE SPRING REPAIRER 06/22/2025 9:48 AM AUTOMOBILE SPRING REPAIRER us Brit [facility] BLOOD ORDERABLES Final Resu lt [facility] ([place]) 1 [facility] Department of Laboratories [place], [place] [id number] * CBC with auto differential (06/22/2025 9:46 AM AUTOMOBILE SPRING REPAIRER) WBC 7.04 3.80 - 9.90 K/cumm Hgb [...] RDW CV 11.9 11.1 - 14.9 % [facility] ([place]) RDW SD 39.5 35.7 - 48.1 fL [facility] ([place]) NRBC abs 0.00 0.00 - 0.01 K/cumm [facility] ([place]) Blood 06/22/2025 9:46 AM AUTOMOBILE SPRING REPAIRER 06/22/2025 9:48 AM AUTOMOBILE SPRING REPAIRER Brit [employer] PA LAB BLOOD ORDERABLES Final Resu lt Performing Organization Address City/[facility]/ZIP Co de Phone Number [facility] ([place]) [address] [facility] [place] [address] * Lipase (06/22/2025 9:46 AM AUTOMOBILE SPRING REPAIRER) [facility] Lipase 48 10 - 99 Units/L Blood 06/22/2025 9:46 AM AUTOMOBILE SPRING REPAIRER 06/22/2025 9:48 AM AUTOMOBILE SPRING REPAIRER Brit [employer] PA LAB BLOOD ORDERABLES Final Resu lt Performing Organization Address [facility] de Phone Number [facility] ([place]) 1 [facility] [place] [address] * (ABNORMAL) Comprehensive metabolic panel (06/22/2025 9:46 AM AUTOMOBILE SPRING REPAIRER) [facility] Sodium 135 135 - 145 mmol/L Potassium, pl 3.9 3.3 - 4.9 mmol/L [facility] ([place]) Chloride 99 97 - 110 mmol/L [facility] [facility] ([facility]) CO2 20(L) 22 - 32 mmol/L [facility] ([place]) Anion gap 16(H) 2 - 15 mmol/L [facility] ([place]) BUN 8 6 - 25 mg/dL [facility] ([place]) Creatinine 0.70 0.60 - 1.10 mg/dL [facility] Glucose 99 70 - 199 mg/dL [facility] ([place]) Comment: Interpretive Data Fasting glucose [...] may be affected. Blood 06/22/2025 9:46 AM AUTOMOBILE SPRING REPAIRER 06/22/2025 9:48 AM AUTOMOBILE SPRING REPAIRER us Brit INMAN LAB BLOOD ORDERABLES Final Resu lt SHAUNA PAGE (DANIEL) 1 [facility] [place] [address] * Differential, auto (06/19/2025 6:03 AM AUTOMOBILE SPRING REPAIRER) Neutrophil abs 3.48 1.50 - 6.50 K/cumm Imm gran abs 0.01 0.00 - 0.10 K/cumm [facility] Lymphocyte abs 1.91 0.80 - 3.30 K/cumm [facility] Monocyte abs 0.49 0.20 - 0.80 K/cumm [facility] Eosinophil abs 0.09 0.00 - 0.50 K/cumm [facility] Basophil abs 0.07 0.00 - 0.10 K/cumm [facility] Neutrophil pct 57.4 % [facility] Comment: Interpretive Data Percent cell count reference ranges are not reported, since discordance with absolute values may lead to misinterpretation of CBC data. Current Interpretive Data was last revised on 2017. Imm gran pct 0.2 % [facility] Comment: Interpretive Data Percent cell count reference ranges are not reported, since discordance with absolute values may lead to misinterpretation of CBC data. Current Interpretive Data was last revised on 2017. Lymphocyte pct 31.6 % [facility] Comment: Interpretive Data Percent cell count reference ranges are not reported, since discordance with absolute values may lead to misinterpretation of CBC data. Current Interpretive Data was last revised on 2017. Monocyte pct 8.1 % [facility] Comment: Interpretive Data Percent cell count reference ranges are not reported, since discordance with absolute values may lead to misinterpretation of CBC data. Current Interpretive Data was last revised on 2017. Eosinophil pct 1.5 % [facility] Comment: Interpretive Data Percent cell [...] revised on 2017. Blood 06/19/2025 6:03 AM AUTOMOBILE SPRING REPAIRER 06/19/2025 6:21 AM AUTOMOBILE SPRING REPAIRER Naresh Green MD LAB BLOOD ORDERABLES Final Result [facility] [address] Department [place] [address] * CBC with auto differential (06/19/2025 6:03 AM AUTOMOBILE SPRING REPAIRER) WBC 6.05 3.80 - 9.90 K/cumm Hgb 13.4 11.9 - 15.5 g/dL [facility] Hct 38.3 35.6 - 45.5 % [facility] Plt 170 150 - 400 K/cumm [facility] MPV 10.5 9.1 - 12.3 fL [facility] RBC 4.20 3.90 - 5.20 M/cumm [facility] MCV 91.2 81.3 - 96.4 fL [facility] MCH 31.9 27.1 - 33.3 pg [facility] MCHC 35.0 32.3 - 35.7 g/dL [facility] RDW CV 11.9 11.1 - 14.9 % SHAUNA RDW SD 40.3 35.7 - 48.1 fL [facility] NRBC abs 0.00 0.00 - 0.01 K/cumm [facility] Blood Venous blood specimen / Unknown 06/19/2025 6:03 AM AUTOMOBILE SPRING REPAIRER 06/19/2025 6:21 AM AUTOMOBILE SPRING REPAIRER Naresh Green MD LAB BLOOD ORDERABLES Final Result SH[facility]NA [address] Department [place] [address] * eGFR (06/19/2025 5:18 AM AUTOMOBILE SPRING REPAIRER) eGFR >90 >=60 mL/min/1. 73 m2 Comment: [...] of Race in Diagnosing Kidney Disease, JASN 202). The CKD-EPI equation should not be used for patients with unstable renal function and has not been validated in children and those over 70. Current interpretive data was last reviewed 2021. Blood 06/19/2025 5:18 AM AUTOMOBILE SPRING REPAIRER 06/19/2025 5:24 AM AUTOMOBILE SPRING REPAIRER us Jocelin Pink MD LAB BLOOD ORDERA BLES Final Result Performing Organization Address [facility] Co de Phone Number SHAUNA CUEVAS [address] [address] [facility] [place] [address] * Thyroid Function [place] (06/19/2025 5:18 AM AUTOMOBILE SPRING REPAIRER) [facility] TSH 2.36 0.30 - 4.20 mcIUnit/mL Blood 06/19/2025 5:18 AM AUTOMOBILE SPRING REPAIRER 06/19/2025 5:24 AM AUTOMOBILE SPRING REPAIRER Jocelin Pink MD LAB BLOOD ORDERA BLES Final Result Performing Organization Address [facility] de Phone Number SHAUNA CUEVAS [address] [address] [facility] [place] [address] * Lipase (06/19/2025 5:18 AM AUTOMOBILE SPRING REPAIRER) [facility] Lipase 67 10 - 99 Units/L Comment:Hemolyzed sample, re sult may be falsely decreased Blood Venous blood specimen / Unknown 06/19/2025 5:18 AM AUTOMOBILE SPRING REPAIRER 06/19/2025 5:24 AM AUTOMOBILE SPRING REPAIRER Jocelin Pink MD LAB BLOOD ORDERA BLES Final Result Performing Organization Address [facility] de Phone Number SHAUNA CUEVAS [address] [address] [facility] [place] [address] * (ABNORMAL) Comprehensive metabolic panel (06/19/2025 5:18 AM AUTOMOBILE SPRING REPAIRER) Pathologist [facility] Sodium 135 135 - 145 mmol/L Potassium, [...] may be affected. Blood 06/19/2025 5:18 AM AUTOMOBILE SPRING REPAIRER 06/19/2025 5:24 AM AUTOMOBILE SPRING REPAIRER Jocelin Pink MD LAB BLOOD ORDERA BLES Final Result [facility] [address] [facility] Department [place] [address] * ECG 12 lead (06/19/2025 4:57 AM AUTOMOBILE SPRING REPAIRER) 06/19/2025 4:57 AM AUTOMOBILE SPRING REPAIRER Narrative [facility] - 06/19/2025 12:47 PM AUTOMOBILE SPRING REPAIRER Vent Rate: 79 bpm RR Interval: 755 msec MS Interval: 124 msec QRS Duration: 78 msec QT Interval: 346 msec QTC Interval: 381 msec P-R-T [place]: 60 - 21 - 52 degrees IMPRESSION: SINUS RHYTHM LOW QRS VOLTAGE IN PRECORDIAL LEADS Electronically Signed By: Garcia Francis MD, [facility] Jocelin Pink MD ECG ORDERABLES Final Result [facility] * 48 HR Holter Monitor (06/12/2025 11:31 AM AUTOMOBILE SPRING REPAIRER) Anatomical Region Laterality Modality Electrocardiogra phy 06/12/2025 11:4 2 AM AUTOMOBILE SPRING REPAIRER Narrative 06/21/2025 12:36 PM AUTOMOBILE SPRING REPAIRER [address] [address] HOLTER MONITOR Patient Name: GIOVANA ALVARADO R : 1965 Study Date: 06/12/2025 11:42:12 AM Sex: F Tech: Ref Provider: JOE GONZALEZ Height(Cm): BSA: Weight(Kg): Order Provider: JOE GONZALEZ PROCEDURES: Holter Report: Holter Monitor Report. INDICATIONS: R42 Dizziness and giddiness and R00.2 Palpitations. FINDINGS: Protocol: Recording Duration (Ordered): [id number] Number of Diary entries 2025-06-12 11:42:12 CONCLUSIONS: [...] By: Dr Cody Richard 06/21/2025 12:29:52 PM AUTOMOBILE SPRING REPAIRER Procedure Note Cody Richard MD - 06/21/[address] [address] HOLTER MONITOR Patient Name: GIOVANA ALVARADO R : 1965 Study Date: 06/12/2025 11:42:12 AM Sex: F Tech: Ref Provider: JOE GONZALEZ Height(Cm): BSA: Weight(Kg): Order Provider: JOE GONZALEZ PROCEDURES: Holter Report: Holter Monitor Report. INDICATIONS: R42 Dizziness and giddiness and R00.2 Palpitations. FINDINGS: Protocol: Recording Duration (Ordered): [id number] Number of Diary entries 2025-06-12 11:42:12 CONCLUSIONS: [...] By: Dr Cody Richard 06/21/2025 12:29:52 PM AUTOMOBILE SPRING REPAIRER Joe [employer] CAR RACER CV CARDIAC SERVICES PROCEDURE S Final Result * Troponin T high-sensitivity 2-hour (06/11/2025 12:15 AM AUTOMOBILE SPRING REPAIRER) Trop T hs <6 <=14 ng/L Comment: Interpretive Data For further hscTnT resources including the diagnostic algorithm and an aid in interpretation, copy and paste this link: [email or web address].testcatFlip Flop Shops.org/show/hsTrop Current Interpretive Data last revised 2020. Trop T hs delta 0 ng/L [facility] ([place]) Trop T hs interp Insignificant [facility] ([place]) Blood 06/11/2025 12:1 5 AM AUTOMOBILE SPRING REPAIRER 06/11/2025 12:29 AM AUTOMOBILE SPRING REPAIRER Luz Maria INMAN LAB BLOOD ORDERABLES Destinee l Result Performing Organization Address City/[facility]/ZIP Co de Phone Number SHAUNA [facility] ([place]) [address] [place] [address] [place] [address] * Troponin T high-sensitivity series (baseline, 2hr, 4hr, 6hr) (06/10/2025 9:56 PM AUTOMOBILE SPRING REPAIRER) Trop T hs <6 <=14 ng/L Comment: Interpretive Data For further hscTnT resources including the diagnostic algorithm and an aid in interpretation, copy and paste this link: https://nrl.testSyCara Local.org/show/hsTrop Current Interpretive Data last revised 2020. Blood 06/10/2025 9:56 PM AUTOMOBILE SPRING REPAIRER 06/10/2025 9:59 PM AUTOMOBILE SPRING REPAIRER Luz Maria INMAN LAB BLOOD ORDERABLES Destinee l Result SH[facility]NA PAGE ([place]) 1 [facility] [employer] [place], [place] [address] * CT Chest PE (CTA) Abdomen Pelvis W Contrast (06/10/2025 8:35 PM AUTOMOBILE SPRING REPAIRER) Anatomical Region Laterality Modality Body N/A Computed Tomogra phy 06/10/2025 9:56 PM AUTOMOBILE SPRING REPAIRER Impressions 06/10/2025 9:56 PM AUTOMOBILE SPRING REPAIRER 1. No evidence of pulmonary embolism. 2. [...] Vic Morris M.D. Narrative 06/10/2025 9:56 PM AUTOMOBILE SPRING REPAIRER EXAMINATION: CT CHEST PE (CTA) ABDOMEN PELVIS [...] tomorrow. Electronically signed by: Vic Morris M.D. [employer] INMAN IMG CT PROCEDURE S Final Result * XR Chest PA Lateral 2 Views (If patient hemodynamically stable and ambulatory) (06/10/2025 6:42 PM AUTOMOBILE SPRING REPAIRER) Anatomical Region Laterality Modality Body, Chest N/A Computed Radiogr aphy 06/10/2025 6:48 PM AUTOMOBILE SPRING REPAIRER Impressions 06/10/2025 6:48 PM AUTOMOBILE SPRING REPAIRER 1. No acute findings or infiltrate. Electronically signed by: Vic Morris M.D. Narrative 06/10/2025 6:48 PM AUTOMOBILE SPRING REPAIRER EXAMINATION: XR CHEST PA LATERAL 2 VIEWS [...] Resu lt * eGFR (06/10/2025 6:27 PM AUTOMOBILE SPRING REPAIRER) eGFR 90 >=60 mL/min/1. 73 m2 Comment: [...] last reviewed 2021. Blood 06/10/2025 6:27 PM AUTOMOBILE SPRING REPAIRER 06/10/2025 6:30 PM AUTOMOBILE SPRING REPAIRER Skyler Post MD LAB BLOOD ORDERABLES Final R esult SH[facility] 1 [facility] Department of Laboratories [place], [place] [id number] * (ABNORMAL) Differential, auto (06/10/2025 6:27 PM AUTOMOBILE SPRING REPAIRER) Neutrophil abs 3.50 1.50 - 6.50 K/cumm Imm gran abs 0.01 0.00 - 0.10 K/cumm [facility] ([place]) Lymphocyte abs 4.28(H) 0.80 - [...] revised on 2017. Blood 06/10/2025 6:27 PM AUTOMOBILE SPRING REPAIRER 06/10/2025 6:30 PM AUTOMOBILE SPRING REPAIRER us Skyler Post MD LAB BLOOD ORDERABLES Final R esult SHAUNA PAGE ([place]) 1 [facility] [place] [address] * (ABNORMAL) CBC with auto differential (06/10/2025 6:27 PM AUTOMOBILE SPRING REPAIRER) [facility] WBC 8.60 3.80 - 9.90 K/cumm Hgb [...] blood specimen / Unknown 06/10/2025 6:27 PM AUTOMOBILE SPRING REPAIRER 06/10/2025 6:30 PM AUTOMOBILE SPRING REPAIRER Skyler Post MD LAB BLOOD ORDERABLES Final R esult [facility] ([place]) 1 [facility] [place] [address] * (ABNORMAL) Comprehensive metabolic panel (06/10/2025 6:27 PM AUTOMOBILE SPRING REPAIRER) [facility] Sodium 135 135 - 145 mmol/L Potassium, [...] may be affected. Blood 06/10/2025 6:27 PM AUTOMOBILE SPRING REPAIRER 06/10/2025 6:30 PM AUTOMOBILE SPRING REPAIRER us Skyler Post MD LAB BLOOD ORDERABLES Final R esult [facility] ([place]) 1 [facility] [place] [address] * ECG 12 lead (06/10/2025 6:11 PM AUTOMOBILE SPRING REPAIRER) 06/10/2025 6:11 PM AUTOMOBILE SPRING REPAIRER Narrative [facility] - 06/11/2025 10:12 AM AUTOMOBILE SPRING REPAIRER Vent Rate: 98 bpm RR Interval: 612 msec MS Interval: 141 msec QRS Duration: 85 msec QT Interval: 340 msec QTC Interval: 395 msec P-R-T [place]: 69 - 18 - 56 degrees IMPRESSION: SINUS RHYTHM MODERATE ST DEPRESSION [0.05+ mV ST DEPRESSION] ABNORMAL ECG No change compared to prior EKG Electronically Signed By: Otto Miller MD us Skyler Post MD ECG ORDERABLES Final Result [facility] * MRI Abdomen Liver W WO Contrast (06/10/2025 7:46 AM AUTOMOBILE SPRING REPAIRER) Anatomical Region Laterality Modality Body N/A Magnetic Resonan ce 06/11/2025 11:2 4 AM AUTOMOBILE SPRING REPAIRER Impressions 06/11/2025 11:24 AM AUTOMOBILE SPRING REPAIRER The small hypervascular lesion in the right hepatic lobe identified previously is not clearly visualized today. A 6 month follow-up examination is recommended to evaluate for change. Electronically signed by: Christine Rivas MD Narrative 06/11/2025 11:24 AM AUTOMOBILE SPRING REPAIRER EXAMINATION: MAGNETIC RESONANCE IMAGING OF THE ABDOMEN [...] change. Electronically signed by: Christine Rivas MD [facility] CAR RACER IMG MRI PROCEDURES Final Result * eGFR (06/10/2025 6:35 AM AUTOMOBILE SPRING REPAIRER) eGFR 87 >=60 mL/min/1. 73 m2 Comment: [...] last reviewed 2021. Blood 06/10/2025 6:35 AM AUTOMOBILE SPRING REPAIRER 06/10/2025 7:56 AM AUTOMOBILE SPRING REPAIRER us Meryl Harman CAR RACER LAB BLOOD ORDERABLES Fin al Result SHAUNA PAGE ([place]) [address] [facility] [place] [address] * eGFR (06/10/2025 6:35 AM AUTOMOBILE SPRING REPAIRER) eGFR 89 >=60 mL/min/1. 73 m2 Comment: [...] last reviewed 2021. Blood 06/10/2025 6:35 AM AUTOMOBILE SPRING REPAIRER 06/10/2025 7:56 AM AUTOMOBILE SPRING REPAIRER us [facility] CAR RACER LAB BLOOD ORDERABLE S Final Result SHAUNA PAGE ([place]) 1 [facility] Department [place] [address] * Differential, auto (06/10/2025 6:35 AM AUTOMOBILE SPRING REPAIRER) Neutrophil abs 3.20 1.50 - 6.50 K/cumm [...] 2017. Monocyte pct 7.3 % [facility] ([place]) Comment: Interpretive Data Percent cell count reference [...] revised on 2017. Blood 06/10/2025 6:35 AM AUTOMOBILE SPRING REPAIRER 06/10/2025 7:56 AM AUTOMOBILE SPRING REPAIRER us [facility] Hogan CAR RACER LAB BLOOD ORDERABLE S Final Result SHAUNA PAGE ([place]) 1 [facility] [place] [address] * Differential, auto (06/10/2025 6:35 AM AUTOMOBILE SPRING REPAIRER) Neutrophil abs 3.17 1.50 - 6.50 K/cumm Imm gran abs 0.01 0.00 - 0.10 K/cumm [facility] ([place]) Lymphocyte abs 3.12 0.80 - 3.30 K/cumm [facility] ([place]) Monocyte abs 0.52 0.20 - 0.80 K/cumm [facility] ([place]) Eosinophil abs 0.16 0.00 - 0.50 K/cumm [facility] ([place]) Basophil abs 0.08 0.00 - 0.10 K/cumm [facility] ([place]) Neutrophil pct 44.9 % [facility] ([place]) Comment: Interpretive Data Percent cell count reference ranges are not reported, since discordance with absolute values may lead to misinterpretation of CBC data. Current Interpretive Data was last revised on 2017. Imm gran pct 0.1 % [facility] ([place]) Comment: Interpretive Data Percent cell count reference ranges are not reported, since discordance with absolute values may lead to misinterpretation of CBC data. Current Interpretive Data was last revised on 2017. Lymphocyte pct 44.2 % [facility] ([place]) Comment: Interpretive Data Percent cell count reference [...] revised on 2017. Blood 06/10/2025 6:35 AM AUTOMOBILE SPRING REPAIRER 06/10/2025 7:56 AM AUTOMOBILE SPRING REPAIRER Meryl Harman CAR RACER LAB BLOOD ORDERABLES Fin al Result [facility] ([place]) [address] [facility] [place] [address] * (ABNORMAL) CBC with auto differential (06/10/2025 6:35 AM AUTOMOBILE SPRING REPAIRER) WBC 6.96 3.80 - 9.90 K/cumm Hgb 16.2(H) 11.9 - 15.5 g/dL [facility] ([place]) Hct 45.7(H) 35.6 - 45.5 % [...] [facility] ([place]) Blood 06/10/2025 6:35 AM AUTOMOBILE SPRING REPAIRER 06/10/2025 7:56 AM AUTOMOBILE SPRING REPAIRER [facility] [employer] CAR RACER LAB BLOOD ORDERABLE S Final Result [facility] ([place]) 1 [facility] [place] [address] * (ABNORMAL) CBC with auto differential (06/10/2025 6:35 AM AUTOMOBILE SPRING REPAIRER) WBC 7.06 3.80 - 9.90 K/cumm Hgb [...] 14.9 % [facility] ([place]) RDW SD 40.0 35.7 - 48.1 fL [facility] ([place]) NRBC abs 0.00 0.00 - 0.01 K/cumm [facility] ([place]) Blood 06/10/2025 6:35 AM AUTOMOBILE SPRING REPAIRER 06/10/2025 7:56 AM AUTOMOBILE SPRING REPAIRER Narrative [facility] ([place]) - 06/10/2025 7:59 AM AUTOMOBILE SPRING REPAIRER Giovana, Please take these orders to any lab to be completed in May . If you do not use a [place] lab, please call [phone] when you complete the lab with the name of the lab so we can obtain results. Please fax results to [phone] call [phone] with any questions. Meryl Harman CAR RACER LAB BLOOD ORDERABLES Fin al Result SHAUNA LAZARO) 1 [facility] [place] [address] * [id number], Tumor Marker (06/10/2025 6:35 AM AUTOMOBILE SPRING REPAIRER) alpha Fetoprotein 2.3 <=8.3 ng/mL Comment: Interpretive [...] >1 year 0.0 8.3 ng/ml References Yamileth Hdez. et al. J. Ped Surg 1978;13:155-156 Jennifer Jha. et al. Clin Chem Lab Med 2018;57:783-797 Daniel Byers et al. Clin Chem 2014;2874-1380. Current interpretive data was last revised 2022. Testing performed by: [facility], [address] [facility], [place]., [address] Blood 06/10/2025 6:35 AM AUTOMOBILE SPRING REPAIRER 06/10/2025 10:16 AM AUTOMOBILE SPRING REPAIRER [facility] CAR RACER LAB BLOOD ORDERABLE S Final Result SHAUNA PAGE ([place]) 1 [facility] [place] [address] * Protime-INR (06/10/2025 6:35 AM AUTOMOBILE SPRING REPAIRER) PT 12.2 10.2 - 13.5 sec SHAUNA PAGE ([place]) INR 1.08 0.90 - 1.20 SHAUNA PAGE ([place]) Comment: Interpretive data Oral anticoagulant therapeutic ranges: Venous thromboembolism prophylaxis or treatment: 2.0-3.0 CARDIOLOGY Standard range: 2.0-3.0 High-intensity range: 2.5-3.5 Refer to indication-specific guidelines for appropriate target ranges for prosthetic heart valve replacement. Current interpretive data was last revised on 2019. Blood 06/10/2025 6:35 AM AUTOMOBILE SPRING REPAIRER 06/10/2025 7:56 AM AUTOMOBILE SPRING REPAIRER [facility] CAR RACER LAB BLOOD ORDERABLE S Final Result Performing Organization Address City/[facility]/ZIP Co de Phone Number SHAUNA PAGE ([place]) 1 [facility] [place] [address] * Protime-INR (06/10/2025 6:35 AM AUTOMOBILE SPRING REPAIRER) PT 12.1 10.2 - 13.5 sec SHAUNA PAGE ([place]) INR 1.07 0.90 - 1.20 SHAUNA [facility]O ([place]) Comment: Interpretive data Oral anticoagulant therapeutic ranges: Venous thromboembolism prophylaxis or treatment: 2.0-3.0 CARDIOLOGY Standard range: 2.0-3.0 High-intensity range: 2.5-3.5 Refer to indication-specific guidelines for appropriate target ranges for prosthetic heart valve replacement. Current interpretive data was last revised on 2019. Blood 06/10/2025 6:35 AM AUTOMOBILE SPRING REPAIRER 06/10/2025 7:56 AM AUTOMOBILE SPRING REPAIRER Narrative SHAUNA PAGE ([place]) - 06/10/2025 8:09 AM AUTOMOBILE SPRING REPAIRER Giovana, Please take these orders to any lab to be completed in May . If you do not use a [place] lab, please call [phone] when you complete the lab with the name of the lab so we can obtain results. Please fax results to [phone] call [phone] with any questions. us Meryl Harman CAR RACER LAB BLOOD ORDERABLES Fin al Result Performing Organization Address City/[facility]/ZIP Co de Phone Number SHAUNA PAGE ([place]) 1 [facility] Department [place] [address] * Comprehensive metabolic panel (06/10/2025 6:35 AM AUTOMOBILE SPRING REPAIRER) Sodium 139 135 - 145 mmol/L Potassium, pl 3.6 3.3 - 4.9 mmol/L [facility] ([place]) Chloride 105 97 - 110 mmol/L [facility] ([place]) CO2 22 22 - 32 mmol/L [facility] ([place]) Anion gap 12 2 - 15 mmol/L [facility] ([place]) BUN 6 6 - 25 mg/dL [facility] ([place]) Creatinine 0.76 0.60 - 1.10 mg/dL [facility] ([place]) Glucose 93 70 - 199 mg/dL [facility] ([place]) [...] [facility] ([place]) Blood 06/10/2025 6:35 AM AUTOMOBILE SPRING REPAIRER 06/10/2025 7:56 AM AUTOMOBILE SPRING REPAIRER us [facility] CAR RACER LAB BLOOD ORDERABLE S Final Result [facility] ([place]) 1 [facility] [place] [address] * (ABNORMAL) Comprehensive metabolic panel (06/10/2025 6:35 AM AUTOMOBILE SPRING REPAIRER) Sodium 139 135 - 145 mmol/L Potassium, [...] [facility] ([place]) Blood 06/10/2025 6:35 AM AUTOMOBILE SPRING REPAIRER 06/10/2025 7:56 AM AUTOMOBILE SPRING REPAIRER Narrative [facility] ([place]) - 06/10/2025 8:25 AM AUTOMOBILE SPRING REPAIRER Giovana, Please take these orders to any lab to be completed in May . If you do not use a [place] lab, please call [phone] when you complete the lab with the name of the lab so we can obtain results. Please fax results to [phone] call [phone] with any questions. us Meryl Harman NP LAB BLOOD ORDERABLES Fin al Result Performing Organization Address [facility]/ZIP Co de Phone Number SHAUNA PAGE ([place]) 1 [facility] [place] [address] * Troponin T high-sensitivity series (baseline, 2hr, 4hr, 6hr) (06/05/2025 3:57 PM AUTOMOBILE SPRING REPAIRER) Trop T hs 7 <=14 ng/L Comment: Interpretive Data For further hscTnT resources including the diagnostic algorithm and an aid in interpretation, copy and paste this link: https://nrl.testcatalog.org/show/hsTrop Current Interpretive Data last revised 2020. Blood 06/05/2025 3:57 PM AUTOMOBILE SPRING REPAIRER 06/05/2025 4:09 PM AUTOMOBILE SPRING REPAIRER us Richard Centeno PA LAB BLOOD ORDERABLES Final Result Performing Organization Address [facility] Co de Phone Number SHAUNA PAGE ([place]) [address] [facility] [place] [address] * eGFR (06/05/2025 3:57 PM AUTOMOBILE SPRING REPAIRER) eGFR 90 >=60 mL/min/1. 73 m2 Comment: [...] last reviewed 2021. Blood 06/05/2025 3:57 PM AUTOMOBILE SPRING REPAIRER 06/05/2025 4:00 PM AUTOMOBILE SPRING REPAIRER us Crispin Eli MD LAB BLOOD ORDERABLES Final Result [facility] ([place]) 1 [facility] [place] [address] * Differential, auto (06/05/2025 3:57 PM AUTOMOBILE SPRING REPAIRER) Neutrophil abs 4.01 1.50 - 6.50 K/cumm Imm gran abs 0.01 0.00 - 0.10 K/cumm [facility] ([place]) Lymphocyte abs 2.82 0.80 - 3.30 K/cumm [facility] ([place]) Monocyte abs 0.57 0.20 - 0.80 K/cumm [...] revised on 2017. Blood 06/05/2025 3:57 PM AUTOMOBILE SPRING REPAIRER 06/05/2025 4:00 PM AUTOMOBILE SPRING REPAIRER us Crispin Eli MD LAB BLOOD ORDERABLES Final Result [facility] ([place]) 1 [facility] [place] [address] * (ABNORMAL) CBC with auto differential (06/05/2025 3:57 PM AUTOMOBILE SPRING REPAIRER) WBC 7.58 3.80 - 9.90 K/cumm Hgb [...] 37.9 35.7 - 48.1 fL [facility] ([place]) NRBC abs 0.00 0.00 - 0.01 K/cumm [facility] ([place]) Blood 06/05/2025 3:57 PM AUTOMOBILE SPRING REPAIRER 06/05/2025 4:00 PM AUTOMOBILE SPRING REPAIRER Crispin Eli MD LAB BLOOD ORDERABLES Final Result SHAUNA PAGE ([place]) 1 [facility] [place] [address] * Phosphorus (06/05/2025 3:57 PM AUTOMOBILE SPRING REPAIRER) Phosphorus, pl 2.4 2.3 - 4.5 mg/dL Blood 06/05/2025 3:57 PM AUTOMOBILE SPRING REPAIRER 06/05/2025 4:09 PM AUTOMOBILE SPRING REPAIRER Richard INAMN LAB BLOOD ORDERABLES Final Result Performing Organization Address City/[facility]/ZIP Co de Phone Number [facility] ([place]) 1 [facility] [place] [address] * Magnesium (06/05/2025 3:57 PM AUTOMOBILE SPRING REPAIRER) Magnesium 2.0 1.4 - 2.5 mg/dL Blood 06/05/2025 3:57 PM AUTOMOBILE SPRING REPAIRER 06/05/2025 4:09 PM AUTOMOBILE SPRING REPAIRER Richard INMAN LAB BLOOD ORDERABLES Final Result SHAUNA PAGE ([place]) 1 [facility] [place] [address] * Lipase (06/05/2025 3:57 PM AUTOMOBILE SPRING REPAIRER) Lipase 75 10 - 99 Units/L Blood 06/05/2025 3:57 PM AUTOMOBILE SPRING REPAIRER 06/05/2025 4:09 PM AUTOMOBILE SPRING REPAIRER Richard INMAN LAB BLOOD ORDERABLES Final Result [facility] ([place]) 1 [facility] [place] [address] * (ABNORMAL) Comprehensive metabolic panel (06/05/2025 3:57 PM AUTOMOBILE SPRING REPAIRER) Sodium 134(L) 135 - 145 mmol/L Potassium, pl 3.5 3.3 - 4.9 mmol/L [facility] ([place]) Chloride 100 97 - 110 mmol/L [facility] ([place]) CO2 21(L) 22 - 32 mmol/L [facility] ([place]) Anion gap 13 2 - 15 mmol/L [facility] ([place]) BUN 7 6 - 25 mg/dL [facility] ([place]) Creatinine 0.75 0.60 - 1.10 mg/dL [facility] ([place]) Glucose 98 70 - 199 mg/dL [facility] ([place]) [...] [facility] ([place]) Blood 06/05/2025 3:57 PM AUTOMOBILE SPRING REPAIRER 06/05/2025 4:00 PM AUTOMOBILE SPRING REPAIRER us Crispin Eli MD LAB BLOOD ORDERABLES Final Result Performing Organization Address City/[facility] Co de Phone Number SHAUNA PAGE ([place]) 1 [facility] [place] [address] * eGFR (05/28/2025 12:30 PM CDT) Pathologist [facility] eGFR >90 >=60 mL/min/1. 73 m2 Comment: [...] Combs NP LAB BLOOD ORDERABLES Final Result Performing Organization Address City/[facility]/ZIP Co de Phone Number SHAUNA PAGE ([place]) [address] [facility] [place] [address] * Differential, auto (05/28/2025 12:30 PM CDT) [...] 05/28/2025 1:13 PM CDT us Padmini Combs CAR RACER LAB BLOOD ORDERABLES Final Result [facility] ([place]) [address] [place] [address] * CBC with auto differential (05/28/2025 12:30 PM CDT) Pathologist [facility] WBC 7.20 3.80 - 9.90 K/cumm Hgb 13.9 11.9 - 15.5 g/dL [facility] ([place]) Hct 38.9 35.6 - 45.5 % [facility] ([place]) Plt 199 150 - 400 K/cumm [facility] ([place]) MPV 10.3 9.1 - 12.3 fL [facility] ([place]) RBC 4.28 3.90 - 5.20 M/cumm [facility] ([place]) MCV 90.9 81.3 - 96.4 fL [facility] ([place]) MCH 32.5 27.1 - 33.3 pg [facility] ([place]) MCHC 35.7 32.3 - 35.7 g/dL [facility] ([place]) RDW CV 12.2 11.1 - 14.9 % [facility] ([place]) RDW SD 40.7 35.7 - 48.1 fL [facility] NRBC abs 0.00 0.00 - 0.01 K/cumm [facility] ([place]) Blood 05/28/2025 12:3 0 PM CDT 05/28/2025 1:13 PM CDT Padmini Combs NP LAB BLOOD ORDERABLES Final Result [facility] ([place]) 1 [facility] [place] [address] * Vitamin D 25 hydroxy (05/28/2025 12:30 PM CDT) Pathologist [facility] Vitamin D 25-OH 35 30 - 80 ng/mL Blood 05/28/2025 12:3 0 PM CDT 05/28/2025 1:13 PM CDT Padmini W. Combs CAR RACER LAB BLOOD ORDERABLES Final Result SHAUNA PAGE ([place]) 1 [facility] [place] [address] * (ABNORMAL) Lipid panel (05/28/2025 12:30 PM [...] on 2018. Triglycerides 158(H) <=149 mg/dL SHAUNA PAGE ([place]ANIEL) Comment: Interpretive Data [...] NCEP Expert Panel. Circulation 2004;110:227 3. Agusto Kuhn et al. JEANINE Cardiol. 2019November 27;5(5):540-548. doi: 10.1001/jamacardio.2020.0013 Current Interpretive Data was [...] last revised on 2018. Chol/HDL ratio 7 KATELYN PAGE ([place]ANIEL) Blood 05/28/2025 12:3 0 PM CDT 05/28/2025 1:13 PM CDT us Padmini Combs NP LAB BLOOD ORDERABLES Final Result SHAUNA PAGE ([place]) 1 [facility] [place] [address] * Comprehensive metabolic panel (05/28/2025 12:30 PM CDT) Sodium 136 135 - 145 mmol/L Potassium, pl 3.9 3.3 - 4.9 mmol/L [facility] ([place]) Chloride 102 97 - 110 mmol/L [facility] ([place]) CO2 22 22 - 32 mmol/L [facility] ([place]) Anion gap 12 2 - 15 mmol/L [facility] ([place]) BUN 10 6 - 25 mg/dL [facility] ([place]) Creatinine 0.72 0.60 - 1.10 mg/dL [facility] ([place]) Glucose 83 70 - 199 mg/dL [facility] ([place]) [...] 05/28/2025 1:13 PM CDT us Padmini Combs CAR RACER LAB BLOOD ORDERABLES Final Result [facility] ([place]) 1 [facility] [place] [address] * eGFR (05/19/2025 1:36 PM CDT) eGFR [...] was last reviewed 2021. Testing performed by: [facility], [address] [place] [address]., [address] Blood 05/19/2025 1:36 PM CDT 05/19/2025 8:13 PM CDT Kodak Bernard MD LAB BLOOD ORDERABLES Destinee l Result SHAUNA [place]) 1 [facility] [place] [address] * Renal function panel (05/19/2025 1:36 PM CDT) Sodium 135 135 - 145 mmol/L Comment:Testing performed by : [facility], [address] [place] [address]., [address] Potassium, pl 4.4 3.3 - 4.9 mmol/L SHAUNA PAGE ([place]EL) Comment:Testing performed by : [facility], [address] [place] [address]., [address] Chloride 99 97 - 110 mmol/L [facility] ([place]) Comment:Testing performed by : [facility], [address] [place] [address]., [address] CO2 22 22 - 32 mmol/L [facility] ([place]) Comment:Testing performed by : [address] [address] Anion gap 14 2 - 15 mmol/L [facility] ([place]) Comment:Testing performed by : [address], [address] BUN 9 6 - 25 mg/dL [facility] ([place]) Comment:Testing performed by : [address], [address] Creatinine 0.73 0.60 - 1.10 mg/dL [facility] ([place]) Comment:Testing performed by : [address], [address] Glucose 90 70 - 199 mg/dL CERNER [...] was last revised 2022. Testing performed by: [facility], [address] [place] [address], [address] Calcium 10.2 8.5 - 10.3 mg/dL [facility] ([place]) Comment:Testing performed by : [address] [address] Phosphorus, pl 4.4 2.3 - 4.5 mg/dL [facility] ([place]) Comment:Testing performed by : [address], [address] Albumin 4.4 3.5 - 5.0 g/dL [facility] ([place]) Comment:Testing performed by : [address], [address] Blood 05/19/2025 1:36 PM CDT 05/19/2025 7:37 PM CDT Kodak Bernard MD LAB BLOOD ORDERABLES Destinee l Result Performing Organization Address [facility] Co de Phone Number SHAUNA PAGE ([place]) [address] [facility] [place] [address] * Troponin T high-sensitivity 2-hour (05/13/2025 10:42 PM CDT) Trop T hs <6 <=14 ng/L Comment: Interpretive Data For further hscTnT resources including the diagnostic algorithm and an aid in interpretation, copy and paste this link: https://nrl.testcatalog.org/show/hsTrop Current Interpretive Data last revised 2020. Trop T hs delta 0 ng/L [facility] ([place]) Trop T hs interp Insignificant [facility] ([place]) Blood 05/13/2025 10:4 2 PM CDT 05/13/2025 10:48 PM CDT Moisés Arana MD LAB BLOOD ORDERABLES Final Res ult Performing Organization Address [facility] Co de Phone Number SHAUNA PAGE ([place]) 1 [facility] [place] [address] * XR Chest 1 Vw Portable (If [...] Electronically signed by Alberto Hill M.D. LB: LB Report ID: [id number] Reading Location: [place] [address] Procedure Note Alberto Hill MD - 05/13/2025 [...] Electronically signed by Alberto Hill M.D. LB: LB Report ID: [id number] Reading Location: [place] [address] Malena Annmarie Bliss MD IMG XR PROCEDURES Final Result [...] LAB BLOOD ORDERABLES Fi nal Result SHAUNA PAGE ([place]) 1 [facility] [employer] [place] [address] * eGFR (05/13/2025 8:57 PM CDT) eGFR [...] ORDERABLES Fi nal Result Performing Organization Address City/[facility]/ZIP Co de Phone Number SHAUNA PAGE ([place]) [address] [facility] [place] [address] * (ABNORMAL) Differential, auto (05/13/2025 8:57 PM CDT) Neutrophil abs 2.99 1.50 - 6.50 K/cumm Imm gran abs 0.01 0.00 - 0.10 K/cumm SHAUNA PAGE ([place]) Lymphocyte abs 3.46(H) 0.80 - 3.30 K/cumm [...] Fi nal Result [facility] ([place]) 1 [facility] [place] [address] * (ABNORMAL) CBC with auto differential (05/13/2025 8:57 PM CDT) Pathologist [facility] WBC 7.17 3.80 - 9.90 K/cumm Hgb 14.0 11.9 - 15.5 g/dL [facility] ([place]) Hct 39.1 35.6 - 45.5 % [facility] ([place]) Plt 227 150 - 400 K/cumm [facility] ([place]) MPV 10.0 9.1 - 12.3 fL [facility] ([place]) RBC 4.34 3.90 - 5.20 M/cumm CERNER [...] LAB BLOOD ORDERABLES Fi nal Result SHAUNA PAGE ([place]) 1 [facility] [place] [address] * (ABNORMAL) Comprehensive metabolic panel (05/13/2025 8:57 PM CDT) Pathologist [facility] Sodium 135 135 - 145 mmol/L Potassium, pl 2.9(C) 3.3 - 4.9 mmol/L [facility] ([place]) Comment:Critical Result call ed by [id number] at 2025-05-13 21:45:54. Result Read Back by [...] CDT 05/13/2025 9:08 PM CDT us Malena Bilss MD LAB BLOOD ORDERABLES Fi nal Result [facility] ([place]) 1 [facility] [place] [address] * ECG 12 lead (05/13/2025 8:50 PM CDT) 05/13/2025 8:50 PM CDT Narrative [facility] - 05/14/2025 9:52 AM CDT Vent Rate: 75 bpm RR Interval: 800 msec MS Interval: 157 msec QRS Duration: 76 msec QT Interval: 354 msec QTC Interval: 382 msec P-R-T [place]: 57 - 14 - 37 degrees IMPRESSION: SINUS RHYTHM LOW QRS VOLTAGE IN PRECORDIAL LEADS [QRS DEFLECTION < 1.0 mV IN CHEST LEADS] BORDERLINE ECG No change compared to prior EKG Electronically Signed By: Otto Miller MD [facility] us Malena Bliss MD ECG ORDERABLES Final R esult [facility] * US Breast Bilateral Limited (04/24/2025 9:36 [...] was sonographically interrogated. No sonographic abnormalities appreciated. us Annmarie Santiago MD IMG MAMMO PROCEDURES Final [...] was sonographically interrogated. No sonographic abnormalities appreciated. us Annmarie Santiago MD IMG MAMMO PROCEDURES Final Result * Colonoscopy (11/10/2024 10:55 AM CDT) Anatomical Region Laterality Modality Other Narrative Procedure Note Tesfaye Glaser MD - 11/10/2024 10:55 AM CDT [facility] Patient Name: Giovana Alvarado Procedure Date: 11/10/2024 10:55 AM Date of : 1965 Admit Type: Outpatient Age: 59 Gender: Female Attending MD: Tesfaye Glaser M.D. Room: [facility] ENDOSCOPY ROOM 1 Note Status: Finalized Patient [...] under direct vision. The Pediatric Colonoscope [id number]-[id number] was introducedthrough the anus and advanced to [...] Electronically signed by Tesfaye Glaser M.D. Tesfaye Glaesr M.D. 11/10/2024 12:15:41 PM Number of Addenda: 0 Note Initiated On: 11/10/2024 10:55 AM Procedure Code(s): --- Professional --- 20695, Colonoscopy, flexible; diagnostic, including collection of specimen(s) by brushing or washing, when performed (separateprocedure) Diagnosis Code(s): --- Professional --- Z86.010, Personal history of colonic polyps K64.8, Other hemorrhoids CPT copyright 2020 [employer]. All rights reserved. The codes documented in this report are preliminary and upon process expert reviewmay be revised to meet current compliance requirements. Recognized by the [employer] for promoting quality in endoscopy Tesfaye Glaser MD ENDOSCOPY PROCEDURES Final Result * CT Lung Cancer Screening (06/21/2024 11:09 AM AUTOMOBILE SPRING REPAIRER) Anatomical Region Laterality Modality Chest N/A Computed Tomogra phy 06/26/2024 9:55 AM AUTOMOBILE SPRING REPAIRER Narrative 06/26/2024 10:07 AM AUTOMOBILE SPRING REPAIRER EXAM DESCRIPTION: CT LUNG CANCER SCREENING REASON [...] 10:07 AM - Electronically signed by Emerson NAJERA: DANIA Report ID: [id number] Reading Location: [id number] Procedure Note Alan Mercado MD - 06/26/2024 [...] 10:07 AM - Electronically signed by Emerson NAJERA: DANIA Report ID: [id number] Reading Location: [id number] Padmini Combs CAR RACER IMG CT PROCEDURES Final Re sult * Hepatitis C (HCV) RNA PCR, quantitative Blood (09/13/2023 12:57 PM AUTOMOBILE SPRING REPAIRER) HCV RNA result Not Detected SAUMYA NELSON CAMILO ([place]ANIEL) Comment: The quantifiable range of this assay is 15 IU/mL to 100,000,000 IU/mL (1.18 log IU/mL to 8.00 log IU/mL). Testing was performed by the [facility] 6800 HCV Test ([employer] Testing performed at [facility] Current Interpretive Data was last revised on 2021 Testing performed by: [facility], [address] [place]., [address] Blood 09/13/2023 12:5 7 PM AUTOMOBILE SPRING REPAIRER 09/13/2023 8:07 PM AUTOMOBILE SPRING REPAIRER Narrative GIANFRANCOMEETA CAMILO ([place]ANIEL) - 09/14/2023 11:36 AM AUTOMOBILE SPRING REPAIRER Please collect to confirm SVR Meryl Harman CAR RACER LAB MICROBIOLOGY - [facility] ORDERABLES Final Result SHAUNA CAMILO ([place]) 1 [facility] [place] [address] * Pap and High Risk HPV, reflex to Genotyping (04/21/2022 12:22 PM CDT) Thin prep (Pap test) 04/21/2022 12:22 PM CDT 04/21/2022 12:22 PM CDT Narrative PATHOLOGY CH - 04/25/2022 2:54 PM CDT [facility] Department of [facility]ology [address] [place] [id number] Final Report with Addendum Note to Patients: [...] and explain the details. Patient Name: GIOVANA ORTEGADamaris Address: [address] [place] [address] Gender: F : 1965 (Age: 57) Service: Laboratory Location: Lab Hospital #: [id number] Patient Type: Linda Lab Taken: 04/21/2022 Received: 04/21/2022 Accessioned:: 04/24/2022 [...] Electronically Reviewed and Signed Out By EDUARDO Espinosa(ASC) 04/25/2022 08:54:29 Specimen(s) Received: A: SCREENING THIN [...] determined by the Surgical Pathology Department at [facility] as part of an ongoing chemistry quality control analyst program and in compliance with federally mandated [...] characteristics determined by the Surgical Pathology Department [facility]. It has not been cleared or approved by the U. S. Food and Drug Administration. Annmarie Santiago MD LAB CYTOLOGY ORDERABL ES Final Result PATHOLOGY [address] [place] [address] from Last 3 Months or Most Recently Relevant to Health Maintenance Insurance [facility] [place] [employer] [place] [place]O Address: [address] [address] [place] [id number] [facility] [place] [employer] [place] [employer] Address: [address] [place] [address] Advance Directives For more information, please contact: [phone] * Full Code (Latest Code Status on [...] 7:06 AM 11/02/2020 1:08 PM Care Teams Senior Tableau Developer Relationship Specialty Start Date End Date [place] [address] PCP - General Family Medicine 08/13/18 Kaiser Hogan NP [address] [place] [address] [place] [address] Nurse Practitioner Gastroenterology 06/29/25
--- OUTSIDE RECORDS SUMMARY | 2025-07-21 14:08 | XMS_ITS | Encounter Summary ---
Author Organization [facility] Address [address] [place] [address] Phone Care Team Providers Care Sustainability Project Coordinator Name Role Phone Kodak Bernard MD Primary Care Provider [phone] Encounter Details Date Type Department Care Team (Late st Contact Info) Description 08/17/2020 Transcribe Orders [facility] Preop/Pacu II [address] [place] [phone] Terry Ortiz DPM [address] [place] [phone] Pre-op testing (Primary Dx) Social History Tobacco [...] COVID-19? No / Unsure 08/17/2020 11:46 AM TECHNOLOGY AND ENGINEERING TEACHER documented as of this encounter Plan of Treatment Scheduled Orders Name Type Priority Associated Diagnoses Orde r Schedule SARS-COV-2 BY MOLECULAR Microbiology Routine Pre-op testing Expected: 08/24/2020, Expires: 11/15/2020 documented as of this encounter Visit Diagnoses Diagnosis Pre-op testing- Primary Preoperative examination, unspecified documented in this encounter Care Teams Sustainability Project Coordinator Relationship Specialty Start Date End Date Kodak Bernard MD [address] [place] [address] PCP - General Internal Medicine 08/16/20 documented as of this encounter
--- OUTSIDE RECORDS SUMMARY | 2025-07-21 14:08 | XMS_ITS | Encounter Summary ---
Author Organization [facility] Address [address] [place] [address] Phone Care Team Providers Care Director [place] Name Role Phone Kodak Bernard MD Primary Care Provider [phone] Reason for Referral * Radiology Services (Routine) - Closed Specialty Diagnoses / Procedures Referred By Kurt marie Referred To Contact Radiology Diagnoses Pre-op testing Procedures EKG 12 LEAD Alan Sauceda DO [address] [place] [address] Phone: tel: fax: Referral ID Status Reason Start Date Expiration Date Visits Re quested Visits Authorized [id number] Closed 08/18/2020 1 1 FIC OR SYSTEM DISPATCHER Encounter Details Date Type Department Care Team (Late st Contact Info) Description 08/18/2020 [facility] 1 [place] [phone] Alan Sauceda DO [address] [place] [address] Pre-op testing (Primary Dx) Social History Tobacco [...] COVID-19? No / Unsure 08/17/2020 11:46 AM TRAFFIC OR SYSTEM DISPATCHER documented as of this encounter Plan of Treatment Scheduled Orders Name Type Priority Associated Diagnoses Orde r Schedule HEMOGLOBIN & HEMATOCRIT (H&H) Lab Routine Pre-op testing Expected: 08/24/2020, Expires: 11/16/2020 EKG 12 LEAD ECG Routine Pre-op testing Expected: 08/24/2020, Expires: 11/16/2020 documented as of this encounter Visit Diagnoses Diagnosis Pre-op testing- Primary Preoperative examination, unspecified documented in this encounter Care Teams Director [place] Relationship Specialty Start Date End Date Kodak Bernard MD [address] [place] [address] PCP - General Internal Medicine 08/16/20 documented as of this encounter
--- OUTSIDE RECORDS SUMMARY | 2025-07-21 14:08 | XMS_ITS | Encounter Summary ---
Author Organization [facility] Address [address] [place] [address] Phone Care Team Providers Care Ball Worker Name Role Phone Kodak Bernard MD Primary Care Provider [phone] Reason for Referral * Radiology Services (Routine) - Closed Specialty Diagnoses / Procedures Referred By Kurt marie Referred To Contact Radiology Diagnoses Pre-op testing Procedures EKG 12 LEAD Alan Sauceda DO [address] [place] [address] Phone: tel: fax: Referral ID Status Reason Start Date Expiration Date Visits Re quested Visits Authorized [id number] Closed 11/12/2020 1 1 Encounter Details Date Type Department Care Team (Late st Contact Info) Description 11/12/[address] [facility] [address] [place] [phone] Alan Sauceda DO [address] [place] [address] Pre-op testing (Primary Dx) Social History Tobacco [...] QTC CALCULATION 404 ms EXTERNAL EKG P [place] 78 degrees EXTERNAL EKG R [place] 68 degrees EXTERNAL EKG T [place] 70 degrees EXTERNAL EKG 11/16/2020 4:24 PM CDT Impressions EXTERNAL EKG - 11/17/2020 10:00 AM CDT Sinus rhythm Comparison Summary: No serial comparison made Summary: Borderline ECG Confirmed by Yue Price [id number] on 11/17/2020 10:00:27 AM Narrative Procedure Note Mattie Turner MD - 11/17/2020 IMPRESSION: Sinus rhythm Comparison Summary: No serial comparison made Summary: Borderline ECG Confirmed by Yue Price [id number] on 11/17/2020 10:00:27 AM us Alan Sauceda DO IMG ECG ORDERABLES Final Result EXTERNAL EKG * HEMOGLOBIN & HEMATOCRIT (H&H) (11/16/2020 4:09 PM CDT) HEMOGLOBIN (HGB) 15.1 12.0 - 15.8 g/dL 11/16/2020 4:50 PM CDT [facility] HEMATOCRIT (HCT) 43.3 36.0 - 47.0 % 11/16/2020 4:50 PM CDT [facility] Blood Venipuncture / Unknown 11/16/2020 4:09 PM CDT 11/16/2020 4:42 PM CDT us Alan Sauceda DO HEMATOLOGY ORDERABL ES Final Result [facility] [address] [place] [address] documented in this encounter Visit Diagnoses Diagnosis Pre-op testing- Primary Preoperative examination, unspecified Pre-op testing Preoperative examination, unspecified documented in this encounter Care Teams Ball Worker Relationship Specialty Start Date End Date [place] [address] PCP - General Internal Medicine 08/16/20 documented as of this encounter
[2025-07-21 14:21] LABS: Hematocrit 38.2 % (37.0-47.0); Hemoglobin 13.0 g/dL (12.0-15.0); Mean Corpuscular HGB Conc 34.0 g/dl (32-36); Mean Corpuscular Hemoglobin 31.9 pg (26-34); Mean Corpuscular Volume 93.9 fl (80-100); Platelet Count Result 226 k/mm3 (150-375); Red Blood Count 4.07 M/mm3 (4.2-5.4); White Blood Count 6.7 K/mm3 (4.5-10.0)
[2025-07-21 14:33] LABS: Alanine Aminotransferase 16 U/L (6-35); Albumin Level 4.3 g/dL (3.5-5.1); Alkaline Phosphatase 55 U/L (38-126); Anion Gap 8 mmol/L (4-12); Aspartate Amino Transferase 27 U/L (14-36); Bilirubin,Total 0.5 mg/dL (0.2-1.3); Blood Urea Nitrogen 5 mg/dL (7-17); Calcium 9.3 mg/dL (8.4-10.2); Carbon Dioxide 25 mmol/L (22-30); Chloride 108 mmol/L (98-107); Estimated Glomerular Filt Rate > 60; Glucose 115 mg/dL (65-110); Potassium 3.3 mmol/L (3.4-5.0); Sodium 141 mmol/L (137-145); Total Protein 7.7 g/dL (6.3-8.2)
== END 2025-07-21 14:03 | disposition home or self-care (01) ==
LOC: ANHLAB 14:05
PROVIDERS: PCP Family Medicine; Visit Provider Nurse Practitioner Family
DX: K74.60 Unspecified cirrhosis of liver (principal); R11.2 Nausea with vomiting, unspecified; R10.9 Unspecified abdominal pain
CPT/HCPCS: 36415; 80053; 85027; 86803; 87522